=== PATIENT | male | born 1935 | race Caucasian/White ===

== ENCOUNTER → 2017-10-26 14:41 | Outpatient (CLI) | payer MEDICARE, OTHER, SELFPAY ==
--- NOTE | 2017-10-26 | DI.RAD.S_ITS ---
PROCEDURE: XR THORACIC SPINE 2V INDICATIONS: BACK PAIN TECHNIQUE: 3 views of the thoracic spine were acquired. COMPARISON: [facility], CT, ABDOMEN/PELVIS WITH CONTRAST, 04/14/2015, 1:45. [facility], CR, XR LUMBAR SPINE 2-3V, 10/26/2017, 14:47. [facility], CR, THORACIC SPINE 3 VIEWS, 11/03/2006, 10:21. FINDINGS: Bones: No fractures or dislocations. No suspicious bony lesions. Diffuse endplate spurring versus syndesmophyte formation, not well visualized. Diffuse cervical discogenic changes. Soft tissues: No paravertebral stripe thickening. IMPRESSION: Diffuse degenerative changes, not well visualized due to body habitus. Possible syndesmophyte formation raising possibility of ankylosing spondylitis although recommend clinical and laboratory correlation Dictated by: Soy Mosley M.D. on 10/26/2017 at 16:11 Approved by: Soy Mosley M.D. on 10/26/2017 at 16:15
--- NOTE | 2017-10-26 | DI.RAD.S_ITS ---
PROCEDURE: XR LUMBAR SPINE 2-3V INDICATIONS: LOW BACK PAIN TECHNIQUE: 3 views of the lumbar spine were acquired. COMPARISON: [facility], MR, L-SPINE WITHOUT CONTRAST, 05/17/2015, 18:17. FINDINGS: Bones: No fracture or focal osseous destruction. Mild anterior wedging of the L1 vertebral body. This findings technically age-indeterminate. Mild narrowing of L4-L5 and L5-S1 disc spaces diffuse facet arthropathy, most pronounced at L4-S1. There is mild lateral curvature. Sacroiliac joints are not well-visualized although further assessment with cross-sectional imaging could be performed as clinically warranted. Moderate bilateral hip degeneration. Soft tissues: Overlying bowel gas pattern is normal. No suspicious soft tissue calcifications. Scattered aortic calcifications. IMPRESSION: Mild L1 compression fracture, technically age-indeterminate. Please correlate clinically. Lower lumbar degenerative disc disease and diffuse facet arthropathy. Poorly visualized sacroiliac joints which may be partially fused, possibly reflecting sequela of ankylosing spondylitis. Please correlate clinically and with laboratory data. Further assessment with MRI or CT could be performed as clinically warranted. Limited evaluation given body habitus. Dictated by: Soy Mosley M.D. on 10/26/2017 at 16:15 Approved by: Soy Mosley M.D. on 10/26/2017 at 16:18
== END ==
PROVIDERS: Family Provider Internal Medicine; PCP Internal Medicine; Visit Provider Internal Medicine
DX: M54.5 Low back pain (principal)
CPT/HCPCS: 72070; 72100

== ENCOUNTER → 2017-11-02 10:34 | Outpatient (CLI) | payer MEDICARE, OTHER, SELFPAY ==
[2017-11-02 12:08] LABS: BUN Creatinine Ratio 20.7 (6-22); Blood Urea Nitrogen 31 mg/dL (9-20); Carbon Dioxide 31 mmol/L (22-32); Chloride 104 mmol/L (98-107); Glucose 163 mg/dL (80-110); HEMOLYSIS < 15 (0-50); Potassium 4.5 mmol/L (3.4-5.1); Sodium 144 mmol/L (137-145)
[2017-11-02 12:15] LABS: Add Manual Diff / Slide Review NO; Basophils Percent Auto 0.7 % (0-2); Eosinophils Percent Auto 2.8 % (2-4); Hematocrit 42.5 % (41-53); Hemoglobin 14.1 g/dL (13.5-17.5); Mean Corpuscular HGB Conc 33.3 % (30-36); Mean Corpuscular Hemoglobin 28.3 PG (26-34); Mean Corpuscular Volume 85.1 fL (80-100); Neutrophils Absolute Auto 3100 /uL (3000-5900); Neutrophils Percent Auto 64.5 % (50-75); Platelet Count 156 X10^3/uL (150-400); White Blood Cell Count 4.8 X10^3/uL (4.5-11.0)
== END ==
PROVIDERS: Family Provider Internal Medicine; PCP Internal Medicine; Visit Provider Internal Medicine
DX: E11.9 Type 2 diabetes mellitus without complications (principal); N18.3 Chronic kidney disease, stage 3 (moderate)
CPT/HCPCS: 36415; 80048; 83036; 85025

== ENCOUNTER 2017-11-21 13:27 | Inpatient (IN) | payer MEDICARE, OTHER, SELFPAY ==
[2017-11-21] VITALS (12 sets, daily range): BP systolic 98–214; BP diastolic 45–148; PULSE 66–91; RESP 16–27; TEMP 36.3–37.7; O2SAT 87–97; BMI 39.3; BMI 38.4
--- NOTE | 2017-11-21 14:54 | ED.NAVMDI ---
HPI - Nausea/Vomiting/Diarrhea <Kika Yanes PA-C - Last Filed: 11/21/17 21:20> General Chief complaint: Nausea/Vomiting/Diarrhea Stated complaint: N/V Time Seen by Provider: 11/21/17 14:54 Source: patient and family Mode of arrival: EMS Limitations: no limitations History of Present Illness HPI Narrative: Patient comes in via EMS today, called by his son. Patient reported that he had nausea and an episode of vomiting about midnight. He slept until 6:00 a.m., and his son went and found him sleeping in a chair at home. Son states that is not unusual, however states his dad has been ?different? all day today. He noticed that his dad was having some trouble finding words, perhaps very minimal slurred speech. He states this is not particularly unusual for him, however he was more disoriented to the point that he did know the month, which is unusual. Son states that he also seemed weak all over his body and was having more trouble using his walker. No focal weakness noted. No facial weakness. Son states that at lunchtime around noon, patient began vomiting again, multiple episodes, then eyes rolled back and he passed out for a couple of minutes. Son states that when patient came to, he seemed confused for 5 min or more. Son did notice perhaps some slight blood in the later episodes of emesis. He states that his father was slumped in the chair any had to hold him up. He does state that his father's balance is poor at baseline and he is doing therapy for this. He tends to list over to the left side. He was also coughing when he came to, but son does not think he aspirated anything. He states that dad seems closer to baseline now, but still not quite normal in terms of mentation and strength. He notes that his dad has been yawning all day as well. Damián reports that he had a very mild headache last night and currently. He does not note any weakness himself. He denies any chest pain or dyspnea. He denies any abdominal pain but still feels some mild nausea and has had some episodes of vomiting since arrival and in the ambulance. He denies any bowel changes or urinary symptoms. He ate normally yesterday. Related Data Home Medications Medication Instructions Recorded Confirmed atorvastatin 40 mg QPM 11/21/17 11/21/17 clonidine HCl 0.1 mg QAM AND QHS 11/21/17 11/21/17 eplerenone 12.5 mg QAM 11/21/17 11/21/17 escitalopram oxalate 20 mg QAM 11/21/17 11/21/17 ferrous sulfate 325 mg QAM 11/21/17 11/21/17 furosemide 20 mg QAM 11/21/17 11/21/17 glimepiride 1 mg QAM 11/21/17 11/21/17 losartan 50 mg QAM 11/21/17 11/21/17 oxybutynin chloride 10 mg QPM 11/21/17 11/21/17 tamsulosin 0.8 mg QPM 11/21/17 11/21/17 warfarin 2 mg QAM 11/21/17 11/21/17 Allergies Allergy/AdvReac Type Severity Reaction Status Date / Time BCG (Bacillus Allergy Unknown cancer drug Verified 11/21/17 20:49 Calmette-Lico) vacc [From BCG NATALIA VACCINE] Review of Systems <Kika Yanes PA-C - Last Filed: 11/21/17 21:20> Review of Systems All systems reviewed & are unremarkable except as noted in HPI and below Exam <Kika Yanes PA-C - Last Filed: 11/21/17 21:20> Narrative Exam Narrative: GENERAL APPEARANCE: Patient sitting comfortably, in no distress. HEENT: PERRL, EOMI, no scleral icterus, normal oropharynx NECK: Supple, no masses LUNGS: Clear to auscultation bilaterally. HEART: Rate and rhythm irregular with low pitch IV/ murmur ABDOMEN: Soft, obese, nontender, nondistended, bowel sounds present x 4 quadrants, no masses palpable, no hepatosplenomegaly. EXTREMITIES: Trace symmetric pitting edema with venous stasis skin changes, no cyanosis. Ft are warm and pink, no palpable pedal pulses. No calf tenderness DERMATOLOGIC: No jaundice or exanthem NEUROLOGIC: Alert, cranial nerves III-XII grossly intact. Speech and coordination appear normal. Able to maintain position of all extremities without pronator drift RECTAL: Brown stool in vault guaiac-negative Initial Vital Signs Initial Vital Signs: Vital Signs Temperature 99.0 F 11/21/17 13:27 Pulse Rate 76 11/21/17 13:27 Respiratory Rate 16 11/21/17 13:27 Blood Pressure 149/68 H 11/21/17 13:27 Pulse Oximetry 87 L 11/21/17 13:27 <Lucas Browne DO - Last Filed: 11/23/17 07:17> Initial Vital Signs Initial Vital Signs: Vital Signs Temperature 99.0 F 11/21/17 13:27 Pulse Rate 76 11/21/17 13:27 Respiratory Rate 16 11/21/17 13:27 Blood Pressure 149/68 H 11/21/17 13:27 Pulse Oximetry 87 L 11/21/17 13:27 Course <Kika Yanes PA-C - Last Filed: 11/21/17 21:20> Hospital Course: Spoke with Dr. Cassidy. Initially patient was resting comfortably and plan was to admit him for observation for left lower lobe pneumonia. After patient was awakened, he began to have some rigors, coughing with difficulty bringing up sputum, and some hemoptysis. Lungs were clear previously but now had clear left-sided crackles. He had desaturations into the 80% range on 4 L. He was placed on a mask, secretions gently suctioned by nursing, oxygen increased and saturations stabilized in the mid to upper 90s consistently. He did briefly desaturate again when more aggressive suctioning was attempted by Respiratory therapy and he did have more hemoptysis at that time. Suctioning was discontinued. Abnormal blood gas was reviewed and Dr. Browne advised repeat in 45-60 minutes which has been ordered. Advised starting antibiotic. We agree it is more appropriate for patient to be in ICU. Dr. Cassidy was called and informed of these new findings. Blood gas was reviewed. Repeat H&H was ordered due to the hemoptysis. He is agreeable with transferring patient to unit. Currently he is comfortable with oxygen saturations in the mid to upper 90% range on 4 L nasal cannula Orders Ordered: ED Orders 11/23/17 05:32 Basic Metabolic Panel Routine Complete Blood Count AUTO DIFF Routine Prothrombin Time INR Routine Acetaminophen (Tylenol) 650 mg PO Q6H PRN PRN Reason: As Needed for Fever/Mild Pain Last Admin: 11/22/17 17:58 Dose: 650 mg Al Hydrox/Mg Hydrox/Simethicone (Maalox Plus) 30 ml PO Q6H PRN PRN Reason: Dyspepsia Albuterol (Ventolin) 2.5 mg INH RTBID [facility] Last Admin: 11/22/17 19:42 Dose: 2.5 mg Atorvastatin Calcium (Lipitor) 40 mg PO BEDTIME [facility] Last Admin: 11/22/17 20:27 Dose: 40 mg Clonidine HCl (Catapres) 0.1 mg PO BID [facility] Last Admin: 11/22/17 20:28 Dose: 0.1 mg Admin: 11/22/17 09:09 Dose: 0.1 mg Admin: 11/21/17 22:17 Dose: 0.1 mg Dextrose (D50w) 25 gm IV PRN PRN; Protocol PRN Reason: Hypoglycemia Eplerenone (Inspra) 12.5 mg PO DAILY [facility] Last Admin: 11/22/17 09:09 Dose: 12.5 mg Admin: 11/21/17 22:17 Dose: Escitalopram Oxalate (Lexapro) 20 mg PO DAILY [facility] Last Admin: 11/22/17 09:09 Dose: 20 mg Admin: 11/21/17 22:18 Dose: 20 mg Furosemide (Lasix) 20 mg PO DAILY [facility] Last Admin: 11/22/17 09:08 Dose: 20 mg Admin: 11/21/17 22:18 Dose: 20 mg Glimepiride (Amaryl) 1 mg PO DAILY [facility] Last Admin: 11/22/17 09:08 Dose: 1 mg Admin: 11/21/17 22:18 Dose: Ceftriaxone Sodium/Dextrose (Rocephin) 1 gm in 50 mls @ 100 mls/hr IV Q24H [facility] Last Admin: 11/22/17 22:04 Dose: 100 mls/hr Azithromycin 250 mg/ Dextrose 250 mls @ 250 mls/hr IV Q24H [facility] Last Infusion: 11/22/17 22:13 Dose: 0 mls/hr Admin: 11/22/17 20:26 Dose: 250 mls/hr Insulin Aspart (Novolog Flexpen) 0 unit SUBCUT ACHS [facility]; Protocol Last Admin: 11/22/17 20:44 Dose: Not Given Admin: 11/22/17 17:59 Dose: Not Given Admin: 11/22/17 14:03 Dose: Not Given Losartan Potassium (Cozaar) 50 mg PO DAILY [facility] Last Admin: 11/22/17 09:09 Dose: 50 mg Admin: 11/21/17 22:18 Dose: 50 mg Ondansetron HCl (Zofran) 4 mg IV Q8H PRN PRN Reason: Nausea And Vomiting Tamsulosin HCl (Flomax) 0.8 mg PO BEDTIME [facility] Last Admin: 11/22/17 21:07 Dose: 0.8 mg Warfarin Sodium (Coumadin) 2 mg PO QPM [facility] Last Admin: 11/21/17 22:19 Dose: Discontinued Medications Atorvastatin Calcium (Lipitor) 40 mg PO QPM [facility] Last Admin: 11/22/17 20:53 Dose: Ceftriaxone Sodium/Dextrose (Rocephin) 1 gm in 50 mls @ 100 mls/hr IV NOW ONE Stop: 11/21/17 19:49 Last Infusion: 11/21/17 20:50 Dose: 0 mls/hr Admin: 11/21/17 20:09 Dose: 100 mls/hr Azithromycin 500 mg/ Dextrose 250 mls @ 250 mls/hr IV NOW ONE Stop: 11/21/17 19:21 Last Infusion: 11/21/17 21:48 Dose: 0 mls/hr Admin: 11/21/17 20:50 Dose: 250 mls/hr Sodium Chloride (Normal Saline 0.9%) 1,000 mls @ 100 mls/hr IV CONT [facility] Last Admin: 11/22/17 09:12 Dose: 100 mls/hr Infusion: 11/22/17 09:12 Dose: 100 mls/hr Admin: 11/21/17 23:48 Dose: 100 mls/hr Tamsulosin HCl (Flomax) 0.8 mg PO QPM [facility] Last Admin: 11/22/17 20:53 Dose: Tamsulosin HCl (Flomax) 0.4 mg PO BEDTIME [facility] Vital Signs - 8 hr 11/22/17 23:40 11/23/17 00:30 11/23/17 04:22 Temperature 98.5 F 98.7 F Pulse Rate 67 68 Respiratory Rate 16 16 Blood Pressure 123/62 H 146/71 H Pulse Oximetry 92 93 95 <Lucas Browne, DO - Last Filed: 11/23/17 07:17> Orders Ordered: ED Orders 11/23/17 05:32 Basic Metabolic Panel Routine Complete Blood Count AUTO DIFF Routine Prothrombin Time INR Routine Acetaminophen (Tylenol) 650 mg PO Q6H PRN PRN Reason: As Needed for Fever/Mild Pain Last Admin: 11/22/17 17:58 Dose: 650 mg Al Hydrox/Mg Hydrox/Simethicone (Maalox Plus) 30 ml PO Q6H PRN PRN Reason: Dyspepsia Albuterol (Ventolin) 2.5 mg INH RTBID [facility] Last Admin: 11/22/17 19:42 Dose: 2.5 mg Atorvastatin Calcium (Lipitor) 40 mg PO BEDTIME [facility] Last Admin: 11/22/17 20:27 Dose: 40 mg Clonidine HCl (Catapres) 0.1 mg PO BID [facility] Last Admin: 11/22/17 20:28 Dose: 0.1 mg Admin: 11/22/17 09:09 Dose: 0.1 mg Admin: 11/21/17 22:17 Dose: 0.1 mg Dextrose (D50w) 25 gm IV PRN PRN; Protocol PRN Reason: Hypoglycemia Eplerenone (Inspra) 12.5 mg PO DAILY [facility] Last Admin: 11/22/17 09:09 Dose: 12.5 mg Admin: 11/21/17 22:17 Dose: Escitalopram Oxalate (Lexapro) 20 mg PO DAILY [facility] Last Admin: 11/22/17 09:09 Dose: 20 mg Admin: 11/21/17 22:18 Dose: 20 mg Furosemide (Lasix) 20 mg PO DAILY [facility] Last Admin: 11/22/17 09:08 Dose: 20 mg Admin: 11/21/17 22:18 Dose: 20 mg Glimepiride (Amaryl) 1 mg PO DAILY [facility] Last Admin: 11/22/17 09:08 Dose: 1 mg Admin: 11/21/17 22:18 Dose: Ceftriaxone Sodium/Dextrose (Rocephin) 1 gm in 50 mls @ 100 mls/hr IV Q24H [facility] Last Admin: 11/22/17 22:04 Dose: 100 mls/hr Azithromycin 250 mg/ Dextrose 250 mls @ 250 mls/hr IV Q24H [facility] Last Infusion: 11/22/17 22:13 Dose: 0 mls/hr Admin: 11/22/17 20:26 Dose: 250 mls/hr Insulin Aspart (Novolog Flexpen) 0 unit SUBCUT ACHS [facility]; Protocol Last Admin: 11/22/17 20:44 Dose: Not Given Admin: 11/22/17 17:59 Dose: Not Given Admin: 11/22/17 14:03 Dose: Not Given Losartan Potassium (Cozaar) 50 mg PO DAILY [facility] Last Admin: 11/22/17 09:09 Dose: 50 mg Admin: 11/21/17 22:18 Dose: 50 mg Ondansetron HCl (Zofran) 4 mg IV Q8H PRN PRN Reason: Nausea And Vomiting Tamsulosin HCl (Flomax) 0.8 mg PO BEDTIME [facility] Last Admin: 11/22/17 21:07 Dose: 0.8 mg Warfarin Sodium (Coumadin) 2 mg PO QPM [facility] Last Admin: 11/21/17 22:19 Dose: Discontinued Medications Atorvastatin Calcium (Lipitor) 40 mg PO QPM [facility] Last Admin: 11/22/17 20:53 Dose: Ceftriaxone Sodium/Dextrose (Rocephin) 1 gm in 50 mls @ 100 mls/hr IV NOW ONE Stop: 11/21/17 19:49 Last Infusion: 11/21/17 20:50 Dose: 0 mls/hr Admin: 11/21/17 20:09 Dose: 100 mls/hr Azithromycin 500 mg/ Dextrose 250 mls @ 250 mls/hr IV NOW ONE Stop: 11/21/17 19:21 Last Infusion: 11/21/17 21:48 Dose: 0 mls/hr Admin: 11/21/17 20:50 Dose: 250 mls/hr Sodium Chloride (Normal Saline 0.9%) 1,000 mls @ 100 mls/hr IV CONT [facility] Last Admin: 11/22/17 09:12 Dose: 100 mls/hr Infusion: 11/22/17 09:12 Dose: 100 mls/hr Admin: 11/21/17 23:48 Dose: 100 mls/hr Tamsulosin HCl (Flomax) 0.8 mg PO QPM [facility] Last Admin: 11/22/17 20:53 Dose: Tamsulosin HCl (Flomax) 0.4 mg PO BEDTIME [facility] Vital Signs - 8 hr 11/22/17 23:40 11/23/17 00:30 11/23/17 04:22 Temperature 98.5 F 98.7 F Pulse Rate 67 68 Respiratory Rate 16 16 Blood Pressure 123/62 H 146/71 H Pulse Oximetry 92 93 95 MDM - Nausea/Vomiting/Diarrhea <Kika Yanes PA-C - Last Filed: 11/21/17 21:20> Lab Data Attestation: I reviewed the patient's lab results. Result diagrams: 11/23/17 05:32 11/23/17 05:32 Lab Results 11/21/17 11/21/17 11/21/17 Range/Units 14:50 14:50 14:50 WBC 15.4 H (4.5-11.0) X10^3/uL RBC 4.89 (4.5-5.9) X10^6/uL Hgb 13.8 (13.5-17.5) g/dL Hct 42.3 (41-53) % MCV 86.5 (80-100) fL MCH 28.2 (26-34) PG MCHC 32.6 (30-36) % RDW 17.0 H (11.6-14.8) % Plt Count 120 L (150-400) X10^3/uL Neut % (Auto) 88.7 H (50-75) % Lymph % (Auto) 2.1 L (25-40) % Pender % (Auto) 8.9 (3-14) % Eos % (Auto) 0.1 L (2-4) % Baso % (Auto) 0.2 (0-2) % Neut # (Auto) 94671 H (6138-1578) /uL PT (10.1-12.7) SECONDS INR (0.9-1.3) APTT (26.4-36.2) SECONDS ABG pH (7.35-7.45) ABG pCO2 (35-45) mmHg ABG pO2 (80-105) mmHg ABG HCO3 (23-27) mmol/L ABG Total CO2 (23-27) mmol/L ABG O2 Saturation (95-100) % ABG Base Excess (-2-3) mmol/L FiO2 Sodium 141 (137-145) mmol/L Potassium 4.4 (3.4-5.1) mmol/L Chloride 102 (98-107) mmol/L Carbon Dioxide 30 (22-32) mmol/L BUN 25 H (9-20) mg/dL Creatinine 1.60 H (0.66-1.25) mg/dL Estimated GFR 41.8 L (>60) mL/min BUN/Creatinine Ratio 15.6 (6-22) Glucose 125 H (80-110) mg/dL Lactate 0.9 (0.7-2.1) mmol/L Calcium 8.5 (8.4-10.2) mg/dL Total Bilirubin 1.2 (0.2-1.3) mg/dL AST 24 (17-59) IU/L ALT 39 (21-72) IU/L Alkaline Phosphatase 67 (38-126) U/L B-Natriuretic Peptide (<100) Total Protein 6.5 (6.3-8.2) g/dL Albumin 3.9 (3.5-5.0) g/dL Globulin 2.6 (1.7-4.1) g/dL Albumin/Globulin Ratio 1.5 (1.0-2.8) Lipase (23-300) U/L Procalcitonin (<0.5) ng/mL Urine Color Urine Appearance Urine pH (4.5-8.0) Ur Specific Bertrand (1.000-1.035) Urine Protein (Negative) Urine Glucose (UA) (Normal) g/dL Urine Ketones (NEGATIVE) Urine Occult Blood (Negative) Urine Nitrate (Negative) Urine Bilirubin (NEGATIVE) Urine Urobilinogen (0.2) E.U./dL Ur Leukocyte Esterase (NEGATIVE) Urine RBC (0-5/HPF) Urine WBC (0-5/HPF) Urine Bacteria (None) Ur Culture Indicated? Micro UA Comment Nasal Screen MRSA (PCR) (Negative) 11/21/17 11/21/17 11/21/17 Range/Units 14:50 14:50 14:50 WBC (4.5-11.0) X10^3/uL RBC (4.5-5.9) X10^6/uL Hgb (13.5-17.5) g/dL Hct (41-53) % MCV (80-100) fL MCH (26-34) PG MCHC (30-36) % RDW (11.6-14.8) % Plt Count (150-400) X10^3/uL Neut % (Auto) (50-75) % Lymph % (Auto) (25-40) % Pender % (Auto) (3-14) % Eos % (Auto) (2-4) % Baso % (Auto) (0-2) % Neut # (Auto) (4485-8460) /uL PT 39.4 H (10.1-12.7) SECONDS INR 3.7 H (0.9-1.3) APTT 50 H (26.4-36.2) SECONDS ABG pH (7.35-7.45) ABG pCO2 (35-45) mmHg ABG pO2 (80-105) mmHg ABG HCO3 (23-27) mmol/L ABG Total CO2 (23-27) mmol/L ABG O2 Saturation (95-100) % ABG Base Excess (-2-3) mmol/L FiO2 Sodium (137-145) mmol/L Potassium (3.4-5.1) mmol/L Chloride (98-107) mmol/L Carbon Dioxide (22-32) mmol/L BUN (9-20) mg/dL Creatinine (0.66-1.25) mg/dL Estimated GFR (>60) mL/min BUN/Creatinine Ratio (6-22) Glucose (80-110) mg/dL Lactate (0.7-2.1) mmol/L Calcium (8.4-10.2) mg/dL Total Bilirubin (0.2-1.3) mg/dL AST (17-59) IU/L ALT (21-72) IU/L Alkaline Phosphatase (38-126) U/L B-Natriuretic Peptide (<100) Total Protein (6.3-8.2) g/dL Albumin (3.5-5.0) g/dL Globulin (1.7-4.1) g/dL Albumin/Globulin Ratio (1.0-2.8) Lipase < 10 L (23-300) U/L Procalcitonin 0.29 (<0.5) ng/mL Urine Color Urine Appearance Urine pH (4.5-8.0) Ur Specific Bertrand (1.000-1.035) Urine Protein (Negative) Urine Glucose (UA) (Normal) g/dL Urine Ketones (NEGATIVE) Urine Occult Blood (Negative) Urine Nitrate (Negative) Urine Bilirubin (NEGATIVE) Urine Urobilinogen (0.2) E.U./dL Ur Leukocyte Esterase (NEGATIVE) Urine RBC (0-5/HPF) Urine WBC (0-5/HPF) Urine Bacteria (None) Ur Culture Indicated? Micro UA Comment Nasal Screen MRSA (PCR) (Negative) 06/24/18 06/24/18 06/24/18 Range/Units 14:50 18:27 18:35 WBC (4.5-11.0) X10^3/uL RBC (4.5-5.9) X10^6/uL Hgb (13.5-17.5) g/dL Hct (41-53) % MCV (80-100) fL MCH (26-34) PG MCHC (30-36) % RDW (11.6-14.8) % Plt Count (150-400) X10^3/uL Neut % (Auto) (50-75) % Lymph % (Auto) (25-40) % Pender % (Auto) (3-14) % Eos % (Auto) (2-4) % Baso % (Auto) (0-2) % Neut # (Auto) (0468-4767) /uL PT (10.1-12.7) SECONDS INR (0.9-1.3) APTT (26.4-36.2) SECONDS ABG pH 7.29 L (7.35-7.45) ABG pCO2 58.8 H (35-45) mmHg ABG pO2 116 H (80-105) mmHg ABG HCO3 28 H (23-27) mmol/L ABG Total CO2 30 H (23-27) mmol/L ABG O2 Saturation 98 (95-100) % ABG Base Excess 1.0 (-2-3) mmol/L FiO2 90 Sodium (137-145) mmol/L Potassium (3.4-5.1) mmol/L Chloride (98-107) mmol/L Carbon Dioxide (22-32) mmol/L BUN (9-20) mg/dL Creatinine (0.66-1.25) mg/dL Estimated GFR (>60) mL/min BUN/Creatinine Ratio (6-22) Glucose (80-110) mg/dL Lactate (0.7-2.1) mmol/L Calcium (8.4-10.2) mg/dL Total Bilirubin (0.2-1.3) mg/dL AST (17-59) IU/L ALT (21-72) IU/L Alkaline Phosphatase (38-126) U/L B-Natriuretic Peptide 313.0 H (<100) Total Protein (6.3-8.2) g/dL Albumin (3.5-5.0) g/dL Globulin (1.7-4.1) g/dL Albumin/Globulin Ratio (1.0-2.8) Lipase (23-300) U/L Procalcitonin (<0.5) ng/mL Urine Color Yellow Urine Appearance Cloudy Urine pH 5.0 (4.5-8.0) Ur Specific Bertrand 1.025 (1.000-1.035) Urine Protein 2+ H (Negative) Urine Glucose (UA) Negative (Normal) g/dL Urine Ketones Negative (NEGATIVE) Urine Occult Blood 3+ H (Negative) Urine Nitrate Positive (Negative) Urine Bilirubin Negative (NEGATIVE) Urine Urobilinogen 0.2 (0.2) E.U./dL Ur Leukocyte Esterase 2+ H (NEGATIVE) Urine RBC >100/hpf (0-5/HPF) Urine WBC >100/hpf H (0-5/HPF) Urine Bacteria Many (>30) H (None) Ur Culture Indicated? Specimen cultured Micro UA Comment Not Reportable Nasal Screen MRSA (PCR) (Negative) 11/21/17 11/21/17 11/22/17 Range/Units 21:10 22:37 04:50 WBC (4.5-11.0) X10^3/uL RBC (4.5-5.9) X10^6/uL Hgb (13.5-17.5) g/dL Hct (41-53) % MCV (80-100) fL MCH (26-34) PG MCHC (30-36) % RDW (11.6-14.8) % Plt Count (150-400) X10^3/uL Neut % (Auto) (50-75) % Lymph % (Auto) (25-40) % Pender % (Auto) (3-14) % Eos % (Auto) (2-4) % Baso % (Auto) (0-2) % Neut # (Auto) (9209-3307) /uL PT 47.2 H D (10.1-12.7) SECONDS INR 4.4 H (0.9-1.3) APTT (26.4-36.2) SECONDS ABG pH 7.36 (7.35-7.45) ABG pCO2 50.8 H (35-45) mmHg ABG pO2 94 (80-105) mmHg ABG HCO3 29 H (23-27) mmol/L ABG Total CO2 30 H (23-27) mmol/L ABG O2 Saturation 97 (95-100) % ABG Base Excess 3.0 (-2-3) mmol/L FiO2 36 Sodium (137-145) mmol/L Potassium (3.4-5.1) mmol/L Chloride (98-107) mmol/L Carbon Dioxide (22-32) mmol/L BUN (9-20) mg/dL Creatinine (0.66-1.25) mg/dL Estimated GFR (>60) mL/min BUN/Creatinine Ratio (6-22) Glucose (80-110) mg/dL Lactate (0.7-2.1) mmol/L Calcium (8.4-10.2) mg/dL Total Bilirubin (0.2-1.3) mg/dL AST (17-59) IU/L ALT (21-72) IU/L Alkaline Phosphatase (38-126) U/L B-Natriuretic Peptide (<100) Total Protein (6.3-8.2) g/dL Albumin (3.5-5.0) g/dL Globulin (1.7-4.1) g/dL Albumin/Globulin Ratio (1.0-2.8) Lipase (23-300) U/L Procalcitonin (<0.5) ng/mL Urine Color Urine Appearance Urine pH (4.5-8.0) Ur Specific Bertrand (1.000-1.035) Urine Protein (Negative) Urine Glucose (UA) (Normal) g/dL Urine Ketones (NEGATIVE) Urine Occult Blood (Negative) Urine Nitrate (Negative) Urine Bilirubin (NEGATIVE) Urine Urobilinogen (0.2) E.U./dL Ur Leukocyte Esterase (NEGATIVE) Urine RBC (0-5/HPF) Urine WBC (0-5/HPF) Urine Bacteria (None) Ur Culture Indicated? Micro UA Comment Nasal Screen MRSA (PCR) Negative for mrsa (Negative) 11/22/17 11/23/17 11/23/17 Range/Units 04:50 05:32 05:32 WBC 12.1 H (4.5-11.0) X10^3/uL RBC 4.22 L (4.5-5.9) X10^6/uL Hgb 12.1 L (13.5-17.5) g/dL Hct 36.7 L (41-53) % MCV 86.9 (80-100) fL MCH 28.6 (26-34) PG MCHC 33.0 (30-36) % RDW 17.0 H (11.6-14.8) % Plt Count 96 L (150-400) X10^3/uL Neut % (Auto) 84.3 H (50-75) % Lymph % (Auto) 5.2 L (25-40) % Pender % (Auto) 9.7 (3-14) % Eos % (Auto) 0.6 L (2-4) % Baso % (Auto) 0.2 (0-2) % Neut # (Auto) 42479 H (5636-4525) /uL PT 37.6 H D (10.1-12.7) SECONDS INR 3.5 H (0.9-1.3) APTT (26.4-36.2) SECONDS ABG pH (7.35-7.45) ABG pCO2 (35-45) mmHg ABG pO2 (80-105) mmHg ABG HCO3 (23-27) mmol/L ABG Total CO2 (23-27) mmol/L ABG O2 Saturation (95-100) % ABG Base Excess (-2-3) mmol/L FiO2 Sodium 141 (137-145) mmol/L Potassium 4.3 (3.4-5.1) mmol/L Chloride 103 (98-107) mmol/L Carbon Dioxide 28 (22-32) mmol/L BUN 32 H (9-20) mg/dL Creatinine 1.70 H (0.66-1.25) mg/dL Estimated GFR 39.0 L (>60) mL/min BUN/Creatinine Ratio 18.8 (6-22) Glucose 117 H (80-110) mg/dL Lactate (0.7-2.1) mmol/L Calcium 8.1 L (8.4-10.2) mg/dL Total Bilirubin 1.0 (0.2-1.3) mg/dL AST 22 (17-59) IU/L ALT 38 (21-72) IU/L Alkaline Phosphatase 59 (38-126) U/L B-Natriuretic Peptide (<100) Total Protein 6.2 L (6.3-8.2) g/dL Albumin 3.5 (3.5-5.0) g/dL Globulin 2.7 (1.7-4.1) g/dL Albumin/Globulin Ratio 1.3 (1.0-2.8) Lipase (23-300) U/L Procalcitonin (<0.5) ng/mL Urine Color Urine Appearance Urine pH (4.5-8.0) Ur Specific Bertrand (1.000-1.035) Urine Protein (Negative) Urine Glucose (UA) (Normal) g/dL Urine Ketones (NEGATIVE) Urine Occult Blood (Negative) Urine Nitrate (Negative) Urine Bilirubin (NEGATIVE) Urine Urobilinogen (0.2) E.U./dL Ur Leukocyte Esterase (NEGATIVE) Urine RBC (0-5/HPF) Urine WBC (0-5/HPF) Urine Bacteria (None) Ur Culture Indicated? Micro UA Comment Nasal Screen MRSA (PCR) (Negative) 11/23/17 Range/Units 05:32 WBC (4.5-11.0) X10^3/uL RBC (4.5-5.9) X10^6/uL Hgb (13.5-17.5) g/dL Hct (41-53) % MCV (80-100) fL MCH (26-34) PG MCHC (30-36) % RDW (11.6-14.8) % Plt Count (150-400) X10^3/uL Neut % (Auto) (50-75) % Lymph % (Auto) (25-40) % Pender % (Auto) (3-14) % Eos % (Auto) (2-4) % Baso % (Auto) (0-2) % Neut # (Auto) (7330-1036) /uL PT (10.1-12.7) SECONDS INR (0.9-1.3) APTT (26.4-36.2) SECONDS ABG pH (7.35-7.45) ABG pCO2 (35-45) mmHg ABG pO2 (80-105) mmHg ABG HCO3 (23-27) mmol/L ABG Total CO2 (23-27) mmol/L ABG O2 Saturation (95-100) % ABG Base Excess (-2-3) mmol/L FiO2 Sodium 137 (137-145) mmol/L Potassium 4.0 (3.4-5.1) mmol/L Chloride 103 (98-107) mmol/L Carbon Dioxide 26 (22-32) mmol/L BUN 38 H (9-20) mg/dL Creatinine 1.60 H (0.66-1.25) mg/dL Estimated GFR 41.8 L (>60) mL/min BUN/Creatinine Ratio 23.8 H (6-22) Glucose 60 L (80-110) mg/dL Lactate (0.7-2.1) mmol/L Calcium 8.0 L (8.4-10.2) mg/dL Total Bilirubin (0.2-1.3) mg/dL AST (17-59) IU/L ALT (21-72) IU/L Alkaline Phosphatase (38-126) U/L B-Natriuretic Peptide (<100) Total Protein (6.3-8.2) g/dL Albumin (3.5-5.0) g/dL Globulin (1.7-4.1) g/dL Albumin/Globulin Ratio (1.0-2.8) Lipase (23-300) U/L Procalcitonin (<0.5) ng/mL Urine Color Urine Appearance Urine pH (4.5-8.0) Ur Specific Bertrand (1.000-1.035) Urine Protein (Negative) Urine Glucose (UA) (Normal) g/dL Urine Ketones (NEGATIVE) Urine Occult Blood (Negative) Urine Nitrate (Negative) Urine Bilirubin (NEGATIVE) Urine Urobilinogen (0.2) E.U./dL Ur Leukocyte Esterase (NEGATIVE) Urine RBC (0-5/HPF) Urine WBC (0-5/HPF) Urine Bacteria (None) Ur Culture Indicated? Micro UA Comment Nasal Screen MRSA (PCR) (Negative) ABG pH: 7.287, pCO2 58.8, PO2 116, H CO3 28.[address] scan - head: Radiologist's impression: View Report History [address] [address] [address] Scan Report Signed Patient: Damián Garrett MR#: [id number] : 1935 Acct:[id number] Age/Sex: 82 / M Date of Service: 11/21/17 Loc: ED Accession Number: [id number] Procedure: CT head/brain wo con Ordering Provider: Kika Yanes P.A-C PROCEDURE: CT HEAD/BRAIN WO CON INDICATIONS: LOC, confusion TECHNIQUE: Noncontrast 4.5 mm thick angled axial sections acquired from the foramen magnum to the vertex, with coronal and sagittal reformats. For radiation dose reduction, the following was used: automated exposure control, adjustment of mA and/or kV according to patient size. COMPARISON: [facility], MR, STROKE PROTOCOL, 04/10/2016, 11:36. [facility], CT, HEAD WITHOUT CONTRAST, 04/18/2016, 5:33. FINDINGS: Image quality: Excellent. CSF spaces: Basal cisterns are patent. No extra-axial fluid collections. The ventricles are symmetric in size and shape. Brain: No intracranial bleeds or masses. There is cerebral volume loss for age, with resultant ventricular and sulcal prominence. There are periventricular and deep white matter chronic small vessel ischemic changes. There is intracranial internal carotid artery atherosclerosis. Skull and face: Calvarium and visualized facial bones appear intact, without suspicious lesions. Sinuses: Visualized sinuses and mastoids are clear. IMPRESSION: 1. No acute intracranial abnormalities. 2. Cerebral volume loss and chronic microvascular ischemic changes. Dictated by: Renato Zaman M.D. on 11/21/2017 at 15:55 Approved by: Renato Zaman M.D. on 11/21/2017 at 15:58 Chest x-ray: Radiologist's impression: View Report History Print [address] [address] XRay Report Signed Patient: Damián Garrett MR#: [id number] : 1935 Acct:[id number] Age/Sex: 82 / M Date of Service: 11/21/17 Loc: ED Accession Number: [id number] Procedure: XR chest 1V Ordering Provider: Kika Yanes P.A-C PROCEDURE: XR CHEST 1V INDICATIONS: cough TECHNIQUE: One view of the chest was acquired. COMPARISON: [facility], CR, CHEST 1 VIEW, 04/18/2016, 7:06. FINDINGS: Surgical changes and devices: None. Lungs and pleura: Left basilar opacities consistent with pneumonia. Mild perihilar infiltrates bilaterally. No pleural effusions or pneumothorax. Mediastinum: Mediastinal contours appear normal. Heart size is prominent. Bones and chest wall: No suspicious bony lesions. Overlying soft tissues appear unremarkable. IMPRESSION: 1. Left lower lobe pneumonia. Recommend followup to resolution is superimposed mass cannot recently. 2. Mild perihilar infiltrates bilaterally may be secondary to superimposed CHF. Dictated by: Renato Zaman M.D. on 11/21/2017 at 16:09 Approved by: Renato Zaman M.D. on 11/21/2017 at 16:10 ECG Data Attestation: I personally reviewed and interpreted this ECG as follows: (Atrial fibrillation rate 65, no acute changes from 04/15) Prior ECG tracings: available for review <Lucas Browne DO - Last Filed: 11/23/17 07:17> Lab Data Lab Results 11/21/17 11/21/17 11/21/17 Range/Units 14:50 14:50 14:50 WBC 15.4 H (4.5-11.0) X10^3/uL RBC 4.89 (4.5-5.9) X10^6/uL Hgb 13.8 (13.5-17.5) g/dL Hct 42.3 (41-53) % MCV 86.5 (80-100) fL MCH 28.2 (26-34) PG MCHC 32.6 (30-36) % RDW 17.0 H (11.6-14.8) % Plt Count 120 L (150-400) X10^3/uL Neut % (Auto) 88.7 H (50-75) % Lymph % (Auto) 2.1 L (25-40) % Pender % (Auto) 8.9 (3-14) % Eos % (Auto) 0.1 L (2-4) % Baso % (Auto) 0.2 (0-2) % Neut # (Auto) 11769 H (4910-4143) /uL PT (10.1-12.7) SECONDS INR (0.9-1.3) APTT (26.4-36.2) SECONDS ABG pH (7.35-7.45) ABG pCO2 (35-45) mmHg ABG pO2 (80-105) mmHg ABG HCO3 (23-27) mmol/L ABG Total CO2 (23-27) mmol/L ABG O2 Saturation (95-100) % ABG Base Excess (-2-3) mmol/L FiO2 Sodium 141 (137-145) mmol/L Potassium 4.4 (3.4-5.1) mmol/L Chloride 102 (98-107) mmol/L Carbon Dioxide 30 (22-32) mmol/L BUN 25 H (9-20) mg/dL Creatinine 1.60 H (0.66-1.25) mg/dL Estimated GFR 41.8 L (>60) mL/min BUN/Creatinine Ratio 15.6 (6-22) Glucose 125 H (80-110) mg/dL Lactate 0.9 (0.7-2.1) mmol/L Calcium 8.5 (8.4-10.2) mg/dL Total Bilirubin 1.2 (0.2-1.3) mg/dL AST 24 (17-59) IU/L ALT 39 (21-72) IU/L Alkaline Phosphatase 67 (38-126) U/L B-Natriuretic Peptide (<100) Total Protein 6.5 (6.3-8.2) g/dL Albumin 3.9 (3.5-5.0) g/dL Globulin 2.6 (1.7-4.1) g/dL Albumin/Globulin Ratio 1.5 (1.0-2.8) Lipase (23-300) U/L Procalcitonin (<0.5) ng/mL Urine Color Urine Appearance Urine pH (4.5-8.0) Ur Specific Bertrand (1.000-1.035) Urine Protein (Negative) Urine Glucose (UA) (Normal) g/dL Urine Ketones (NEGATIVE) Urine Occult Blood (Negative) Urine Nitrate (Negative) Urine Bilirubin (NEGATIVE) Urine Urobilinogen (0.2) E.U./dL Ur Leukocyte Esterase (NEGATIVE) Urine RBC (0-5/HPF) Urine WBC (0-5/HPF) Urine Bacteria (None) Ur Culture Indicated? Micro UA Comment Nasal Screen MRSA (PCR) (Negative) 11/21/17 11/21/17 11/21/17 Range/Units 14:50 14:50 14:50 WBC (4.5-11.0) X10^3/uL RBC (4.5-5.9) X10^6/uL Hgb (13.5-17.5) g/dL Hct (41-53) % MCV (80-100) fL MCH (26-34) PG MCHC (30-36) % RDW (11.6-14.8) % Plt Count (150-400) X10^3/uL Neut % (Auto) (50-75) % Lymph % (Auto) (25-40) % Pender % (Auto) (3-14) % Eos % (Auto) (2-4) % Baso % (Auto) (0-2) % Neut # (Auto) (5862-7176) /uL PT 39.4 H (10.1-12.7) SECONDS INR 3.7 H (0.9-1.3) APTT 50 H (26.4-36.2) SECONDS ABG pH (7.35-7.45) ABG pCO2 (35-45) mmHg ABG pO2 (80-105) mmHg ABG HCO3 (23-27) mmol/L ABG Total CO2 (23-27) mmol/L ABG O2 Saturation (95-100) % ABG Base Excess (-2-3) mmol/L FiO2 Sodium (137-145) mmol/L Potassium (3.4-5.1) mmol/L Chloride (98-107) mmol/L Carbon Dioxide (22-32) mmol/L BUN (9-20) mg/dL Creatinine (0.66-1.25) mg/dL Estimated GFR (>60) mL/min BUN/Creatinine Ratio (6-22) Glucose (80-110) mg/dL Lactate (0.7-2.1) mmol/L Calcium (8.4-10.2) mg/dL Total Bilirubin (0.2-1.3) mg/dL AST (17-59) IU/L ALT (21-72) IU/L Alkaline Phosphatase (38-126) U/L B-Natriuretic Peptide (<100) Total Protein (6.3-8.2) g/dL Albumin (3.5-5.0) g/dL Globulin (1.7-4.1) g/dL Albumin/Globulin Ratio (1.0-2.8) Lipase < 10 L (23-300) U/L Procalcitonin 0.29 (<0.5) ng/mL Urine Color Urine Appearance Urine pH (4.5-8.0) Ur Specific Bertrand (1.000-1.035) Urine Protein (Negative) Urine Glucose (UA) (Normal) g/dL Urine Ketones (NEGATIVE) Urine Occult Blood (Negative) Urine Nitrate (Negative) Urine Bilirubin (NEGATIVE) Urine Urobilinogen (0.2) E.U./dL Ur Leukocyte Esterase (NEGATIVE) Urine RBC (0-5/HPF) Urine WBC (0-5/HPF) Urine Bacteria (None) Ur Culture Indicated? Micro UA Comment Nasal Screen MRSA (PCR) (Negative) 11/21/17 11/21/17 11/21/17 Range/Units 14:50 18:27 18:35 WBC (4.5-11.0) X10^3/uL RBC (4.5-5.9) X10^6/uL Hgb (13.5-17.5) g/dL Hct (41-53) % MCV (80-100) fL MCH (26-34) PG MCHC (30-36) % RDW (11.6-14.8) % Plt Count (150-400) X10^3/uL Neut % (Auto) (50-75) % Lymph % (Auto) (25-40) % Pender % (Auto) (3-14) % Eos % (Auto) (2-4) % Baso % (Auto) (0-2) % Neut # (Auto) (3939-6108) /uL PT (10.1-12.7) SECONDS INR (0.9-1.3) APTT (26.4-36.2) SECONDS ABG pH 7.29 L (7.35-7.45) ABG pCO2 58.8 H (35-45) mmHg ABG pO2 116 H (80-105) mmHg ABG HCO3 28 H (23-27) mmol/L ABG Total CO2 30 H (23-27) mmol/L ABG O2 Saturation 98 (95-100) % ABG Base Excess 1.0 (-2-3) mmol/L FiO2 90 Sodium (137-145) mmol/L Potassium (3.4-5.1) mmol/L Chloride (98-107) mmol/L Carbon Dioxide (22-32) mmol/L BUN (9-20) mg/dL Creatinine (0.66-1.25) mg/dL Estimated GFR (>60) mL/min BUN/Creatinine Ratio (6-22) Glucose (80-110) mg/dL Lactate (0.7-2.1) mmol/L Calcium (8.4-10.2) mg/dL Total Bilirubin (0.2-1.3) mg/dL AST (17-59) IU/L ALT (21-72) IU/L Alkaline Phosphatase (38-126) U/L B-Natriuretic Peptide 313.0 H (<100) Total Protein (6.3-8.2) g/dL Albumin (3.5-5.0) g/dL Globulin (1.7-4.1) g/dL Albumin/Globulin Ratio (1.0-2.8) Lipase (23-300) U/L Procalcitonin (<0.5) ng/mL Urine Color Yellow Urine Appearance Cloudy Urine pH 5.0 (4.5-8.0) Ur Specific Bertrand 1.025 (1.000-1.035) Urine Protein 2+ H (Negative) Urine Glucose (UA) Negative (Normal) g/dL Urine Ketones Negative (NEGATIVE) Urine Occult Blood 3+ H (Negative) Urine Nitrate Positive (Negative) Urine Bilirubin Negative (NEGATIVE) Urine Urobilinogen 0.2 (0.2) E.U./dL Ur Leukocyte Esterase 2+ H (NEGATIVE) Urine RBC >100/hpf (0-5/HPF) Urine WBC >100/hpf H (0-5/HPF) Urine Bacteria Many (>30) H (None) Ur Culture Indicated? Specimen cultured Micro UA Comment Not Reportable Nasal Screen MRSA (PCR) (Negative) 11/21/17 11/21/17 11/22/17 Range/Units 21:10 22:37 04:50 WBC (4.5-11.0) X10^3/uL RBC (4.5-5.9) X10^6/uL Hgb (13.5-17.5) g/dL Hct (41-53) % MCV (80-100) fL MCH (26-34) PG MCHC (30-36) % RDW (11.6-14.8) % Plt Count (150-400) X10^3/uL Neut % (Auto) (50-75) % Lymph % (Auto) (25-40) % Pender % (Auto) (3-14) % Eos % (Auto) (2-4) % Baso % (Auto) (0-2) % Neut # (Auto) (3698-7895) /uL PT 47.2 H D (10.1-12.7) SECONDS INR 4.4 H (0.9-1.3) APTT (26.4-36.2) SECONDS ABG pH 7.36 (7.35-7.45) ABG pCO2 50.8 H (35-45) mmHg ABG pO2 94 (80-105) mmHg ABG HCO3 29 H (23-27) mmol/L ABG Total CO2 30 H (23-27) mmol/L ABG O2 Saturation 97 (95-100) % ABG Base Excess 3.0 (-2-3) mmol/L FiO2 36 Sodium (137-145) mmol/L Potassium (3.4-5.1) mmol/L Chloride (98-107) mmol/L Carbon Dioxide (22-32) mmol/L BUN (9-20) mg/dL Creatinine (0.66-1.25) mg/dL Estimated GFR (>60) mL/min BUN/Creatinine Ratio (6-22) Glucose (80-110) mg/dL Lactate (0.7-2.1) mmol/L Calcium (8.4-10.2) mg/dL Total Bilirubin (0.2-1.3) mg/dL AST (17-59) IU/L ALT (21-72) IU/L Alkaline Phosphatase (38-126) U/L B-Natriuretic Peptide (<100) Total Protein (6.3-8.2) g/dL Albumin (3.5-5.0) g/dL Globulin (1.7-4.1) g/dL Albumin/Globulin Ratio (1.0-2.8) Lipase (23-300) U/L Procalcitonin (<0.5) ng/mL Urine Color Urine Appearance Urine pH (4.5-8.0) Ur Specific Bertrand (1.000-1.035) Urine Protein (Negative) Urine Glucose (UA) (Normal) g/dL Urine Ketones (NEGATIVE) Urine Occult Blood (Negative) Urine Nitrate (Negative) Urine Bilirubin (NEGATIVE) Urine Urobilinogen (0.2) E.U./dL Ur Leukocyte Esterase (NEGATIVE) Urine RBC (0-5/HPF) Urine WBC (0-5/HPF) Urine Bacteria (None) Ur Culture Indicated? Micro UA Comment Nasal Screen MRSA (PCR) Negative for mrsa (Negative) 11/22/17 11/23/17 11/23/17 Range/Units 04:50 05:32 05:32 WBC 12.1 H (4.5-11.0) X10^3/uL RBC 4.22 L (4.5-5.9) X10^6/uL Hgb 12.1 L (13.5-17.5) g/dL Hct 36.7 L (41-53) % MCV 86.9 (80-100) fL MCH 28.6 (26-34) PG MCHC 33.0 (30-36) % RDW 17.0 H (11.6-14.8) % Plt Count 96 L (150-400) X10^3/uL Neut % (Auto) 84.3 H (50-75) % Lymph % (Auto) 5.2 L (25-40) % Pender % (Auto) 9.7 (3-14) % Eos % (Auto) 0.6 L (2-4) % Baso % (Auto) 0.2 (0-2) % Neut # (Auto) 00480 H (3668-2897) /uL PT 37.6 H D (10.1-12.7) SECONDS INR 3.5 H (0.9-1.3) APTT (26.4-36.2) SECONDS ABG pH (7.35-7.45) ABG pCO2 (35-45) mmHg ABG pO2 (80-105) mmHg ABG HCO3 (23-27) mmol/L ABG Total CO2 (23-27) mmol/L ABG O2 Saturation (95-100) % ABG Base Excess (-2-3) mmol/L FiO2 Sodium 141 (137-145) mmol/L Potassium 4.3 (3.4-5.1) mmol/L Chloride 103 (98-107) mmol/L Carbon Dioxide 28 (22-32) mmol/L BUN 32 H (9-20) mg/dL Creatinine 1.70 H (0.66-1.25) mg/dL Estimated GFR 39.0 L (>60) mL/min BUN/Creatinine Ratio 18.8 (6-22) Glucose 117 H (80-110) mg/dL Lactate (0.7-2.1) mmol/L Calcium 8.1 L (8.4-10.2) mg/dL Total Bilirubin 1.0 (0.2-1.3) mg/dL AST 22 (17-59) IU/L ALT 38 (21-72) IU/L Alkaline Phosphatase 59 (38-126) U/L B-Natriuretic Peptide (<100) Total Protein 6.2 L (6.3-8.2) g/dL Albumin 3.5 (3.5-5.0) g/dL Globulin 2.7 (1.7-4.1) g/dL Albumin/Globulin Ratio 1.3 (1.0-2.8) Lipase (23-300) U/L Procalcitonin (<0.5) ng/mL Urine Color Urine Appearance Urine pH (4.5-8.0) Ur Specific Bertrand (1.000-1.035) Urine Protein (Negative) Urine Glucose (UA) (Normal) g/dL Urine Ketones (NEGATIVE) Urine Occult Blood (Negative) Urine Nitrate (Negative) Urine Bilirubin (NEGATIVE) Urine Urobilinogen (0.2) E.U./dL Ur Leukocyte Esterase (NEGATIVE) Urine RBC (0-5/HPF) Urine WBC (0-5/HPF) Urine Bacteria (None) Ur Culture Indicated? Micro UA Comment Nasal Screen MRSA (PCR) (Negative) 11/23/17 Range/Units 05:32 WBC (4.5-11.0) X10^3/uL RBC (4.5-5.9) X10^6/uL Hgb (13.5-17.5) g/dL Hct (41-53) % MCV (80-100) fL MCH (26-34) PG MCHC (30-36) % RDW (11.6-14.8) % Plt Count (150-400) X10^3/uL Neut % (Auto) (50-75) % Lymph % (Auto) (25-40) % Pender % (Auto) (3-14) % Eos % (Auto) (2-4) % Baso % (Auto) (0-2) % Neut # (Auto) (2180-1492) /uL PT (10.1-12.7) SECONDS INR (0.9-1.3) APTT (26.4-36.2) SECONDS ABG pH (7.35-7.45) ABG pCO2 (35-45) mmHg ABG pO2 (80-105) mmHg ABG HCO3 (23-27) mmol/L ABG Total CO2 (23-27) mmol/L ABG O2 Saturation (95-100) % ABG Base Excess (-2-3) mmol/L FiO2 Sodium 137 (137-145) mmol/L Potassium 4.0 (3.4-5.1) mmol/L Chloride 103 (98-107) mmol/L Carbon Dioxide 26 (22-32) mmol/L BUN 38 H (9-20) mg/dL Creatinine 1.60 H (0.66-1.25) mg/dL Estimated GFR 41.8 L (>60) mL/min BUN/Creatinine Ratio 23.8 H (6-22) Glucose 60 L (80-110) mg/dL Lactate (0.7-2.1) mmol/L Calcium 8.0 L (8.4-10.2) mg/dL Total Bilirubin (0.2-1.3) mg/dL AST (17-59) IU/L ALT (21-72) IU/L Alkaline Phosphatase (38-126) U/L B-Natriuretic Peptide (<100) Total Protein (6.3-8.2) g/dL Albumin (3.5-5.0) g/dL Globulin (1.7-4.1) g/dL Albumin/Globulin Ratio (1.0-2.8) Lipase (23-300) U/L Procalcitonin (<0.5) ng/mL Urine Color Urine Appearance Urine pH (4.5-8.0) Ur Specific Bertrand (1.000-1.035) Urine Protein (Negative) Urine Glucose (UA) (Normal) g/dL Urine Ketones (NEGATIVE) Urine Occult Blood (Negative) Urine Nitrate (Negative) Urine Bilirubin (NEGATIVE) Urine Urobilinogen (0.2) E.U./dL Ur Leukocyte Esterase (NEGATIVE) Urine RBC (0-5/HPF) Urine WBC (0-5/HPF) Urine Bacteria (None) Ur Culture Indicated? Micro UA Comment Nasal Screen MRSA (PCR) (Negative) Discharge Plan Departure Patient Disposition: Admitted As Inpatient Clinical Impression: Pneumonia, Cough with hemoptysis, Change in mental status Discharge Date/Time: 11/21/17 21:48 Interventions: ED Discharge Assessment Last Done: 11/21/17 21:27 Admit Date/Time: 11/21/17 21:04 Admit Provider: Kali Cassidy <Lucas Browne DO - Last Filed: 11/23/17 07:17> Cosign ED Attending Jose De Jesusature Attestation: I was available for consultation during this patient's emergency department encounter
--- NOTE | 2017-11-21 15:11 | DI.CT.S_ITS ---
PROCEDURE: CT HEAD/BRAIN WO CON INDICATIONS: LOC, confusion TECHNIQUE: Noncontrast 4.5 mm thick angled axial sections acquired from the foramen magnum to the vertex, with coronal and sagittal reformats. For radiation dose reduction, the following was used: automated exposure control, adjustment of mA and/or kV according to patient size. COMPARISON: [facility], MR, STROKE PROTOCOL, 04/10/2016, 11:36. [facility], CT, HEAD WITHOUT CONTRAST, 04/18/2016, 5:33. FINDINGS: Image quality: Excellent. CSF spaces: Basal cisterns are patent. No extra-axial fluid collections. The ventricles are symmetric in size and shape. Brain: No intracranial bleeds or masses. There is cerebral volume loss for age, with resultant ventricular and sulcal prominence. There are periventricular and deep white matter chronic small vessel ischemic changes. There is intracranial internal carotid artery atherosclerosis. Skull and face: Calvarium and visualized facial bones appear intact, without suspicious lesions. Sinuses: Visualized sinuses and mastoids are clear. IMPRESSION: 1. No acute intracranial abnormalities. 2. Cerebral volume loss and chronic microvascular ischemic changes. Dictated by: Renato Zaman M.D. on 11/21/2017 at 15:55 Approved by: Renato Zaman M.D. on 11/21/2017 at 15:58
[2017-11-21 15:21] LABS: Add Manual Diff / Slide Review NO; Basophils Percent Auto 0.2 % (0-2); Eosinophils Percent Auto 0.1 % (2-4); Hematocrit 42.3 % (41-53); Hemoglobin 13.8 g/dL (13.5-17.5); Lymphocytes Percent Auto 2.1 % (25-40); Mean Corpuscular HGB Conc 32.6 % (30-36); Mean Corpuscular Hemoglobin 28.2 PG (26-34); Mean Corpuscular Volume 86.5 fL (80-100); Monocytes Percent Auto 8.9 % (3-14); Neutrophils Absolute Auto 13700 /uL (3000-5900); Neutrophils Percent Auto 88.7 % (50-75); Platelet Count 120 X10^3/uL (150-400); Red Blood Cell Count 4.89 X10^6/uL (4.5-5.9); White Blood Cell Count 15.4 X10^3/uL (4.5-11.0)
[2017-11-21 15:28] LABS: HEMOLYSIS < 15 (0-50); Lipase < 10 U/L (23-300); Potassium 4.4 mmol/L (3.4-5.1)
[2017-11-21 15:29] LABS: Alanine Aminotransferase 39 IU/L (21-72); Albumin 3.9 g/dL (3.5-5.0); Albumin Globulin Ratio 1.5 (1.0-2.8); Alkaline Phosphatase 67 U/L (38-126); Aspartate Aminotransferase 24 IU/L (17-59); BUN Creatinine Ratio 15.6 (6-22); Bilirubin Total 1.2 mg/dL (0.2-1.3); Blood Urea Nitrogen 25 mg/dL (9-20); Calcium 8.5 mg/dL (8.4-10.2); Carbon Dioxide 30 mmol/L (22-32); Chloride 102 mmol/L (98-107); Estimated Glomerular Filt Rate 41.8 mL/min (>60); Globulin 2.6 g/dL (1.7-4.1); Glucose 125 mg/dL (80-110); Lactate (Lactic Acid) 0.9 mmol/L (0.7-2.1); Sodium 141 mmol/L (137-145); Total Protein 6.5 g/dL (6.3-8.2)
[2017-11-21 15:38] LABS: INR 3.7 (0.9-1.3); Prothrombin Time 39.4 SECONDS (10.1-12.7)
[2017-11-21 15:41] LABS: PTT Partial Thromboplastin Tim 50 SECONDS (26.4-36.2)
--- NOTE | 2017-11-21 15:41 | ED_ITS ---
HPI - Nausea/Vomiting/Diarrhea <Kika Yanes PA-C - Last Filed: 11/21/17 21:20> General Chief complaint: Nausea/Vomiting/Diarrhea Stated complaint: N/V Time Seen by Provider: 11/21/17 14:54 Source: patient and family Mode of arrival: EMS Limitations: no limitations History of Present Illness HPI Narrative: Patient comes in via EMS today, called by his son. Patient reported that he had nausea and an episode of vomiting about midnight. He slept until 6:00 a.m., and his son went and found him sleeping in a chair at home. Son states that is not unusual, however states his dad has been ? different? all day today. He noticed that his dad was having some trouble finding words, perhaps very minimal slurred speech. He states this is not particularly unusual for him, however he was more disoriented to the point that he did know the month, which is unusual. Son states that he also seemed weak all over his body and was having more trouble using his walker. No focal weakness noted. No facial weakness. Son states that at lunchtime around noon, patient began vomiting again, multiple episodes, then eyes rolled back and he passed out for a couple of minutes. Son states that when patient came to, he seemed confused for 5 min or more. Son did notice perhaps some slight blood in the later episodes of emesis. He states that his father was slumped in the chair any had to hold him up. He does state that his father's balance is poor at baseline and he is doing therapy for this. He tends to list over to the left side. He was also coughing when he came to, but son does not think he aspirated anything. He states that dad seems closer to baseline now, but still not quite normal in terms of mentation and strength. He notes that his dad has been yawning all day as well. Damián reports that he had a very mild headache last night and currently. He does not note any weakness himself. He denies any chest pain or dyspnea. He denies any abdominal pain but still feels some mild nausea and has had some episodes of vomiting since arrival and in the ambulance. He denies any bowel changes or urinary symptoms. He ate normally yesterday. Related Data Home Medications Medication Instructions Recorded Confirmed atorvastatin 40 mg QPM 11/21/17 11/21/17 clonidine HCl 0.1 mg QAM AND QHS 11/21/17 11/21/17 eplerenone 12.5 mg QAM 11/21/17 11/21/17 escitalopram oxalate 20 mg QAM 11/21/17 11/21/17 ferrous sulfate 325 mg QAM 11/21/17 11/21/17 furosemide 20 mg QAM 11/21/17 11/21/17 glimepiride 1 mg QAM 11/21/17 11/21/17 losartan 50 mg QAM 11/21/17 11/21/17 oxybutynin chloride 10 mg QPM 11/21/17 11/21/17 tamsulosin 0.8 mg QPM 11/21/17 11/21/17 warfarin 2 mg QAM 11/21/17 11/21/17 Allergies Allergy/AdvReac Type Severity Reaction Status Date / Time BCG (Bacillus Allergy Unknown cancer drug Verified 11/21/17 20:49 Calmette-Lico) vacc [From BCG NATALIA VACCINE] Review of Systems <Kika Yanes PA-C - Last Filed: 11/21/17 21:20> Review of Systems All systems reviewed & are unremarkable except as noted in HPI and below Exam <Kika Yanes PA-C - Last Filed: 11/21/17 21:20> Narrative Exam Narrative: GENERAL APPEARANCE: Patient sitting comfortably, in no distress. HEENT: PERRL, EOMI, no scleral icterus, normal oropharynx NECK: Supple, no masses LUNGS: Clear to auscultation bilaterally. HEART: Rate and rhythm irregular with low pitch IV/ murmur ABDOMEN: Soft, obese, nontender, nondistended, bowel sounds present x 4 quadrants, no masses palpable, no hepatosplenomegaly. EXTREMITIES: Trace symmetric pitting edema with venous stasis skin changes, no cyanosis. Ft are warm and pink, no palpable pedal pulses. No calf tenderness DERMATOLOGIC: No jaundice or exanthem NEUROLOGIC: Alert, cranial nerves III-XII grossly intact. Speech and coordination appear normal. Able to maintain position of all extremities without pronator drift RECTAL: Brown stool in vault guaiac-negative Initial Vital Signs Initial Vital Signs: Vital Signs Temperature 99.0 F 11/21/17 13:27 Pulse Rate 76 11/21/17 13:27 Respiratory Rate 16 11/21/17 13:27 Blood Pressure 149/68 H 11/21/17 13:27 Pulse Oximetry 87 L 11/21/17 13:27 <Lucas Browne DO - Last Filed: 11/23/17 07:17> Initial Vital Signs Initial Vital Signs: Vital Signs Temperature 99.0 F 11/21/17 13:27 Pulse Rate 76 11/21/17 13:27 Respiratory Rate 16 11/21/17 13:27 Blood Pressure 149/68 H 11/21/17 13:27 Pulse Oximetry 87 L 11/21/17 13:27 Course <Kika Yanes PA-C - Last Filed: 11/21/17 21:20> Hospital Course: Spoke with Dr. Cassidy. Initially patient was resting comfortably and plan was to admit him for observation for left lower lobe pneumonia. After patient was awakened, he began to have some rigors, coughing with difficulty bringing up sputum, and some hemoptysis. Lungs were clear previously but now had clear left -sided crackles. He had desaturations into the 80% range on 4 L. He was placed on a mask, secretions gently suctioned by nursing, oxygen increased and saturations stabilized in the mid to upper 90s consistently. He did briefly desaturate again when more aggressive suctioning was attempted by Respiratory therapy and he did have more hemoptysis at that time. Suctioning was discontinued. Abnormal blood gas was reviewed and Dr. Browne advised repeat in 45-60 minutes which has been ordered. Advised starting antibiotic. We agree it is more appropriate for patient to be in ICU. Dr. Cassidy was called and informed of these new findings. Blood gas was reviewed. Repeat H&H was ordered due to the hemoptysis. He is agreeable with transferring patient to unit. Currently he is comfortable with oxygen saturations in the mid to upper 90% range on 4 L nasal cannula Orders Ordered: ED Orders 11/23/17 05:32 Basic Metabolic Panel Routine Complete Blood Count AUTO DIFF Routine Prothrombin Time INR Routine Acetaminophen (Tylenol) 650 mg PO Q6H PRN PRN Reason: As Needed for Fever/Mild Pain Last Admin: 11/22/17 17:58 Dose: 650 mg Al Hydrox/Mg Hydrox/Simethicone (Maalox Plus) 30 ml PO Q6H PRN PRN Reason: Dyspepsia Albuterol (Ventolin) 2.5 mg INH RTBID [facility] Last Admin: 11/22/17 19:42 Dose: 2.5 mg Atorvastatin Calcium (Lipitor) 40 mg PO BEDTIME [facility] Last Admin: 11/22/17 20:27 Dose: 40 mg Clonidine HCl (Catapres) 0.1 mg PO BID [facility] Last Admin: 11/22/17 20:28 Dose: 0.1 mg Admin: 11/22/17 09:09 Dose: 0.1 mg Admin: 11/21/17 22:17 Dose: 0.1 mg Dextrose (D50w) 25 gm IV PRN PRN; Protocol PRN Reason: Hypoglycemia Eplerenone (Inspra) 12.5 mg PO DAILY [facility] Last Admin: 11/22/17 09:09 Dose: 12.5 mg Admin: 11/21/17 22:17 Dose: Escitalopram Oxalate (Lexapro) 20 mg PO DAILY [facility] Last Admin: 11/22/17 09:09 Dose: 20 mg Admin: 11/21/17 22:18 Dose: 20 mg Furosemide (Lasix) 20 mg PO DAILY [facility] Last Admin: 11/22/17 09:08 Dose: 20 mg Admin: 11/21/17 22:18 Dose: 20 mg Glimepiride (Amaryl) 1 mg PO DAILY [facility] Last Admin: 11/22/17 09:08 Dose: 1 mg Admin: 11/21/17 22:18 Dose: Ceftriaxone Sodium/Dextrose (Rocephin) 1 gm in 50 mls @ 100 mls/hr IV Q24H [facility] Last Admin: 11/22/17 22:04 Dose: 100 mls/hr Azithromycin 250 mg/ Dextrose 250 mls @ 250 mls/hr IV Q24H [facility] Last Infusion: 11/22/17 22:13 Dose: 0 mls/hr Admin: 11/22/17 20:26 Dose: 250 mls/hr Insulin Aspart (Novolog Flexpen) 0 unit SUBCUT ACHS [facility]; Protocol Last Admin: 11/22/17 20:44 Dose: Not Given Admin: 11/22/17 17:59 Dose: Not Given Admin: 11/22/17 14:03 Dose: Not Given Losartan Potassium (Cozaar) 50 mg PO DAILY [facility] Last Admin: 11/22/17 09:09 Dose: 50 mg Admin: 11/21/17 22:18 Dose: 50 mg Ondansetron HCl (Zofran) 4 mg IV Q8H PRN PRN Reason: Nausea And Vomiting Tamsulosin HCl (Flomax) 0.8 mg PO BEDTIME [facility] Last Admin: 11/22/17 21:07 Dose: 0.8 mg Warfarin Sodium (Coumadin) 2 mg PO QPM [facility] Last Admin: 11/21/17 22:19 Dose: Discontinued Medications Atorvastatin Calcium (Lipitor) 40 mg PO QPM [facility] Last Admin: 11/22/17 20:53 Dose: Ceftriaxone Sodium/Dextrose (Rocephin) 1 gm in 50 mls @ 100 mls/hr IV NOW ONE Stop: 11/21/17 19:49 Last Infusion: 11/21/17 20:50 Dose: 0 mls/hr Admin: 11/21/17 20:09 Dose: 100 mls/hr Azithromycin 500 mg/ Dextrose 250 mls @ 250 mls/hr IV NOW ONE Stop: 11/21/17 19:21 Last Infusion: 11/21/17 21:48 Dose: 0 mls/hr Admin: 11/21/17 20:50 Dose: 250 mls/hr Sodium Chloride (Normal Saline 0.9%) 1,000 mls @ 100 mls/hr IV CONT [facility] Last Admin: 11/22/17 09:12 Dose: 100 mls/hr Infusion: 11/22/17 09:12 Dose: 100 mls/hr Admin: 11/21/17 23:48 Dose: 100 mls/hr Tamsulosin HCl (Flomax) 0.8 mg PO QPM [facility] Last Admin: 11/22/17 20:53 Dose: Tamsulosin HCl (Flomax) 0.4 mg PO BEDTIME [facility] Vital Signs - 8 hr 11/22/17 23:40 11/23/17 00:30 11/23/17 04:22 Temperature 98.5 F 98.7 F Pulse Rate 67 68 Respiratory Rate 16 16 Blood Pressure 123/62 H 146/71 H Pulse Oximetry 92 93 95 <Lucas Browne, DO - Last Filed: 11/23/17 07:17> Orders Ordered: ED Orders 11/23/17 05:32 Basic Metabolic Panel Routine Complete Blood Count AUTO DIFF Routine Prothrombin Time INR Routine Acetaminophen (Tylenol) 650 mg PO Q6H PRN PRN Reason: As Needed for Fever/Mild Pain Last Admin: 11/22/17 17:58 Dose: 650 mg Al Hydrox/Mg Hydrox/Simethicone (Maalox Plus) 30 ml PO Q6H PRN PRN Reason: Dyspepsia Albuterol (Ventolin) 2.5 mg INH RTBID [facility] Last Admin: 11/22/17 19:42 Dose: 2.5 mg Atorvastatin Calcium (Lipitor) 40 mg PO BEDTIME [facility] Last Admin: 11/22/17 20:27 Dose: 40 mg Clonidine HCl (Catapres) 0.1 mg PO BID [facility] Last Admin: 11/22/17 20:28 Dose: 0.1 mg Admin: 11/22/17 09:09 Dose: 0.1 mg Admin: 11/21/17 22:17 Dose: 0.1 mg Dextrose (D50w) 25 gm IV PRN PRN; Protocol PRN Reason: Hypoglycemia Eplerenone (Inspra) 12.5 mg PO DAILY [facility] Last Admin: 11/22/17 09:09 Dose: 12.5 mg Admin: 11/21/17 22:17 Dose: Escitalopram Oxalate (Lexapro) 20 mg PO DAILY [facility] Last Admin: 11/22/17 09:09 Dose: 20 mg Admin: 11/21/17 22:18 Dose: 20 mg Furosemide (Lasix) 20 mg PO DAILY [facility] Last Admin: 11/22/17 09:08 Dose: 20 mg Admin: 11/21/17 22:18 Dose: 20 mg Glimepiride (Amaryl) 1 mg PO DAILY [facility] Last Admin: 11/22/17 09:08 Dose: 1 mg Admin: 11/21/17 22:18 Dose: Ceftriaxone Sodium/Dextrose (Rocephin) 1 gm in 50 mls @ 100 mls/hr IV Q24H [facility] Last Admin: 11/22/17 22:04 Dose: 100 mls/hr Azithromycin 250 mg/ Dextrose 250 mls @ 250 mls/hr IV Q24H [facility] Last Infusion: 11/22/17 22:13 Dose: 0 mls/hr Admin: 11/22/17 20:26 Dose: 250 mls/hr Insulin Aspart (Novolog Flexpen) 0 unit SUBCUT ACHS [facility]; Protocol Last Admin: 11/22/17 20:44 Dose: Not Given Admin: 11/22/17 17:59 Dose: Not Given Admin: 11/22/17 14:03 Dose: Not Given Losartan Potassium (Cozaar) 50 mg PO DAILY [facility] Last Admin: 11/22/17 09:09 Dose: 50 mg Admin: 11/21/17 22:18 Dose: 50 mg Ondansetron HCl (Zofran) 4 mg IV Q8H PRN PRN Reason: Nausea And Vomiting Tamsulosin HCl (Flomax) 0.8 mg PO BEDTIME [facility] Last Admin: 11/22/17 21:07 Dose: 0.8 mg Warfarin Sodium (Coumadin) 2 mg PO QPM [facility] Last Admin: 11/21/17 22:19 Dose: Discontinued Medications Atorvastatin Calcium (Lipitor) 40 mg PO QPM [facility] Last Admin: 11/22/17 20:53 Dose: Ceftriaxone Sodium/Dextrose (Rocephin) 1 gm in 50 mls @ 100 mls/hr IV NOW ONE Stop: 11/21/17 19:49 Last Infusion: 11/21/17 20:50 Dose: 0 mls/hr Admin: 11/21/17 20:09 Dose: 100 mls/hr Azithromycin 500 mg/ Dextrose 250 mls @ 250 mls/hr IV NOW ONE Stop: 11/21/17 19:21 Last Infusion: 11/21/17 21:48 Dose: 0 mls/hr Admin: 11/21/17 20:50 Dose: 250 mls/hr Sodium Chloride (Normal Saline 0.9%) 1,000 mls @ 100 mls/hr IV CONT [facility] Last Admin: 11/22/17 09:12 Dose: 100 mls/hr Infusion: 11/22/17 09:12 Dose: 100 mls/hr Admin: 11/21/17 23:48 Dose: 100 mls/hr Tamsulosin HCl (Flomax) 0.8 mg PO QPM [facility] Last Admin: 11/22/17 20:53 Dose: Tamsulosin HCl (Flomax) 0.4 mg PO BEDTIME [facility] Vital Signs - 8 hr 11/22/17 23:40 11/23/17 00:30 11/23/17 04:22 Temperature 98.5 F 98.7 F Pulse Rate 67 68 Respiratory Rate 16 16 Blood Pressure 123/62 H 146/71 H Pulse Oximetry 92 93 95 MDM - Nausea/Vomiting/Diarrhea <Kika Yanes PA-C - Last Filed: 11/21/17 21:20> Lab Data Attestation: I reviewed the patient's lab results. Result diagrams: 11/23/17 05:32 11/23/17 05:32 Lab Results 11/21/17 11/21/17 11/21/17 Range/Units 14:50 14:50 14:50 WBC 15.4 H (4.5-11.0) X10^3/uL RBC 4.89 (4.5-5.9) X10^6/uL Hgb 13.8 (13.5-17.5) g/dL Hct 42.3 (41-53) % MCV 86.5 (80-100) fL MCH 28.2 (26-34) PG MCHC 32.6 (30-36) % RDW 17.0 H (11.6-14.8) % Plt Count 120 L (150-400) X10^3/uL Neut % (Auto) 88.7 H (50-75) % Lymph % (Auto) 2.1 L (25-40) % [place] % (Auto) 8.9 (3-14) % Eos % (Auto) 0.1 L (2-4) % Baso % (Auto) 0.2 (0-2) % Neut # (Auto) 86843 H (3974-7956) /uL PT (10.1-12.7) SECONDS INR (0.9-1.3) APTT (26.4-36.2) SECONDS ABG pH (7.35-7.45) ABG pCO2 (35-45) mmHg ABG pO2 (80-105) mmHg ABG HCO3 (23-27) mmol/L ABG Total CO2 (23-27) mmol/L ABG O2 Saturation (95-100) % ABG Base Excess (-2-3) mmol/L FiO2 Sodium 141 (137-145) mmol/L Potassium 4.4 (3.4-5.1) mmol/L Chloride 102 (98-107) mmol/L Carbon Dioxide 30 (22-32) mmol/L BUN 25 H (9-20) mg/dL Creatinine 1.60 H (0.66-1.25) mg/dL Estimated GFR 41.8 L (>60) mL/min BUN/Creatinine Ratio 15.6 (6-22) Glucose 125 H (80-110) mg/dL Lactate 0.9 (0.7-2.1) mmol/L Calcium 8.5 (8.4-10.2) mg/dL Total Bilirubin 1.2 (0.2-1.3) mg/dL AST 24 (17-59) IU/L ALT 39 (21-72) IU/L Alkaline Phosphatase 67 (38-126) U/L B-Natriuretic Peptide (<100) Total Protein 6.5 (6.3-8.2) g/dL Albumin 3.9 (3.5-5.0) g/dL Globulin 2.6 (1.7-4.1) g/dL Albumin/Globulin Ratio 1.5 (1.0-2.8) Lipase (23-300) U/L Procalcitonin (<0.5) ng/mL Urine Color Urine Appearance Urine pH (4.5-8.0) Ur Specific [place] (1.000-1.035) Urine Protein (Negative) Urine Glucose (UA) (Normal) g/dL Urine Ketones (NEGATIVE) Urine Occult Blood (Negative) Urine Nitrate (Negative) Urine Bilirubin (NEGATIVE) Urine Urobilinogen (0.2) E.U./dL Ur Leukocyte Esterase (NEGATIVE) Urine RBC (0-5/HPF) Urine WBC (0-5/HPF) Urine Bacteria (None) Ur Culture Indicated? Micro UA Comment Nasal Screen MRSA (PCR) (Negative) 11/21/17 11/21/17 11/21/17 Range/Units 14:50 14:50 14:50 WBC (4.5-11.0) X10^3/uL RBC (4.5-5.9) X10^6/uL Hgb (13.5-17.5) g/dL Hct (41-53) % MCV (80-100) fL MCH (26-34) PG MCHC (30-36) % RDW (11.6-14.8) % Plt Count (150-400) X10^3/uL Neut % (Auto) (50-75) % Lymph % (Auto) (25-40) % [place] % (Auto) (3-14) % Eos % (Auto) (2-4) % Baso % (Auto) (0-2) % Neut # (Auto) (8249-6332) /uL PT 39.4 H (10.1-12.7) SECONDS INR 3.7 H (0.9-1.3) APTT 50 H (26.4-36.2) SECONDS ABG pH (7.35-7.45) ABG pCO2 (35-45) mmHg ABG pO2 (80-105) mmHg ABG HCO3 (23-27) mmol/L ABG Total CO2 (23-27) mmol/L ABG O2 Saturation (95-100) % ABG Base Excess (-2-3) mmol/L FiO2 Sodium (137-145) mmol/L Potassium (3.4-5.1) mmol/L Chloride (98-107) mmol/L Carbon Dioxide (22-32) mmol/L BUN (9-20) mg/dL Creatinine (0.66-1.25) mg/dL Estimated GFR (>60) mL/min BUN/Creatinine Ratio (6-22) Glucose (80-110) mg/dL Lactate (0.7-2.1) mmol/L Calcium (8.4-10.2) mg/dL Total Bilirubin (0.2-1.3) mg/dL AST (17-59) IU/L ALT (21-72) IU/L Alkaline Phosphatase (38-126) U/L B-Natriuretic Peptide (<100) Total Protein (6.3-8.2) g/dL Albumin (3.5-5.0) g/dL Globulin (1.7-4.1) g/dL Albumin/Globulin Ratio (1.0-2.8) Lipase < 10 L (23-300) U/L Procalcitonin 0.29 (<0.5) ng/mL Urine Color Urine Appearance Urine pH (4.5-8.0) Ur Specific [place] (1.000-1.035) Urine Protein (Negative) Urine Glucose (UA) (Normal) g/dL Urine Ketones (NEGATIVE) Urine Occult Blood (Negative) Urine Nitrate (Negative) Urine Bilirubin (NEGATIVE) Urine Urobilinogen (0.2) E.U./dL Ur Leukocyte Esterase (NEGATIVE) Urine RBC (0-5/HPF) Urine WBC (0-5/HPF) Urine Bacteria (None) Ur Culture Indicated? Micro UA Comment Nasal Screen MRSA (PCR) (Negative) 06/24/18 06/24/18 06/24/18 Range/Units 14:50 18:27 18:35 WBC (4.5-11.0) X10^3/uL RBC (4.5-5.9) X10^6/uL Hgb (13.5-17.5) g/dL Hct (41-53) % MCV (80-100) fL MCH (26-34) PG MCHC (30-36) % RDW (11.6-14.8) % Plt Count (150-400) X10^3/uL Neut % (Auto) (50-75) % Lymph % (Auto) (25-40) % [place] % (Auto) (3-14) % Eos % (Auto) (2-4) % Baso % (Auto) (0-2) % Neut # (Auto) (5233-2420) /uL PT (10.1-12.7) SECONDS INR (0.9-1.3) APTT (26.4-36.2) SECONDS ABG pH 7.29 L (7.35-7.45) ABG pCO2 58.8 H (35-45) mmHg ABG pO2 116 H (80-105) mmHg ABG HCO3 28 H (23-27) mmol/L ABG Total CO2 30 H (23-27) mmol/L ABG O2 Saturation 98 (95-100) % ABG Base Excess 1.0 (-2-3) mmol/L FiO2 90 Sodium (137-145) mmol/L Potassium (3.4-5.1) mmol/L Chloride (98-107) mmol/L Carbon Dioxide (22-32) mmol/L BUN (9-20) mg/dL Creatinine (0.66-1.25) mg/dL Estimated GFR (>60) mL/min BUN/Creatinine Ratio (6-22) Glucose (80-110) mg/dL Lactate (0.7-2.1) mmol/L Calcium (8.4-10.2) mg/dL Total Bilirubin (0.2-1.3) mg/dL AST (17-59) IU/L ALT (21-72) IU/L Alkaline Phosphatase (38-126) U/L B-Natriuretic Peptide 313.0 H (<100) Total Protein (6.3-8.2) g/dL Albumin (3.5-5.0) g/dL Globulin (1.7-4.1) g/dL Albumin/Globulin Ratio (1.0-2.8) Lipase (23-300) U/L Procalcitonin (<0.5) ng/mL Urine Color Yellow Urine Appearance Cloudy Urine pH 5.0 (4.5-8.0) Ur Specific [place] 1.025 (1.000-1.035) Urine Protein 2+ H (Negative) Urine Glucose (UA) Negative (Normal) g/dL Urine Ketones Negative (NEGATIVE) Urine Occult Blood 3+ H (Negative) Urine Nitrate Positive (Negative) Urine Bilirubin Negative (NEGATIVE) Urine Urobilinogen 0.2 (0.2) E.U./dL Ur Leukocyte Esterase 2+ H (NEGATIVE) Urine RBC >100/hpf (0-5/HPF) Urine WBC >100/hpf H (0-5/HPF) Urine Bacteria Many (>30) H (None) Ur Culture Indicated? Specimen cultured Micro UA Comment Not Reportable Nasal Screen MRSA (PCR) (Negative) 11/21/17 11/21/17 11/22/17 Range/Units 21:10 22:37 04:50 WBC (4.5-11.0) X10^3/uL RBC (4.5-5.9) X10^6/uL Hgb (13.5-17.5) g/dL Hct (41-53) % MCV (80-100) fL MCH (26-34) PG MCHC (30-36) % RDW (11.6-14.8) % Plt Count (150-400) X10^3/uL Neut % (Auto) (50-75) % Lymph % (Auto) (25-40) % [place] % (Auto) (3-14) % Eos % (Auto) (2-4) % Baso % (Auto) (0-2) % Neut # (Auto) (0893-1652) /uL PT 47.2 H D (10.1-12.7) SECONDS INR 4.4 H (0.9-1.3) APTT (26.4-36.2) SECONDS ABG pH 7.36 (7.35-7.45) ABG pCO2 50.8 H (35-45) mmHg ABG pO2 94 (80-105) mmHg ABG HCO3 29 H (23-27) mmol/L ABG Total CO2 30 H (23-27) mmol/L ABG O2 Saturation 97 (95-100) % ABG Base Excess 3.0 (-2-3) mmol/L FiO2 36 Sodium (137-145) mmol/L Potassium (3.4-5.1) mmol/L Chloride (98-107) mmol/L Carbon Dioxide (22-32) mmol/L BUN (9-20) mg/dL Creatinine (0.66-1.25) mg/dL Estimated GFR (>60) mL/min BUN/Creatinine Ratio (6-22) Glucose (80-110) mg/dL Lactate (0.7-2.1) mmol/L Calcium (8.4-10.2) mg/dL Total Bilirubin (0.2-1.3) mg/dL AST (17-59) IU/L ALT (21-72) IU/L Alkaline Phosphatase (38-126) U/L B-Natriuretic Peptide (<100) Total Protein (6.3-8.2) g/dL Albumin (3.5-5.0) g/dL Globulin (1.7-4.1) g/dL Albumin/Globulin Ratio (1.0-2.8) Lipase (23-300) U/L Procalcitonin (<0.5) ng/mL Urine Color Urine Appearance Urine pH (4.5-8.0) Ur Specific [place] (1.000-1.035) Urine Protein (Negative) Urine Glucose (UA) (Normal) g/dL Urine Ketones (NEGATIVE) Urine Occult Blood (Negative) Urine Nitrate (Negative) Urine Bilirubin (NEGATIVE) Urine Urobilinogen (0.2) E.U./dL Ur Leukocyte Esterase (NEGATIVE) Urine RBC (0-5/HPF) Urine WBC (0-5/HPF) Urine Bacteria (None) Ur Culture Indicated? Micro UA Comment Nasal Screen MRSA (PCR) Negative for mrsa (Negative) 11/22/17 11/23/17 11/23/17 Range/Units 04:50 05:32 05:32 WBC 12.1 H (4.5-11.0) X10^3/uL RBC 4.22 L (4.5-5.9) X10^6/uL Hgb 12.1 L (13.5-17.5) g/dL Hct 36.7 L (41-53) % MCV 86.9 (80-100) fL MCH 28.6 (26-34) PG MCHC 33.0 (30-36) % RDW 17.0 H (11.6-14.8) % Plt Count 96 L (150-400) X10^3/uL Neut % (Auto) 84.3 H (50-75) % Lymph % (Auto) 5.2 L (25-40) % [place] % (Auto) 9.7 (3-14) % Eos % (Auto) 0.6 L (2-4) % Baso % (Auto) 0.2 (0-2) % Neut # (Auto) 90762 H (6075-4859) /uL PT 37.6 H D (10.1-12.7) SECONDS INR 3.5 H (0.9-1.3) APTT (26.4-36.2) SECONDS ABG pH (7.35-7.45) ABG pCO2 (35-45) mmHg ABG pO2 (80-105) mmHg ABG HCO3 (23-27) mmol/L ABG Total CO2 (23-27) mmol/L ABG O2 Saturation (95-100) % ABG Base Excess (-2-3) mmol/L FiO2 Sodium 141 (137-145) mmol/L Potassium 4.3 (3.4-5.1) mmol/L Chloride 103 (98-107) mmol/L Carbon Dioxide 28 (22-32) mmol/L BUN 32 H (9-20) mg/dL Creatinine 1.70 H (0.66-1.25) mg/dL Estimated GFR 39.0 L (>60) mL/min BUN/Creatinine Ratio 18.8 (6-22) Glucose 117 H (80-110) mg/dL Lactate (0.7-2.1) mmol/L Calcium 8.1 L (8.4-10.2) mg/dL Total Bilirubin 1.0 (0.2-1.3) mg/dL AST 22 (17-59) IU/L ALT 38 (21-72) IU/L Alkaline Phosphatase 59 (38-126) U/L B-Natriuretic Peptide (<100) Total Protein 6.2 L (6.3-8.2) g/dL Albumin 3.5 (3.5-5.0) g/dL Globulin 2.7 (1.7-4.1) g/dL Albumin/Globulin Ratio 1.3 (1.0-2.8) Lipase (23-300) U/L Procalcitonin (<0.5) ng/mL Urine Color Urine Appearance Urine pH (4.5-8.0) Ur Specific [place] (1.000-1.035) Urine Protein (Negative) Urine Glucose (UA) (Normal) g/dL Urine Ketones (NEGATIVE) Urine Occult Blood (Negative) Urine Nitrate (Negative) Urine Bilirubin (NEGATIVE) Urine Urobilinogen (0.2) E.U./dL Ur Leukocyte Esterase (NEGATIVE) Urine RBC (0-5/HPF) Urine WBC (0-5/HPF) Urine Bacteria (None) Ur Culture Indicated? Micro UA Comment Nasal Screen MRSA (PCR) (Negative) 11/23/17 Range/Units 05:32 WBC (4.5-11.0) X10^3/uL RBC (4.5-5.9) X10^6/uL Hgb (13.5-17.5) g/dL Hct (41-53) % MCV (80-100) fL MCH (26-34) PG MCHC (30-36) % RDW (11.6-14.8) % Plt Count (150-400) X10^3/uL Neut % (Auto) (50-75) % Lymph % (Auto) (25-40) % [place] % (Auto) (3-14) % Eos % (Auto) (2-4) % Baso % (Auto) (0-2) % Neut # (Auto) (2407-8797) /uL PT (10.1-12.7) SECONDS INR (0.9-1.3) APTT (26.4-36.2) SECONDS ABG pH (7.35-7.45) ABG pCO2 (35-45) mmHg ABG pO2 (80-105) mmHg ABG HCO3 (23-27) mmol/L ABG Total CO2 (23-27) mmol/L ABG O2 Saturation (95-100) % ABG Base Excess (-2-3) mmol/L FiO2 Sodium 137 (137-145) mmol/L Potassium 4.0 (3.4-5.1) mmol/L Chloride 103 (98-107) mmol/L Carbon Dioxide 26 (22-32) mmol/L BUN 38 H (9-20) mg/dL Creatinine 1.60 H (0.66-1.25) mg/dL Estimated GFR 41.8 L (>60) mL/min BUN/Creatinine Ratio 23.8 H (6-22) Glucose 60 L (80-110) mg/dL Lactate (0.7-2.1) mmol/L Calcium 8.0 L (8.4-10.2) mg/dL Total Bilirubin (0.2-1.3) mg/dL AST (17-59) IU/L ALT (21-72) IU/L Alkaline Phosphatase (38-126) U/L B-Natriuretic Peptide (<100) Total Protein (6.3-8.2) g/dL Albumin (3.5-5.0) g/dL Globulin (1.7-4.1) g/dL Albumin/Globulin Ratio (1.0-2.8) Lipase (23-300) U/L Procalcitonin (<0.5) ng/mL Urine Color Urine Appearance Urine pH (4.5-8.0) Ur Specific [place] (1.000-1.035) Urine Protein (Negative) Urine Glucose (UA) (Normal) g/dL Urine Ketones (NEGATIVE) Urine Occult Blood (Negative) Urine Nitrate (Negative) Urine Bilirubin (NEGATIVE) Urine Urobilinogen (0.2) E.U./dL Ur Leukocyte Esterase (NEGATIVE) Urine RBC (0-5/HPF) Urine WBC (0-5/HPF) Urine Bacteria (None) Ur Culture Indicated? Micro UA Comment Nasal Screen MRSA (PCR) (Negative) ABG pH: 7.287, pCO2 58.8, PO2 116, H CO3 28.[address] scan - head: Radiologist's impression: View Report History [address] [address] [address] Scan Report Signed Patient: Damián Garrett MR#: [id number] : 1935 Acct:[id number] Age/Sex: 82 / M Date of Service: 11/21/17 Loc: ED Accession Number: [id number] Procedure: CT head/brain wo con Ordering Provider: Kika Yanes P.A-C PROCEDURE: CT HEAD/BRAIN WO CON INDICATIONS: LOC, confusion TECHNIQUE: Noncontrast 4.5 mm thick angled axial sections acquired from the foramen magnum to the vertex, with coronal and sagittal reformats. For radiation dose reduction, the following was used: automated exposure control, adjustment of mA and/or kV according to patient size. COMPARISON: [facility], MR, STROKE PROTOCOL, 04/10/2016, 11:36. [facility], CT, HEAD WITHOUT CONTRAST, 04/18/2016, 5:33. FINDINGS: Image quality: Excellent. CSF spaces: Basal cisterns are patent. No extra-axial fluid collections. The ventricles are symmetric in size and shape. Brain: No intracranial bleeds or masses. There is cerebral volume loss for age , with resultant ventricular and sulcal prominence. There are periventricular and deep white matter chronic small vessel ischemic changes. There is intracranial internal carotid artery atherosclerosis. Skull and face: Calvarium and visualized facial bones appear intact, without suspicious lesions. Sinuses: Visualized sinuses and mastoids are clear. IMPRESSION: 1. No acute intracranial abnormalities. 2. Cerebral volume loss and chronic microvascular ischemic changes. Dictated by: Renato Zaman M.D. on 11/21/2017 at 15:55 Approved by: Renato Zaman M.D. on 11/21/2017 at 15:58 Chest x-ray: Radiologist's impression: View Report History Print [address] [address] XRay Report Signed Patient: Damián Garrett MR#: [id number] : 1935 Acct:[id number] Age/Sex: 82 / M Date of Service: 11/21/17 Loc: ED Accession Number: [id number] Procedure: XR chest 1V Ordering Provider: Kika Yanes P.A-C PROCEDURE: XR CHEST 1V INDICATIONS: cough TECHNIQUE: One view of the chest was acquired. COMPARISON: [facility], CR, CHEST 1 VIEW, 04/18/2016, 7:06. FINDINGS: Surgical changes and devices: None. Lungs and pleura: Left basilar opacities consistent with pneumonia. Mild perihilar infiltrates bilaterally. No pleural effusions or pneumothorax. Mediastinum: Mediastinal contours appear normal. Heart size is prominent. Bones and chest wall: No suspicious bony lesions. Overlying soft tissues appear unremarkable. IMPRESSION: 1. Left lower lobe pneumonia. Recommend followup to resolution is superimposed mass cannot recently. 2. Mild perihilar infiltrates bilaterally may be secondary to superimposed CHF. Dictated by: Renato Zaman M.D. on 11/21/2017 at 16:09 Approved by: Renato Zaman M.D. on 11/21/2017 at 16:10 ECG Data Attestation: I personally reviewed and interpreted this ECG as follows: (Atrial fibrillation rate 65, no acute changes from 04/15) Prior ECG tracings: available for review <Lucas Browne DO - Last Filed: 11/23/17 07:17> Lab Data Lab Results 11/21/17 11/21/17 11/21/17 Range/Units 14:50 14:50 14:50 WBC 15.4 H (4.5-11.0) X10^3/uL RBC 4.89 (4.5-5.9) X10^6/uL Hgb 13.8 (13.5-17.5) g/dL Hct 42.3 (41-53) % MCV 86.5 (80-100) fL MCH 28.2 (26-34) PG MCHC 32.6 (30-36) % RDW 17.0 H (11.6-14.8) % Plt Count 120 L (150-400) X10^3/uL Neut % (Auto) 88.7 H (50-75) % Lymph % (Auto) 2.1 L (25-40) % [place] % (Auto) 8.9 (3-14) % Eos % (Auto) 0.1 L (2-4) % Baso % (Auto) 0.2 (0-2) % Neut # (Auto) 09633 H (7625-0704) /uL PT (10.1-12.7) SECONDS INR (0.9-1.3) APTT (26.4-36.2) SECONDS ABG pH (7.35-7.45) ABG pCO2 (35-45) mmHg ABG pO2 (80-105) mmHg ABG HCO3 (23-27) mmol/L ABG Total CO2 (23-27) mmol/L ABG O2 Saturation (95-100) % ABG Base Excess (-2-3) mmol/L FiO2 Sodium 141 (137-145) mmol/L Potassium 4.4 (3.4-5.1) mmol/L Chloride 102 (98-107) mmol/L Carbon Dioxide 30 (22-32) mmol/L BUN 25 H (9-20) mg/dL Creatinine 1.60 H (0.66-1.25) mg/dL Estimated GFR 41.8 L (>60) mL/min BUN/Creatinine Ratio 15.6 (6-22) Glucose 125 H (80-110) mg/dL Lactate 0.9 (0.7-2.1) mmol/L Calcium 8.5 (8.4-10.2) mg/dL Total Bilirubin 1.2 (0.2-1.3) mg/dL AST 24 (17-59) IU/L ALT 39 (21-72) IU/L Alkaline Phosphatase 67 (38-126) U/L B-Natriuretic Peptide (<100) Total Protein 6.5 (6.3-8.2) g/dL Albumin 3.9 (3.5-5.0) g/dL Globulin 2.6 (1.7-4.1) g/dL Albumin/Globulin Ratio 1.5 (1.0-2.8) Lipase (23-300) U/L Procalcitonin (<0.5) ng/mL Urine Color Urine Appearance Urine pH (4.5-8.0) Ur Specific [place] (1.000-1.035) Urine Protein (Negative) Urine Glucose (UA) (Normal) g/dL Urine Ketones (NEGATIVE) Urine Occult Blood (Negative) Urine Nitrate (Negative) Urine Bilirubin (NEGATIVE) Urine Urobilinogen (0.2) E.U./dL Ur Leukocyte Esterase (NEGATIVE) Urine RBC (0-5/HPF) Urine WBC (0-5/HPF) Urine Bacteria (None) Ur Culture Indicated? Micro UA Comment Nasal Screen MRSA (PCR) (Negative) 11/21/17 11/21/17 11/21/17 Range/Units 14:50 14:50 14:50 WBC (4.5-11.0) X10^3/uL RBC (4.5-5.9) X10^6/uL Hgb (13.5-17.5) g/dL Hct (41-53) % MCV (80-100) fL MCH (26-34) PG MCHC (30-36) % RDW (11.6-14.8) % Plt Count (150-400) X10^3/uL Neut % (Auto) (50-75) % Lymph % (Auto) (25-40) % [place] % (Auto) (3-14) % Eos % (Auto) (2-4) % Baso % (Auto) (0-2) % Neut # (Auto) (1360-2188) /uL PT 39.4 H (10.1-12.7) SECONDS INR 3.7 H (0.9-1.3) APTT 50 H (26.4-36.2) SECONDS ABG pH (7.35-7.45) ABG pCO2 (35-45) mmHg ABG pO2 (80-105) mmHg ABG HCO3 (23-27) mmol/L ABG Total CO2 (23-27) mmol/L ABG O2 Saturation (95-100) % ABG Base Excess (-2-3) mmol/L FiO2 Sodium (137-145) mmol/L Potassium (3.4-5.1) mmol/L Chloride (98-107) mmol/L Carbon Dioxide (22-32) mmol/L BUN (9-20) mg/dL Creatinine (0.66-1.25) mg/dL Estimated GFR (>60) mL/min BUN/Creatinine Ratio (6-22) Glucose (80-110) mg/dL Lactate (0.7-2.1) mmol/L Calcium (8.4-10.2) mg/dL Total Bilirubin (0.2-1.3) mg/dL AST (17-59) IU/L ALT (21-72) IU/L Alkaline Phosphatase (38-126) U/L B-Natriuretic Peptide (<100) Total Protein (6.3-8.2) g/dL Albumin (3.5-5.0) g/dL Globulin (1.7-4.1) g/dL Albumin/Globulin Ratio (1.0-2.8) Lipase < 10 L (23-300) U/L Procalcitonin 0.29 (<0.5) ng/mL Urine Color Urine Appearance Urine pH (4.5-8.0) Ur Specific [place] (1.000-1.035) Urine Protein (Negative) Urine Glucose (UA) (Normal) g/dL Urine Ketones (NEGATIVE) Urine Occult Blood (Negative) Urine Nitrate (Negative) Urine Bilirubin (NEGATIVE) Urine Urobilinogen (0.2) E.U./dL Ur Leukocyte Esterase (NEGATIVE) Urine RBC (0-5/HPF) Urine WBC (0-5/HPF) Urine Bacteria (None) Ur Culture Indicated? Micro UA Comment Nasal Screen MRSA (PCR) (Negative) 11/21/17 11/21/17 11/21/17 Range/Units 14:50 18:27 18:35 WBC (4.5-11.0) X10^3/uL RBC (4.5-5.9) X10^6/uL Hgb (13.5-17.5) g/dL Hct (41-53) % MCV (80-100) fL MCH (26-34) PG MCHC (30-36) % RDW (11.6-14.8) % Plt Count (150-400) X10^3/uL Neut % (Auto) (50-75) % Lymph % (Auto) (25-40) % [place] % (Auto) (3-14) % Eos % (Auto) (2-4) % Baso % (Auto) (0-2) % Neut # (Auto) (3426-8542) /uL PT (10.1-12.7) SECONDS INR (0.9-1.3) APTT (26.4-36.2) SECONDS ABG pH 7.29 L (7.35-7.45) ABG pCO2 58.8 H (35-45) mmHg ABG pO2 116 H (80-105) mmHg ABG HCO3 28 H (23-27) mmol/L ABG Total CO2 30 H (23-27) mmol/L ABG O2 Saturation 98 (95-100) % ABG Base Excess 1.0 (-2-3) mmol/L FiO2 90 Sodium (137-145) mmol/L Potassium (3.4-5.1) mmol/L Chloride (98-107) mmol/L Carbon Dioxide (22-32) mmol/L BUN (9-20) mg/dL Creatinine (0.66-1.25) mg/dL Estimated GFR (>60) mL/min BUN/Creatinine Ratio (6-22) Glucose (80-110) mg/dL Lactate (0.7-2.1) mmol/L Calcium (8.4-10.2) mg/dL Total Bilirubin (0.2-1.3) mg/dL AST (17-59) IU/L ALT (21-72) IU/L Alkaline Phosphatase (38-126) U/L B-Natriuretic Peptide 313.0 H (<100) Total Protein (6.3-8.2) g/dL Albumin (3.5-5.0) g/dL Globulin (1.7-4.1) g/dL Albumin/Globulin Ratio (1.0-2.8) Lipase (23-300) U/L Procalcitonin (<0.5) ng/mL Urine Color Yellow Urine Appearance Cloudy Urine pH 5.0 (4.5-8.0) Ur Specific [place] 1.025 (1.000-1.035) Urine Protein 2+ H (Negative) Urine Glucose (UA) Negative (Normal) g/dL Urine Ketones Negative (NEGATIVE) Urine Occult Blood 3+ H (Negative) Urine Nitrate Positive (Negative) Urine Bilirubin Negative (NEGATIVE) Urine Urobilinogen 0.2 (0.2) E.U./dL Ur Leukocyte Esterase 2+ H (NEGATIVE) Urine RBC >100/hpf (0-5/HPF) Urine WBC >100/hpf H (0-5/HPF) Urine Bacteria Many (>30) H (None) Ur Culture Indicated? Specimen cultured Micro UA Comment Not Reportable Nasal Screen MRSA (PCR) (Negative) 11/21/17 11/21/17 11/22/17 Range/Units 21:10 22:37 04:50 WBC (4.5-11.0) X10^3/uL RBC (4.5-5.9) X10^6/uL Hgb (13.5-17.5) g/dL Hct (41-53) % MCV (80-100) fL MCH (26-34) PG MCHC (30-36) % RDW (11.6-14.8) % Plt Count (150-400) X10^3/uL Neut % (Auto) (50-75) % Lymph % (Auto) (25-40) % [place] % (Auto) (3-14) % Eos % (Auto) (2-4) % Baso % (Auto) (0-2) % Neut # (Auto) (3985-3784) /uL PT 47.2 H D (10.1-12.7) SECONDS INR 4.4 H (0.9-1.3) APTT (26.4-36.2) SECONDS ABG pH 7.36 (7.35-7.45) ABG pCO2 50.8 H (35-45) mmHg ABG pO2 94 (80-105) mmHg ABG HCO3 29 H (23-27) mmol/L ABG Total CO2 30 H (23-27) mmol/L ABG O2 Saturation 97 (95-100) % ABG Base Excess 3.0 (-2-3) mmol/L FiO2 36 Sodium (137-145) mmol/L Potassium (3.4-5.1) mmol/L Chloride (98-107) mmol/L Carbon Dioxide (22-32) mmol/L BUN (9-20) mg/dL Creatinine (0.66-1.25) mg/dL Estimated GFR (>60) mL/min BUN/Creatinine Ratio (6-22) Glucose (80-110) mg/dL Lactate (0.7-2.1) mmol/L Calcium (8.4-10.2) mg/dL Total Bilirubin (0.2-1.3) mg/dL AST (17-59) IU/L ALT (21-72) IU/L Alkaline Phosphatase (38-126) U/L B-Natriuretic Peptide (<100) Total Protein (6.3-8.2) g/dL Albumin (3.5-5.0) g/dL Globulin (1.7-4.1) g/dL Albumin/Globulin Ratio (1.0-2.8) Lipase (23-300) U/L Procalcitonin (<0.5) ng/mL Urine Color Urine Appearance Urine pH (4.5-8.0) Ur Specific [place] (1.000-1.035) Urine Protein (Negative) Urine Glucose (UA) (Normal) g/dL Urine Ketones (NEGATIVE) Urine Occult Blood (Negative) Urine Nitrate (Negative) Urine Bilirubin (NEGATIVE) Urine Urobilinogen (0.2) E.U./dL Ur Leukocyte Esterase (NEGATIVE) Urine RBC (0-5/HPF) Urine WBC (0-5/HPF) Urine Bacteria (None) Ur Culture Indicated? Micro UA Comment Nasal Screen MRSA (PCR) Negative for mrsa (Negative) 11/22/17 11/23/17 11/23/17 Range/Units 04:50 05:32 05:32 WBC 12.1 H (4.5-11.0) X10^3/uL RBC 4.22 L (4.5-5.9) X10^6/uL Hgb 12.1 L (13.5-17.5) g/dL Hct 36.7 L (41-53) % MCV 86.9 (80-100) fL MCH 28.6 (26-34) PG MCHC 33.0 (30-36) % RDW 17.0 H (11.6-14.8) % Plt Count 96 L (150-400) X10^3/uL Neut % (Auto) 84.3 H (50-75) % Lymph % (Auto) 5.2 L (25-40) % [place] % (Auto) 9.7 (3-14) % Eos % (Auto) 0.6 L (2-4) % Baso % (Auto) 0.2 (0-2) % Neut # (Auto) 86857 H (8864-3962) /uL PT 37.6 H D (10.1-12.7) SECONDS INR 3.5 H (0.9-1.3) APTT (26.4-36.2) SECONDS ABG pH (7.35-7.45) ABG pCO2 (35-45) mmHg ABG pO2 (80-105) mmHg ABG HCO3 (23-27) mmol/L ABG Total CO2 (23-27) mmol/L ABG O2 Saturation (95-100) % ABG Base Excess (-2-3) mmol/L FiO2 Sodium 141 (137-145) mmol/L Potassium 4.3 (3.4-5.1) mmol/L Chloride 103 (98-107) mmol/L Carbon Dioxide 28 (22-32) mmol/L BUN 32 H (9-20) mg/dL Creatinine 1.70 H (0.66-1.25) mg/dL Estimated GFR 39.0 L (>60) mL/min BUN/Creatinine Ratio 18.8 (6-22) Glucose 117 H (80-110) mg/dL Lactate (0.7-2.1) mmol/L Calcium 8.1 L (8.4-10.2) mg/dL Total Bilirubin 1.0 (0.2-1.3) mg/dL AST 22 (17-59) IU/L ALT 38 (21-72) IU/L Alkaline Phosphatase 59 (38-126) U/L B-Natriuretic Peptide (<100) Total Protein 6.2 L (6.3-8.2) g/dL Albumin 3.5 (3.5-5.0) g/dL Globulin 2.7 (1.7-4.1) g/dL Albumin/Globulin Ratio 1.3 (1.0-2.8) Lipase (23-300) U/L Procalcitonin (<0.5) ng/mL Urine Color Urine Appearance Urine pH (4.5-8.0) Ur Specific [place] (1.000-1.035) Urine Protein (Negative) Urine Glucose (UA) (Normal) g/dL Urine Ketones (NEGATIVE) Urine Occult Blood (Negative) Urine Nitrate (Negative) Urine Bilirubin (NEGATIVE) Urine Urobilinogen (0.2) E.U./dL Ur Leukocyte Esterase (NEGATIVE) Urine RBC (0-5/HPF) Urine WBC (0-5/HPF) Urine Bacteria (None) Ur Culture Indicated? Micro UA Comment Nasal Screen MRSA (PCR) (Negative) 11/23/17 Range/Units 05:32 WBC (4.5-11.0) X10^3/uL RBC (4.5-5.9) X10^6/uL Hgb (13.5-17.5) g/dL Hct (41-53) % MCV (80-100) fL MCH (26-34) PG MCHC (30-36) % RDW (11.6-14.8) % Plt Count (150-400) X10^3/uL Neut % (Auto) (50-75) % Lymph % (Auto) (25-40) % [place] % (Auto) (3-14) % Eos % (Auto) (2-4) % Baso % (Auto) (0-2) % Neut # (Auto) (0720-1414) /uL PT (10.1-12.7) SECONDS INR (0.9-1.3) APTT (26.4-36.2) SECONDS ABG pH (7.35-7.45) ABG pCO2 (35-45) mmHg ABG pO2 (80-105) mmHg ABG HCO3 (23-27) mmol/L ABG Total CO2 (23-27) mmol/L ABG O2 Saturation (95-100) % ABG Base Excess (-2-3) mmol/L FiO2 Sodium 137 (137-145) mmol/L Potassium 4.0 (3.4-5.1) mmol/L Chloride 103 (98-107) mmol/L Carbon Dioxide 26 (22-32) mmol/L BUN 38 H (9-20) mg/dL Creatinine 1.60 H (0.66-1.25) mg/dL Estimated GFR 41.8 L (>60) mL/min BUN/Creatinine Ratio 23.8 H (6-22) Glucose 60 L (80-110) mg/dL Lactate (0.7-2.1) mmol/L Calcium 8.0 L (8.4-10.2) mg/dL Total Bilirubin (0.2-1.3) mg/dL AST (17-59) IU/L ALT (21-72) IU/L Alkaline Phosphatase (38-126) U/L B-Natriuretic Peptide (<100) Total Protein (6.3-8.2) g/dL Albumin (3.5-5.0) g/dL Globulin (1.7-4.1) g/dL Albumin/Globulin Ratio (1.0-2.8) Lipase (23-300) U/L Procalcitonin (<0.5) ng/mL Urine Color Urine Appearance Urine pH (4.5-8.0) Ur Specific [place] (1.000-1.035) Urine Protein (Negative) Urine Glucose (UA) (Normal) g/dL Urine Ketones (NEGATIVE) Urine Occult Blood (Negative) Urine Nitrate (Negative) Urine Bilirubin (NEGATIVE) Urine Urobilinogen (0.2) E.U./dL Ur Leukocyte Esterase (NEGATIVE) Urine RBC (0-5/HPF) Urine WBC (0-5/HPF) Urine Bacteria (None) Ur Culture Indicated? Micro UA Comment Nasal Screen MRSA (PCR) (Negative) Discharge Plan Departure Patient Disposition: Admitted As Inpatient Clinical Impression: Pneumonia, Cough with hemoptysis, Change in mental status Discharge Date/Time: 11/21/17 21:48 Interventions: ED Discharge Assessment Last Done: 11/21/17 21:27 Admit Date/Time: 11/21/17 21:04 Admit Provider: Kali Cassidy <Lucas Browne DO - Last Filed: 11/23/17 07:17> Cosign ED Attending Jose De Jesusature Attestation: I was available for consultation during this patient's emergency department encounter
[2017-11-21 15:51] LABS: Procalcitonin 0.29 ng/mL (<0.5)
--- NOTE | 2017-11-21 17:48 | PC.NURSE ---
Congested cough productive for blood tinged sputum.
--- NOTE | 2017-11-21 18:07 | PC.NURSE ---
increasing difficulty with sputum - suctioned - changed to NRB at 15L with improvement in sats - PA Fishfader at bedside
[2017-11-21 18:47] LABS: HCO3 ABG 28 mmol/L (23-27); Oxygen Saturation ABG 98 % (95-100); PCO2 ABG 58.8 mmHg (35-45); PO2 ABG 116 mmHg (80-105); TCO2 ABG 30 mmol/L (23-27); pH ABG 7.29 (7.35-7.45)
[2017-11-21 18:48] LABS: Fractionated Inspired Oxygen 90
--- NOTE | 2017-11-21 19:09 | PC.NURSE ---
straight cath for specimen
--- NOTE | 2017-11-21 19:11 | PC.NURSE ---
Patient's oxygen saturations drop very quick;y with any exertion - has expectorated copious amounts of bloody sputum - feeling nauseated and keeps taking the NRB off so additional oxygen by NC at 4L and NRB dropped to 5L - attempting to get patient stabilized on NC only
[2017-11-21 19:22] LABS: Appearance Urine UA CLOUDY; Bilirubin Urine UA NEGATIVE (NEGATIVE); Color Urine UA YELLOW; Glucose Urine UA NEGATIVE (Normal); Ketones Urine UA NEGATIVE (NEGATIVE); Leukocyte Esterase Urine UA 2+ (NEGATIVE); Nitrite Urine UA POSITIVE (Negative); Occult Blood Urine UA 3+ (Negative); Protein Urine UA 2+ (Negative); Specific Gravity Urine UA 1.025 (1.000-1.035); Urobilinogen Urine UA 0.2 E.U./dL (0.2)
[2017-11-21 19:35] LABS: Bacteria Urine Many (>30); Culture Indicated Urine Specimen Cultured; RBC Urine >100/HPF (0-5/HPF); WBC Urine >100/HPF (0-5/HPF)
--- NOTE | 2017-11-21 19:57 | PC.NURSE ---
checked on pt, reports he is feeling much better, vitals doing well- 135/53 HR 80 96% on 2L- airway patent and pt has not expectorated any more sputum in the last 30 min. Resting in bed. Declining warm blanket. Updated on plan of care and advised we are awaiting an ICU bed
[2017-11-21] MEDS: CEFTRIAXONE 1 GM/50 ML FROZ.PIGGY IV (20:09)
[2017-11-21] MEDS: AZITHROMYCIN 500 MG in DEXTROSE 5% IN WATER 250 ML IV (20:50)
[2017-11-21 21:19] LABS: Fractionated Inspired Oxygen 36; HCO3 ABG 29 mmol/L (23-27); Oxygen Saturation ABG 97 % (95-100); PCO2 ABG 50.8 mmHg (35-45); PO2 ABG 94 mmHg (80-105); TCO2 ABG 30 mmol/L (23-27); pH ABG 7.36 (7.35-7.45)
--- NOTE | 2017-11-21 21:27 | P.HP_ITS ---
History of Present Illness Date Patient Seen: 11/21/17 Time Patient Seen: 21:18 Chief complaint: N/V Narrative: 82-year-old male presents with increasing weakness and cough. He brought in by family members after repeated falls with weakness. He states that he started having some nausea and vomiting day or so ago and then developed cough subsequent to that. Should he does not have a great memory of falls and does not remember a lot about his symptoms other than what he already described above. He readily notes that he is not as sharp as he normally is he is slow to respond Patient History Medical History Aortic stenosis (Chronic) BPH (benign prostatic hyperplasia) (Chronic) Barretts esophagus (Chronic) Chronic renal insufficiency, stage III (moderate) (Chronic) Fatty liver (Chronic) HTN (hypertension) (Chronic) History of GI bleed (Chronic) Hyperlipidemia (Chronic) ASHWIN (obstructive sleep apnea) (Chronic) Osteoarthritis of left hip (Chronic) Peripheral neuropathy (Chronic) Spinal stenosis, lumbar region with neurogenic claudication (Chronic) Type 2 diabetes mellitus (Chronic) Family & Social History Safety & Behavioral: Feels Safe in Current Yes Environment Been Physically Hurt or No Threatened By a Person Tobacco & Substance use: Smoking Status Never smoker alcohol intake frequency a few times a week Substance Use Type does not use Meds Home Medications Medication Instructions Recorded Confirmed Type atorvastatin 40 mg QPM 11/21/17 11/21/17 History clonidine HCl 0.1 mg QAM AND QHS 11/21/17 11/21/17 History eplerenone 12.5 mg QAM 11/21/17 11/21/17 History escitalopram oxalate 20 mg QAM 11/21/17 11/21/17 History ferrous sulfate 325 mg QAM 11/21/17 11/21/17 History furosemide 20 mg QAM 11/21/17 11/21/17 History glimepiride 1 mg QAM 11/21/17 11/21/17 History losartan 50 mg QAM 11/21/17 11/21/17 History oxybutynin chloride 10 mg QPM 11/21/17 11/21/17 History tamsulosin 0.8 mg QPM 11/21/17 11/21/17 History warfarin 2 mg QAM 11/21/17 11/21/17 History Allergies Allergy/AdvReac Type Severity Reaction Status Date / Time BCG (Bacillus Allergy Unknown cancer drug Verified 11/21/17 20:49 Calmette-Lico) vacc [From BCG NATALIA VACCINE] Review of Systems Review of Systems All systems reviewed & are unremarkable except as noted in HPI and below Exam Vital Signs (past 8 hours): - 11/21/17 13:27 11/21/17 14:22 11/21/17 16:33 Temperature 99.0 F Pulse Rate 76 66 72 Respiratory Rate 16 18 18 Blood Pressure 149/68 H Blood Pressure [Left Arm] 98/53 L 140/61 H Pulse Oximetry 87 L 92 97 11/21/17 16:54 11/21/17 18:05 11/21/17 19:56 Temperature 98.8 F Pulse Rate 91 H 80 Respiratory Rate 22 Blood Pressure Blood Pressure [Left Arm] 214/148 H 135/53 H Pulse Oximetry 97 96 11/21/17 20:35 Temperature Pulse Rate 88 Respiratory Rate 27 H Blood Pressure Blood Pressure [Left Arm] 112/45 L Pulse Oximetry 95 Oxygen Delivery Method Nasal Cannula Oxygen Flow Rate 2 Narrative Exam Narrative: Elderly obese male appears lethargic but is arousable will answer some questions but he is a little bit unsure of the history and kind of slow to respond in general. HEENT exam are oropharynx dry Neck is supple no JVD Lungs rhonchi throughout with some crackles in the left base Abdomen is distended bowel sounds are present nontender to palpation no organomegaly Lower extremities with chronic stasis dermatitis Skin warm and dry Neuro exam he is awake slow to respond a little bit confused about details of his history but he knows who he is and the date and where he is at No focal motor or sensory deficits Objective Labs Result Diagrams: 11/21/17 14:50 11/21/17 14:50 Labs: Laboratory Results - last 24 hr 11/21/17 11/21/17 11/21/17 14:50 14:50 14:50 WBC 15.4 H RBC 4.89 Hgb 13.8 Hct 42.3 MCV 86.5 MCH 28.2 MCHC 32.6 RDW 17.0 H Plt Count 120 L Neut % (Auto) 88.7 H Lymph % (Auto) 2.1 L [place] % (Auto) 8.9 Eos % (Auto) 0.1 L Baso % (Auto) 0.2 Neut # (Auto) 24907 H PT INR APTT ABG pH ABG pCO2 ABG pO2 ABG HCO3 ABG Total CO2 ABG O2 Saturation ABG Base Excess FiO2 Sodium 141 Potassium 4.4 Chloride 102 Carbon Dioxide 30 BUN 25 H Creatinine 1.60 H Estimated GFR 41.8 L BUN/Creatinine Ratio 15.6 Glucose 125 H Lactate 0.9 Calcium 8.5 Total Bilirubin 1.2 AST 24 ALT 39 Alkaline Phosphatase 67 B-Natriuretic Peptide Total Protein 6.5 Albumin 3.9 Globulin 2.6 Albumin/Globulin Ratio 1.5 Lipase Procalcitonin Urine Color Urine Appearance Urine pH Ur Specific [place] Urine Protein Urine Glucose (UA) Urine Ketones Urine Occult Blood Urine Nitrate Urine Bilirubin Urine Urobilinogen Ur Leukocyte Esterase Urine RBC Urine WBC Urine Bacteria Ur Culture Indicated? Micro UA Comment 11/21/17 11/21/17 11/21/17 14:50 14:50 14:50 WBC RBC Hgb Hct MCV MCH MCHC RDW Plt Count Neut % (Auto) Lymph % (Auto) [place] % (Auto) Eos % (Auto) Baso % (Auto) Neut # (Auto) PT 39.4 H INR 3.7 H APTT 50 H ABG pH ABG pCO2 ABG pO2 ABG HCO3 ABG Total CO2 ABG O2 Saturation ABG Base Excess FiO2 Sodium Potassium Chloride Carbon Dioxide BUN Creatinine Estimated GFR BUN/Creatinine Ratio Glucose Lactate Calcium Total Bilirubin AST ALT Alkaline Phosphatase B-Natriuretic Peptide Total Protein Albumin Globulin Albumin/Globulin Ratio Lipase < 10 L Procalcitonin 0.29 Urine Color Urine Appearance Urine pH Ur Specific [place] Urine Protein Urine Glucose (UA) Urine Ketones Urine Occult Blood Urine Nitrate Urine Bilirubin Urine Urobilinogen Ur Leukocyte Esterase Urine RBC Urine WBC Urine Bacteria Ur Culture Indicated? Micro UA Comment 11/21/17 11/21/17 11/21/17 14:50 18:27 18:35 WBC RBC Hgb Hct MCV MCH MCHC RDW Plt Count Neut % (Auto) Lymph % (Auto) [place] % (Auto) Eos % (Auto) Baso % (Auto) Neut # (Auto) PT INR APTT ABG pH 7.29 L ABG pCO2 58.8 H ABG pO2 116 H ABG HCO3 28 H ABG Total CO2 30 H ABG O2 Saturation 98 ABG Base Excess 1.0 FiO2 90 Sodium Potassium Chloride Carbon Dioxide BUN Creatinine Estimated GFR BUN/Creatinine Ratio Glucose Lactate Calcium Total Bilirubin AST ALT Alkaline Phosphatase B-Natriuretic Peptide 313.0 H Total Protein Albumin Globulin Albumin/Globulin Ratio Lipase Procalcitonin Urine Color Yellow Urine Appearance Cloudy Urine pH 5.0 Ur Specific [place] 1.025 Urine Protein 2+ H Urine Glucose (UA) Negative Urine Ketones Negative Urine Occult Blood 3+ H Urine Nitrate Positive Urine Bilirubin Negative Urine Urobilinogen 0.2 Ur Leukocyte Esterase 2+ H Urine RBC >100/hpf Urine WBC >100/hpf H Urine Bacteria Many (>30) H Ur Culture Indicated? Specimen cultured Micro UA Comment Not Reportable Assessment & Plan Plan: Assessment/Plan Narrative: One. Pneumonia possible aspiration could be also acute bacterial community- acquired pneumonia. Plan to initially start him on ceftriaxone and azithromycin. He also is apparently retaining CO2 with a pCO2 59 initially pH down to 7.29. Improved with lower oxygen FiO2. I think keeping him around 91% would be sufficient so will turn down the oxygen further. 2. Acute hypercapnic respiratory failure plus secondary to pneumonia plan to decrease his oxygen FiO2 3. Urinary tract infection cover with ceftriaxone for now IV fluids for now 4. Acute metabolic encephalopathy secondary to underlying infection 5. Sepsis with pneumonia urinary tract infection elevated white count and decreased Camille coma Scale would be consistent with sepsis syndrome also the platelet count is decreased he normally has normal platelets and he is depressed down to 120 6. Chronic kidney disease creatinine 1.6 about baseline 7. Diabetes type 2 plan to continue home medications include Amaryl 8. Hypertension plan to resume his oral medications tomorrow 9. Code status patient desires to be DNR 10. Chronic a-fib with over anticoagulation plan to hold Coumadin for now rate controlled Scores GCS [place] coma scale eye opening: Spontaneous Caimlle coma scale verbal response: Confused Camille coma scale motor response: Obey commands Camille coma scale total score: 14
[2017-11-21] MEDS: cloNIDine 0.1 MG TABLET PO (22:17)
[2017-11-21] MEDS: FUROSEMIDE 20 MG TABLET PO (22:18)
[2017-11-21] MEDS: LOSARTAN 50 MG TABLET PO (22:18)
[2017-11-21] MEDS: ESCITALOPRAM 10 MG TABLET 20 MG PO (22:18)
--- NOTE | 2017-11-21 22:48 | PC.NURSE ---
admit note pt admitted from ER. Pt with very poor short term memory. Pt SOB with laying flat for linen change, repositioning. Pt voided 100 ml of red urine. Called and notified Dr. Cassidy about bloody urine, clarified IVF rate and po Lasix, ABG CO2 level lower, but still high. O2 decreased from 4 L to 2L.
--- NOTE | 2017-11-21 23:29 | RT ---
PT HAS A HX OF ASHWIN AND USES A CPAP AT HOME. PT IS REFUSING TO USE HOSPITAL CPAP, AND STATES THAT HE WILL HAVE HIS SON BRING IN HIS UNIT TOMORROW. RN UPDATED.
[2017-11-21] MEDS: SODIUM CHLORIDE 0.9% 1,000 ML 100 ML IV (23:48)
[2017-11-22] VITALS (15 sets, daily range): BP systolic 103–136; BP diastolic 44–69; PULSE 67–71; RESP 10–26; TEMP 36.9–37.3; O2SAT 85–98; BMI 38.6
[2017-11-22 06:04] LABS: INR 4.4 (0.9-1.3); Prothrombin Time 47.2 SECONDS (10.1-12.7)
[2017-11-22 06:05] LABS: Alanine Aminotransferase 38 IU/L (21-72); Albumin 3.5 g/dL (3.5-5.0); Albumin Globulin Ratio 1.3 (1.0-2.8); Alkaline Phosphatase 59 U/L (38-126); Aspartate Aminotransferase 22 IU/L (17-59); BUN Creatinine Ratio 18.8 (6-22); Blood Urea Nitrogen 32 mg/dL (9-20); Calcium 8.1 mg/dL (8.4-10.2); Carbon Dioxide 28 mmol/L (22-32); Chloride 103 mmol/L (98-107); Globulin 2.7 g/dL (1.7-4.1); Glucose 117 mg/dL (80-110); HEMOLYSIS 15 (0-50); Potassium 4.3 mmol/L (3.4-5.1); Sodium 141 mmol/L (137-145); Total Protein 6.2 g/dL (6.3-8.2)
[2017-11-22] MEDS: FUROSEMIDE 20 MG TABLET PO (09:08)
[2017-11-22] MEDS: GLIMEPIRIDE 2 MG TABLET 1 MG PO (09:08)
[2017-11-22] MEDS: EPLERENONE 25 MG TABLET 12.5 MG PO (09:09)
[2017-11-22] MEDS: LOSARTAN 50 MG TABLET PO (09:09)
[2017-11-22] MEDS: cloNIDine 0.1 MG TABLET PO ×2 (09:09→20:28)
[2017-11-22] MEDS: ESCITALOPRAM 10 MG TABLET 20 MG PO (09:09)
[2017-11-22] MEDS: SODIUM CHLORIDE 0.9% 1,000 ML 100 ML IV (09:12)
--- NOTE | 2017-11-22 09:39 | PM.PN.1 ---
Subjective Date Patient Seen: 11/22/17 Time Patient Seen: 09:39 Interval history: Patient seems to be doing better this a.m.. Down to 1 L nasal cannula. Still confused although improved since last night. Exam Vital Signs (past 8 hours): - 11/22/17 03:28 11/22/17 08:01 Temperature 99.1 F 98.6 F Pulse Rate 70 70 Respiratory Rate 10 L 16 Blood Pressure 103/44 L 114/65 Pulse Oximetry 94 97 Oxygen Delivery Method Nasal Cannula Oxygen Flow Rate 2 Narrative Exam Narrative: GENERAL: Patient is alert, sitting in chair, no acute distress CHEST: Bilateral lower lobe rhonchi CARDIAC: Irregularly regular rhythm ABDOMEN: Obese, soft, nontender EXTREMITIES: no edema, chronic venous stasis changes. NEUROLOGICAL: Alert, mildly confused, nonfocal SKIN: Superficial bruising on flanks and suprapubic area Objective Labs Result Diagrams: 11/21/17 14:50 11/22/17 04:50 Labs: Laboratory Results - last 24 hr 11/21/17 11/21/17 11/21/17 14:50 14:50 14:50 WBC 15.4 H RBC 4.89 Hgb 13.8 Hct 42.3 MCV 86.5 MCH 28.2 MCHC 32.6 RDW 17.0 H Plt Count 120 L Neut % (Auto) 88.7 H Lymph % (Auto) 2.1 L [place] % (Auto) 8.9 Eos % (Auto) 0.1 L Baso % (Auto) 0.2 Neut # (Auto) 68014 H PT INR APTT ABG pH ABG pCO2 ABG pO2 ABG HCO3 ABG Total CO2 ABG O2 Saturation ABG Base Excess FiO2 Sodium 141 Potassium 4.4 Chloride 102 Carbon Dioxide 30 BUN 25 H Creatinine 1.60 H Estimated GFR 41.8 L BUN/Creatinine Ratio 15.6 Glucose 125 H Lactate 0.9 Calcium 8.5 Total Bilirubin 1.2 AST 24 ALT 39 Alkaline Phosphatase 67 B-Natriuretic Peptide Total Protein 6.5 Albumin 3.9 Globulin 2.6 Albumin/Globulin Ratio 1.5 Lipase Procalcitonin Urine Color Urine Appearance Urine pH Ur Specific [place] Urine Protein Urine Glucose (UA) Urine Ketones Urine Occult Blood Urine Nitrate Urine Bilirubin Urine Urobilinogen Ur Leukocyte Esterase Urine RBC Urine WBC Urine Bacteria Ur Culture Indicated? Micro UA Comment Nasal Screen MRSA (PCR) 0611/21/17 11/21/17 14:50 14:50 14:50 WBC RBC Hgb Hct MCV MCH MCHC RDW Plt Count Neut % (Auto) Lymph % (Auto) [place] % (Auto) Eos % (Auto) Baso % (Auto) Neut # (Auto) PT 39.4 H INR 3.7 H APTT 50 H ABG pH ABG pCO2 ABG pO2 ABG HCO3 ABG Total CO2 ABG O2 Saturation ABG Base Excess FiO2 Sodium Potassium Chloride Carbon Dioxide BUN Creatinine Estimated GFR BUN/Creatinine Ratio Glucose Lactate Calcium Total Bilirubin AST ALT Alkaline Phosphatase B-Natriuretic Peptide Total Protein Albumin Globulin Albumin/Globulin Ratio Lipase < 10 L Procalcitonin 0.29 Urine Color Urine Appearance Urine pH Ur Specific [place] Urine Protein Urine Glucose (UA) Urine Ketones Urine Occult Blood Urine Nitrate Urine Bilirubin Urine Urobilinogen Ur Leukocyte Esterase Urine RBC Urine WBC Urine Bacteria Ur Culture Indicated? Micro UA Comment Nasal Screen MRSA (PCR) 11/21/17 11/21/17 11/21/17 14:50 18:27 18:35 WBC RBC Hgb Hct MCV MCH MCHC RDW Plt Count Neut % (Auto) Lymph % (Auto) [place] % (Auto) Eos % (Auto) Baso % (Auto) Neut # (Auto) PT INR APTT ABG pH 7.29 L ABG pCO2 58.8 H ABG pO2 116 H ABG HCO3 28 H ABG Total CO2 30 H ABG O2 Saturation 98 ABG Base Excess 1.0 FiO2 90 Sodium Potassium Chloride Carbon Dioxide BUN Creatinine Estimated GFR BUN/Creatinine Ratio Glucose Lactate Calcium Total Bilirubin AST ALT Alkaline Phosphatase B-Natriuretic Peptide 313.0 H Total Protein Albumin Globulin Albumin/Globulin Ratio Lipase Procalcitonin Urine Color Yellow Urine Appearance Cloudy Urine pH 5.0 Ur Specific [place] 1.025 Urine Protein 2+ H Urine Glucose (UA) Negative Urine Ketones Negative Urine Occult Blood 3+ H Urine Nitrate Positive Urine Bilirubin Negative Urine Urobilinogen 0.2 Ur Leukocyte Esterase 2+ H Urine RBC >100/hpf Urine WBC >100/hpf H Urine Bacteria Many (>30) H Ur Culture Indicated? Specimen cultured Micro UA Comment Not Reportable Nasal Screen MRSA (PCR) 11/21/17 11/21/17 11/22/17 21:10 22:37 04:50 WBC RBC Hgb Hct MCV MCH MCHC RDW Plt Count Neut % (Auto) Lymph % (Auto) [place] % (Auto) Eos % (Auto) Baso % (Auto) Neut # (Auto) PT 47.2 H D INR 4.4 H APTT ABG pH 7.36 ABG pCO2 50.8 H ABG pO2 94 ABG HCO3 29 H ABG Total CO2 30 H ABG O2 Saturation 97 ABG Base Excess 3.0 FiO2 36 Sodium Potassium Chloride Carbon Dioxide BUN Creatinine Estimated GFR BUN/Creatinine Ratio Glucose Lactate Calcium Total Bilirubin AST ALT Alkaline Phosphatase B-Natriuretic Peptide Total Protein Albumin Globulin Albumin/Globulin Ratio Lipase Procalcitonin Urine Color Urine Appearance Urine pH Ur Specific [place] Urine Protein Urine Glucose (UA) Urine Ketones Urine Occult Blood Urine Nitrate Urine Bilirubin Urine Urobilinogen Ur Leukocyte Esterase Urine RBC Urine WBC Urine Bacteria Ur Culture Indicated? Micro UA Comment Nasal Screen MRSA (PCR) Negative for mrsa 11/22/17 04:50 WBC RBC Hgb Hct MCV MCH MCHC RDW Plt Count Neut % (Auto) Lymph % (Auto) [place] % (Auto) Eos % (Auto) Baso % (Auto) Neut # (Auto) PT INR APTT ABG pH ABG pCO2 ABG pO2 ABG HCO3 ABG Total CO2 ABG O2 Saturation ABG Base Excess FiO2 Sodium 141 Potassium 4.3 Chloride 103 Carbon Dioxide 28 BUN 32 H Creatinine 1.70 H Estimated GFR 39.0 L BUN/Creatinine Ratio 18.8 Glucose 117 H Lactate Calcium 8.1 L Total Bilirubin 1.0 AST 22 ALT 38 Alkaline Phosphatase 59 B-Natriuretic Peptide Total Protein 6.2 L Albumin 3.5 Globulin 2.7 Albumin/Globulin Ratio 1.3 Lipase Procalcitonin Urine Color Urine Appearance Urine pH Ur Specific [place] Urine Protein Urine Glucose (UA) Urine Ketones Urine Occult Blood Urine Nitrate Urine Bilirubin Urine Urobilinogen Ur Leukocyte Esterase Urine RBC Urine WBC Urine Bacteria Ur Culture Indicated? Micro UA Comment Nasal Screen MRSA (PCR) Assessment & Plan Plan: Assessment/Plan Narrative: 1. Pneumonia possible aspiration could be also acute bacterial community-acquired pneumonia. Sputum culture negative. Continue Rocephin and azithromycin. 2. Acute hypercapnic and hypoxic respiratory failure secondary to pneumonia. Continue O2 nasal cannula 1 L. Current sat 91%. 3. Urinary tract infection. Urine culture growing gram-negative bacilli. Continue on Rocephin pending final sensitivities. 4. Acute metabolic encephalopathy secondary to underlying infection. Still confused but improving. 5. Sepsis. Continue antibiotic management. Blood pressures and heart rate normal range. Hep-Lock IV. 6. Chronic kidney disease, stage III, creatinine 1.7 about baseline 7. Diabetes type 2. Glucose adequately controlled. Continue glimepiride. NovoLog low-dose sliding scale. 8. Hypertension. Continue routine medications. 9. Chronic a-fib with over anticoagulation. Continue holding warfarin. Recheck INR in a.m.. 10. Code status. DNR.
--- NOTE | 2017-11-22 13:52 | CM.DPC ---
Addendum entered by Ladan Potts 11/22/17 14:02: Addendum 11/22: DCP Called and spoke with patient's son/POA Connor Garrett to verify best number to reach him at. Gave updated address and cell # verification to [facility] for changes on face sheet. Connor also was informed of plan, patient's desire to return to [facility] if further Skilled Need is required upon discharge. Connor confirmed that [facility] would be their first choice. He also confirmed that he is planning to bring patient's CPAP machine to patient room before bedtime tonight. Original Note: Discharge Planning/Care Management CM Discharge Assessment Start: 11/22/17 13:47 Freq: Status: Active Protocol: Document 11/22/17 13:47 RL (Rec: 11/22/17 13:52 RL [id number]) Discharge Planning Assessment History Provided By Patient Has Patient been admitted in last 30 No days? Is this patient on Medicare? Yes Is the admit diagnosis the same? Yes Prior Living Arrangements House Household Members children Type of transporation used prior to Relies on Others admit Comment Lives with son/POA Connor Garrett who does all transportation. Willing to Return to Facility? Yes: IF SNF needed on d/c, would like to go to [facility] as he had been there in past Independent with ADL's No: son does meds, cooking, accounting assistant, shopping Is patient alert and oriented? Yes: has improving metabolic encephalopathy r/t sepsis, forgetful Needs Assistance With Meal Prep Managing Medications Home Chores / Shopping Caregiver for Another No DME Already Rented / Owned Bath Bench Wheelchair Elevated Toilet Seat FWW / Walker Cane Referrals Initiated [facility] Comment Left VM messg for Aspen at [facility] in case SNF is recommended upon d/c. Discharge Plan Home Review Status Complete Next Review Date 11/23/17 Next Review Type Continued Stay Review DC Initial Assessment: 11/22/17 Case reviewed, EMR reviewed and met with patient. He appears alert and oriented but is forgetful and slow to answer some questions. Prog note of 11/22 states likely acute metabolic encephalopathy r/t sepsis, which is improving. Patient prefers to go by nickname ?Keshav.? Pt is an 82 yo admitted as Inpatient on 11/21 for PNA, UTI and sepsis under the care of the Hospitalist team. PCP: Dr. Cherry Primary payor is: Medicare primary/[facility]. Other health care agencies used: None. Met with patient and introduced self as DCP, explained role and goals of DCP and as pt advocate. Pt verbalized understanding. DCP wrote name and extension number on patient whiteboard. Pt is found sitting in bedside chair with mostly uneaten lunch in front of him. He verifies Face Sheet information and corrects POA/son Connor Garrett?s address son currently lives with him in basement apartment and assists with medication management, meals, transportation, shopping and accounting assistant. They live on [address]. He states Adv Directives and POLST form are available in EMR. Patient states he was driving until last hospitalization (which appears to be 2016), at which time he was discharged to [facility] and made an agreement with son Connor that he would not drive after that time, and he has not. He states the home has multiple handrails installed, has large walk-in shower with bath bench, high toilets, wheelchair avail, FWW and cane. He usually ambulates with cane. He is currently on 1L O2 per [place], and states he had PNA at one time in the past and d/c home with oxygen, but no longer has it and has not needed it. Plan: Patient desires to return home, but if a facility is needed for transition, he prefers [facility]: ?I like it there, they were good to me and they liked me.? DCP left VM messg for Aspen at [facility] informing her of patient desire to return there if that level of care is needed upon d/c, and asking her to access patient EMR for review. D/C not likely for a few days and we will know more as care progresses. Ladan Potts, RN
[2017-11-22] MEDS: ACETAMINOPHEN 325 MG TABLET 650 MG PO (17:58)
--- NOTE | 2017-11-22 18:45 | PC.NURSE ---
curry note assisted pt to chair for dinner. Pt steady of gait once standing with FWW. Pt reports it is difficult to get OOB due to pain in abd laterally. Pt alert and oriented. Pt transferred via wheelchair to room 206. Left message for son Connor about room change on cell phone.
[2017-11-22] MEDS: ALBUTEROL 2.5 MG/3 ML NEB (ADULT) INH (19:42)
[2017-11-22] MEDS: AZITHROMYCIN 250 MG in DEXTROSE 5% IN WATER 250 ML IV (20:26)
[2017-11-22] MEDS: ATORVASTATIN 20 MG TABLET 40 MG PO (20:27)
[2017-11-22] MEDS: TAMSULOSIN 0.4 MG CAPSULE 0.8 MG PO (21:07)
[2017-11-22] MEDS: CEFTRIAXONE 1 GM/50 ML FROZ.PIGGY IV (22:04)
[2017-11-23] VITALS (14 sets, daily range): BP systolic 128–148; BP diastolic 62–87; PULSE 57–89; RESP 14–20; TEMP 36.1–37.3; O2SAT 93–98
[2017-11-23 05:59] LABS: INR 3.5 (0.9-1.3); Prothrombin Time 37.6 SECONDS (10.1-12.7)
[2017-11-23 06:06] LABS: BUN Creatinine Ratio 23.8 (6-22); Blood Urea Nitrogen 38 mg/dL (9-20); Carbon Dioxide 26 mmol/L (22-32); Chloride 103 mmol/L (98-107); Estimated Glomerular Filt Rate 41.8 mL/min (>60); Glucose 60 mg/dL (80-110); HEMOLYSIS 26 (0-50); Sodium 137 mmol/L (137-145)
[2017-11-23 06:07] LABS: Add Manual Diff / Slide Review NO; Basophils Percent Auto 0.2 % (0-2); Eosinophils Percent Auto 0.6 % (2-4); Hematocrit 36.7 % (41-53); Hemoglobin 12.1 g/dL (13.5-17.5); Lymphocytes Percent Auto 5.2 % (25-40); Mean Corpuscular Hemoglobin 28.6 PG (26-34); Mean Corpuscular Volume 86.9 fL (80-100); Monocytes Percent Auto 9.7 % (3-14); Neutrophils Absolute Auto 10200 /uL (3000-5900); Neutrophils Percent Auto 84.3 % (50-75); Platelet Count 96 X10^3/uL (150-400); Red Blood Cell Count 4.22 X10^6/uL (4.5-5.9); White Blood Cell Count 12.1 X10^3/uL (4.5-11.0)
[2017-11-23] MEDS: ALBUTEROL 2.5 MG/3 ML NEB (ADULT) INH ×2 (08:17→23:00)
[2017-11-23] MEDS: LOSARTAN 50 MG TABLET PO (09:06)
[2017-11-23] MEDS: cloNIDine 0.1 MG TABLET PO ×2 (09:06→21:22)
[2017-11-23] MEDS: GLIMEPIRIDE 2 MG TABLET 1 MG PO (09:06)
[2017-11-23] MEDS: FUROSEMIDE 20 MG TABLET PO (09:06)
[2017-11-23] MEDS: ESCITALOPRAM 10 MG TABLET 20 MG PO (09:06)
[2017-11-23] MEDS: EPLERENONE 25 MG TABLET 12.5 MG PO (09:06)
--- NOTE | 2017-11-23 10:21 | PM.PN.1 ---
Subjective Date Patient Seen: 11/23/17 Time Patient Seen: 10:21 Interval history: Patient is improving with his breathing and cough. Still a little confused at times. He is very weak. Exam Vital Signs (past 8 hours): - 11/23/17 04:22 11/23/17 07:00 11/23/17 08:10 Temperature 98.7 F 98 F Pulse Rate 68 89 Respiratory Rate 16 16 Blood Pressure 146/71 H 133/67 H Pulse Oximetry 95 97 97 11/23/17 08:38 11/23/17 09:06 Temperature Pulse Rate 76 Respiratory Rate 16 Blood Pressure 133/67 H Pulse Oximetry Oxygen Delivery Method Nasal Cannula Oxygen Flow Rate 3 Narrative Exam Narrative: GENERAL: Patient is alert, pleasant, no acute distress CHEST: Clear to auscultation bilaterally CARDIAC: Irregularly irregular rhythm ABDOMEN: Obese, soft, nontender EXTREMITIES: no edema, chronic venous stasis changes. NEUROLOGICAL: Nonfocal SKIN: Superficial bruising on flanks and suprapubic area Objective Labs Result Diagrams: 11/23/17 05:32 11/23/17 05:32 Labs: Laboratory Results - last 24 hr 11/23/17 11/23/17 11/23/17 05:32 05:32 05:32 WBC 12.1 H RBC 4.22 L Hgb 12.1 L Hct 36.7 L MCV 86.9 MCH 28.6 MCHC 33.0 RDW 17.0 H Plt Count 96 L Neut % (Auto) 84.3 H Lymph % (Auto) 5.2 L [place] % (Auto) 9.7 Eos % (Auto) 0.6 L Baso % (Auto) 0.2 Neut # (Auto) 81098 H PT 37.6 H D INR 3.5 H Sodium 137 Potassium 4.0 Chloride 103 Carbon Dioxide 26 BUN 38 H Creatinine 1.60 H Estimated GFR 41.8 L BUN/Creatinine Ratio 23.8 H Glucose 60 L Calcium 8.0 L Assessment & Plan Plan: Assessment/Plan Narrative: 1. Pneumonia possible aspiration could be also acute bacterial community-acquired pneumonia. Improving clinical course. Sputum culture negative. Continue Rocephin and azithromycin. Transition to oral antibiotic tomorrow, Wednesday to complete 10 day course. 2. Acute hypercapnic and hypoxic respiratory failure secondary to pneumonia. Improved Continue O2 nasal cannula 1 L. Current sat 91 to 96% %. 3. Urinary tract infection. Urine culture grew pansensitive E coli. Continue on Rocephin then Ceftin starting tomorrow. 4. Acute metabolic encephalopathy secondary to underlying infection. Still confused but improving. 5. Sepsis. Resolved. Continue antibiotic management. Blood pressures and heart rate normal range. IV Hep-Lock. 6. Chronic kidney disease, stage III, creatinine 1.6 about baseline 7. Diabetes type 2. Glucose adequately controlled. Continue glimepiride. NovoLog low-dose sliding scale. 8. Hypertension. Continue routine medications. 9. Chronic a-fib with over anticoagulation. Continue holding warfarin. INR 3.5 declining. Restart warfarin tomorrow. His dosing prior to admission was 2 mg x6 days per week and 1 mg x1 day per week. 10. Code status. DNR. 11. Disposition. Improving course, likely discharge to [facility] tomorrow, Wednesday. Consult PT and OT.
--- NOTE | 2017-11-23 10:25 | P.PN_ITS ---
Subjective Date Patient Seen: 11/23/17 Time Patient Seen: 10:21 Interval history: Patient is improving with his breathing and cough. Still a little confused at times. He is very weak. Exam Vital Signs (past 8 hours): - 11/23/17 04:22 11/23/17 07:00 11/23/17 08:10 Temperature 98.7 F 98 F Pulse Rate 68 89 Respiratory Rate 16 16 Blood Pressure 146/71 H 133/67 H Pulse Oximetry 95 97 97 11/23/17 08:38 11/23/17 09:06 Temperature Pulse Rate 76 Respiratory Rate 16 Blood Pressure 133/67 H Pulse Oximetry Oxygen Delivery Method Nasal Cannula Oxygen Flow Rate 3 Narrative Exam Narrative: GENERAL: Patient is alert, pleasant, no acute distress CHEST: Clear to auscultation bilaterally CARDIAC: Irregularly irregular rhythm ABDOMEN: Obese, soft, nontender EXTREMITIES: no edema, chronic venous stasis changes. NEUROLOGICAL: Nonfocal SKIN: Superficial bruising on flanks and suprapubic area Objective Labs Result Diagrams: 11/23/17 05:32 11/23/17 05:32 Labs: Laboratory Results - last 24 hr 11/23/17 11/23/17 11/23/17 05:32 05:32 05:32 WBC 12.1 H RBC 4.22 L Hgb 12.1 L Hct 36.7 L MCV 86.9 MCH 28.6 MCHC 33.0 RDW 17.0 H Plt Count 96 L Neut % (Auto) 84.3 H Lymph % (Auto) 5.2 L [place] % (Auto) 9.7 Eos % (Auto) 0.6 L Baso % (Auto) 0.2 Neut # (Auto) 95551 H PT 37.6 H D INR 3.5 H Sodium 137 Potassium 4.0 Chloride 103 Carbon Dioxide 26 BUN 38 H Creatinine 1.60 H Estimated GFR 41.8 L BUN/Creatinine Ratio 23.8 H Glucose 60 L Calcium 8.0 L Assessment & Plan Plan: Assessment/Plan Narrative: 1. Pneumonia possible aspiration could be also acute bacterial community- acquired pneumonia. Improving clinical course. Sputum culture negative. Continue Rocephin and azithromycin. Transition to oral antibiotic tomorrow, Wednesday to complete 10 day course. 2. Acute hypercapnic and hypoxic respiratory failure secondary to pneumonia. Improved Continue O2 nasal cannula 1 L. Current sat 91 to 96% %. 3. Urinary tract infection. Urine culture grew pansensitive E coli. Continue on Rocephin then Ceftin starting tomorrow. 4. Acute metabolic encephalopathy secondary to underlying infection. Still confused but improving. 5. Sepsis. Resolved. Continue antibiotic management. Blood pressures and heart rate normal range. IV Hep-Lock. 6. Chronic kidney disease, stage III, creatinine 1.6 about baseline 7. Diabetes type 2. Glucose adequately controlled. Continue glimepiride. NovoLog low-dose sliding scale. 8. Hypertension. Continue routine medications. 9. Chronic a-fib with over anticoagulation. Continue holding warfarin. INR 3.5 declining. Restart warfarin tomorrow. His dosing prior to admission was 2 mg x6 days per week and 1 mg x1 day per week. 10. Code status. DNR. 11. Disposition. Improving course, likely discharge to [facility] tomorrow, Wednesday. Consult PT and OT.
--- NOTE | 2017-11-23 10:47 | CM.DPC ---
DCP Cont SNF Planning PT/OT ordered and still pending. SW met with pt's son/DPOA who lives with the pt and provides his daily caregiving and preference is still [facility] rehab at d/c before safe return home. Pt requesting private room if possible or at least a window bed due to his claustrophobia. [facility] referral was made yesterday per family request. SW called [facility] admissions and confirmed that they can accept the pt when medically stable and will work on trying to get the pt a private room but for sure a window bed. Plan: SW to follow for pt d/c to [facility] when medically stable before safe return home with adult son/caregiver. SW to keep son Connor updated on d/c if not bedside. JULI Turner
--- NOTE | 2017-11-23 13:38 | PT.IIE ---
Current Diagnoses Sepsis, unspecified organism (11/21/17) Surgical History (Last Updated 11/21/17 @ 21:19 by Kika Yanes PA-C) H/O partial cystectomy (Resolved) S/P TURP (Resolved) Medical History (Last Updated 11/22/17 @ 09:21 by Nino Cherry MD) Atrial fibrillation (Acute) Aortic stenosis (Chronic) BPH (benign prostatic hyperplasia) (Chronic) Barretts esophagus (Chronic) Chronic renal insufficiency, stage III (moderate) (Chronic) Fatty liver (Chronic) HTN (hypertension) (Chronic) History of GI bleed (Chronic) Hyperlipidemia (Chronic) ASHWIN (obstructive sleep apnea) (Chronic) Osteoarthritis of left hip (Chronic) Peripheral neuropathy (Chronic) Spinal stenosis, lumbar region with neurogenic claudication (Chronic) Type 2 diabetes mellitus (Chronic) Physical Therapy Inpatient Evaluation/Re-Eval M1 PT/OT-IP Prior Functional Status Start: 11/23/17 13:22 Freq: NEEDED Status: Active Protocol: Document 11/23/17 13:22 RS (Rec: 11/23/17 13:38 [id number]) Medical Review Prior Functional Status Diet/Fluid Consistency Regular Mobility and Gait pt reports being ind to mod ind with either 4WW or SPC, always uses 4WW when leaving the home, admits to multiple falls over the past two months . Social History Household Members children Living Arrangements House Number of Floors (Floors) One Floor Number of Stairs To Enter/Railing? 0STE Home Equipment Front Wheel Walker Four Wheel Walker Straight Cane Employment Status Retired M2 PT-IP Current Condition Start: 11/23/17 13:22 Freq: NEEDED Status: Active Protocol: Document 11/23/17 13:22 RS (Rec: 11/23/17 13:38 [id number]) Physical Therapy Current Condition Current Condition Evaluation Date 11/23/17 Treatment Diagnosis pneumonia and weakness Onset Date about a week M3 PT-IP Subjective Start: 11/23/17 13:22 Freq: NEEDED Status: Active Protocol: Document 11/23/17 13:22 RS (Rec: 11/23/17 13:38 [id number]) Subjective Physical Therapy Visit Type Type Initial Evaluation Visit Start Time 11:10 Visit Stop Time 11:30 Total Visit Minutes 20 Physical Therapy Visit Comments Patient Comments Pt reports being extremely tired, just wanting to sleep but agreeable to PT eval. Patient/Caregiver Goals get better before going home Therapy Pain Assessment Pain When Pain Assessed At Rest Pain Present Pain Present Denied Pain M4 PT-IP Mobility and Gait Start: 11/23/17 13:22 Freq: NEEDED Status: Active Protocol: Document 11/23/17 13:22 RS (Rec: 11/23/17 13:38 [id number]) PT-Bed Mobility Assessment Supine to Sit Supine to Sit Moderate Assistance Sit to Supine Sit to Supine Moderate Assistance PT-Transfer Assessment Sit to and From Stand Sit to and from Stand Moderate Assistance 1 Person Assistance Use of Upper Extremities Equipment Transfer Assistive Device Gait Belt Front Wheeled Walker Transfers Transfer Destination Chair Transfer Technique Stand Step Pivot Transfer Ability Level of Assist Moderate Assistance 1 Person Assistance Use of Upper Extremities Comments Mobility Comments Pt needing lots of cues for hand position and sequencing. Gait Assessment Comments Gait Comments not tested Stair Climbing Assessment Comments Stair Climbing Comments not testes PT-Balance Assessment Sitting Balance and Reactions Static Sitting Balance Ability Good Dynamic Sitting Balance Ability Fair Standing Balance and Reactions Static Standing Balance Ability Poor Dynamic Standing Balance Ability Poor Device Used FWW M5 PT-IP Objective Assessments Start: 11/23/17 13:22 Freq: NEEDED Status: Active Protocol: Document 11/23/17 13:22 RS (Rec: 11/23/17 13:38 [id number]) Orientation Orientation/Cognition Level of Alertness Confusional State Safety Awareness Decreased Safety Awareness Gross Range of Motion Upper Extremity ROM Assessment Within Functional Limits Lower Extremity ROM Assessment Within Functional Limits Strength Comments Strength Comments globally pt is 3+/5 with poor endurance M6 PT-IP Treatment Start: 11/23/17 13:22 Freq: NEEDED Status: Active Protocol: Document 11/23/17 13:22 RS (Rec: 11/23/17 13:38 [id number]) Physical Therapy Treatment Education Education Provided Safety M7 PT-IP Assessment and Plan Start: 11/23/17 13:22 Freq: NEEDED Status: Active Protocol: Document 11/23/17 13:22 RS (Rec: 11/23/17 13:38 [id number]) PT Summary Assessment and Plan Potential Rehabilitation Potential Good Status of Condition at Evaluation Evolving Summary Impairments Strength Balance Cognition Bed Mobility Transfers Gait Activity Tolerance Progress Towards Goals Progressing Toward Goals Slow Progress due to Activity Tolerance Assessment Summary Pt presents with significant strength and balance deficits as well as decreased activity tolerance. Pt is not safe to return home at this time. Pt does have potential for functional improvement and will benefit from ongoing skilled acute PT with transition to SNF rehab for ongoing subacute therapies. Goals Bed Mobility Goal Minimal Assistance Transfer Goal Minimal Assistance Front Wheeled Walker Gait Goal Minimal Assistance Front Wheel Walker Gait Distance 50 Days to Meet Goals 3 Frequency of Treatment Frequency Of Treatment Once a Day Treatment Plan Physical Therapy Treatment Plan Bed Mobility Training Transfer Training Gait Training Therapeutic Exercise Balance Retraining Discharge Planning Recommendations To Nursing Amount of Assist Needed 2 Person Assist Discharge Recommendations PT Discharge Recommendations SNF Rehab
--- NOTE | 2017-11-23 14:31 | PC.NURSE ---
patient alert, but oriented only to self. Patient is easily re-oriented. Generalized weakness; 1-2PA FWW. CBG 62 and 100 so no insulin administrated. Lungs clear in upper lobes, and diminished with crackles in bilateral bases. Son, Connor, came to visit; stated he has seen a major decline in health, both physical and medtation, in the last couple months. Son lives with patient at patient's house.
[2017-11-23] MEDS: ACETAMINOPHEN 325 MG TABLET 650 MG PO (17:50)
[2017-11-23] MEDS: TAMSULOSIN 0.4 MG CAPSULE 0.8 MG PO (21:21)
[2017-11-23] MEDS: AZITHROMYCIN 250 MG in DEXTROSE 5% IN WATER 250 ML IV (21:22)
[2017-11-23] MEDS: ATORVASTATIN 20 MG TABLET 40 MG PO (21:23)
[2017-11-23] MEDS: SODIUM CHLORIDE 0.9% FLUSH 10 ML IV (22:50)
[2017-11-23] MEDS: CEFTRIAXONE 1 GM/50 ML FROZ.PIGGY IV (22:50)
[2017-11-24] VITALS (13 sets, daily range): BP systolic 143–183; BP diastolic 74–91; PULSE 73–97; RESP 14–32; TEMP 37.1–37.7; O2SAT 86–97
[2017-11-24] MEDS: ONDANSETRON 4 MG/2 ML INJ IV (08:09)
[2017-11-24] MEDS: EPLERENONE 25 MG TABLET 12.5 MG PO (08:16)
[2017-11-24] MEDS: cloNIDine 0.1 MG TABLET PO ×2 (08:16→21:27)
[2017-11-24] MEDS: LOSARTAN 50 MG TABLET PO (08:16)
--- NOTE | 2017-11-24 08:19 | PC.NURSE ---
pt reporting feeling nauseous and starting retching; no emesis. 4mg Zofran administered IV. Pt's BP elevated at 183/85 so we administered his BP medications and will hold his others until nausea subsides.
[2017-11-24] MEDS: INSULIN ASPART 100 UNIT/ML INSULN PEN SUBCUT ×3 (08:22→16:56)
[2017-11-24] MEDS: ALBUTEROL 2.5 MG/3 ML NEB (ADULT) INH ×2 (09:01→21:01)
[2017-11-24] MEDS: ESCITALOPRAM 10 MG TABLET 20 MG PO (09:33)
[2017-11-24] MEDS: FUROSEMIDE 20 MG TABLET PO (09:35)
[2017-11-24] MEDS: GLIMEPIRIDE 2 MG TABLET 1 MG PO (09:35)
[2017-11-24] MEDS: SODIUM CHLORIDE 0.9% FLUSH 10 ML IV (09:35)
--- NOTE | 2017-11-24 09:45 | PC.NURSE ---
Addendum entered by Francia Ramirez R.N. 11/24/17 14:47: Patient O2 sat's having been fluctuating all shift. Patient would get above 91% so we would remove O2, then the patient would drop to mid-80's, so we would apply O2 at 1.5L. Currently patient is off O2 and sating 95% RA. One-time Malox order administered at 1200. Patient has since had 3 episodes of vomiting and has had two BM's in the last hour and a half. Let the patient know that Zofran is not available until 4pm. Gave pt saltine crackers per his request. Original Note: After RT, oxygen was found off patient. O2 sats off O2 were 84-85%, placed O2 on at 1.5L and encouraged deep breathing through pt's nose, reassessed O2 stat at 89%. HOB elevated slightly at 30 degrees
--- NOTE | 2017-11-24 10:41 | PT.IPTN ---
Current Diagnoses Sepsis, unspecified organism (11/21/17) Physical Therapy Treatment Note M2 PT-IP Current Condition Start: 11/23/17 13:22 Freq: NEEDED Status: Active Protocol: Document 11/23/17 13:22 RS (Rec: 11/23/17 13:38 RS [id number]) Physical Therapy Current Condition Current Condition Evaluation Date 11/23/17 Treatment Diagnosis pneumonia and weakness Onset Date about a week M3 PT-IP Subjective Start: 11/23/17 13:22 Freq: NEEDED Status: Active Protocol: Document 11/24/17 10:41 DLM (Rec: 11/24/17 10:41 [facility] [id number]) Subjective Physical Therapy Visit Type Type Patient Refusal Physical Therapy Visit Comments Patient Comments Pt reports he is tired and nauseated this AM, unwilling to get up
--- NOTE | 2017-11-24 11:14 | PM.PN.1 ---
Subjective Date Patient Seen: 11/24/17 Time Patient Seen: 11:14 Interval history: Patient was supposed to be discharged today but having some nausea this morning and did any breakfast. No vomiting or diarrhea. He is very weak and mildly confused at times. Exam Vital Signs (past 8 hours): - 11/24/17 05:30 11/24/17 07:00 11/24/17 07:40 Temperature 98.9 F 98.7 F Pulse Rate 81 97 H Respiratory Rate 20 18 Blood Pressure 178/85 H 183/85 H Pulse Oximetry 92 89 L 91 11/24/17 08:16 11/24/17 09:12 Temperature Pulse Rate 90 Respiratory Rate 32 H Blood Pressure 183/85 H Pulse Oximetry Oxygen Delivery Method Nasal Cannula Oxygen Flow Rate 1.5 Narrative Exam Narrative: GENERAL: Patient is alert, pleasant, appears a little uncomfortable CHEST: Clear to auscultation bilaterally CARDIAC: Irregularly irregular rhythm ABDOMEN: Obese, soft, nontender EXTREMITIES: no edema, chronic venous stasis changes. NEUROLOGICAL: Nonfocal oriented to person and place SKIN: Superficial bruising on flanks and suprapubic area Objective Labs Result Diagrams: 11/23/17 05:32 11/23/17 05:32 Assessment & Plan Plan: Assessment/Plan Narrative: 1. Bacterial pneumonia, aspiration versus community-acquired. Improving clinical course. Sputum culture negative. Continue Rocephin and azithromycin. Due to nausea,transition to oral antibiotic (Ceftin) tomorrow, to complete 10 day course. 2. Acute hypercapnic and hypoxic respiratory failure secondary to pneumonia. Improved Continue O2 nasal cannula 1 L. Current sat 91 to 96% %. 3. Urinary tract infection. Urine culture grew pansensitive E coli. Continue on Rocephin then Ceftin starting tomorrow. 4. Acute metabolic encephalopathy secondary to underlying infection. Still confused but improving and it seems patient has some degree of confusion and memory deficit at baseline. 5. Sepsis. Resolved. Continue antibiotic management. 6. Chronic kidney disease, stage III, creatinine 1.6 about baseline 7. Diabetes type 2. Glucose adequately controlled. Continue glimepiride. NovoLog low-dose sliding scale. 8. Hypertension. Continue routine medications. 9. Chronic a-fib with over anticoagulation. Warfarin has been on hold since admission and is being restarted on 11/24/2017. His dosing prior to admission was 2 mg x6 days per week and 1 mg x1 day per week. He should have INR checked November 28. 10. Code status. DNR. 11. Acute nausea without vomiting. Ordered Maalox and Tums as needed. Continue to monitor. 12. Disposition. Overall improving course but discharge delayed due to nausea. Hopefully discharge to [facility] tomorrow, , to continue physical and occupational therapy. Son has basically been his full-time caregiver prior to this admission and asking about assisted living options after residential discharge.
--- NOTE | 2017-11-24 11:19 | P.PN_ITS ---
Subjective Date Patient Seen: 11/24/17 Time Patient Seen: 11:14 Interval history: Patient was supposed to be discharged today but having some nausea this morning and did any breakfast. No vomiting or diarrhea. He is very weak and mildly confused at times. Exam Vital Signs (past 8 hours): - 11/24/17 05:30 11/24/17 07:00 11/24/17 07:40 Temperature 98.9 F 98.7 F Pulse Rate 81 97 H Respiratory Rate 20 18 Blood Pressure 178/85 H 183/85 H Pulse Oximetry 92 89 L 91 11/24/17 08:16 11/24/17 09:12 Temperature Pulse Rate 90 Respiratory Rate 32 H Blood Pressure 183/85 H Pulse Oximetry Oxygen Delivery Method Nasal Cannula Oxygen Flow Rate 1.5 Narrative Exam Narrative: GENERAL: Patient is alert, pleasant, appears a little uncomfortable CHEST: Clear to auscultation bilaterally CARDIAC: Irregularly irregular rhythm ABDOMEN: Obese, soft, nontender EXTREMITIES: no edema, chronic venous stasis changes. NEUROLOGICAL: Nonfocal oriented to person and place SKIN: Superficial bruising on flanks and suprapubic area Objective Labs Result Diagrams: 11/23/17 05:32 11/23/17 05:32 Assessment & Plan Plan: Assessment/Plan Narrative: 1. Bacterial pneumonia, aspiration versus community-acquired. Improving clinical course. Sputum culture negative. Continue Rocephin and azithromycin. Due to nausea,transition to oral antibiotic (Ceftin) tomorrow, to complete 10 day course. 2. Acute hypercapnic and hypoxic respiratory failure secondary to pneumonia. Improved Continue O2 nasal cannula 1 L. Current sat 91 to 96% %. 3. Urinary tract infection. Urine culture grew pansensitive E coli. Continue on Rocephin then Ceftin starting tomorrow. 4. Acute metabolic encephalopathy secondary to underlying infection. Still confused but improving and it seems patient has some degree of confusion and memory deficit at baseline. 5. Sepsis. Resolved. Continue antibiotic management. 6. Chronic kidney disease, stage III, creatinine 1.6 about baseline 7. Diabetes type 2. Glucose adequately controlled. Continue glimepiride. NovoLog low-dose sliding scale. 8. Hypertension. Continue routine medications. 9. Chronic a-fib with over anticoagulation. Warfarin has been on hold since admission and is being restarted on 11/24/2017. His dosing prior to admission was 2 mg x6 days per week and 1 mg x1 day per week. He should have INR checked November 28. 10. Code status. DNR. 11. Acute nausea without vomiting. Ordered Maalox and Tums as needed. Continue to monitor. 12. Disposition. Overall improving course but discharge delayed due to nausea. Hopefully discharge to [facility] tomorrow, , to continue physical and occupational therapy. Son has basically been his full- time caregiver prior to this admission and asking about assisted living options after pen[facility] discharge.
[2017-11-24] MEDS: MAG HYDROX/ALUM/SIMETH 30 ML UDC PO (12:00)
--- NOTE | 2017-11-24 16:11 | OT.IP.TRT ---
Current Diagnoses Sepsis, unspecified organism (11/21/17) Occupational Therapy Treatment Note M3 OT- IP Subjective and Pain Start: 11/24/17 16:10 Freq: Status: Active Protocol: Document 11/24/17 16:10 LIZZETTE (Rec: 11/24/17 16:11 LIZZETTE [id number]) OT- Subjective Occupational Therapy Visit Type Notes OT referral received. Attempted to evaluate pt this PM, but he declined due to fatigue. Will attempt again in AM.
[2017-11-24] MEDS: WARFARIN 2 MG TABLET PO (16:57)
[2017-11-24] MEDS: AZITHROMYCIN 250 MG in DEXTROSE 5% IN WATER 250 ML IV (19:40)
[2017-11-24] MEDS: ATORVASTATIN 20 MG TABLET 40 MG PO (21:27)
[2017-11-24] MEDS: TAMSULOSIN 0.4 MG CAPSULE 0.8 MG PO (21:29)
[2017-11-24] MEDS: cefUROXime 250 MG TABLET 500 MG PO (22:16)
--- NOTE | 2017-11-25 02:33 | PC.NURSE ---
Fine Craft Artist Note 0030: Pt pulled off CPAP and refuses nasal cannula. Confused, beligerant. His O2 sats are 86% on room air. He did agree to put nasal cannula on for a while. O2 sats improved to 89%. RT notified of RR 28 and pulling off CPAP. 0130: Pt having nausea and small emesis that is pink tinged, and contains a dime-sized red clot. He responds verbally appropriately, oriented to self. O2 via NC remains on at 2L. Assisted to use urinal. Assisted to reposition. 0140: CBG 102. 0155: Continues to have nausea. Pt does not have IV. Dr. Cherry notified by phone of the above events. He ordered IV to be replaced, NS bolus of 500cc X1, Ativan 0.5mg IV X1, and Zofran 4mg IV Q4hrs prn. 0210: IV re-started in rt forearm. Zofran and Ativan given as ordered. 0240: NS bolus started.
[2017-11-25 02:35] VITALS: BP 176/85; PULSE 95; RESP 26; TEMP 37.9; O2SAT 95
[2017-11-25] MEDS: SODIUM CHLORIDE 0.9% 500 ML IV (02:40)
[2017-11-25] MEDS: ONDANSETRON 4 MG/2 ML INJ IV (02:40)
[2017-11-25] MEDS: LORazepam 2 MG/ML SYRINGE 0.5 MG IV (02:40)
[2017-11-25 05:55] VITALS: BP 166/77; PULSE 73; RESP 18; TEMP 36.8; O2SAT 95
[2017-11-25 08:30] VITALS: BP 141/78; PULSE 76; RESP 18; TEMP 36.8; O2SAT 90
[2017-11-25 08:45] VITALS: O2SAT 93
[2017-11-25] MEDS: ALBUTEROL 2.5 MG/3 ML NEB (ADULT) INH (09:05)
[2017-11-25] MEDS: INSULIN ASPART 100 UNIT/ML INSULN PEN SUBCUT (09:12)
[2017-11-25] MEDS: cefUROXime 250 MG TABLET 500 MG PO (09:13)
[2017-11-25] MEDS: cloNIDine 0.1 MG TABLET PO (09:13)
[2017-11-25 09:14] VITALS: PULSE 77; RESP 28; O2SAT 94
[2017-11-25] MEDS: ESCITALOPRAM 10 MG TABLET 20 MG PO (09:14)
[2017-11-25] MEDS: FUROSEMIDE 20 MG TABLET PO (09:15)
[2017-11-25] MEDS: GLIMEPIRIDE 2 MG TABLET 1 MG PO (09:16)
[2017-11-25] MEDS: SODIUM CHLORIDE 0.9% FLUSH 10 ML IV (09:17)
[2017-11-25] MEDS: LOSARTAN 50 MG TABLET PO (09:17)
[2017-11-25] MEDS: EPLERENONE 25 MG TABLET 12.5 MG PO (09:17)
--- NOTE | 2017-11-25 10:05 | PT.IPTN ---
Current Diagnoses Sepsis, unspecified organism (11/21/17) Physical Therapy Treatment Note M2 PT-IP Current Condition Start: 11/23/17 13:22 Freq: NEEDED Status: Active Protocol: Document 11/23/17 13:22 RS (Rec: 11/23/17 13:38 RS [id number]) Physical Therapy Current Condition Current Condition Evaluation Date 11/23/17 Treatment Diagnosis pneumonia and weakness Onset Date about a week M3 PT-IP Subjective Start: 11/23/17 13:22 Freq: NEEDED Status: Active Protocol: Document 11/25/17 10:05 GGD (Rec: 11/25/17 12:13 GGD [email or web address]) Subjective Physical Therapy Visit Type Type Treatment Note Visit Start Time 09:40 Visit Stop Time 10:05 Total Visit Minutes 25 Number of WICK TENDER Visits 1 Physical Therapy Visit Comments Patient Comments Pt states he is feeling better and wants to get up. Therapy Pain Assessment Pain When Pain Assessed During Mobility Pain Present Pain Present Pain Reported M4 PT-IP Mobility and Gait Start: 11/23/17 13:22 Freq: NEEDED Status: Active Protocol: Document 11/25/17 10:05 GGD (Rec: 11/25/17 12:13 GGD [id number]) PT-Bed Mobility Assessment Rolling Type of Rolling Log Rolling Supine to Sit Supine to Sit Moderate Assistance 1 Person Assistance Scooting Scooting to Edge of Bed Contact Guard Assistance PT-Transfer Assessment Sit to and From Stand Sit to and from Stand Contact Guard Assistance Use of Upper Extremities Equipment Transfer Assistive Device Gait Belt Front Wheeled Walker Transfers Transfer Destination Chair Comments Mobility Comments Pt in chair with alarm on. Gait Assessment Gait Gait Assistance Required: Contact Guard Assist Assistive Devices Assistive Device Gait Belt Front Wheeled Walker Gait Deviations General Gait Pattern Decreased Stride Length Flexed Trunk Factors Limiting Gait Function Factors Limiting Gait Function Decreased Activity Tolerance Decreased Strength Pain Poor Balance Comments Gait Comments O2 at rest 94% on 3 L. With activity 89% on RA. 93% on 3 L 30 sec. post activity. M6 PT-IP Treatment Start: 11/23/17 13:22 Freq: NEEDED Status: Active Protocol: Document 11/25/17 10:05 GGD (Rec: 11/25/17 12:13 GGD [email or web address]) Physical Therapy Treatment Education Education Provided Safety M7 PT-IP Assessment and Plan Start: 11/23/17 13:22 Freq: NEEDED Status: Active Protocol: Document 11/25/17 10:05 GGD (Rec: 11/25/17 12:13 GGD [email or web address]) PT Summary Assessment and Plan Summary Assessment Summary Pt improved with mobility and need less assist. He need assist with bed mobility and had C/O back pain with log roll. He was able to ambulate, but did fatigue quickly. He did have decrease O2 with activity on RA. Frequency of Treatment Frequency Of Treatment Once a Day Treatment Plan Physical Therapy Treatment Plan Bed Mobility Training Transfer Training Gait Training Therapeutic Exercise Balance Retraining Discharge Planning Recommendations To Nursing Amount of Assist Needed 2 Person Assist Discharge Recommendations PT Discharge Recommendations SNF Rehab
--- NOTE | 2017-11-25 10:52 | OT.IP.TRT ---
Current Diagnoses Sepsis, unspecified organism (11/21/17) Occupational Therapy Treatment Note M3 OT- IP Subjective and Pain Start: 11/24/17 16:10 Freq: Status: Active Protocol: Document 11/25/17 10:51 [facility] (Rec: 11/25/17 10:52 [facility] [id number]) OT- Subjective Occupational Therapy Visit Type Type Treatment Note Notes Spoke to pt to initiate OT eval and to come back in PM to complete.
--- NOTE | 2017-11-25 11:30 | P.DS_ITS ---
History of Present Illness Date Patient Seen: 11/25/17 Time Patient Seen: 11:28 Chief complaint: N/V Narrative: Patient comes in via EMS today, called by his son. Patient reported that he had nausea and an episode of vomiting about midnight. He slept until 6: 00 a.m., and his son went and found him sleeping in a chair at home. Son states that is not unusual, however states his dad has been ?different? all day today. He noticed that his dad was having some trouble finding words, perhaps very minimal slurred speech. He states this is not particularly unusual for him , however he was more disoriented to the point that he did know the month, which is unusual. Son states that he also seemed weak all over his body and was having more trouble using his walker. No focal weakness noted. No facial weakness. Son states that at lunchtime around noon, patient began vomiting again , multiple episodes, then eyes rolled back and he passed out for a couple of minutes. Son states that when patient came to, he seemed confused for 5 min or more. Son did notice perhaps some slight blood in the later episodes of emesis. He states that his father was slumped in the chair any had to hold him up. He does state that his father's balance is poor at baseline and he is doing therapy for this. He tends to list over to the left side. He was also coughing when he came to, but son does not think he aspirated anything. He states that dad seems closer to baseline now, but still not quite normal in terms of mentation and strength. He notes that his dad has been yawning all day as well. Damián reports that he had a very mild headache last night and currently. He does not note any weakness himself. He denies any chest pain or dyspnea. He denies any abdominal pain but still feels some mild nausea and has had some episodes of vomiting since arrival and in the ambulance. He denies any bowel changes or urinary symptoms. He ate normally yesterday. Discharge Providers Date of admission: 11/21/17 21:04 Primary care physician: Nino Cherry MD Consults: 11/21/17 22:19 Consult to Dietitian, Adult Routine Comment: Reason For Exam: reports not been eating well 11/22/17 11:57 Consult to Respiratory Therapy Evaluate & Treat Comment: Physician Instructions: Evaluate and treat 11/23/17 10:05 Consult to Occupational Therapy Evaluate & Treat Comment: Physician Instructions: Evaluate and treat Consult to Physical Therapy Evaluate & Treat Comment: Physician Instructions: Evaluate and Treat 11/23/17 10:20 Consult to Discharge Planning Routine Comment: likely d/c wed to SNF Consult to Occupational Therapy Evaluate & Treat Comment: Physician Instructions: Evaluate and treat Consult to Physical Therapy Evaluate & Treat Comment: Physician Instructions: Evaluate and Treat Discharge provider: JAYME Castillo Summary Discharge Diagnosis: 1. Pneumonia possible aspiration/acute bacterial community -acquired pneumonia 2. Acute hypercapnic and hypoxic respiratory failure secondary to pneumonia 3. Urinary tract infection 4. Acute metabolic encephalopathy 5. Chronic kidney disease: Stage III 6. Diabetes type 2 7. Hypertension 8. Chronic atrial fibrillation 9. Sepsis Hospital Course: This is a summary of a 4 day hospitalization for this 82-year- old patient who came in with nausea and vomiting, falls, and memory changes. He was admitted to the hospital and started ceftriaxone and azithromycin IV. His initial pCO2 was 59 is pH was 7.29 and showed signs of tachypnea. His saturations were in low to mid 80s on room air, and required supplementation of 3-4 L nasal prong oxygen to maintain sats greater than 91. Head CT showed no acute bleeds or masses. His chest x-ray was consistent with a left lower lobe pneumonia and showed mild perihilar infiltrates bilaterally. Blood cultures showed no growth after 72 hr, sputum culture was unacceptable to excessive oral contamination. Urine culture came back positive for E coli sensitive to current antibiotic regimen. His sepsis, based on elevated white count, a decreased platelet count, and a decreased Langley coma Score has resolved with the antibiotic therapy. His nausea appear to diminish after receiving IV Zofran and has not complained of any nausea in the last 12 hr. His appetite has improved gradually over the last couple of days. The night prior to this discharge he appeared to be confused and belligerent taking off his CPAP mask and nasal cannula oxygen therapy. He had a small amount of emesis at that point in time and was given Zofran, Ativan and a 500 cc normal saline bolus. After talking with his son this morning I feel he is back to his baseline mentation. This morning he appears oriented to person place and time, does not remember much of the events of the previous evening and is eager to be transferred to [facility] for OT, PT and speech therapy. He will also continue on Ceftin for the next 7 days to complete a 10 day course of his antibiotic therapy. He will also need oxygen therapy to maintain sats greater than 91%. He appears to be at baseline for his chronic kidney disease and his diabetes as well as his hypertension and atrial fibrillation. We did hold his warfarin since his admission as he was supra anticoagulated. He was restarted on his Coumadin on the and he will need to have an INR drawn on the 28 of November. Status at Discharge Functional status at discharge: uses cane/walker Overall status at discharge: patient is progressing back to baseline Time Spent with Patient Greater than 30 minutes Exam Vital Signs (past 8 hours): - 11/25/17 05:55 11/25/17 08:30 11/25/17 08:45 Temperature 98.3 F 98.2 F Pulse Rate 73 76 Respiratory Rate 18 18 Blood Pressure 166/77 H 141/78 H Pulse Oximetry 95 90 L 93 11/25/17 09:14 Temperature Pulse Rate 77 Respiratory Rate 28 H Blood Pressure Pulse Oximetry 94 Fraction of Inspired Oxygen 28 Oxygen Delivery Method High Flow Nasal Cannula Oxygen Flow Rate 2 Const General: cooperative and comfortable Nutritional Appearance: obese Orientation: alert, awake and oriented x3 HENMT Head: normal to inspection, normocephalic and atraumatic Eyes General: appearance normal, both eyes and all related structures Pupils: PERRL Neck Neck: normal visual inspection, trachea midline and supple Other: No JVD or lymphadenopathy Chest Chest: normal inspection of the chest Resp Effort & Inspection: normal respiratory effort, able to speak in complete sentences and cough Quality of cough: dry Auscultation: crackles bilaterally at the base Other: No wheezes appreciated Cardio Rhythm: abnormal rhythm (Atrial fibrillation) Heart Sounds: S1 normal, S2 normal and murmur systolic II/ and at the right sternal border GI Inspection: normal to inspection and obesity Palpation: soft Auscultation: normal bowel sounds Other: Nontender to palpation Back/Spine/Pelvis Back: normal to inspection Skin General: dry skin and warm Other: Chronic stasis dermatitis noted on both lower extremities. Neuro General: alert, awake and oriented x3 Cognition: normal cognition Speech: speech normal Motor: muscle tone normal throughout Extrem General: normal to inspection and no calf tenderness Other: Trace pedal edema bilaterally. Psych Appearance: grossly normal Mental Status: mental status grossly normal Mood: congruent mood Affect: normal affect Attitude: cooperative Thought Process: normal Thought Content: normal Judgment: judgment good Objective Labs Result Diagrams: 11/23/17 05:32 11/23/17 05:32 Labs: PROCEDURE: CT HEAD/BRAIN WO CON INDICATIONS: LOC, confusion TECHNIQUE: Noncontrast 4.5 mm thick angled axial sections acquired from the foramen magnum to the vertex, with coronal and sagittal reformats. For radiation dose reduction, the following was used: automated exposure control, adjustment of mA and/or kV according to patient size. COMPARISON: [facility], MR, STROKE PROTOCOL, 04/10/2016, 11:36. [facility], CT, HEAD WITHOUT CONTRAST, 04/18/2016, 5:33. FINDINGS: Image quality: Excellent. CSF spaces: Basal cisterns are patent. No extra-axial fluid collections. The ventricles are symmetric in size and shape. Brain: No intracranial bleeds or masses. There is cerebral volume loss for age , with resultant ventricular and sulcal prominence. There are periventricular and deep white matter chronic small vessel ischemic changes. There is intracranial internal carotid artery atherosclerosis. Skull and face: Calvarium and visualized facial bones appear intact, without suspicious lesions. Sinuses: Visualized sinuses and mastoids are clear. IMPRESSION: 1. No acute intracranial abnormalities. 2. Cerebral volume loss and chronic microvascular ischemic changes. Dictated by: Renato Zaman M.D. on 11/21/2017 at 15:55 Approved by: Renato Zaman M.D. on 11/21/2017 at 15:58 PROCEDURE: XR CHEST 1V INDICATIONS: cough TECHNIQUE: One view of the chest was acquired. COMPARISON: [facility], CR, CHEST 1 VIEW, 04/18/2016, 7:06. FINDINGS: Surgical changes and devices: None. Lungs and pleura: Left basilar opacities consistent with pneumonia. Mild perihilar infiltrates bilaterally. No pleural effusions or pneumothorax. Mediastinum: Mediastinal contours appear normal. Heart size is prominent. Bones and chest wall: No suspicious bony lesions. Overlying soft tissues appear unremarkable. IMPRESSION: 1. Left lower lobe pneumonia. Recommend followup to resolution is superimposed mass cannot recently. 2. Mild perihilar infiltrates bilaterally may be secondary to superimposed CHF. Dictated by: Renato Zaman M.D. on 11/21/2017 at 16:09 Approved by: Renato Zaman M.D. on 11/21/2017 at 16:10 Discharge Plan Discharge Plan Patient Disposition: SNF Transfer to: [facility] Transportation: Wheelchair Labs: Repeat INR, CBC on November 28. I certify the postop hospital senior living care is medically necessary on a continuing basis for any conditions for which he/ she received care during this hospitalization.: Yes The receiving facility has agreed to accept transfer and provide medical treatment.: Yes Discharge Health Status Multidrug resistant organism: No MDRO MDRO Verified by culture: Yes Date verified: 11/25/17 Precautions: Hallie Provider Discharge Instructions Diet: Carb-consistent/Diabetic Oxygen: Requires 2-3 L nasal prong oxygen therapy. Wound Care Report to your healthcare provider any signs of infection, such as:: chills, fever, night sweats and increased pain Special Rehabilitation Services Reason for rehabilitation: Recovery r/t decondition Rehab type: Physical therapy, Occupational therapy and Speech therapy Discharge Data Primary Care Provider: Nino Cherry Attending Provider: Kali Cassidy Admit Date/Time: 11/21/17 21:04
--- NOTE | 2017-11-25 12:12 | CM.DPC ---
DCP: continued: case received, EMR reviewed, d/c to snf noted. Checked in with pt and found him asleep and snoring, 02 on. conferred with ANDREW Pittman who stated hospitalist JAYME García had been in earlier to talk with pt and his POA son Connor re the specifics of the d/c today and no concerns re the d/c were noted. Left vm for Connor on his cell re the d/c details ([facility] at 1330 via w/c with ) and updated the GEORGES re this...GEORGES given to CMAA to process as per her protocol. Will be available to talk further with Connor if need be when he returns to hospital prior to the d/c. [facility] is updated. Can accept pt as noted above. [facility] and orders faxed and place to snf packet. Maxx Pittman and Nisha are updated.
[2017-11-25 12:30] VITALS: BP 115/93; PULSE 65; RESP 16; TEMP 36.4; O2SAT 93
--- NOTE | 2017-11-25 16:18 | OT.IP.EVAL ---
Current Diagnoses Sepsis, unspecified organism (11/21/17) Past Medical History (Last Updated 11/22/17 @ 09:21 by Nino Cherry MD) Atrial fibrillation (Acute) Aortic stenosis (Chronic) BPH (benign prostatic hyperplasia) (Chronic) Barretts esophagus (Chronic) Chronic renal insufficiency, stage III (moderate) (Chronic) Fatty liver (Chronic) HTN (hypertension) (Chronic) History of GI bleed (Chronic) Hyperlipidemia (Chronic) ASHWIN (obstructive sleep apnea) (Chronic) Osteoarthritis of left hip (Chronic) Peripheral neuropathy (Chronic) Spinal stenosis, lumbar region with neurogenic claudication (Chronic) Type 2 diabetes mellitus (Chronic) Surgical History (Last Updated 11/21/17 @ 21:19 by Kika Yanes PA-C) H/O partial cystectomy (Resolved) S/P TURP (Resolved) Occupational Therapy Inpatient Evaluation/Re-Eval M1 PT/OT-IP Prior Functional Status Start: 11/23/17 13:22 Freq: NEEDED Status: Active Protocol: Document 11/25/17 10:15 [facility] (Rec: 11/25/17 16:18 [facility] [id number]) Medical Review Prior Functional Status Diet/Fluid Consistency Regular Mobility and Gait pt reports being ind to mod ind with either 4WW or SPC, always uses 4WW when leaving the home, admits to multiple falls over the past two months . Social History Household Members children Living Arrangements House Number of Floors (Floors) One Floor Number of Stairs To Enter/Railing? 0STE Home Equipment Front Wheel Walker Four Wheel Walker Straight Cane Employment Status Retired M2 OT-IP Current Condition Start: 11/24/17 16:10 Freq: Status: Active Protocol: Document 11/25/17 10:15 [facility] (Rec: 11/25/17 16:13 [facility] [id number]) Occupational Therapy Current Condition Current Condition Evaluation Date 11/25/17 Treatment Diagnosis Pneumonia and weakness Weight Bearing Status Weight Bearing Status Full Weight Bearing M4 OT- IP ADL's Start: 11/24/17 16:10 Freq: Status: Active Protocol: Document 11/25/17 10:15 [facility] (Rec: 11/25/17 16:13 [facility] [id number]) OT ADL-Grooming General Evaluation Grooming Ability Standby Assistance Areas Needing Assistance Retrieving/Set-up of Grooming Items Comments OT Grooming Comments Pt able to do while sitting in recliner and did not have tolerationg to try grooming while standing. OT ADL-Oral Care General Eval Oral Care Ability Standby Assistance Areas of Assistance Retrieving/Set-Up of Items M6 OT- IP Functional Cognition Start: 11/24/17 16:10 Freq: Status: Active Protocol: Document 11/25/17 10:15 [facility] (Rec: 11/25/17 16:13 [facility] [id number]) Cognitive Factors Limiting Selfcare Function Cognitive Ability Level of Alertness Alert Patient Orientation Name Place Situation Attention Span Ability Capable of Focused Attention Capable of Sustained Attention Ability to Follow Commands Able to Follow Multi-Step Commands OT- Vision and Hearing OT- Hearing Assessment OT- Hearing Assessment WFL M7 OT- IP Mobility and Balance Start: 11/24/17 16:10 Freq: Status: Active Protocol: Document 11/25/17 10:15 [facility] (Rec: 11/25/17 16:13 [facility] [id number]) OT-Transfer Assessment Sit to and From Stand Sit to and from Stand Moderate Assistance 2 Person Assistance Transfers Transfer Ability Moderate Assistance 1 Person Assistance Technique Transfer Destination Bed Transfer Technique Stand Step Pivot Devices Transfer Assistive Devices Gait Belt Front Wheeled Walker Comments Mobility Comments Sit to stand especially from lower surfaces MODA x 2. OT- Gait Assessment Gait Gait Assistance Required: Moderate Assistance 1 Person Assist Assistive Devices Assistive Device Front Wheeled Walker Comments Gait Ability Comments Pt unsteady on his feet and tends to lean backwards. OT- Balance Assessment Sitting Balance and Reactions Static Sitting Balance Ability Good Dynamic Sitting Balance Ability Fair Standing Balance and Reactions Static Standing Balance Ability Poor Dynamic Standing Balance Ability Poor M8 OT- IP Objective Assessments Start: 11/24/17 16:10 Freq: Status: Active Protocol: Document 11/25/17 10:15 [facility] (Rec: 11/25/17 16:18 [facility] [id number]) OT-Muscle Tone Assessment Muscle Tone WNL Yes M9 OT- IP Assessment and Plan Start: 11/24/17 16:10 Freq: Status: Active Protocol: Document 11/25/17 10:15 [facility] (Rec: 11/25/17 16:13 [facility] [id number]) OT Summary Assessment and Plan Potential Rehabilitation Potential Fair Analytic Complexity at Evaluation Low Summary OT Impairments Strength Balance Coordination Grooming Dressing Toileting Bathing Toilet Transfers Shower Transfers Progress Towards Goals Progressing Toward Goals Slow Progress due to Medical Issues Slow Progress due to Activity Tolerance Assessment Summary Pt continues to have decreased strength, endurance, activity tolerance and now needing more assist with all needs for ADl's and functional mobility . Pt is also on 3L of O2 and prior at home did not use any O2. Therefore pt would benefit from skilled rehab. Goals Dressing Goal Minimal Assistance Toileting Goal Minimal Assistance Bathing Goal Moderate Assistance Toilet Transfer Goal Minimal Assistance Shower Transfer Goal Moderate Assistance Patient/Caregiver Education Goal Caregiver Independent Assisting Patient Days to Meet Goals 5 Frequency of Treatment Frequency Of Treatment Once a Day Treatment Plan OT Treatment Plan ADL Training Functional Cognition Training Functional Mobility Patient/Family Education Discharge Planning Discharge Recommendations OT Discharge Recommendations SNF Rehab
== END 2017-11-25 13:40 | DRG 871 ==
LOC: ED 13:55 → AC 17:42 → ICU 19:45 → AC 11-22 17:19
PROVIDERS: Admitting Provider Internal Medicine; Emergency Provider Internal Medicine; Family Provider Internal Medicine; PCP Internal Medicine; Visit Provider Internal Medicine
DX: A41.9 Sepsis, unspecified organism (principal); J15.9 Unspecified bacterial pneumonia; G93.41 Metabolic encephalopathy; J96.02 Acute respiratory failure with hypercapnia; J96.01 Acute respiratory failure with hypoxia; N39.0 Urinary tract infection, site not specified; R65.20 Severe sepsis without septic shock; I12.9 Hypertensive chronic kidney disease with stage 1 through stage 4 chronic kidney disease, or unspecified chronic kidney disease; E11.22 Type 2 diabetes mellitus with diabetic chronic kidney disease; N18.3 Chronic kidney disease, stage 3 (moderate); Z79.84 Long term (current) use of oral hypoglycemic drugs; E11.42 Type 2 diabetes mellitus with diabetic polyneuropathy; I48.2 Chronic atrial fibrillation; Z79.01 Long term (current) use of anticoagulants; Z91.81 History of falling; Z66 Do not resuscitate; B96.20 Unspecified Escherichia coli [E. coli] as the cause of diseases classified elsewhere
CPT/HCPCS: 36415; 36600; 70450; 71045; 80048; 80053; 81001; 82805; 82962; 83605; 83690; 83880; 84145; 85025; 85610; 85730; 87040; 87070; 87077; 87086; 87186; 87205; 87797; 93005; 94640; 94760; 96365; 96367; 97116; 97162; 97165; 97530; 99285; 99291; 99292; G0378; J2060; J2405; J7613

== ENCOUNTER 2017-11-25 20:55 | Inpatient (IN) | payer MEDICARE, OTHER, SELFPAY ==
[2017-11-21 22:08] VITALS: BMI 38.4
--- NOTE | 2017-11-25 | DI.RAD.S_ITS ---
PROCEDURE: XR CHEST 1V INDICATIONS: FEVER TECHNIQUE: One view of the chest was acquired. COMPARISON: [facility], CR, XR CHEST 1V, 11/21/2017, 15:46. FINDINGS: Surgical changes and devices: None. Lungs and pleura: Increased pulmonary vascularity is present. There slight increased opacity in the retrocardiac region as well as the bases. Mediastinum: Mediastinal contours appear normal. Heart size is enlarged. Bones and chest wall: No suspicious bony lesions. Overlying soft tissues appear unremarkable. IMPRESSION: Increased vascular suggestive of edema. Retrocardiac and bibasilar opacities are noted which may represent edema versus developing airspace disease such as pneumonia. Dictated by: Maame Siegel M.D. on 11/25/2017 at 21:46 Approved by: Maame Siegel M.D. on 11/25/2017 at 21:47
[2017-11-25 21:04] VITALS: BP 215/86; PULSE 102; RESP 29; TEMP 37.9; O2SAT 92
--- NOTE | 2017-11-25 21:08 | ED_ITS ---
HPI - Abdominal Pain General Chief Complaint: Abdominal Pain Stated Complaint: Fever Time Seen by Provider: 11/25/17 20:59 Source: patient and EMS Mode of arrival: EMS Limitations: no limitations History of Present Illness HPI narrative: 82-year-old male with a recent history of hospitalization for pneumonia, and remote history of alcoholism, AFib on Coumadin, Quigley's esophagitis presents to the emergency department via EMS for evaluation of abdominal pain, vomiting bright blood, hypoxia and tachycardia. Patient has room air pulse ox in the low to mid 80s which rebounds with oxygen via nasal cannula at 4 L. patient was admitted on November 21 for pneumonia and cough with hemoptysis as well as change in mental status. Discharge diagnosis was acute hypoxic respiratory failure secondary to pneumonia with sepsis. His blood culture showed no growth after 72 hr and urine culture noted E coli sensitive to his current antibiotics. MD complaint: abdominal pain Onset (ago): hour(s) Pain Consistency: constant Related Data Home Medications Medication Instructions Recorded Confirmed atorvastatin 40 mg QPM 11/21/17 11/21/17 clonidine HCl 0.1 mg QAM AND QHS 11/21/17 11/21/17 eplerenone 12.5 mg QAM 11/21/17 11/21/17 escitalopram oxalate 20 mg QAM 11/21/17 11/21/17 ferrous sulfate 325 mg QAM 11/21/17 11/21/17 furosemide 20 mg QAM 11/21/17 11/21/17 glimepiride 1 mg QAM 11/21/17 11/21/17 losartan 50 mg QAM 11/21/17 11/21/17 oxybutynin chloride 10 mg QPM 11/21/17 11/21/17 tamsulosin 0.8 mg QPM 11/21/17 11/21/17 warfarin 2 mg QAM 11/21/17 11/21/17 Previous Rx's Medication Instructions Recorded albuterol sulfate [Ventolin HFA] 2 puff INHALATION Q4-6H PRN #8.5 11/25/17 gram cefuroxime axetil 500 mg PO BID 7 Days #28 tab 11/25/17 insulin aspart U-100 [Novolog 0 unit SUB-Q ACHS 5 Days ml 11/25/17 Flexpen U-100 Insulin] Allergies Allergy/AdvReac Type Severity Reaction Status Date / Time BCG (Bacillus Allergy Unknown cancer drug Verified 11/21/17 20:49 Calmette-Lico) vacc [From BCG NATALIA VACCINE] Review of Systems Review of Systems All systems reviewed & are unremarkable except as noted in HPI and below Constitutional Reports chills, Reports fever(s), Reports lethargy and Reports weakness Eyes Denies change in vision, Denies eye discharge, Denies irritation and Denies loss of vision ENT Ears, Nose, Mouth, and Throat: Denies change in voice, Denies neck pain and Denies sore throat Cardiovascular Denies chest pain, Denies irregular heart rhythm, Denies lightheadedness, Denies palpitations, Reports dyspnea, Denies dyspnea on exertion and Denies orthopnea Respiratory Reports cough, Reports dyspnea, Denies dyspnea on exertion and Denies wheezing Gastrointestinal Gastrointestinal: Reports abdominal pain, Denies change in bowel habits, Denies diarrhea, Reports nausea, Reports vomiting and Reports hematemesis Genitourinary Denies hematuria, Denies flank pain, Denies urinary incontinence and Denies urinary urgency Musculoskeletal Denies neck pain Integumentary/Breasts Denies pruritus, Denies erythema, Denies rash and Denies wounds Neurologic Reports confusion, Denies loss of vision and Reports weakness Psychiatric Denies anxiety, Reports confusion, Denies depression, Denies homicidal ideation and Denies suicidal ideation Endocrine Denies palpitations Hematologic/Lymphatic Denies easy bruising Allergic/Immunologic Denies wheezing PFSH Medical History Atrial fibrillation (Acute) Aortic stenosis (Chronic) BPH (benign prostatic hyperplasia) (Chronic) Barretts esophagus (Chronic) Chronic renal insufficiency, stage III (moderate) (Chronic) Fatty liver (Chronic) HTN (hypertension) (Chronic) History of GI bleed (Chronic) Hyperlipidemia (Chronic) ASHWIN (obstructive sleep apnea) (Chronic) Osteoarthritis of left hip (Chronic) Peripheral neuropathy (Chronic) Spinal stenosis, lumbar region with neurogenic claudication (Chronic) Type 2 diabetes mellitus (Chronic) Surgical History H/O partial cystectomy (Resolved) S/P TURP (Resolved) Social History household members: children Smoking Status: Former smoker Tobacco: How many years used: 30 alcohol intake: current substance use type: does not use Exam Narrative Exam Narrative: 82-year-old male in significant distress, mental status change, respiratory failure Initial Vital Signs Initial Vital Signs: Vital Signs Temperature 100.3 F H 11/25/17 21:04 Pulse Rate 102 H 11/25/17 21:04 Respiratory Rate 29 H 11/25/17 21:04 Blood Pressure 215/86 H 11/25/17 21:04 Pulse Oximetry 92 11/25/17 21:04 Const General: acute distress and ill appearing Nutritional Appearance: overweight Orientation: confused Limitations: altered mental status [facility] Head: normal to inspection Ears: hearing grossly normal bilaterally Nose: external nose normal Eyes General: appearance normal, both eyes and all related structures Eyelids: eyelids normal Conjunctivae: conjunctivae normal Sclera: sclerae normal Pupils: PERRL EOM: EOM intact bilaterally Neck Neck: normal visual inspection, trachea midline, No lymphadenopathy, No midline deformity and No JVD Lymphatic: No lymphedema Resp Effort & Inspection: not able to speak in complete sentences, respiratory distress and uses accessory muscles Auscultation: diminished lung sounds and rales Cardio Rate: tachycardic Rhythm: regular rhythm GI Inspection: distended Palpation: tender Skin General: no rashes or lesions noted, No jaundice and No petechiae Neuro General: alert and awake Speech: speech normal Motor: muscle tone normal throughout Extrem General: full ROM, no clubbing, cyanosis or edema, no pedal edema and no calf tenderness Course Orders Ordered: ED Orders 11/25/17 21:11 XR abdomen 1V Stat 11/25/17 21:15 B Type Natriuretic Peptide Stat Complete Blood Count AUTO DIFF Stat Comprehensive Metabolic Panel Stat Lactate (Lactic Acid) Stat Partial Thromboplastin Time Stat Procalcitonin Stat Prothrombin Time INR Stat Troponin I Stat 11/25/17 21:35 Arterial Blood Gas Stat 11/25/17 21:45 Urinalysis and Microscopic Stat Urine Culture Stat 11/25/17 21:55 Blood Culture Stat 11/25/17 22:40 Type and Screen Stat 11/26/17 00:57 MRSA PCR Routine Nitroglycerin (Nitroglycerin) 50 mg in 250 mls @ 45 mls/hr IV TITRATE UNRULY; Protocol Last Titration: 11/26/17 00:45 Dose: 150 mcg/min, 45 mls/hr Admin: 11/25/17 22:39 Dose: 150 mcg/min, 45 mls/hr Discontinued Medications Furosemide (Lasix) 60 mg IV NOW ONE Stop: 11/25/17 22:27 Last Admin: 11/25/17 22:33 Dose: 60 mg Octreotide Acetate (Sandostatin) 50 mcg IV NOW ONE Stop: 11/25/17 21:00 Last Admin: 11/25/17 21:52 Dose: 50 mcg Ondansetron HCl (Zofran) 4 mg IV NOW ONE Stop: 11/25/17 21:00 Last Admin: 11/25/17 21:52 Dose: 4 mg Pantoprazole Sodium (Protonix) 40 mg IV NOW ONE Stop: 11/25/17 21:00 Last Admin: 11/25/17 21:51 Dose: 40 mg Reevaluation(s) Reevaluation #1: Patient showed tremendous improvement with high-flow, I admitted the nasal cannula. The symptoms continued to improve with addition of nitro drip at 150. mics per minute. With improvement of blood pressure down to 130 over the 70s the patient's mentation improved, he no longer complained of abdominal pain. His vitals continue to improve, however if he would remove the nasal cannula he would quickly dropped into the 80s (pulse ox) Consultations Consultation #1: Dr. Cassidy happy to accept this patient on his service Vital Signs - 8 hr 11/25/17 21:04 11/25/17 22:12 11/25/17 22:14 Temperature 100.3 F H Pulse Rate 102 H 93 H Respiratory Rate 29 H 25 H Blood Pressure 215/86 H Blood Pressure [Left Arm] 193/109 H Pulse Oximetry 92 97 11/25/17 22:39 11/25/17 23:57 11/26/17 00:06 Temperature Pulse Rate 102 H 108 H 103 H Respiratory Rate 23 Blood Pressure 195/101 H 136/69 H Blood Pressure [Left Arm] 136/69 H Pulse Oximetry 11/26/17 00:23 11/26/17 01:06 Temperature 97.0 F L Pulse Rate 94 H 96 H Respiratory Rate 23 36 H Blood Pressure 136/69 H 124/71 H Blood Pressure [Left Arm] Pulse Oximetry 96 94 MDM - Abdominal Pain Lab Data Result diagrams: 11/25/17 21:15 11/25/17 21:15 Lab Results 11/25/17 11/25/17 11/25/17 Range/Units 21:15 21:15 21:15 WBC 6.6 (4.5-11.0) X10^3/uL RBC 4.71 (4.5-5.9) X10^6/uL Hgb 13.3 L (13.5-17.5) g/dL Hct 40.4 L (41-53) % MCV 85.8 (80-100) fL MCH 28.2 (26-34) PG MCHC 32.9 (30-36) % RDW 16.3 H (11.6-14.8) % Plt Count 127 L (150-400) X10^3/uL Neut % (Auto) 77.3 H (50-75) % Lymph % (Auto) 5.6 L (25-40) % [place] % (Auto) 16.3 H (3-14) % Eos % (Auto) 0.4 L (2-4) % Baso % (Auto) 0.4 (0-2) % Neut # (Auto) 5100 (7942-3165) /uL PT 22.7 H D (10.1-12.7) SECONDS INR 2.1 H (0.9-1.3) APTT 39 H D (26.4-36.2) SECONDS ABG pH (7.35-7.45) ABG pCO2 (35-45) mmHg ABG pO2 (80-105) mmHg ABG HCO3 (23-27) mmol/L ABG Total CO2 (23-27) mmol/L ABG O2 Saturation (95-100) % ABG Base Excess (-2-3) mmol/L FiO2 Sodium 140 (137-145) mmol/L Potassium 4.4 (3.4-5.1) mmol/L Chloride 100 (98-107) mmol/L Carbon Dioxide 29 (22-32) mmol/L BUN 28 H (9-20) mg/dL Creatinine 1.30 H (0.66-1.25) mg/dL Estimated GFR 53.1 L (>60) mL/min BUN/Creatinine Ratio 21.5 (6-22) Glucose 167 H D (80-110) mg/dL Lactate (0.7-2.1) mmol/L Calcium 8.6 (8.4-10.2) mg/dL Total Bilirubin 1.5 H (0.2-1.3) mg/dL AST 71 H (17-59) IU/L ALT 114 H (21-72) IU/L Alkaline Phosphatase 127 H D (38-126) U/L Troponin I (0.01-0.034) ng/mL B-Natriuretic Peptide (<100) Total Protein 7.1 (6.3-8.2) g/dL Albumin 3.9 (3.5-5.0) g/dL Globulin 3.2 (1.7-4.1) g/dL Albumin/Globulin Ratio 1.2 (1.0-2.8) Procalcitonin (<0.5) ng/mL Urine Color Urine Appearance Urine pH (4.5-8.0) Ur Specific [place] (1.000-1.035) Urine Protein (Negative) Urine Glucose (UA) (Normal) g/dL Urine Ketones (NEGATIVE) Urine Occult Blood (Negative) Urine Nitrate (Negative) Urine Bilirubin (NEGATIVE) Urine Urobilinogen (0.2) E.U./dL Ur Leukocyte Esterase (NEGATIVE) Urine RBC (0-5/HPF) Urine WBC (0-5/HPF) Amorphous Sediment Urine Bacteria (None) Ur Culture Indicated? Blood Type Antibody Screen 11/25/17 11/25/17 11/25/17 Range/Units 21:15 21:15 21:15 WBC (4.5-11.0) X10^3/uL RBC (4.5-5.9) X10^6/uL Hgb (13.5-17.5) g/dL Hct (41-53) % MCV (80-100) fL MCH (26-34) PG MCHC (30-36) % RDW (11.6-14.8) % Plt Count (150-400) X10^3/uL Neut % (Auto) (50-75) % Lymph % (Auto) (25-40) % [place] % (Auto) (3-14) % Eos % (Auto) (2-4) % Baso % (Auto) (0-2) % Neut # (Auto) (1683-2936) /uL PT (10.1-12.7) SECONDS INR (0.9-1.3) APTT (26.4-36.2) SECONDS ABG pH (7.35-7.45) ABG pCO2 (35-45) mmHg ABG pO2 (80-105) mmHg ABG HCO3 (23-27) mmol/L ABG Total CO2 (23-27) mmol/L ABG O2 Saturation (95-100) % ABG Base Excess (-2-3) mmol/L FiO2 Sodium (137-145) mmol/L Potassium (3.4-5.1) mmol/L Chloride (98-107) mmol/L Carbon Dioxide (22-32) mmol/L BUN (9-20) mg/dL Creatinine (0.66-1.25) mg/dL Estimated GFR (>60) mL/min BUN/Creatinine Ratio (6-22) Glucose (80-110) mg/dL Lactate 0.8 (0.7-2.1) mmol/L Calcium (8.4-10.2) mg/dL Total Bilirubin (0.2-1.3) mg/dL AST (17-59) IU/L ALT (21-72) IU/L Alkaline Phosphatase (38-126) U/L Troponin I 0.069 H (0.01-0.034) ng/mL B-Natriuretic Peptide (<100) Total Protein (6.3-8.2) g/dL Albumin (3.5-5.0) g/dL Globulin (1.7-4.1) g/dL Albumin/Globulin Ratio (1.0-2.8) Procalcitonin 0.61 H (<0.5) ng/mL Urine Color Urine Appearance Urine pH (4.5-8.0) Ur Specific [place] (1.000-1.035) Urine Protein (Negative) Urine Glucose (UA) (Normal) g/dL Urine Ketones (NEGATIVE) Urine Occult Blood (Negative) Urine Nitrate (Negative) Urine Bilirubin (NEGATIVE) Urine Urobilinogen (0.2) E.U./dL Ur Leukocyte Esterase (NEGATIVE) Urine RBC (0-5/HPF) Urine WBC (0-5/HPF) Amorphous Sediment Urine Bacteria (None) Ur Culture Indicated? Blood Type Antibody Screen 11/25/17 11/25/17 11/25/17 Range/Units 21:15 21:35 21:45 WBC (4.5-11.0) X10^3/uL RBC (4.5-5.9) X10^6/uL Hgb (13.5-17.5) g/dL Hct (41-53) % MCV (80-100) fL MCH (26-34) PG MCHC (30-36) % RDW (11.6-14.8) % Plt Count (150-400) X10^3/uL Neut % (Auto) (50-75) % Lymph % (Auto) (25-40) % [place] % (Auto) (3-14) % Eos % (Auto) (2-4) % Baso % (Auto) (0-2) % Neut # (Auto) (8861-3903) /uL PT (10.1-12.7) SECONDS INR (0.9-1.3) APTT (26.4-36.2) SECONDS ABG pH 7.43 (7.35-7.45) ABG pCO2 43.1 (35-45) mmHg ABG pO2 58 L (80-105) mmHg ABG HCO3 28 H (23-27) mmol/L ABG Total CO2 30 H (23-27) mmol/L ABG O2 Saturation 90 L (95-100) % ABG Base Excess 4.0 H (-2-3) mmol/L FiO2 28 Sodium (137-145) mmol/L Potassium (3.4-5.1) mmol/L Chloride (98-107) mmol/L Carbon Dioxide (22-32) mmol/L BUN (9-20) mg/dL Creatinine (0.66-1.25) mg/dL Estimated GFR (>60) mL/min BUN/Creatinine Ratio (6-22) Glucose (80-110) mg/dL Lactate (0.7-2.1) mmol/L Calcium (8.4-10.2) mg/dL Total Bilirubin (0.2-1.3) mg/dL AST (17-59) IU/L ALT (21-72) IU/L Alkaline Phosphatase (38-126) U/L Troponin I (0.01-0.034) ng/mL B-Natriuretic Peptide 545.0 H (<100) Total Protein (6.3-8.2) g/dL Albumin (3.5-5.0) g/dL Globulin (1.7-4.1) g/dL Albumin/Globulin Ratio (1.0-2.8) Procalcitonin (<0.5) ng/mL Urine Color Yellow Urine Appearance Clear Urine pH 5.0 (4.5-8.0) Ur Specific [place] 1.015 (1.000-1.035) Urine Protein 2+ H (Negative) Urine Glucose (UA) Negative (Normal) g/dL Urine Ketones Negative (NEGATIVE) Urine Occult Blood 2+ H (Negative) Urine Nitrate Negative (Negative) Urine Bilirubin Negative (NEGATIVE) Urine Urobilinogen 0.2 (0.2) E.U./dL Ur Leukocyte Esterase Trace H (NEGATIVE) Urine RBC 0-1/hpf (0-5/HPF) Urine WBC 1-5/hpf (0-5/HPF) Amorphous Sediment 1+ Urine Bacteria Occasional (0-1) D (None) Ur Culture Indicated? Specimen cultured Blood Type Antibody Screen 11/25/17 Range/Units 22:40 WBC (4.5-11.0) X10^3/uL RBC (4.5-5.9) X10^6/uL Hgb (13.5-17.5) g/dL Hct (41-53) % MCV (80-100) fL MCH (26-34) PG MCHC (30-36) % RDW (11.6-14.8) % Plt Count (150-400) X10^3/uL Neut % (Auto) (50-75) % Lymph % (Auto) (25-40) % [place] % (Auto) (3-14) % Eos % (Auto) (2-4) % Baso % (Auto) (0-2) % Neut # (Auto) (4486-0238) /uL PT (10.1-12.7) SECONDS INR (0.9-1.3) APTT (26.4-36.2) SECONDS ABG pH (7.35-7.45) ABG pCO2 (35-45) mmHg ABG pO2 (80-105) mmHg ABG HCO3 (23-27) mmol/L ABG Total CO2 (23-27) mmol/L ABG O2 Saturation (95-100) % ABG Base Excess (-2-3) mmol/L FiO2 Sodium (137-145) mmol/L Potassium (3.4-5.1) mmol/L Chloride (98-107) mmol/L Carbon Dioxide (22-32) mmol/L BUN (9-20) mg/dL Creatinine (0.66-1.25) mg/dL Estimated GFR (>60) mL/min BUN/Creatinine Ratio (6-22) Glucose (80-110) mg/dL Lactate (0.7-2.1) mmol/L Calcium (8.4-10.2) mg/dL Total Bilirubin (0.2-1.3) mg/dL AST (17-59) IU/L ALT (21-72) IU/L Alkaline Phosphatase (38-126) U/L Troponin I (0.01-0.034) ng/mL B-Natriuretic Peptide (<100) Total Protein (6.3-8.2) g/dL Albumin (3.5-5.0) g/dL Globulin (1.7-4.1) g/dL Albumin/Globulin Ratio (1.0-2.8) Procalcitonin (<0.5) ng/mL Urine Color Urine Appearance Urine pH (4.5-8.0) Ur Specific [place] (1.000-1.035) Urine Protein (Negative) Urine Glucose (UA) (Normal) g/dL Urine Ketones (NEGATIVE) Urine Occult Blood (Negative) Urine Nitrate (Negative) Urine Bilirubin (NEGATIVE) Urine Urobilinogen (0.2) E.U./dL Ur Leukocyte Esterase (NEGATIVE) Urine RBC (0-5/HPF) Urine WBC (0-5/HPF) Amorphous Sediment Urine Bacteria (None) Ur Culture Indicated? Blood Type A Positive Antibody Screen Negative Critical Care Time Critical Care Time: Yes Total Critical Care Time: 45 Attestation: This case had a high probability of a clinically significant, sudden, or life threatening deterioration of this patient's condition which required my full and direct attention, intervention and personal management. Discharge Plan Departure Patient Disposition: Admitted As Inpatient Clinical Impression: Acute respiratory failure with hypoxia, Hypertensive emergency Discharge Date/Time: 11/26/17 00:45 Interventions: ED Discharge Assessment Last Done: 11/26/17 00:23 Admit Date/Time: 11/26/17 00:16 Admit Provider: Kali Cassidy
--- NOTE | 2017-11-25 21:11 | DI.RAD.S_ITS ---
PROCEDURE: XR ABDOMEN 1V INDICATIONS: Abdominal pain, distension TECHNIQUE: One view of the abdomen acquired. COMPARISON: [facility], , XR CHEST 1V, 11/25/2017, 21:26. [facility], , ABDOMEN ACUTE SERIES, 04/13/2015, 22:41. FINDINGS: Surgical changes and devices: None. Bowel: Bowel gas pattern is normal. Soft tissues: No suspicious abdominal calcifications. Visualized solid organ contours appear normal in size. Partially visualized opacities are noted within the bases. Bones: No suspicious bony lesions. IMPRESSION: Partially visualized basilar opacities. Please see chest x-ray report of 11/25/17. No acute intra-abdominal process. Dictated by: Maame Siegel M.D. on 11/25/2017 at 21:47 Approved by: Maame Siegel M.D. on 11/25/2017 at 21:48
[2017-11-25 21:30] LABS: Add Manual Diff / Slide Review NO; Basophils Percent Auto 0.4 % (0-2); Eosinophils Percent Auto 0.4 % (2-4); Hematocrit 40.4 % (41-53); Hemoglobin 13.3 g/dL (13.5-17.5); Lymphocytes Percent Auto 5.6 % (25-40); Mean Corpuscular HGB Conc 32.9 % (30-36); Mean Corpuscular Hemoglobin 28.2 PG (26-34); Mean Corpuscular Volume 85.8 fL (80-100); Monocytes Percent Auto 16.3 % (3-14); Neutrophils Absolute Auto 5100 /uL (3000-5900); Neutrophils Percent Auto 77.3 % (50-75); Platelet Count 127 X10^3/uL (150-400); Red Blood Cell Count 4.71 X10^6/uL (4.5-5.9); Red Cell Distribution Width 16.3 % (11.6-14.8); White Blood Cell Count 6.6 X10^3/uL (4.5-11.0)
[2017-11-25 21:32] LABS: INR 2.1 (0.9-1.3); Prothrombin Time 22.7 SECONDS (10.1-12.7)
[2017-11-25 21:35] LABS: PTT Partial Thromboplastin Tim 39 SECONDS (26.4-36.2)
[2017-11-25 21:37] LABS: Lactate (Lactic Acid) 0.8 mmol/L (0.7-2.1)
[2017-11-25 21:42] LABS: Alanine Aminotransferase 114 IU/L (21-72); Albumin 3.9 g/dL (3.5-5.0); Albumin Globulin Ratio 1.2 (1.0-2.8); Alkaline Phosphatase 127 U/L (38-126); Aspartate Aminotransferase 71 IU/L (17-59); BUN Creatinine Ratio 21.5 (6-22); Bilirubin Total 1.5 mg/dL (0.2-1.3); Blood Urea Nitrogen 28 mg/dL (9-20); Calcium 8.6 mg/dL (8.4-10.2); Carbon Dioxide 29 mmol/L (22-32); Chloride 100 mmol/L (98-107); Estimated Glomerular Filt Rate 53.1 mL/min (>60); Globulin 3.2 g/dL (1.7-4.1); Glucose 167 mg/dL (80-110); HEMOLYSIS < 15 (0-50); Potassium 4.4 mmol/L (3.4-5.1); Sodium 140 mmol/L (137-145); Total Protein 7.1 g/dL (6.3-8.2)
[2017-11-25] MEDS: PANTOPRAZOLE 40 MG VIAL IV (21:51)
[2017-11-25] MEDS: ONDANSETRON 4 MG/2 ML INJ IV (21:52)
[2017-11-25] MEDS: OCTREOTIDE 100 MCG/ML VIAL 50 MCG IV (21:52)
[2017-11-25 21:56] LABS: Procalcitonin 0.61 ng/mL (<0.5)
[2017-11-25 22:01] LABS: HCO3 ABG 28 mmol/L (23-27); PCO2 ABG 43.1 mmHg (35-45); PO2 ABG 58 mmHg (80-105); pH ABG 7.43 (7.35-7.45)
[2017-11-25 22:02] LABS: Fractionated Inspired Oxygen 28; Oxygen Saturation ABG 90 % (95-100); TCO2 ABG 30 mmol/L (23-27)
[2017-11-25 22:04] LABS: Troponin I 0.069 ng/mL (0.01-0.034)
[2017-11-25 22:10] LABS: Appearance Urine UA CLEAR; Bilirubin Urine UA NEGATIVE (NEGATIVE); Color Urine UA YELLOW; Glucose Urine UA NEGATIVE (Normal); Ketones Urine UA NEGATIVE (NEGATIVE); Leukocyte Esterase Urine UA TRACE (NEGATIVE); Nitrite Urine UA Negative (Negative); Occult Blood Urine UA 2+ (Negative); Protein Urine UA 2+ (Negative); Specific Gravity Urine UA 1.015 (1.000-1.035); Urobilinogen Urine UA 0.2 E.U./dL (0.2)
--- NOTE | 2017-11-25 22:11 | RT ---
PT PLACED ON HEATED HIGH FLOW NASAL CANNULA PER VERBAL DOCTOR'S ORDER. O2 SAT W/ 40% FIO2 NOTED AT 97%.
[2017-11-25 22:12] VITALS: BP 193/109; PULSE 93; RESP 25
[2017-11-25 22:14] VITALS: O2SAT 97
[2017-11-25 22:18] LABS: WBC Urine 1-5/HPF (0-5/HPF)
[2017-11-25 22:19] LABS: Amorphous Sediment Urine 1+; Bacteria Urine Occasional (0-1); RBC Urine 0-1/HPF (0-5/HPF)
[2017-11-25 22:20] LABS: Culture Indicated Urine Specimen Cultured
[2017-11-25] MEDS: FUROSEMIDE 100 MG/10 ML VIAL 60 MG IV (22:33)
[2017-11-25 22:39] VITALS: BP 195/101; PULSE 102
[2017-11-25] MEDS: NITROGLYCERIN 50 MG/250 ML INFUS..BTL 45 MG IV (22:39)
[2017-11-25 23:57] VITALS: BP 136/69; PULSE 108; RESP 23
[2017-11-26] VITALS (12 sets, daily range): BP systolic 124–156; BP diastolic 67–88; PULSE 66–103; RESP 11–36; TEMP 36.1–36.8; O2SAT 90–99; BMI 38.8
--- NOTE | 2017-11-26 | DI.ECHO.S_ITS ---
[facility] +---------+ : : [address] : : : : [id number] : : : : Phone: [phone]+ Echocardiogram Report + + :Name: EDDIE EMERSON Study Date: 11/26/2017 Height: 72 in : :[facility] Weight: 290 lb : : Gender: Male BSA: 2.5 m2 : :: 1935 Age: 82 yrs BP: 124/71 mmHg: :Reason For Study: Aortic valve stenosis : : Performed By: Nany Winslow : :Referring: JOURDAN DUNN : + + Interpretation Summary The left ventricle is mildly dilated.Left ventricular systolic function is normal without focal wall motion abnormalities. The ejection fraction is estimated to be 55-60%. LVEF has not changed. The right ventricle is not well visualized. The right ventricle grossly appears normal in size with probable normal systolic function. The right ventricular systolic pressure is estimated at 50 mmHg assuming a right atrial pressure of 8 mm Hg. The left atrium is severely dilated. The right atrium is moderately dilated. There is moderate to severe mitral annular calcification. There is mild to moderate mitral regurgitation. The aortic valve is severely calcified. The calculated aortic valve area is 0.9 cm2. The peak aortic velocity is 4.3 m/sec. The peak aortic velocity on the previous exam was 2.6 m/sec. Findings are consistent with severe aortic stenosis. There is no other significant valvular heart disease. The aortic root is normal size. The ascending aorta is mildly enlarged. Procedure: There has been no significant change since the previous study. The study quality was technically difficult. A contrast injection of Definity was performed to improve assessment of LV function. Comparison is made with the echocardiogram of 02-26-15. The patient was in atrial fibrillation with heart rates between 63-76 bpm during the exam. Left Ventricle: The left ventricle is mildly dilated. Left ventricular wall thickness is at the upper limits of normal. Left ventricular systolic function is normal without focal wall motion abnormalities. The ejection fraction is estimated to be 55-60%. Diastolic function could not be accurately assessed due to atrial fibrillation. Right Ventricle: The right ventricle is not well visualized. The right ventricle grossly appears normal in size with probable normal systolic function. Atria: The left atrium is severely dilated. The right atrium is moderately dilated. The interatrial septum is intact with no evidence for an atrial septal defect. Mitral Valve: The mitral valve leaflets appear mildly thickened, but open well. There is moderate to severe mitral annular calcification. There is mild to moderate mitral regurgitation. Aortic Valve: The aortic valve is severely calcified. The calculated aortic valve area is 0.9 cm2. The peak aortic velocity is 4.3 m/sec. The peak aortic velocity on the previous exam was 2.6 m/sec. The aortic valve mean gradient is 42 mmHg. Severity ratio is 0.18. There is trace aortic regurgitation. Tricuspid Valve: The tricuspid valve leaflets are thin and pliable. There is trace tricuspid regurgitation. The right ventricular systolic pressure is estimated at 50 mmHg assuming a right atrial pressure of 8 mm Hg. Pulmonic Valve: The pulmonic valve is not well visualized. There is no other significant valvular heart disease. Great Vessels: The aortic root is normal size. The ascending aorta is mildly enlarged. The aortic arch is normal in size. The IVC is dilated (diameter is greater than 2.1 cm) yet it collapses greater than 50% with a sniff. This suggests a right atrial pressure of 8 mm Hg. Pericardium/ Pleura There is no pericardial effusion. There is no pleural effusion. MMode/2D Measurements & Calculations LVIDd: 5.9 cm LVOT diam: 2.5 cm LVIDs: 4.0 cm Ao root diam: 3.2 cm FS: 32.5 % Aortic Jxn: 2.8 cm IVSd: 1.1 cm asc Aorta Diam: 3.6 cm LVPWd: 1.1 cm Ao Arch Diam (Prox Trans): 3.3 cm LV jacome. diameter/BSA (cm/m^2): 2.3 LV sys. diameter/BSA (cm/m^2): 1.6 LA dimension: 5.5 cm RA long axis: 5.8 cm LA A2 area: 47.3 cm2 RA area: 28.3 cm2 LA A4 area: 41.8 cm2 RA vol: 117.5 ml LA length (vol): 8.4 cm RA : 47.1 ml/m2 LA vol: 199.8 ml IVC diam: 2.3 cm LA vol index: 80.1 ml/m2 Doppler Measurements & Calculations Ao V2 max: 428.9 cm/sec LVOT Max Bryant: 67.9 cm/sec Ao V2 mean: 302.7 cm/sec LV V1 max P.8 mmHg Ao max P.6 mmHg LV V1 VTI: 17.3 cm Ao mean P.6 mmHg JT(I,D): 0.89 cm2 Ao V2 VTI: 95.7 cm JT(V,D): 0.78 cm2 sev ratio: 0.18 JT indexed to BSA (cm^2/m^2): 0.36 MV E max bryant: 131.8 cm/sec TR max bryant: 323.5 cm/sec MV A max bryant: 47.5 cm/sec TR max P.9 mmHg MV E/A: 2.8 PA V2 max: 86.4 cm/sec MV dec time: 0.27 sec PA V2 mean: 53.3 cm/sec MV P1/2t: 80.8 msec PA mean P.3 mmHg PA Accel Time: 0.13 sec MV P1/2t max bryant: 132.5 cm/sec MVA(P1/2t): 2.7 cm2 Reading Physician:MALCOLM
--- NOTE | 2017-11-26 | DI.CT.S_ITS ---
PROCEDURE: CT CHEST WO CON INDICATIONS: hemoptysis TECHNIQUE: Noncontrast 5 mm thick sections acquired from the pulmonary apices to the posterior costophrenic angles. 7 mm thick coronal and sagittal MIP reformats were then acquired. For radiation dose reduction, the following was used: automated exposure control, adjustment of mA and/or kV according to patient size. COMPARISON: [facility], CT, THORAX WITHOUT CONTRAST, 02/24/2015, 9:22. [facility], CT, THORAX WITHOUT CONTRAST, 04/24/2015, 12:57. [facility], RG, CT THORAX W/CONTRAST, 11/03/2004, 11:54. [facility], CR, XR CHEST 1V, 11/21/2017, 15:46. [facility], CR, XR CHEST 1V, 11/25/2017, 21:26. FINDINGS: Image quality: Excellent. Lungs and pleura: Trace bilateral pleural effusions/pleural thickening. A couple of 7 mm noncalcified groundglass nodules are noted in the right upper lobe (series 2 image 24 and 32). Unchanged since 11/03 2004 likely benign. A 3 mm groundglass nodule in the right middle lobe (series 3 image 27) is identified, which was not seen on the prior examinations. There are multiple nodular densities in the left lung base; many are hyperdense. There is small nodules No acute air space opacities. No pleural effusions or pneumothorax. Central and peripheral airways are patent and normal in caliber. Mediastinum: Heart size is mildly increased. No pericardial effusion. There is mitral annular calcification. Coronary artery calcifications consistent with atherosclerosis. Only enlarged mediastinal nodes are present measuring up to 1.2 cm in short axis. Thoracic aorta and central pulmonary arteries are normal in size. Esophagus is normal in caliber. Small hiatal hernia. Bones and chest wall: No suspicious bony lesions. No vertebral body compression fractures. No axillary or supraclavicular adenopathy by size criteria. Thyroid gland is normal. Abdomen: Visualized upper abdominal solid organs and bowel loops appear normal in the absence of contrast. IMPRESSION: 1. Multiple small nodular densities in the left lung base, some are hyperdense, suspicious for aspirated radiological contrast and aspiration pneumonia. 2. Small noncalcified groundglass nodules in the right upper lobe. The 7 mm nodules in the right upper lobe were present since 2004 and are consistent with benign nodules. The smaller 3 mm nodule in the right middle lobe nodule is new. Please see enclosed followup recommendation. 3. Trace bilateral pleural effusions/pleural thickening. 4. Moderate to severe coronary artery atherosclerosis. 5. Mild cardiomegaly with severe mitral annular calcification. 6. Small hiatal hernia. Fleischner Society criteria for SUB-SOLID lung nodule followup. Solitary pure ground-glass nodules5 mm or lessNo followup needed. >5 mm3 mo follow-up CT to confirm persistence. Then annual CT for 3 years. Part-solid nodules3 mo follow-up CT to confirm persistence. If persistent with solid component <5 mm, annual CT for at least 3 years. If solid component is 5 mm or more, biopsy or surgical resection. Consider PET-CT for lesions > 10 mm. Multiple sub-solid nodulesPure ground glass nodules [address] at 2 and 4 years. Pure ground glass nodules >5 mm without dominant lesion. [address] to confirm persistence, then annual followup CT for at least 3 years. Dominant nodule(s) with part-solid or solid component. [address] to confirm persistence. If persistent, consider biopsy or surgical resection, radha if lesions have >5 mm solid component. Dictated by: Renato Zaman M.D. on 11/26/2017 at 12:17 Approved by: Renato Zaman M.D. on 11/26/2017 at 12:35
--- NOTE | 2017-11-26 | DI.US.S_ITS ---
PROCEDURE: US ABDOMEN COMPLETE INDICATIONS: elevated LFT TECHNIQUE: Real-time scanning was performed of the abdominal and retroperitoneal organs, with image documentation. COMPARISON: [facility], CT, CT CHEST WO CON, 11/26/2017, 9:29. FINDINGS: Liver: Liver is diffusely increased in echogenicity. No focal hepatic abnormalities identified. Normal hepatic size. Gallbladder: No gallstones identified. Normal gallbladder wall. No pericholecystic fluid. Negative sonographic Cunningham sign. Biliary ducts: Intrahepatic bile ducts are non-dilated. Extrahepatic bile duct caliber measures 6.0 mm. Normal is 6-7 mm or less in diameter, or 10 mm or less post-cholecystectomy. Pancreas: Not visualized Spleen: Spleen is normal in size and homogeneous in echotexture. Kidneys: Kidneys are normal in size and echotexture. Right kidney measures 12.4 cm long; left kidney measures 12.1 cm long. No hydronephrosis or nephrolithiasis. No solid masses. Aorta: Not visualized Iliacs: Not visualized IVC: Not visualized Miscellaneous: No free abdominal fluid. IMPRESSION: 1. Increased hepatic echogenicity noted possibly related to hepatic steatosis but other sources of hepatocellular disease cannot be excluded. Recommend clinical correlation. Dictated by: All BLISS Interpreted: Nelly Davila MD on 11/26/2017 at 11:07 Approved by: Nelly Davila MD, PhD on 11/26/2017 at 11:39
--- NOTE | 2017-11-26 00:12 | PC.NURSE ---
Pt continually tries to remove oxygen, without O2 spo2 drops down to 82% on RA. With replacement of Oxygen spo2 increases to as high as 97%. Pt needs constant reminding to leave o2 in place.
--- NOTE | 2017-11-26 00:50 | RT ---
ASSISTED W/ PT TRANSFER FROM ED TO ICU (PT PLACED ON 4 LPM N/C FOR TRANS). PT PLACED BACK ON [facility] W/ 40% FIO2. O2 SAT NOTED AT 94%.
[2017-11-26 10:04] LABS: Lipase 27 U/L (23-300)
--- NOTE | 2017-11-26 10:05 | P.HP_ITS ---
History of Present Illness Date Patient Seen: 11/26/17 Time Patient Seen: 10:01 Chief complaint: Fever Narrative: Mr. Garrett 82-year-old male who was discharged from the hospital yesterday over to long term and he was there for maybe 6 hr and then came back. He had been here for several days for pneumonia and urinary tract infection during the course that he was here in the hospital he did have occasional episodes of nausea and vomiting but had been without nausea or vomiting for about a day prior to his discharge. When he got to the shelter he yesterday on November 17 he was initially doing well no difficulty with nausea no difficulty with breathing he had been discharged from the hospital on oxygen still about 3 L. the reports from the shelter are that at about 830 in the evening he developed a temperature of 102.4 and was hypertensive with blood pressure 212/108 acute abdominal pain and shortness of breath so he was brought over to the emergency room he was noted to have a temperature of 100.3? and a pulse rate of 102 blood pressure was elevated at 2 15/96. He was started on nitroglycerin drip because of the hypertension and given a dose of Lasix and then sent back up over here to the ICU. This morning the patient has no abdominal pain has been afebrile he does not remember much went on yesterday he denies any nausea or vomiting currently and denies any increased difficulty breathing. He is now off the nitroglycerin and blood pressure is stabilized and normal Patient History Medical History Atrial fibrillation (Acute) Aortic stenosis (Chronic) BPH (benign prostatic hyperplasia) (Chronic) Barretts esophagus (Chronic) Chronic renal insufficiency, stage III (moderate) (Chronic) Fatty liver (Chronic) HTN (hypertension) (Chronic) History of GI bleed (Chronic) Hyperlipidemia (Chronic) ASHWIN (obstructive sleep apnea) (Chronic) Osteoarthritis of left hip (Chronic) Peripheral neuropathy (Chronic) Spinal stenosis, lumbar region with neurogenic claudication (Chronic) Type 2 diabetes mellitus (Chronic) Surgical History H/O partial cystectomy (Resolved) S/P TURP (Resolved) Family & Social History Social History: household members children Prior Living Arrangements Skilled Nurse Facility Safety & Behavioral: Feels Safe in Current Yes Environment Been Physically Hurt or No Threatened By a Person Suicidal Ideation Description None Tobacco & Substance use: Tobacco type cigarettes Smoking Status Former smoker alcohol intake current alcohol intake frequency a few times a week Substance Use Type does not use Meds Home Medications Medication Instructions Recorded Confirmed Type atorvastatin 40 mg QPM 11/21/17 11/26/17 History clonidine HCl 0.1 mg BID 11/21/17 11/26/17 History eplerenone 12.5 mg QAM 11/21/17 11/26/17 History escitalopram oxalate 20 mg QAM 11/21/17 11/26/17 History ferrous sulfate 325 mg PO DAILY #0 11/21/17 11/26/17 History furosemide 20 mg QAM 11/21/17 11/26/17 History glimepiride 1 mg QAM 11/21/17 11/26/17 History losartan 50 mg QAM 11/21/17 11/26/17 History oxybutynin chloride 10 mg QPM 11/21/17 11/26/17 History tamsulosin 0.8 mg QPM 11/21/17 11/26/17 History warfarin 2 mg DAILY 11/21/17 11/26/17 History albuterol sulfate [Ventolin HFA] 2 puff INHALATION Q4-6H PRN #8.5 11/25/1711/26 Rx gram cefuroxime axetil 500 mg PO BID 7 Days #28 tab 11/25/17 11/26/17 Rx insulin aspart U-100 [Novolog 0 unit SUB-Q ACHS 5 Days ml 11/25/17 11/26/17 Rx Flexpen U-100 Insulin] Allergies Allergy/AdvReac Type Severity Reaction Status Date / Time BCG (Bacillus Allergy Unknown cancer drug Verified 11/21/17 20:49 Calmette-Lico) vacc [From BCG NATALIA VACCINE] Review of Systems Review of Systems All systems reviewed & are unremarkable except as noted in HPI and below Exam Vital Signs (past 8 hours): - 11/26/17 04:00 11/26/17 08:00 Temperature 98.2 F 98.2 F Pulse Rate 76 67 Respiratory Rate 11 L 23 Blood Pressure 127/67 H 146/76 H Pulse Oximetry 95 99 Fraction of Inspired Oxygen 31 Oxygen Delivery Method Heated High Flow Oxygen Flow Rate 3 Narrative Exam Narrative: He is resting comfortably he is awake alert he recognizes me he is wearing oxygen O2 sats in the mid 90s HEENT exam otherwise unremarkable Neck is supple Lungs Clear to auscultation Heart irregular Abdomen soft no distention no tenderness bowel sounds are present no masses Lower extremities trace to 1+ edema stasis dermatitis noted Neuro exam awake alert no focal deficits Skin moist and warm Objective Labs Result Diagrams: 11/25/17 21:15 11/25/17 21:15 Labs: Laboratory Results - last 24 hr 11/25/17 11/25/17 11/25/17 21:15 21:15 21:15 WBC 6.6 RBC 4.71 Hgb 13.3 L Hct 40.4 L MCV 85.8 MCH 28.2 MCHC 32.9 RDW 16.3 H Plt Count 127 L Neut % (Auto) 77.3 H Lymph % (Auto) 5.6 L [place] % (Auto) 16.3 H Eos % (Auto) 0.4 L Baso % (Auto) 0.4 Neut # (Auto) 5100 PT 22.7 H D INR 2.1 H APTT 39 H D ABG pH ABG pCO2 ABG pO2 ABG HCO3 ABG Total CO2 ABG O2 Saturation ABG Base Excess FiO2 Sodium 140 Potassium 4.4 Chloride 100 Carbon Dioxide 29 BUN 28 H Creatinine 1.30 H Estimated GFR 53.1 L BUN/Creatinine Ratio 21.5 Glucose 167 H D Lactate Calcium 8.6 Total Bilirubin 1.5 H AST 71 H ALT 114 H Alkaline Phosphatase 127 H D Troponin I B-Natriuretic Peptide Total Protein 7.1 Albumin 3.9 Globulin 3.2 Albumin/Globulin Ratio 1.2 Procalcitonin Urine Color Urine Appearance Urine pH Ur Specific Callao Urine Protein Urine Glucose (UA) Urine Ketones Urine Occult Blood Urine Nitrate Urine Bilirubin Urine Urobilinogen Ur Leukocyte Esterase Urine RBC Urine WBC Amorphous Sediment Urine Bacteria Ur Culture Indicated? Nasal Screen MRSA (PCR) Blood Type Antibody Screen 11/25/17 11/25/17 11/25/17 21:15 21:15 21:15 WBC RBC Hgb Hct MCV MCH MCHC RDW Plt Count Neut % (Auto) Lymph % (Auto) [place] % (Auto) Eos % (Auto) Baso % (Auto) Neut # (Auto) PT INR APTT ABG pH ABG pCO2 ABG pO2 ABG HCO3 ABG Total CO2 ABG O2 Saturation ABG Base Excess FiO2 Sodium Potassium Chloride Carbon Dioxide BUN Creatinine Estimated GFR BUN/Creatinine Ratio Glucose Lactate 0.8 Calcium Total Bilirubin AST ALT Alkaline Phosphatase Troponin I 0.069 H B-Natriuretic Peptide Total Protein Albumin Globulin Albumin/Globulin Ratio Procalcitonin 0.61 H Urine Color Urine Appearance Urine pH Ur Specific Callao Urine Protein Urine Glucose (UA) Urine Ketones Urine Occult Blood Urine Nitrate Urine Bilirubin Urine Urobilinogen Ur Leukocyte Esterase Urine RBC Urine WBC Amorphous Sediment Urine Bacteria Ur Culture Indicated? Nasal Screen MRSA (PCR) Blood Type Antibody Screen 11/25/17 11/25/17 11/25/17 21:15 21:35 21:45 WBC RBC Hgb Hct MCV MCH MCHC RDW Plt Count Neut % (Auto) Lymph % (Auto) [place] % (Auto) Eos % (Auto) Baso % (Auto) Neut # (Auto) PT INR APTT ABG pH 7.43 ABG pCO2 43.1 ABG pO2 58 L ABG HCO3 28 H ABG Total CO2 30 H ABG O2 Saturation 90 L ABG Base Excess 4.0 H FiO2 28 Sodium Potassium Chloride Carbon Dioxide BUN Creatinine Estimated GFR BUN/Creatinine Ratio Glucose Lactate Calcium Total Bilirubin AST ALT Alkaline Phosphatase Troponin I B-Natriuretic Peptide 545.0 H Total Protein Albumin Globulin Albumin/Globulin Ratio Procalcitonin Urine Color Yellow Urine Appearance Clear Urine pH 5.0 Ur Specific Callao 1.015 Urine Protein 2+ H Urine Glucose (UA) Negative Urine Ketones Negative Urine Occult Blood 2+ H Urine Nitrate Negative Urine Bilirubin Negative Urine Urobilinogen 0.2 Ur Leukocyte Esterase Trace H Urine RBC 0-1/hpf Urine WBC 1-5/hpf Amorphous Sediment 1+ Urine Bacteria Occasional (0-1) D Ur Culture Indicated? Specimen cultured Nasal Screen MRSA (PCR) Blood Type Antibody Screen 11/25/17 11/26/17 22:40 00:57 WBC RBC Hgb Hct MCV MCH MCHC RDW Plt Count Neut % (Auto) Lymph % (Auto) [place] % (Auto) Eos % (Auto) Baso % (Auto) Neut # (Auto) PT INR APTT ABG pH ABG pCO2 ABG pO2 ABG HCO3 ABG Total CO2 ABG O2 Saturation ABG Base Excess FiO2 Sodium Potassium Chloride Carbon Dioxide BUN Creatinine Estimated GFR BUN/Creatinine Ratio Glucose Lactate Calcium Total Bilirubin AST ALT Alkaline Phosphatase Troponin I B-Natriuretic Peptide Total Protein Albumin Globulin Albumin/Globulin Ratio Procalcitonin Urine Color Urine Appearance Urine pH Ur Specific Callao Urine Protein Urine Glucose (UA) Urine Ketones Urine Occult Blood Urine Nitrate Urine Bilirubin Urine Urobilinogen Ur Leukocyte Esterase Urine RBC Urine WBC Amorphous Sediment Urine Bacteria Ur Culture Indicated? Nasal Screen MRSA (PCR) Negative for mrsa Blood Type A Positive Antibody Screen Negative Assessment & Plan Plan: Assessment/Plan Narrative: One. Abdominal pain with fever he also has a mildly elevated liver enzyme alk- phos and total bilirubin. Possibly passed a gallstone plan to check lipase plan to do ultrasound of the abdomen repeat blood cultures 2. Pneumonia recently treated at still on oral medications that will continue 3. Urinary tract infection continue with the antibiotic E coli was sensitive to everything 4. Chronic kidney disease with creatinine stable 5. Diabetes type 2 continue glimepiride as needed insulin Six. Hypertension plan to resume oral medications now off the nitroglycerin 7. Chronic and AFib with chronic anticoagulation with persistent symptoms of hemoptysis. This is been up intermittent symptoms since he came in the hospital initially over week ago plan to hold Coumadin for now Quality VTE Deep Vein Thrombosis/Pulmonary Embolism Present on Admission: Yes
[2017-11-26] MEDS: FUROSEMIDE 100 MG/10 ML VIAL 80 MG IV (11:36)
[2017-11-26] MEDS: cefUROXime 250 MG TABLET 500 MG PO ×2 (11:37→21:19)
[2017-11-26] MEDS: GLIMEPIRIDE 2 MG TABLET 1 MG PO (11:38)
[2017-11-26] MEDS: ESCITALOPRAM 10 MG TABLET 20 MG PO (11:38)
[2017-11-26] MEDS: FUROSEMIDE 20 MG TABLET PO (11:38)
[2017-11-26] MEDS: cloNIDine 0.1 MG TABLET PO ×2 (11:38→21:18)
[2017-11-26] MEDS: EPLERENONE 25 MG TABLET 12.5 MG PO (11:38)
[2017-11-26] MEDS: LOSARTAN 50 MG TABLET PO (12:03)
--- NOTE | 2017-11-26 16:36 | ST.IPIE ---
Visit Care Team Role Provider Type Nino Cherry MD Family Provider Physician Primary Care Provider Specialty: Internal Medicine Address: [address] [place] [address], [facility] Email: Raleigh Martel DO Emergency Provider Physician Specialty: Emergency Medicine Address: [address] [place] [address] Email: [email or web address] Kali Cassidy MD Admit Provider Physician Attending Provider Specialty: Internal Medicine Address: [address] [place] [address], [facility] Email: Past Medical History (Last Updated 11/22/17 @ 09:21 by Nino Cherry MD) Atrial fibrillation (Acute Medical) Aortic stenosis (Chronic Medical) BPH (benign prostatic hyperplasia) (Chronic Medical) Barretts esophagus (Chronic Medical) Chronic renal insufficiency, stage III (moderate) (Chronic Medical) Fatty liver (Chronic Medical) HTN (hypertension) (Chronic Medical) History of GI bleed (Chronic Medical) Hyperlipidemia (Chronic Medical) ASHWIN (obstructive sleep apnea) (Chronic Medical) Osteoarthritis of left hip (Chronic Medical) Peripheral neuropathy (Chronic Medical) Spinal stenosis, lumbar region with neurogenic claudication (Chronic Medical) Type 2 diabetes mellitus (Chronic Medical) ST IP Initial Evaulation Report LPN PER DIEM Clinical Swallow Evaluation Start: 11/26/17 16:22 Freq: Status: Active Protocol: Document 11/26/17 16:22 TLC (Rec: 11/26/17 16:36 TLC [id number]) Clinical Swallow Evaluation Session Time Visit Start Time 04:00 Visit Stop Time 04:20 Total Visit Minutes 20 Referral Referring Physician Khanh Reason for Referral Possible Aspiration PNA Setting Assessment Location Acute Care Visit Type Note Type Initial Evaluation Patient Information Patient in for pneumonia after being d/anastasiia back to SNF . Chest CT significant for Multiple small nodular densities in the left lung base, some are hyperdense, suspicious for aspirated radiological contrast and aspiration pneumonia Subjective Observations Patient was sitting up in chair in room. Alert, oriented and conversant. No family present. Evaluation Liquids Trialed Thin Solids Trialed Puree Mechanical Soft Regular Administration Type Self-Feeding Oral Impairment WFL Oral Phase Comments Oral Mech and oral phase WFL Pharyngeal Impairment Mildly Impaired Pharyngeal Phase Strategies Double Swallow Pharyngeal Phase Comments No overt s/sx of aspiration with trials; however, patient exhibited ~5 second delayed throat clear after evaluation. He then went on to say he has difficulty with dry foods sticking in his throat and requires water to get them down. Given his recurrent pneumonia (per patient, he has experienced a few occasions of pneumonia following surgeries/procedures in the past), a MBSS would be beneficial to further assess swallow function and rule out aspiration. Findings Impressions Ongoing assessment through MBSS recommended to rule out aspiration; however, unable to complete this until Wednesday do to radiology closed over the weekend. No recommendations for diet changes or compensatory strategies other than double swallow as needed. Patient is currently on liquid diet, but is safe for regular diet when cleared by MD. Diet Recommendations Liquids Order Thin Diet Order Regular Medication Recommendations As Tolerated Aspiration Precautions Recommended Precautions Upright at 90 Degrees Double Swallow Treatment Plan Appropriate for Therapy Yes Therapy Recommendations Ongoing assessment to rule out aspiration
[2017-11-26] MEDS: ATORVASTATIN 20 MG TABLET 40 MG PO (17:59)
[2017-11-26] MEDS: OXYBUTYNIN 5 MG ER TAB 10 MG PO (17:59)
[2017-11-26] MEDS: TAMSULOSIN 0.4 MG CAPSULE 0.8 MG PO (17:59)
[2017-11-26] MEDS: INSULIN ASPART 100 UNIT/ML INSULN PEN SUBCUT (18:00)
[2017-11-27] VITALS (12 sets, daily range): BP systolic 110–159; BP diastolic 52–89; PULSE 56–88; RESP 15–20; TEMP 36.1–36.8; O2SAT 89–98
[2017-11-27 05:22] LABS: Add Manual Diff / Slide Review NO; Basophils Percent Auto 0.6 % (0-2); Eosinophils Percent Auto 5.2 % (2-4); Hematocrit 39.3 % (41-53); Lymphocytes Percent Auto 18.5 % (25-40); Mean Corpuscular Volume 84.9 fL (80-100); Monocytes Percent Auto 18.5 % (3-14); Neutrophils Absolute Auto 2400 /uL (3000-5900); Neutrophils Percent Auto 57.2 % (50-75); Platelet Count 137 X10^3/uL (150-400); Red Blood Cell Count 4.63 X10^6/uL (4.5-5.9); Red Cell Distribution Width 16.2 % (11.6-14.8); White Blood Cell Count 4.1 X10^3/uL (4.5-11.0)
[2017-11-27 05:24] LABS: Prothrombin Time 21.8 SECONDS (10.1-12.7)
[2017-11-27 05:31] LABS: Alanine Aminotransferase 136 IU/L (21-72); Albumin 3.3 g/dL (3.5-5.0); Albumin Globulin Ratio 1.1 (1.0-2.8); Alkaline Phosphatase 93 U/L (38-126); Aspartate Aminotransferase 114 IU/L (17-59); Bilirubin Total 1.3 mg/dL (0.2-1.3); Blood Urea Nitrogen 35 mg/dL (9-20); Calcium 8.4 mg/dL (8.4-10.2); Carbon Dioxide 38 mmol/L (22-32); Chloride 97 mmol/L (98-107); Estimated Glomerular Filt Rate 48.8 mL/min (>60); Globulin 2.9 g/dL (1.7-4.1); Glucose 112 mg/dL (80-110); HEMOLYSIS < 15 (0-50); Potassium 3.6 mmol/L (3.4-5.1); Sodium 141 mmol/L (137-145); Total Protein 6.2 g/dL (6.3-8.2)
[2017-11-27] MEDS: cloNIDine 0.1 MG TABLET PO ×2 (08:25→21:14)
[2017-11-27] MEDS: FERROUS SULFATE 325 MG TABLET PO (08:27)
[2017-11-27] MEDS: ESCITALOPRAM 10 MG TABLET 20 MG PO (08:27)
[2017-11-27] MEDS: EPLERENONE 25 MG TABLET 12.5 MG PO (08:27)
[2017-11-27] MEDS: GLIMEPIRIDE 2 MG TABLET 1 MG PO (08:28)
[2017-11-27] MEDS: LOSARTAN 50 MG TABLET PO (08:28)
[2017-11-27] MEDS: FUROSEMIDE 20 MG TABLET PO (08:28)
[2017-11-27] MEDS: SODIUM CHLORIDE 0.9% FLUSH 10 ML IV ×2 (08:28→21:14)
[2017-11-27] MEDS: cefUROXime 250 MG TABLET 500 MG PO ×2 (08:33→21:15)
[2017-11-27] MEDS: ACETAMINOPHEN 325 MG TABLET 650 MG PO (08:45)
--- NOTE | 2017-11-27 09:19 | P.PN_ITS ---
Subjective Date Patient Seen: 11/27/17 Time Patient Seen: 08:15 Interval history: The patient reports feeling better, with good appetite this morning and no nausea, however, remains profoundly weak. He does not feel he has recuperated from his recent pneumonia. Exam Vital Signs (past 8 hours): - 11/27/17 01:26 11/27/17 05:00 11/27/17 07:53 Temperature 97.8 F 98.3 F 97.3 F L Pulse Rate 56 L 71 58 L Respiratory Rate 15 16 16 Blood Pressure 136/61 H 144/80 H 156/77 H Pulse Oximetry 91 94 93 11/27/17 08:25 11/27/17 08:28 Temperature Pulse Rate 58 L Respiratory Rate Blood Pressure 156/77 H 159/77 H Pulse Oximetry Fraction of Inspired Oxygen 31 Oxygen Delivery Method Nasal Cannula Oxygen Flow Rate 2 Narrative Exam Narrative: He is resting comfortably he is awake alert he recognizes me he is wearing oxygen O2 sats in the mid 90s HEENT exam otherwise unremarkable Neck is supple Lungs Clear to auscultation Heart irregular with grade 2/6 systolic murmur Abdomen soft no distention no tenderness bowel sounds are present no masses Lower extremities trace to 1+ edema stasis dermatitis noted Neuro exam awake alert no focal deficits Skin moist and warm Objective Labs Result Diagrams: 11/27/17 04:39 11/27/17 04:39 Labs: Laboratory Results - last 24 hr 11/25/17 11/27/17 11/27/17 21:15 04:39 04:39 WBC 4.1 L RBC 4.63 Hgb 13.0 L Hct 39.3 L MCV 84.9 MCH 28.0 MCHC 33.0 RDW 16.2 H Plt Count 137 L Neut % (Auto) 57.2 D Lymph % (Auto) 18.5 L [place] % (Auto) 18.5 H Eos % (Auto) 5.2 H Baso % (Auto) 0.6 Neut # (Auto) 2400 L PT 21.8 H INR 2.0 H Sodium Potassium Chloride Carbon Dioxide BUN Creatinine Estimated GFR BUN/Creatinine Ratio Glucose Calcium Total Bilirubin AST ALT Alkaline Phosphatase Troponin I 0.069 H Total Protein Albumin Globulin Albumin/Globulin Ratio Lipase 27 D 11/27/17 04:39 WBC RBC Hgb Hct MCV MCH MCHC RDW Plt Count Neut % (Auto) Lymph % (Auto) [place] % (Auto) Eos % (Auto) Baso % (Auto) Neut # (Auto) PT INR Sodium 141 Potassium 3.6 Chloride 97 L Carbon Dioxide 38 H BUN 35 H Creatinine 1.40 H Estimated GFR 48.8 L BUN/Creatinine Ratio 25.0 H Glucose 112 H Calcium 8.4 Total Bilirubin 1.3 AST 114 H ALT 136 H Alkaline Phosphatase 93 Troponin I Total Protein 6.2 L Albumin 3.3 L Globulin 2.9 Albumin/Globulin Ratio 1.1 Lipase Assessment & Plan Plan: Assessment/Plan Narrative: 1. Abdominal pain with fever he also has a mildly elevated liver enzyme alk- phos and total bilirubin. Much improved. Etiology unclear with normal gallbladder ultrasound, showing no gallstones. It remains possible that he passed a gallstone and will continue to monitor. Advance diet. 2. Pneumonia. Recently treated. Chest CT suggested possible aspiration, noting several benign and stable nodule since 2004. Continue antibiotic. 3. Urinary tract infection due to pansensitive E coli. Continue antibiotics. 4. Chronic kidney disease, stage III. Stable. 5. Diabetes type 2. Adequate control. Continue glimepiride, as needed insulin. 6. Hypertension. Adequate control. Continue routine medications. 7. Chronic and AFib with chronic anticoagulation with resolved hemoptysis. This is been up intermittent symptoms since he came in the hospital initially over week ago, and plan to hold Coumadin for now, possibly resume tomorrow. Echo shows EF 55-60%, severe aortic stenosis and moderate mitral regurgitation. 8. Disposition. He requires ongoing inpatient care. Consult physical therapy. If stable may return to senior living tomorrow. Quality VTE Deep Vein Thrombosis/Pulmonary Embolism Present on Admission: Yes
[2017-11-27] MEDS: FUROSEMIDE 40 MG TABLET PO (10:39)
--- NOTE | 2017-11-27 11:50 | PT.IIE ---
Surgical History (Last Updated 11/21/17 @ 21:19 by Kika Yanes PA-C) H/O partial cystectomy (Resolved) S/P TURP (Resolved) Medical History (Last Updated 11/22/17 @ 09:21 by Nino Cherry MD) Atrial fibrillation (Acute) Aortic stenosis (Chronic) BPH (benign prostatic hyperplasia) (Chronic) Barretts esophagus (Chronic) Chronic renal insufficiency, stage III (moderate) (Chronic) Fatty liver (Chronic) HTN (hypertension) (Chronic) History of GI bleed (Chronic) Hyperlipidemia (Chronic) ASHWIN (obstructive sleep apnea) (Chronic) Osteoarthritis of left hip (Chronic) Peripheral neuropathy (Chronic) Spinal stenosis, lumbar region with neurogenic claudication (Chronic) Type 2 diabetes mellitus (Chronic) Physical Therapy Inpatient Evaluation/Re-Eval M1 PT/OT-IP Prior Functional Status Start: 11/27/17 12:44 Freq: NEEDED Status: Active Protocol: Document 11/27/17 12:45 AB (Rec[facility] 11/27/17 [id number] Medical Review Prior Functional Status Medical History Reviewed Yes Mobility and Gait pt stated that he is modified independent with all mobilities and ambulation without AD indoors but occasionally uses a SPC/FWW; uses SPC/FWW for outdoor mobility; stated that he just got a 4WW and outpt PT plans to start training him with 4WW . Social History Household Members children Living Arrangements House Number of Floors (Floors) One Floor Number of Stairs To Enter/Railing? without steps to enter Home Environment Standard Height Toilet Walk in Shower Home Equipment Shower Seat without Backrest Grab Bars In Shower Employment Status Retired Additional Social History Comment pt lives with son and stated that his son can assist him at home. has bath tub and counter next to toilet to assist him up M2 PT-IP Current Condition Start: 11/27/17 12:44 Freq: NEEDED Status: Active Protocol: Document 11/27/17 12:45 AB (Rec: 11/27/17 13:01 [id number] Physical Therapy Current Condition Current Condition Evaluation Date 11/27/17 Treatment Diagnosis acute respiratory failure; difficulty in walking Onset Date 11/26/17 Precautions Other Precautions O2 sat M3 PT-IP Subjective Start: 11/27/17 12:44 Freq: NEEDED Status: Active Protocol: Document 11/27/17 12:45 AB (Rec: 11/27/17 13:01 [id number]) Subjective Physical Therapy Visit Type Type Initial Evaluation Visit Start Time 11:50 Visit Stop Time 12:15 Total Visit Minutes 25 Number of SNOWMOBILE MECHANIC Visits 0 Physical Therapy Visit Comments Patient Comments pt agreeable to do therapy Therapy Pain Assessment Pain Present Pain Present Denied Pain M4 PT-IP Mobility and Gait Start: 11/27/17 12:44 Freq: NEEDED Status: Active Protocol: Document 11/27/17 12:45 AB (Rec: 11/27/17 13:01 [id number]) PT-Bed Mobility Assessment Rolling Level of Assist Moderate Assistance Supine to Sit Supine to Sit Moderate Assistance Sit to Supine Sit to Supine Moderate Assistance PT-Transfer Assessment Sit to and From Stand Sit to and from Stand Contact Guard Assistance Equipment Transfer Assistive Device Gait Belt Front Wheeled Walker Orthotic/Prosthetic Devices or Brace: No Gait Assessment Gait Gait Assistance Required: Contact Guard Assist Distance (Feet) (feet) 25 Able to Maintain Weight Bearing Status Yes During Gait Assistive Devices Assistive Device Gait Belt Front Wheeled Walker Orthotic/Prosthetic Devices or Brace: No Gait Deviations General Gait Pattern Decreased Stride Length Decreased Feet Clearance Factors Limiting Gait Function Factors Limiting Gait Function Decreased Activity Tolerance Decreased Strength Poor Safety Awareness Comments Gait Comments O2 sat maintained at 92-94% with ambulation with O2 on. PT-Balance Assessment Sitting Balance and Reactions Static Sitting Balance Ability Good Dynamic Sitting Balance Ability Good Standing Balance and Reactions Static Standing Balance Ability Fair Dynamic Standing Balance Ability Fair M5 PT-IP Objective Assessments Start: 11/27/17 12:44 Freq: NEEDED Status: Active Protocol: Document 11/27/17 12:45 AB (Rec: 11/27/17 13:01 [id number]) Orientation Orientation/Cognition Level of Alertness Alert Orientation Name Age Birthday Month Date Year Day of Week Place Situation Strength Lower Extremity Strength Assessment Bilaterally Impaired Hip 4-/5 Knee 4-/5 M6 PT-IP Treatment Start: 11/27/17 12:44 Freq: NEEDED Status: Active Protocol: Document 11/27/17 12:45 AB (Rec: 11/27/17 13:01 [id number]) Physical Therapy Treatment Education Education Provided Safety M7 PT-IP Assessment and Plan Start: 11/27/17 12:44 Freq: NEEDED Status: Active Protocol: Document 11/27/17 12:45 AB (Rec: 11/27/17 13:01 AB [id number]) PT Summary Assessment and Plan Potential Rehabilitation Potential Good Status of Condition at Evaluation Stable Summary Impairments Strength Balance Bed Mobility Transfers Gait Activity Tolerance Assessment Summary pt requiring one person assist with mobility and presents with decrease activity tolerance during mobility. pt was in [facility] for rehab after last hospitalization November 21. pt may benefit from going back to SNF to improve mobility and activity tolerance and independence. Goals Bed Mobility Goal Independent Transfer Goal Independent Gait Goal Independent Gait Distance 200 Days to Meet Goals 3 Frequency of Treatment Frequency Of Treatment Once a Day Treatment Plan Physical Therapy Treatment Plan Bed Mobility Training Transfer Training Gait Training Therapeutic Exercise Balance Retraining Discharge Planning Neuromuscular Re-ed Coordination Retraining Manual Therapy Recommendations To Nursing Amount of Assist Needed 1 Person Assist Discharge Recommendations PT Discharge Recommendations SNF Rehab
--- NOTE | 2017-11-27 13:36 | CM.DANOTE ---
Discharge Planning/Care Management CM Discharge Assessment Start: 11/27/17 13:31 Freq: Status: Active Protocol: Document 11/27/17 13:32 TH (Rec: 11/27/17 13:36 TH [id number]) Discharge Planning Assessment History Provided By Patient Has Patient been admitted in last 30 Yes days? Is this patient on Medicare? Yes Is the admit diagnosis the same? No Prior Living Arrangements Skilled Nurse Facility Facility Name [facility] Willing to Return to Facility? Yes Independent with ADL's No Is patient alert and oriented? Yes Needs Assistance With Bathing Meal Prep Toileting Caregiver for Another No Clinicals Faxed No Patient Discharge Plan Description [facility] Facility Referrals Initiated [facility] Comment Left VM messg for [facility] at [facility] in case SNF is recommended upon d/c. Discharge Plan [facility] Facility If patient plan is SNF: Has PASSR been No: Not needed as will be completed? returning to SNF Review Status In Process Next Review Type Continued Stay Review Patient is an 82 male admitted from [facility] for fever/vomiting. He had been d/c from [facility] to [facility] only 6 hours prior and was brought back to ER. Insurance: Medicare and [facility] Spoke with patient and son, Connor. They both agree that d/c back to [facility] when medically stable is their preference. They request a bed by a window. Spoke with Cheyanne at [facility] and she confirms they can take the patient back when he is stable. Passed on the info about the bed by the window and she will pass on to [facility]. Plan: D/C back to [facility] when stable. Per progress note, possibly tomorrow.
[2017-11-27] MEDS: ATORVASTATIN 20 MG TABLET 40 MG PO (17:08)
[2017-11-27] MEDS: OXYBUTYNIN 5 MG ER TAB 10 MG PO (17:09)
[2017-11-27] MEDS: TAMSULOSIN 0.4 MG CAPSULE 0.8 MG PO (17:09)
--- NOTE | 2017-11-27 21:52 | PC.NURSE ---
2200- Unable to clearly assess uop this shift pt having difficulty managing the urinal and difficulty with initiating a stream. checked a Bladder scan and the result was 314ml. Pt states he is not uncomfortable. Will monitor.
--- NOTE | 2017-11-27 23:02 | PC.NURSE ---
patient arrived to from ICU at 2221. Patient in stable condition able to get out of bed w/ no assistance using FWW to change brief. Patient is A&O x3, but short term memory loose is present. Patient has CLS ant/post. in upper lobes but fine crackles in bilat. base. Patient was incont. of urine during transport but was able to inform nurse and aid that he had gone in brief. Call light w/in reach, bed in low pos. alarm is active.
[2017-11-28] VITALS (8 sets, daily range): BP systolic 126–161; BP diastolic 54–99; PULSE 65–81; RESP 16–20; TEMP 36.3–36.7; O2SAT 92–97
[2017-11-28 05:58] LABS: Add Manual Diff / Slide Review NO; Basophils Percent Auto 1.2 % (0-2); Hematocrit 40.9 % (41-53); Hemoglobin 13.6 g/dL (13.5-17.5); Lymphocytes Percent Auto 17.1 % (25-40); Mean Corpuscular HGB Conc 33.3 % (30-36); Mean Corpuscular Hemoglobin 28.2 PG (26-34); Mean Corpuscular Volume 84.6 fL (80-100); Monocytes Percent Auto 10.7 % (3-14); Neutrophils Absolute Auto 3600 /uL (3000-5900); Platelet Count 157 X10^3/uL (150-400); Red Blood Cell Count 4.84 X10^6/uL (4.5-5.9); Red Cell Distribution Width 16.7 % (11.6-14.8); White Blood Cell Count 5.5 X10^3/uL (4.5-11.0)
[2017-11-28 06:18] LABS: Alanine Aminotransferase 131 IU/L (21-72); Albumin 3.3 g/dL (3.5-5.0); Albumin Globulin Ratio 1.1 (1.0-2.8); Alkaline Phosphatase 97 U/L (38-126); Aspartate Aminotransferase 65 IU/L (17-59); BUN Creatinine Ratio 27.7 (6-22); Blood Urea Nitrogen 36 mg/dL (9-20); Calcium 8.6 mg/dL (8.4-10.2); Carbon Dioxide 34 mmol/L (22-32); Chloride 100 mmol/L (98-107); Estimated Glomerular Filt Rate 53.1 mL/min (>60); Globulin 2.9 g/dL (1.7-4.1); Glucose 101 mg/dL (80-110); HEMOLYSIS < 15 (0-50); Potassium 3.4 mmol/L (3.4-5.1); Sodium 141 mmol/L (137-145); Total Protein 6.2 g/dL (6.3-8.2)
--- NOTE | 2017-11-28 09:31 | PM.PN.1 ---
Subjective Date Patient Seen: 11/28/17 Time Patient Seen: 09:00 Interval history: The patient reports feeling better. She is still weak and requiring oxygen. His urine output decreased overnight on oral diuretic therapy. He walk 25 ft with physical therapy yesterday. Exam Vital Signs (past 8 hours): - 11/28/17 04:00 11/28/17 07:45 Temperature 97.3 F L 98.0 F Pulse Rate 81 65 Respiratory Rate 18 16 Blood Pressure 147/76 H 161/54 H Pulse Oximetry 97 95 Fraction of Inspired Oxygen 31 Oxygen Delivery Method Room Air Oxygen Flow Rate 2 Narrative Exam Narrative: Alert, appears comfortable, dyspneic with minimal exertion HEENT exam otherwise unremarkable Neck is supple Lungs Clear to auscultation Heart irregular with grade 3/6 systolic murmur Abdomen soft no distention no tenderness bowel sounds are present no masses Lower extremities trace to 1+ edema stasis dermatitis noted Neuro exam awake alert no focal deficits Skin moist and warm Objective Labs Result Diagrams: 11/28/17 05:44 11/28/17 05:44 Labs: Laboratory Results - last 24 hr 11/28/17 11/28/17 05:44 05:44 WBC 5.5 RBC 4.84 Hgb 13.6 Hct 40.9 L MCV 84.6 MCH 28.2 MCHC 33.3 RDW 16.7 H Plt Count 157 Neut % (Auto) 66.0 Lymph % (Auto) 17.1 L [place] % (Auto) 10.7 Eos % (Auto) 5.0 H Baso % (Auto) 1.2 Neut # (Auto) 3600 Sodium 141 Potassium 3.4 Chloride 100 Carbon Dioxide 34 H BUN 36 H Creatinine 1.30 H Estimated GFR 53.1 L BUN/Creatinine Ratio 27.7 H Glucose 101 Calcium 8.6 Total Bilirubin 1.0 AST 65 H ALT 131 H Alkaline Phosphatase 97 Total Protein 6.2 L Albumin 3.3 L Globulin 2.9 Albumin/Globulin Ratio 1.1 Assessment & Plan Plan: Assessment/Plan Narrative: 1. Acute diastolic congestive heart failure due to severe aortic stenosis, with congestive hepatopathy and enteropathy. Switch back to IV furosemide. Continue to monitor closely. Echo shows EF 55-60%, severe aortic stenosis and moderate mitral regurgitation. 2. Abdominal pain with fever he also has a mildly elevated liver enzyme alk-phos and total bilirubin. Much improved. Etiology likely CHF with normal gallbladder ultrasound, showing no gallstones. It remains possible that he passed a gallstone and will continue to monitor. 3. Pneumonia. Recently treated. Chest CT suggested possible aspiration, noting several benign and stable nodule since 2004. Continue antibiotic. 4. Urinary tract infection due to pansensitive E coli. Continue antibiotics. 5. Chronic kidney disease, stage III. Stable. 6. Diabetes type 2. Adequate control. Continue glimepiride, as needed insulin. 7. Hypertension. Adequate control. Continue routine medications. 8. Chronic and AFib with chronic anticoagulation with resolved hemoptysis. Plan to resume warfarin and monitor. 9. Disposition. He requires ongoing inpatient care. Continue physical therapy. If stable may return to [facility] tomorrow. Quality VTE Deep Vein Thrombosis/Pulmonary Embolism Present on Admission: Yes
[2017-11-28] MEDS: POTASSIUM CHLORIDE 20 MEQ TAB 40 MEQ PO (09:55)
[2017-11-28] MEDS: ESCITALOPRAM 10 MG TABLET 20 MG PO (09:57)
[2017-11-28] MEDS: FERROUS SULFATE 325 MG TABLET PO (09:57)
[2017-11-28] MEDS: LOSARTAN 50 MG TABLET PO (09:57)
[2017-11-28] MEDS: cefUROXime 250 MG TABLET 500 MG PO ×2 (09:58→21:21)
[2017-11-28] MEDS: EPLERENONE 25 MG TABLET 12.5 MG PO (09:58)
[2017-11-28] MEDS: FUROSEMIDE 40 MG/4 ML VIAL IV ×2 (09:58→17:33)
[2017-11-28] MEDS: cloNIDine 0.1 MG TABLET PO ×2 (09:58→21:20)
[2017-11-28] MEDS: SODIUM CHLORIDE 0.9% FLUSH 10 ML IV ×2 (09:59→21:21)
[2017-11-28] MEDS: GLIMEPIRIDE 2 MG TABLET 1 MG PO (09:59)
--- NOTE | 2017-11-28 11:48 | PC.NURSE ---
Day shift: Unable to chart on new IV start. New IV site placed at approx 1130 11/28/17 in left FA. 2 attempts made. IV patent and flushed. Pt tolerated well. SL at this time.
--- NOTE | 2017-11-28 15:08 | PT.IPTN ---
Physical Therapy Treatment Note M2 PT-IP Current Condition Start: 11/27/17 12:44 Freq: NEEDED Status: Active Protocol: Document 11/28/17 14:50 LRN (Rec: 11/28/17 15:08 [facility] [id number]) Physical Therapy Current Condition Current Condition Evaluation Date 11/27/17 Treatment Diagnosis acute respiratory failure; difficulty in walking Onset Date 11/26/17 Precautions Other Precautions O2 sat M3 PT-IP Subjective Start: 11/27/17 12:44 Freq: NEEDED Status: Active Protocol: Document 11/28/17 14:50 LRN (Rec: 11/28/17 15:08 [facility] [id number]) Subjective Physical Therapy Visit Type Type Treatment Note Visit Start Time 14:30 Visit Stop Time 14:50 Total Visit Minutes 20 Number of PLATFORM MAN Visits 0 Physical Therapy Visit Comments Patient Comments Pt agreeable for therapy. Therapy Pain Assessment Pain Present Pain Present Denied Pain M4 PT-IP Mobility and Gait Start: 11/27/17 12:44 Freq: NEEDED Status: Active Protocol: Document 11/28/17 14:50 LRN (Rec: 11/28/17 15:08 [facility] [id number]) PT-Bed Mobility Assessment Supine to Sit Supine to Sit Contact Guard Assistance Scooting Scooting to Edge of Bed Standby Assistance PT-Transfer Assessment Sit to and From Stand Sit to and from Stand Contact Guard Assistance Equipment Transfer Assistive Device Gait Belt Front Wheeled Walker Orthotic/Prosthetic Devices or Brace: No Comments Mobility Comments Pt primary difficulty was scooting to edge of bed. Gait Assessment Gait Gait Assistance Required: Standby Assistance Distance (Feet) (feet) 100 Able to Maintain Weight Bearing Status Yes During Gait Assistive Devices Assistive Device Gait Belt Front Wheeled Walker Orthotic/Prosthetic Devices or Brace: No Gait Deviations General Gait Pattern Decreased Stride Length Factors Limiting Gait Function Factors Limiting Gait Function Decreased Activity Tolerance Comments Gait Comments O2 Sat 96% post ambulation. PT-Balance Assessment Sitting Balance and Reactions Static Sitting Balance Ability Normal Dynamic Sitting Balance Ability Good Standing Balance and Reactions Static Standing Balance Ability Good Dynamic Standing Balance Ability Good Device Used FWW M5 PT-IP Objective Assessments Start: 11/27/17 12:44 Freq: NEEDED Status: Active Protocol: Document 11/28/17 14:50 LRN (Rec: 11/28/17 15:08 [facility] [id number]) Orientation Orientation/Cognition Level of Alertness Alert M6 PT-IP Treatment Start: 11/27/17 12:44 Freq: NEEDED Status: Active Protocol: Document 11/28/17 14:50 LRN (Rec: 11/28/17 15:08 LRN [id number]) Physical Therapy Treatment Exercises Exercises Ankle Pumps M7 PT-IP Assessment and Plan Start: 11/27/17 12:44 Freq: NEEDED Status: Active Protocol: Document 11/28/17 14:50 LRN (Rec: 11/28/17 15:08 [facility] [id number]) PT Summary Assessment and Plan Goals Bed Mobility Goal Independent Transfer Goal Independent Gait Goal Independent Gait Distance 200 Days to Meet Goals 1 Frequency of Treatment Frequency Of Treatment Once a Day Recommendations To Nursing Amount of Assist Needed Standby Assistance 1 Person Assist Discharge Recommendations PT Discharge Recommendations SNF Rehab Other Discharge Recommendations Possible home if assist is available and the pt's endurance continues to improve .
--- NOTE | 2017-11-28 15:27 | PC.NURSE ---
patient is A&O x3 and sitting up to the chair watching TV. Patient has yet to have BM today, discussed having some prune juice w/ dinner. Left lung: faint crackles anter/post throughout, right side clear w/ dem sounds to bases. Trace edeam to BLE w/ venous staining to shins. Patient denies any pain at this time, no diff. breathing or SOB w/ exertion. VSS 91-92% on RA. Call light w/in reach.
[2017-11-28] MEDS: WARFARIN 2 MG TABLET PO (17:44)
[2017-11-28] MEDS: ATORVASTATIN 20 MG TABLET 40 MG PO (17:44)
[2017-11-28] MEDS: TAMSULOSIN 0.4 MG CAPSULE 0.8 MG PO (17:44)
[2017-11-28] MEDS: OXYBUTYNIN 5 MG ER TAB 10 MG PO (17:44)
--- NOTE | 2017-11-29 01:24 | PC.NURSE ---
Patient refused scheduled 2300 dose of lasix. Stated he was not getting sleep and did not wish to be up all night using the urinal. We discussed what and why med was ordered. Despite education, patient refused.
[2017-11-29 04:11] VITALS: BP 148/80; PULSE 63; RESP 19; TEMP 36.6; O2SAT 93
[2017-11-29 05:50] LABS: INR 1.5 (0.9-1.3); Prothrombin Time 15.9 SECONDS (10.1-12.7)
[2017-11-29 05:54] LABS: Blood Urea Nitrogen 35 mg/dL (9-20); Calcium 8.8 mg/dL (8.4-10.2); Carbon Dioxide 32 mmol/L (22-32); Chloride 98 mmol/L (98-107); Estimated Glomerular Filt Rate 48.8 mL/min (>60); Glucose 118 mg/dL (80-110); HEMOLYSIS < 15 (0-50); Potassium 3.6 mmol/L (3.4-5.1); Sodium 140 mmol/L (137-145)
[2017-11-29] MEDS: FUROSEMIDE 40 MG/4 ML VIAL IV ×2 (06:01→11:48)
[2017-11-29] MEDS: SODIUM CHLORIDE 0.9% FLUSH 10 ML IV (06:01)
--- NOTE | 2017-11-29 06:16 | PC.NURSE ---
Since patient refused 2330 dose of lasix so he could sleep, saw patient was up in chair and wide awake. Offered lasix early and patient accepted dose.
[2017-11-29 07:10] VITALS: BP 133/66; PULSE 87; RESP 16; TEMP 36.6; O2SAT 97
[2017-11-29] MEDS: cefUROXime 250 MG TABLET 500 MG PO (09:03)
[2017-11-29] MEDS: EPLERENONE 25 MG TABLET 12.5 MG PO (09:03)
[2017-11-29] MEDS: cloNIDine 0.1 MG TABLET PO (09:03)
[2017-11-29] MEDS: GLIMEPIRIDE 2 MG TABLET 1 MG PO (09:04)
[2017-11-29] MEDS: LOSARTAN 50 MG TABLET PO (09:04)
[2017-11-29] MEDS: ESCITALOPRAM 10 MG TABLET 20 MG PO (09:04)
[2017-11-29] MEDS: FERROUS SULFATE 325 MG TABLET PO (09:04)
--- NOTE | 2017-11-29 10:07 | PM.DS.1 ---
History of Present Illness Chief complaint: Fever Discharge Providers Date of admission: 11/26/17 00:16 Primary care physician: Nino Cherry MD Consults: 11/26/17 09:56 Consult to Respiratory Therapy Evaluate & Treat Comment: manage oxygen requirement. Physician Instructions: Evaluate and treat 11/26/17 13:23 Consult to Speech Therapy Evaluate & Treat Comment: aspiration Physician Instructions: Evaluate and treat 11/27/17 09:10 Consult to Physical Therapy Evaluate & Treat Comment: weakness Physician Instructions: Evaluate and Treat Discharge provider: Damián Dunbar MD Summary Discharge Diagnosis: 1. Acute diastolic congestive heart failure due to severe aortic stenosis, with congestive hepatopathy and enteropathy 2. Abdominal pain with mildly elevated liver enzyme alk-phos and total bilirubin, likely due to 1 3. Pneumonia, recently treated 4. Urinary tract infection due to pansensitive E coli 5. Chronic kidney disease, stage III 6. Diabetes type 2 7. Hypertension 8. Chronic atrial fibrillation with chronic anticoagulation with resolved hemoptysis and hematuria Hospital Course: 1. Acute diastolic congestive heart failure due to severe aortic stenosis, with congestive hepatopathy and enteropathy. Treated with IV furosemide during hospitalization. Echo shows EF 55-60%, severe aortic stenosis and moderate mitral regurgitation. Switch to oral furosemide, increased from 20 mg daily prior to admission to 40 mg daily at discharge with supplemental potassium, and continue to monitor. 2. Abdominal pain with fever he also has a mildly elevated liver enzyme alk-phos and total bilirubin. Much improved. Etiology likely CHF with normal gallbladder ultrasound, showing no gallstones. It remains possible that he passed a gallstone and will continue to monitor in the correction. 3. Pneumonia. Recently treated. Chest CT suggested possible aspiration, noting several benign and stable nodules since 2004. Continue antibiotic to complete course as previously recommended on his recent hospitalization. 4. Urinary tract infection due to pansensitive E coli. Continue antibiotics. 5. Chronic kidney disease, stage III. Stable. 6. Diabetes type 2. Adequate control. Continue glimepiride, as needed insulin. 7. Hypertension. Adequate control. Continue routine medications. 8. Chronic and AFib with chronic anticoagulation with resolved hemoptysis. Slightly subtherapeutic due to withholding during the hospitalization with INR 1.5 at discharge. Continue warfarin and monitor. 9. Disposition. Return to longterm before anticipated return home. Continue physical therapy. Status at Discharge Functional status at discharge: uses cane/walker Overall status at discharge: patient is progressing back to baseline Time Spent with Patient Greater than 30 minutes Exam Vital Signs (past 8 hours): - 11/29/17 04:11 11/29/17 07:10 Temperature 97.8 F 97.8 F Pulse Rate 63 87 Respiratory Rate 19 16 Blood Pressure 148/80 H 133/66 H Pulse Oximetry 93 97 Fraction of Inspired Oxygen 31 Oxygen Delivery Method Room Air Oxygen Flow Rate 2 Objective Labs Result Diagrams: 11/28/17 05:44 11/29/17 05:30 Labs: Laboratory Results - last 24 hr 11/29/17 11/29/17 05:30 05:30 PT 15.9 H D INR 1.5 H Sodium 140 Potassium 3.6 Chloride 98 Carbon Dioxide 32 BUN 35 H Creatinine 1.40 H Estimated GFR 48.8 L BUN/Creatinine Ratio 25.0 H Glucose 118 H Calcium 8.8 Discharge Plan Discharge Plan Patient Disposition: SNF Transfer to: [facility] Under care of provider: emily Martin w/ Dr. Cherry following discharge home Transportation: [facility] Labs: BMP 1 week; protime 3 days Consult as needed: Dental, Hearing, Mental health, Podiatry and Vision I certify the postop hospital longterm care is medically necessary on a continuing basis for any conditions for which he/ she received care during this hospitalization.: Yes The receiving facility has agreed to accept transfer and provide medical treatment.: Yes Discharge Health Status Multidrug resistant organism: No MDRO Precautions: [place] Provider Discharge Instructions Diet: Regular and Low-sodium Liquid consistency: Normal/Thin Food texture: Regular Wound Care Report to your healthcare provider any signs of infection, such as:: chills, fever, night sweats, increased pain and unusual drainage Special Rehabilitation Services Reason for rehabilitation: Recovery r/t decondition Rehab type: Physical therapy Discharge Data Primary Care Provider: Nino Cherry Attending Provider: Kali Cassidy Admit Date/Time: 11/26/17 00:16 Quality VTE Deep Vein Thrombosis/Pulmonary Embolism Present on Admission: Yes
--- NOTE | 2017-11-29 10:12 | P.DS_ITS ---
History of Present Illness Chief complaint: Fever Discharge Providers Date of admission: 11/26/17 00:16 Primary care physician: Nino Cherry MD Consults: 11/26/17 09:56 Consult to Respiratory Therapy Evaluate & Treat Comment: manage oxygen requirement. Physician Instructions: Evaluate and treat 11/26/17 13:23 Consult to Speech Therapy Evaluate & Treat Comment: aspiration Physician Instructions: Evaluate and treat 11/27/17 09:10 Consult to Physical Therapy Evaluate & Treat Comment: weakness Physician Instructions: Evaluate and Treat Discharge provider: Damián Dunbar MD Summary Discharge Diagnosis: 1. Acute diastolic congestive heart failure due to severe aortic stenosis, with congestive hepatopathy and enteropathy 2. Abdominal pain with mildly elevated liver enzyme alk-phos and total bilirubin, likely due to 1 3. Pneumonia, recently treated 4. Urinary tract infection due to pansensitive E coli 5. Chronic kidney disease, stage III 6. Diabetes type 2 7. Hypertension 8. Chronic atrial fibrillation with chronic anticoagulation with resolved hemoptysis and hematuria Hospital Course: 1. Acute diastolic congestive heart failure due to severe aortic stenosis, with congestive hepatopathy and enteropathy. Treated with IV furosemide during hospitalization. Echo shows EF 55-60%, severe aortic stenosis and moderate mitral regurgitation. Switch to oral furosemide, increased from 20 mg daily prior to admission to 40 mg daily at discharge with supplemental potassium, and continue to monitor. 2. Abdominal pain with fever he also has a mildly elevated liver enzyme alk- phos and total bilirubin. Much improved. Etiology likely CHF with normal gallbladder ultrasound, showing no gallstones. It remains possible that he passed a gallstone and will continue to monitor in the [facility]. 3. Pneumonia. Recently treated. Chest CT suggested possible aspiration, noting several benign and stable nodules since 2004. Continue antibiotic to complete course as previously recommended on his recent hospitalization. 4. Urinary tract infection due to pansensitive E coli. Continue antibiotics. 5. Chronic kidney disease, stage III. Stable. 6. Diabetes type 2. Adequate control. Continue glimepiride, as needed insulin. 7. Hypertension. Adequate control. Continue routine medications. 8. Chronic and AFib with chronic anticoagulation with resolved hemoptysis. Slightly subtherapeutic due to withholding during the hospitalization with INR 1.5 at discharge. Continue warfarin and monitor. 9. Disposition. Return to detention before anticipated return home. Continue physical therapy. Status at Discharge Functional status at discharge: uses cane/walker Overall status at discharge: patient is progressing back to baseline Time Spent with Patient Greater than 30 minutes Exam Vital Signs (past 8 hours): - 11/29/17 04:11 11/29/17 07:10 Temperature 97.8 F 97.8 F Pulse Rate 63 87 Respiratory Rate 19 16 Blood Pressure 148/80 H 133/66 H Pulse Oximetry 93 97 Fraction of Inspired Oxygen 31 Oxygen Delivery Method Room Air Oxygen Flow Rate 2 Objective Labs Result Diagrams: 11/28/17 05:44 11/29/17 05:30 Labs: Laboratory Results - last 24 hr 11/29/17 11/29/17 05:30 05:30 PT 15.9 H D INR 1.5 H Sodium 140 Potassium 3.6 Chloride 98 Carbon Dioxide 32 BUN 35 H Creatinine 1.40 H Estimated GFR 48.8 L BUN/Creatinine Ratio 25.0 H Glucose 118 H Calcium 8.8 Discharge Plan Discharge Plan Patient Disposition: SNF Transfer to: [facility] Under care of provider: emily Martin w/ Dr. Cherry following discharge home Transportation: [facility] Labs: BMP 1 week; protime 3 days Consult as needed: Dental, Hearing, Mental health, Podiatry and Vision I certify the postop hospital detention care is medically necessary on a continuing basis for any conditions for which he/ she received care during this hospitalization.: Yes The receiving facility has agreed to accept transfer and provide medical treatment.: Yes Discharge Health Status Multidrug resistant organism: No MDRO Precautions: [place] Provider Discharge Instructions Diet: Regular and Low-sodium Liquid consistency: Normal/Thin Food texture: Regular Wound Care Report to your healthcare provider any signs of infection, such as:: chills, fever, night sweats, increased pain and unusual drainage Special Rehabilitation Services Reason for rehabilitation: Recovery r/t decondition Rehab type: Physical therapy Discharge Data Primary Care Provider: Nino Cherry Attending Provider: Kali Cassidy Admit Date/Time: 11/26/17 00:16 Quality VTE Deep Vein Thrombosis/Pulmonary Embolism Present on Admission: Yes
--- NOTE | 2017-11-29 11:24 | PT.IPTN ---
Current Diagnoses Unspecified abdominal pain (11/26/17) Physical Therapy Treatment Note Physical Therapy Visit Type Type Administrative Note Notes Pt politely declines to participate in therapy at this time, reports that he is discharging to rehab this afternoon and just wants to rest until then.
[2017-11-29 12:00] VITALS: BP 116/68; PULSE 79; RESP 16; O2SAT 96
--- NOTE | 2017-11-29 12:08 | CM.DPC ---
Signed med list and d/c summary faxed to [facility] per Claire. Fax confirmation scanned
--- NOTE | 2017-11-29 13:33 | PC.NURSE ---
Day shift: Left unit with [facility] personal at approx 1330. Son was also w/ Pt to help with transfer. Pt remains unsteady on feet when up. Pt has all personal belongings. [facility] person has d/c packet for SNF.
--- NOTE | 2017-11-29 13:46 | CM.DPC ---
DCP: continued: case received, EMR reviewed, d/c to [facility] noted. Coordinated all with pt and his son, MAI/Aspen and ANDREW Downing. Pt left via w/c transport to at 1330 as per plan.
== END 2017-11-29 13:34 | DRG 291 ==
LOC: ED 11-26 00:02 → ICU 11-26 00:18 → AC 11-27 22:16
PROVIDERS: Internal Medicine; Admitting Provider Internal Medicine; Emergency Provider Emergency Medicine; Family Provider Internal Medicine; PCP Internal Medicine; Visit Provider Internal Medicine
DX: I13.0 Hypertensive heart and chronic kidney disease with heart failure and stage 1 through stage 4 chronic kidney disease, or unspecified chronic kidney disease (principal); I50.31 Acute diastolic (congestive) heart failure; J15.9 Unspecified bacterial pneumonia; J96.01 Acute respiratory failure with hypoxia; N39.0 Urinary tract infection, site not specified; N18.3 Chronic kidney disease, stage 3 (moderate); Z79.4 Long term (current) use of insulin; E11.42 Type 2 diabetes mellitus with diabetic polyneuropathy; K63.89 Other specified diseases of intestine; B96.20 Unspecified Escherichia coli [E. coli] as the cause of diseases classified elsewhere; I48.2 Chronic atrial fibrillation; Z79.01 Long term (current) use of anticoagulants; I08.0 Rheumatic disorders of both mitral and aortic valves; E11.22 Type 2 diabetes mellitus with diabetic chronic kidney disease; N40.0 Benign prostatic hyperplasia without lower urinary tract symptoms; E78.5 Hyperlipidemia, unspecified; G47.33 Obstructive sleep apnea (adult) (pediatric); Z87.891 Personal history of nicotine dependence; R13.10 Dysphagia, unspecified; R10.9 Unspecified abdominal pain
CPT/HCPCS: 36415; 36591; 36600; 51701; 71045; 71250; 74018; 76700; 80048; 80053; 81001; 82805; 82962; 83605; 83690; 83880; 84145; 84484; 85025; 85610; 85730; 86850; 86900; 86901; 87040; 87086; 87797; 92526; 92610; 93005; 93306; 94760; 97161; 97530; 99284; C9113; J1940; J2354; J2405; Q9957

== ENCOUNTER → 2017-12-27 07:58 | Outpatient (REF) | payer MEDICARE, OTHER, SELFPAY ==
[2017-11-26 01:31] VITALS: BMI 38.8
[2017-12-27 08:35] LABS: INR 2.5 (0.9-1.3); Prothrombin Time 27.6 SECONDS (10.1-12.7)
== END ==
LOC: LAB 07:58
PROVIDERS: Family Provider Internal Medicine; PCP Internal Medicine; Visit Provider Internal Medicine
DX: Z51.81 Encounter for therapeutic drug level monitoring (principal)
CPT/HCPCS: 36415; 85610

== ENCOUNTER 2018-01-11 20:26 | Inpatient (IN) | payer MEDICARE, OTHER, SELFPAY ==
[2017-11-26 01:31] VITALS: BMI 38.8
[2018-01-11] VITALS (9 sets, daily range): BP systolic 117–144; BP diastolic 49–72; PULSE 76–101; RESP 14–35; O2SAT 87–99; BMI 43.4
--- NOTE | 2018-01-11 20:32 | DI.RAD.S_ITS ---
PROCEDURE: XR CHEST 1V INDICATIONS: chest pain TECHNIQUE: One view of the chest was acquired. COMPARISON: [facility], CR, XR CHEST 1V, 11/25/2017, 21:26. FINDINGS: Surgical changes and devices: None. Lungs and pleura: No pleural effusions or pneumothorax. There is mild pulmonary vascular congestion. No definite focal infiltrate. Mediastinum: Mediastinal contours appear normal. Heart size is enlarged. Bones and chest wall: No suspicious bony lesions. Overlying soft tissues appear unremarkable. IMPRESSION: Cardiomegaly and mild congestion. No definite focal infiltrate or pneumothorax. Dictated by: Gary Graham M.D. on 01/11/2018 at 20:54 Approved by: Gary Graham M.D. on 01/11/2018 at 20:54
--- NOTE | 2018-01-11 20:36 | ED_ITS ---
HPI - SOB/Dyspnea General Chief Complaint: Shortness of Breath/Dyspnea Stated Complaint: SOB Time Seen by Provider: 01/11/18 20:30 Source: patient and EMS Mode of arrival: EMS History of Present Illness Patient is an 82-year-old male presenting from half-way with increasing shortness of breath. He was admitted here November 26 through November 29 with CHF exacerbation. He has had a few admissions over the summer. He also has memory problems and is not the best historian. He thinks or his breathing got worse an hour ago. He was able to make it to dinner without any difficulty. He does not remember feeling poorly. He denies chest pain or heart palpitations. I called and spoke with the son. According to records he was discharged home on oxygen however the son states that his oxygen has been weaned off and he has not needed at for a number of weeks. MD Complaint: shortness of breath Related Data Home oxygen amount: none Home Medications Medication Instructions Recorded Confirmed atorvastatin 40 mg QPM 11/21/17 01/11/18 clonidine HCl 0.1 mg BID 11/21/17 01/11/18 eplerenone 12.5 mg QAM 11/21/17 01/11/18 escitalopram oxalate 20 mg QAM 11/21/17 01/11/18 ferrous sulfate 325 mg PO DAILY #0 11/21/17 01/11/18 glimepiride 1 mg QAM 11/21/17 01/11/18 losartan 50 mg QAM 11/21/17 01/11/18 oxybutynin chloride 10 mg QPM 11/21/17 01/11/18 tamsulosin 0.8 mg QPM 11/21/17 01/11/18 warfarin 2 mg DAILY 11/21/17 01/11/18 Novolog Flexpen U-100 Insulin 100 ml SUB-Q PRN PRN 01/11/18 01/11/18 amlodipine 10 mg PO DAILY 01/11/18 01/11/18 Previous Rx's Medication Instructions Recorded albuterol sulfate [Ventolin HFA] 2 puff INHALATION Q4-6H PRN #8.5 11/25/17 gram furosemide 40 mg PO DAILY #30 tab 11/29/17 potassium chloride 20 meq PO DAILY #30 tab 11/29/17 Allergies Allergy/AdvReac Type Severity Reaction Status Date / Time BCG (Bacillus Allergy Unknown cancer drug Verified 01/11/18 20:33 Calmette-Lico) vacc [From BCG NATALIA VACCINE] Review of Systems Review of Systems All systems reviewed & are unremarkable except as noted in HPI and below Constitutional Denies chills, Denies fatigue and Denies fever(s) ENT Ears, Nose, Mouth, and Throat: Denies dizziness Cardiovascular Denies chest pain, Denies chest pain at rest, Reports diaphoresis, Denies syncope and Denies rapid heart rate Respiratory Reports as per HPI Gastrointestinal Gastrointestinal: Denies abdominal pain, Denies change in bowel habits, Denies diarrhea, Denies nausea and Denies vomiting Musculoskeletal Denies back pain, Denies muscle weakness, Denies numbness and Denies tingling Integumentary/Breasts Denies pruritus, Denies erythema, Denies rash and Denies wounds Neurologic Denies dizziness, Denies syncope, Denies numbness and Denies tingling Endocrine Denies fatigue PFSH Medical History Atrial fibrillation (Acute) Aortic stenosis (Chronic) BPH (benign prostatic hyperplasia) (Chronic) Barretts esophagus (Chronic) Chronic renal insufficiency, stage III (moderate) (Chronic) Fatty liver (Chronic) HTN (hypertension) (Chronic) History of GI bleed (Chronic) Hyperlipidemia (Chronic) ASHWIN (obstructive sleep apnea) (Chronic) Osteoarthritis of left hip (Chronic) Peripheral neuropathy (Chronic) Spinal stenosis, lumbar region with neurogenic claudication (Chronic) Type 2 diabetes mellitus (Chronic) Surgical History H/O partial cystectomy (Resolved) S/P TURP (Resolved) Social History household members: children Smoking Status: Former smoker Tobacco: How many years used: 30 alcohol intake: former substance use type: does not use Exam Initial Vital Signs Initial Vital Signs: Vital Signs Pulse Rate 95 H 01/11/18 20:33 Respiratory Rate 34 H 01/11/18 20:33 Blood Pressure 144/66 H 01/11/18 20:33 Pulse Oximetry 99 01/11/18 20:33 GENERAL: Obese male in acute respiratory distress. HEENT: Head atraumatic,EOMI, pupils reactive, neck is supple CARDIOVASCULAR: Regular rate and rhythm without murmurs, rubs or gallops. RESPIRATORY: Speaking in 2-3 word sentences is labored breathing is tachypneic wheezing throughout ABDOMEN: Soft, nontender. Normoactive bowel sounds all 4 quadrants. No guarding or rebound. : No CVA tenderness EXTREMITIES: bilat oral +1 pitting edema. Normal range of motion, no clubbing. Neurovascularly intact NEUROLOGICAL: Alert and oriented x4.Normal gait and speech. Cranial nerves II through XII grossly intact SKIN: Warm, dry, no laceration, no petechiae, no rashes or lesions. Course Orders Ordered: ED Orders 01/11/18 20:31 EKG-12 Lead Stat 01/11/18 20:32 XR chest 1V Stat 01/11/18 20:33 B Type Natriuretic Peptide Stat Complete Blood Count AUTO DIFF Stat Comprehensive Metabolic Panel Stat Magnesium Stat Partial Thromboplastin Time Stat Procalcitonin Stat Prothrombin Time INR Stat Troponin & CK Cardiac Panel Stat 01/11/18 21:08 Lactate (Lactic Acid) Stat 01/11/18 21:15 Blood Culture Stat 01/12/18 01:00 MRSA PCR Stat 01/12/18 01:25 Consult to Physician Routine Discontinued Medications Furosemide (Lasix) 60 mg IV NOW ONE Stop: 01/11/18 20:56 Last Admin: 01/11/18 21:06 Dose: 60 mg Nitroglycerin (Nitrostat) 0.4 mg SL NOW ONE Stop: 01/11/18 21:08 Last Admin: 01/11/18 21:08 Dose: 0.4 mg Vital Signs - 8 hr 01/11/18 20:33 01/11/18 20:50 01/11/18 21:03 Temperature Pulse Rate 95 H 101 H Respiratory Rate 34 H 35 H Blood Pressure 144/66 H Blood Pressure [Left Arm] 144/66 H Pulse Oximetry 99 87 L 97 01/11/18 21:08 01/11/18 21:37 01/11/18 21:43 Temperature Pulse Rate 93 H 93 H 80 Respiratory Rate 25 H Blood Pressure 144/60 H 131/72 H Blood Pressure [Left Arm] 131/72 H Pulse Oximetry 97 01/11/18 22:01 01/11/18 22:33 01/11/18 23:02 Temperature Pulse Rate 84 77 76 Respiratory Rate 14 24 29 H Blood Pressure Blood Pressure [Left Arm] 135/50 H 117/49 L 121/56 H Pulse Oximetry 95 98 99 01/12/18 00:24 01/12/18 01:09 Temperature 99.4 F Pulse Rate 71 79 Respiratory Rate 30 H 24 Blood Pressure 132/66 H Blood Pressure [Left Arm] 100/52 L Pulse Oximetry 95 96 MDM - SOB/Dyspnea Differential Diagnosis Likely pulmonary embolism (Was considered however INR is therapeutic, and he improved with BiPAP) Medical Records Attestation: I reviewed the patient's medical records. Lab Data Attestation: I reviewed the patient's lab results. Result diagrams: 01/11/18 20:33 01/11/18 20:33 Lab Results 01/11/18 01/11/18 01/11/18 Range/Units 20:33 20:33 20:33 WBC 8.0 (4.5-11.0) X10^3/uL RBC 4.71 (4.5-5.9) X10^6/uL Hgb 13.6 (13.5-17.5) g/dL Hct 41.1 (41-53) % MCV 87.2 (80-100) fL MCH 29.0 (26-34) PG MCHC 33.2 (30-36) % RDW 16.6 H (11.6-14.8) % Plt Count 122 L (150-400) X10^3/uL Neut % (Auto) 72.0 (50-75) % Lymph % (Auto) 14.5 L (25-40) % [place] % (Auto) 11.9 (3-14) % Eos % (Auto) 1.0 L (2-4) % Baso % (Auto) 0.6 (0-2) % Neut # (Auto) 5800 (1209-0158) /uL PT 25.8 H (10.1-12.7) SECONDS INR 2.3 H (0.9-1.3) APTT 47 H D (26.4-36.2) SECONDS Sodium 143 (137-145) mmol/L Potassium 4.3 (3.4-5.1) mmol/L Chloride 104 (98-107) mmol/L Carbon Dioxide 24 (22-32) mmol/L BUN 39 H (9-20) mg/dL Creatinine 1.70 H (0.66-1.25) mg/dL Estimated GFR 39.0 L (>60) mL/min BUN/Creatinine Ratio 22.9 H (6-22) Glucose 134 H (80-110) mg/dL Lactate (0.7-2.1) mmol/L Calcium 9.2 (8.4-10.2) mg/dL Magnesium 2.0 (1.6-2.3) mg/dL Total Bilirubin 1.0 (0.2-1.3) mg/dL AST 30 (17-59) IU/L ALT 53 (21-72) IU/L Alkaline Phosphatase 64 (38-126) U/L Total Creatine Kinase 95 (55-170) U/L Troponin I 0.051 H (0.01-0.034) ng/mL B-Natriuretic Peptide 206.0 H (<100) Total Protein 7.3 (6.3-8.2) g/dL Albumin 4.4 (3.5-5.0) g/dL Globulin 2.9 (1.7-4.1) g/dL Albumin/Globulin Ratio 1.5 (1.0-2.8) Procalcitonin (<0.5) ng/mL 01/11/18 01/11/18 Range/Units 20:33 21:08 WBC (4.5-11.0) X10^3/uL RBC (4.5-5.9) X10^6/uL Hgb (13.5-17.5) g/dL Hct (41-53) % MCV (80-100) fL MCH (26-34) PG MCHC (30-36) % RDW (11.6-14.8) % Plt Count (150-400) X10^3/uL Neut % (Auto) (50-75) % Lymph % (Auto) (25-40) % [place] % (Auto) (3-14) % Eos % (Auto) (2-4) % Baso % (Auto) (0-2) % Neut # (Auto) (9026-0174) /uL PT (10.1-12.7) SECONDS INR (0.9-1.3) APTT (26.4-36.2) SECONDS Sodium (137-145) mmol/L Potassium (3.4-5.1) mmol/L Chloride (98-107) mmol/L Carbon Dioxide (22-32) mmol/L BUN (9-20) mg/dL Creatinine (0.66-1.25) mg/dL Estimated GFR (>60) mL/min BUN/Creatinine Ratio (6-22) Glucose (80-110) mg/dL Lactate 1.2 (0.7-2.1) mmol/L Calcium (8.4-10.2) mg/dL Magnesium (1.6-2.3) mg/dL Total Bilirubin (0.2-1.3) mg/dL AST (17-59) IU/L ALT (21-72) IU/L Alkaline Phosphatase (38-126) U/L Total Creatine Kinase (55-170) U/L Troponin I (0.01-0.034) ng/mL B-Natriuretic Peptide (<100) Total Protein (6.3-8.2) g/dL Albumin (3.5-5.0) g/dL Globulin (1.7-4.1) g/dL Albumin/Globulin Ratio (1.0-2.8) Procalcitonin < 0.05 (<0.5) ng/mL Imaging Data Chest x-ray: Radiologist's impression: PROCEDURE: XR CHEST 1V INDICATIONS: chest pain TECHNIQUE: One view of the chest was acquired. COMPARISON: [facility], , XR CHEST 1V, 11/25/2017, 21:26. FINDINGS: Surgical changes and devices: None. Lungs and pleura: No pleural effusions or pneumothorax. There is mild pulmonary vascular congestion. No definite focal infiltrate. Mediastinum: Mediastinal contours appear normal. Heart size is enlarged. Bones and chest wall: No suspicious bony lesions. Overlying soft tissues appear unremarkable. IMPRESSION: Cardiomegaly and mild congestion. No definite focal infiltrate or pneumothorax. Dictated by: Gary Graham M.D. on 01/11/2018 at 20:54 ECG Data Attestation: I personally reviewed and interpreted this ECG as follows: Prior ECG tracings: available for review Interpretation: Atrial fibrillation is rate [address] changes is similar to previous MDM Narrative Medical decision making narrative: The patient is obviously dyspneic a having difficulty breathing no improvement with albuterol per EMS. He is requiring 2 to 3 L of oxygen. Patient began having increased dyspnea, and stating that he could not breathe. He was given nitroglycerin and IV Lasix as an attempt to diurese. He had not yet urinated and continued his to have worsening respiratory distress. Which point he was placed on BiPAP which he tolerated well. He then began urinating quite a bit. BMP not significantly elevated in fact much lower than previously. He does have a history of diastolic CHF. No fever or leukocytosis to suggest any pneumonia. 10:00pm Dr. Larose, updated on test results and symptoms at accepts to the ICU. Unable to get patient to the ICU at this time due to staffing. Patient remained in the ED on BiPAP for about 3 hr. He then was requesting it off. He overall was much better and able to speak in full sentences. Patient was transferred to the ICU shortly after BiPAP was removed. Discharge Plan Departure Patient Disposition: Admitted As Inpatient Clinical Impression: CHF (congestive heart failure), Respiratory failure Discharge Date/Time: 01/12/18 00:58 Interventions: ED Discharge Assessment Last Done: 01/12/18 00:41 Admit Date/Time: 01/11/18 22:51 Admit Provider: Mc Larose
[2018-01-11 20:46] LABS: Add Manual Diff / Slide Review NO; Basophils Percent Auto 0.6 % (0-2); Hematocrit 41.1 % (41-53); Hemoglobin 13.6 g/dL (13.5-17.5); Lymphocytes Percent Auto 14.5 % (25-40); Mean Corpuscular HGB Conc 33.2 % (30-36); Mean Corpuscular Volume 87.2 fL (80-100); Monocytes Percent Auto 11.9 % (3-14); Neutrophils Absolute Auto 5800 /uL (3000-5900); Platelet Count 122 X10^3/uL (150-400); Red Blood Cell Count 4.71 X10^6/uL (4.5-5.9); Red Cell Distribution Width 16.6 % (11.6-14.8)
[2018-01-11 20:57] LABS: INR 2.3 (0.9-1.3); Prothrombin Time 25.8 SECONDS (10.1-12.7)
[2018-01-11 20:59] LABS: PTT Partial Thromboplastin Tim 47 SECONDS (26.4-36.2)
[2018-01-11] MEDS: FUROSEMIDE 100 MG/10 ML VIAL 60 MG IV (21:06)
[2018-01-11 21:07] LABS: Alanine Aminotransferase 53 IU/L (21-72); Albumin 4.4 g/dL (3.5-5.0); Albumin Globulin Ratio 1.5 (1.0-2.8); Alkaline Phosphatase 64 U/L (38-126); Aspartate Aminotransferase 30 IU/L (17-59); BUN Creatinine Ratio 22.9 (6-22); Blood Urea Nitrogen 39 mg/dL (9-20); Calcium 9.2 mg/dL (8.4-10.2); Carbon Dioxide 24 mmol/L (22-32); Chloride 104 mmol/L (98-107); Creatine Kinase 95 U/L (55-170); Globulin 2.9 g/dL (1.7-4.1); Glucose 134 mg/dL (80-110); HEMOLYSIS < 15 (0-50); Potassium 4.3 mmol/L (3.4-5.1); Sodium 143 mmol/L (137-145); Total Protein 7.3 g/dL (6.3-8.2)
[2018-01-11] MEDS: NITROGLYCERIN 0.4 MG SL TAB SL (21:08)
--- NOTE | 2018-01-11 21:09 | PC.NURSE ---
pt placed on bipap due to sob, pt set at 30%, respiratory rate decreased from 34 to 20. pt reports feeling better.
[2018-01-11 21:19] LABS: Troponin I 0.051 ng/mL (0.01-0.034)
[2018-01-11 21:26] LABS: Procalcitonin < 0.05 ng/mL (<0.5)
[2018-01-11 21:39] LABS: Lactate (Lactic Acid) 1.2 mmol/L (0.7-2.1)
[2018-01-12] VITALS (13 sets, daily range): BP systolic 100–159; BP diastolic 52–82; PULSE 56–79; RESP 19–30; TEMP 36.3–37.4; O2SAT 92–97; BMI 40.0
--- NOTE | 2018-01-12 00:16 | PC.NURSE ---
Answered pt's call ayala, pt requesting a break from BiPap. Dr Morales said to trial him with nasal cannula O2, pt placed on 3L. Violet RT made aware of change in O2 delivery.
--- NOTE | 2018-01-12 00:25 | PC.NURSE ---
pt reports he is feeling better, speaking in patton sentences.
--- NOTE | 2018-01-12 06:57 | PC.NURSE ---
NOC Shift: Pt admitted from ED after EMS admit for SOB from [facility]. Pt was given Lasix 60mg, nitro x1 on Bipap for a few hours then weaned to 3L NC. Pt AAOx3, pleasant. Denies SOB, pain. Ambulates slowly to bed secondary to swollen feet, chronic. Uses walker at home. Afib CVR on tele baseline for pt. VSS. Lungs w/fine crackles posterior bases. Stable sats 3L NC. Uses CPAP at home, unit not available, refuses BIPAP at this time, left in room for prn use. Using urinal appropriately. HL. NPO until diet ordered in AM. Pt is to move into [facility] Wednesday01/17/18 arrangements have already been made.
--- NOTE | 2018-01-12 08:41 | PM.HP.1 ---
History of Present Illness Date Patient Seen: 01/13/18 Time Patient Seen: 07:42 Chief complaint: SOB Narrative: 82-year-old gentleman was sent [facility] with history of worsening shortness of breath and leg edema He has been in the hospital in the recent past about 2 months ago with similar problems and was discharged to [facility] He had a stroke a couple of years ago and also has had pneumonias in the past during this kind of seasonal change He also doctors at [place] and [place] with his prenatal genetic counselor there he has some aortic valve lesion I presume From his description looks like he is awaiting a TAVR He does not admit to any cough or phlegm at this time no fever chills or rigors Patient History Medical History Atrial fibrillation (Acute) Aortic stenosis (Chronic) BPH (benign prostatic hyperplasia) (Chronic) Barretts esophagus (Chronic) Chronic renal insufficiency, stage III (moderate) (Chronic) Fatty liver (Chronic) HTN (hypertension) (Chronic) History of GI bleed (Chronic) Hyperlipidemia (Chronic) ASHWIN (obstructive sleep apnea) (Chronic) Osteoarthritis of left hip (Chronic) Peripheral neuropathy (Chronic) Spinal stenosis, lumbar region with neurogenic claudication (Chronic) Type 2 diabetes mellitus (Chronic) Surgical History H/O partial cystectomy (Resolved) S/P TURP (Resolved) Family & Social History Family History: Reviewed 01/12/18 by Mc Larose MD Social History: household members children Prior Living Arrangements House Safety & Behavioral: Feels Safe in Current Yes Environment Been Physically Hurt or No Threatened By a Person Suicidal Ideation Description None Tobacco & Substance use: Tobacco type cigarettes Smoking Status Former smoker alcohol intake former alcohol intake frequency a few times a week Substance Use Type does not use Meds Home Medications Medication Instructions Recorded Confirmed Type atorvastatin 40 mg QPM 11/21/17 01/11/18 History clonidine HCl 0.1 mg BID 11/21/17 01/11/18 History eplerenone 12.5 mg QAM 11/21/17 01/11/18 History escitalopram oxalate 20 mg QAM 11/21/17 01/11/18 History ferrous sulfate 325 mg PO DAILY #0 11/21/17 01/11/18 History glimepiride 1 mg QAM 11/21/17 01/11/18 History losartan 50 mg QAM 11/21/17 01/11/18 History oxybutynin chloride 10 mg QPM 11/21/17 01/11/18 History tamsulosin 0.8 mg QPM 11/21/17 01/11/18 History warfarin 2 mg DAILY 11/21/17 01/11/18 History albuterol sulfate [Ventolin HFA] 2 puff INHALATION Q4-6H PRN #8.5 11/25/17 01/11/18 Rx gram furosemide 40 mg PO DAILY #30 tab 11/29/17 01/11/18 Rx potassium chloride 20 meq PO DAILY #30 tab 11/29/17 01/11/18 Rx Novolog Flexpen U-100 Insulin 100 ml SUB-Q PRN PRN 01/11/18 01/11/18 History amlodipine 10 mg PO DAILY 01/11/18 01/11/18 History Allergies Allergy/AdvReac Type Severity Reaction Status Date / Time BCG (Bacillus Allergy Unknown cancer drug Verified 01/11/18 20:33 Calmette-Lico) vacc [From BCG NATALIA VACCINE] Review of Systems Review of Systems All systems reviewed & are unremarkable except as noted in HPI and below Exam Vital Signs (past 8 hours): - 01/12/18 01:09 01/12/18 02:33 01/12/18 04:25 Temperature 99.4 F 98.3 F Pulse Rate 79 62 Respiratory Rate 24 28 H Blood Pressure 132/66 H 117/56 L Pulse Oximetry 96 96 97 01/12/18 07:43 01/12/18 08:27 Temperature 98.5 F Pulse Rate 66 Respiratory Rate 28 H Blood Pressure 151/79 H Pulse Oximetry 97 92 Oxygen Delivery Method Room Air Oxygen Flow Rate 0 Const General: cooperative, healthy appearing, comfortable and well developed Nutritional Appearance: obese Orientation: alert and awake [facility] Head: normal to inspection, normocephalic and atraumatic Ears: hearing grossly normal bilaterally Nose: external nose normal Face and sinus: normal facial exam Mouth: oral mucosae normal Eyes General: appearance normal, both eyes and all related structures Eyelids: eyelids normal Conjunctivae: conjunctivae normal Sclera: sclerae normal Pupils: PERRL EOM: EOM intact bilaterally Neck Neck: normal visual inspection Thyroid: thyroid normal Resp Effort & Inspection: normal respiratory effort and able to speak in complete sentences Auscultation: bronchovesicular breath sounds and crackles (lt base) on the left Cardio Rhythm: abnormal rhythm (afib controlled rate ) irregularly irregular Heart Sounds: murmur (aortic systolic murmur) GI Inspection: normal to inspection Palpation: soft Back/Spine/Pelvis Back: normal to inspection Skin Lesions: other (CHRONIC STASIS DERMATITIS RAULITO LOWER EXTREMITIES ) Neuro General: alert, awake and oriented x3 Cranial Nerves: CN's II-XI intact bilaterally Cognition: normal cognition Speech: speech normal Motor: muscle tone normal throughout Extrem General: edema (RAULITO le ) Psych Appearance: grossly normal Speech and Movement: speech and movement normal Mood: congruent mood Affect: normal affect Attitude: cooperative Thought Process: normal Thought Content: normal Judgment: judgment good Objective Labs Result Diagrams: 01/11/18 20:33 01/11/18 20:33 Labs: Laboratory Results - last 24 hr 01/11/18 01/11/18 01/11/18 20:33 20:33 20:33 WBC 8.0 RBC 4.71 Hgb 13.6 Hct 41.1 MCV 87.2 MCH 29.0 MCHC 33.2 RDW 16.6 H Plt Count 122 L Neut % (Auto) 72.0 Lymph % (Auto) 14.5 L Dawson % (Auto) 11.9 Eos % (Auto) 1.0 L Baso % (Auto) 0.6 Neut # (Auto) 5800 PT 25.8 H INR 2.3 H APTT 47 H D Sodium 143 Potassium 4.3 Chloride 104 Carbon Dioxide 24 BUN 39 H Creatinine 1.70 H Estimated GFR 39.0 L BUN/Creatinine Ratio 22.9 H Glucose 134 H Lactate Calcium 9.2 Magnesium 2.0 Total Bilirubin 1.0 AST 30 ALT 53 Alkaline Phosphatase 64 Total Creatine Kinase 95 Troponin I 0.051 H B-Natriuretic Peptide 206.0 H Total Protein 7.3 Albumin 4.4 Globulin 2.9 Albumin/Globulin Ratio 1.5 Procalcitonin Nasal Screen MRSA (PCR) 01/11/18 01/11/18 01/12/18 20:33 21:08 01:00 WBC RBC Hgb Hct MCV MCH MCHC RDW Plt Count Neut % (Auto) Lymph % (Auto) Dawson % (Auto) Eos % (Auto) Baso % (Auto) Neut # (Auto) PT INR APTT Sodium Potassium Chloride Carbon Dioxide BUN Creatinine Estimated GFR BUN/Creatinine Ratio Glucose Lactate 1.2 Calcium Magnesium Total Bilirubin AST ALT Alkaline Phosphatase Total Creatine Kinase Troponin I B-Natriuretic Peptide Total Protein Albumin Globulin Albumin/Globulin Ratio Procalcitonin < 0.05 Nasal Screen MRSA (PCR) Negative for mrsa Assessment & Plan Plan: Assessment/Plan Narrative: 1Worsening Dyspnea CHF med ( DIURETICS)changes in ECF 2.AORTIC STENOSIS W/U in [place] daughter ER Nurse in [facility] has been trying to get TAVR in [place] 3. Obesity 4.Chronic Trop Elevation Time Spent With Patient Time with patient: Greater than 35 minutes Quality VTE Deep Vein Thrombosis/Pulmonary Embolism Present on Admission: No
--- NOTE | 2018-01-12 08:45 | P.HP_ITS ---
History of Present Illness Date Patient Seen: 01/13/18 Time Patient Seen: 07:42 Chief complaint: SOB Narrative: 82-year-old gentleman was sent alf with history of worsening shortness of breath and leg edema He has been in the hospital in the recent past about 2 months ago with similar problems and was discharged to [facility] He had a stroke a couple of years ago and also has had pneumonias in the past during this kind of seasonal change He also doctors at [place] and [place] with his outreach consultant there he has some aortic valve lesion I presume From his description looks like he is awaiting a TAVR He does not admit to any cough or phlegm at this time no fever chills or rigors Patient History Medical History Atrial fibrillation (Acute) Aortic stenosis (Chronic) BPH (benign prostatic hyperplasia) (Chronic) Barretts esophagus (Chronic) Chronic renal insufficiency, stage III (moderate) (Chronic) Fatty liver (Chronic) HTN (hypertension) (Chronic) History of GI bleed (Chronic) Hyperlipidemia (Chronic) ASHWIN (obstructive sleep apnea) (Chronic) Osteoarthritis of left hip (Chronic) Peripheral neuropathy (Chronic) Spinal stenosis, lumbar region with neurogenic claudication (Chronic) Type 2 diabetes mellitus (Chronic) Surgical History H/O partial cystectomy (Resolved) S/P TURP (Resolved) Family & Social History Family History: Reviewed 01/12/18 by Mc Larose MD Social History: household members children Prior Living Arrangements House Safety & Behavioral: Feels Safe in Current Yes Environment Been Physically Hurt or No Threatened By a Person Suicidal Ideation Description None Tobacco & Substance use: Tobacco type cigarettes Smoking Status Former smoker alcohol intake former alcohol intake frequency a few times a week Substance Use Type does not use Meds Home Medications Medication Instructions Recorded Confirmed Type atorvastatin 40 mg QPM 11/21/17 01/11/18 History clonidine HCl 0.1 mg BID 11/21/17 01/11/18 History eplerenone 12.5 mg QAM 11/21/17 01/11/18 History escitalopram oxalate 20 mg QAM 11/21/17 01/11/18 History ferrous sulfate 325 mg PO DAILY #0 11/21/17 01/11/18 History glimepiride 1 mg QAM 11/21/17 01/11/18 History losartan 50 mg QAM 11/21/17 01/11/18 History oxybutynin chloride 10 mg QPM 11/21/17 01/11/18 History tamsulosin 0.8 mg QPM 11/21/17 01/11/18 History warfarin 2 mg DAILY 11/21/17 01/11/18 History albuterol sulfate [Ventolin HFA] 2 puff INHALATION Q4-6H PRN #8.5 11/25/1701/11 Rx gram furosemide 40 mg PO DAILY #30 tab 11/29/17 01/11/18 Rx potassium chloride 20 meq PO DAILY #30 tab 11/29/17 01/11/18 Rx Novolog Flexpen U-100 Insulin 100 ml SUB-Q PRN PRN 01/11/18 01/11/18 History amlodipine 10 mg PO DAILY 01/11/18 01/11/18 History Allergies Allergy/AdvReac Type Severity Reaction Status Date / Time BCG (Bacillus Allergy Unknown cancer drug Verified 01/11/18 20:33 Calmette-Lico) vacc [From BCG NATALIA VACCINE] Review of Systems Review of Systems All systems reviewed & are unremarkable except as noted in HPI and below Exam Vital Signs (past 8 hours): - 01/12/18 01:09 01/12/18 02:33 01/12/18 04:25 Temperature 99.4 F 98.3 F Pulse Rate 79 62 Respiratory Rate 24 28 H Blood Pressure 132/66 H 117/56 L Pulse Oximetry 96 96 97 01/12/18 07:43 01/12/18 08:27 Temperature 98.5 F Pulse Rate 66 Respiratory Rate 28 H Blood Pressure 151/79 H Pulse Oximetry 97 92 Oxygen Delivery Method Room Air Oxygen Flow Rate 0 Const General: cooperative, healthy appearing, comfortable and well developed Nutritional Appearance: obese Orientation: alert and awake [facility] Head: normal to inspection, normocephalic and atraumatic Ears: hearing grossly normal bilaterally Nose: external nose normal Face and sinus: normal facial exam Mouth: oral mucosae normal Eyes General: appearance normal, both eyes and all related structures Eyelids: eyelids normal Conjunctivae: conjunctivae normal Sclera: sclerae normal Pupils: PERRL EOM: EOM intact bilaterally Neck Neck: normal visual inspection Thyroid: thyroid normal Resp Effort & Inspection: normal respiratory effort and able to speak in complete sentences Auscultation: bronchovesicular breath sounds and crackles (lt base) on the left Cardio Rhythm: abnormal rhythm (afib controlled rate ) irregularly irregular Heart Sounds: murmur (aortic systolic murmur) GI Inspection: normal to inspection Palpation: soft Back/Spine/Pelvis Back: normal to inspection Skin Lesions: other (CHRONIC STASIS DERMATITIS RAULITO LOWER EXTREMITIES ) Neuro General: alert, awake and oriented x3 Cranial Nerves: CN's II-XI intact bilaterally Cognition: normal cognition Speech: speech normal Motor: muscle tone normal throughout Extrem General: edema (RAULITO le ) Psych Appearance: grossly normal Speech and Movement: speech and movement normal Mood: congruent mood Affect: normal affect Attitude: cooperative Thought Process: normal Thought Content: normal Judgment: judgment good Objective Labs Result Diagrams: 01/11/18 20:33 01/11/18 20:33 Labs: Laboratory Results - last 24 hr 01/11/18 01/11/18 01/11/18 20:33 20:33 20:33 WBC 8.0 RBC 4.71 Hgb 13.6 Hct 41.1 MCV 87.2 MCH 29.0 MCHC 33.2 RDW 16.6 H Plt Count 122 L Neut % (Auto) 72.0 Lymph % (Auto) 14.5 L Sully % (Auto) 11.9 Eos % (Auto) 1.0 L Baso % (Auto) 0.6 Neut # (Auto) 5800 PT 25.8 H INR 2.3 H APTT 47 H D Sodium 143 Potassium 4.3 Chloride 104 Carbon Dioxide 24 BUN 39 H Creatinine 1.70 H Estimated GFR 39.0 L BUN/Creatinine Ratio 22.9 H Glucose 134 H Lactate Calcium 9.2 Magnesium 2.0 Total Bilirubin 1.0 AST 30 ALT 53 Alkaline Phosphatase 64 Total Creatine Kinase 95 Troponin I 0.051 H B-Natriuretic Peptide 206.0 H Total Protein 7.3 Albumin 4.4 Globulin 2.9 Albumin/Globulin Ratio 1.5 Procalcitonin Nasal Screen MRSA (PCR) 01/11/18 01/11/18 01/12/18 20:33 21:08 01:00 WBC RBC Hgb Hct MCV MCH MCHC RDW Plt Count Neut % (Auto) Lymph % (Auto) Sully % (Auto) Eos % (Auto) Baso % (Auto) Neut # (Auto) PT INR APTT Sodium Potassium Chloride Carbon Dioxide BUN Creatinine Estimated GFR BUN/Creatinine Ratio Glucose Lactate 1.2 Calcium Magnesium Total Bilirubin AST ALT Alkaline Phosphatase Total Creatine Kinase Troponin I B-Natriuretic Peptide Total Protein Albumin Globulin Albumin/Globulin Ratio Procalcitonin < 0.05 Nasal Screen MRSA (PCR) Negative for mrsa Assessment & Plan Plan: Assessment/Plan Narrative: 1Worsening Dyspnea CHF med ( DIURETICS)changes in ECF 2.AORTIC STENOSIS W/U in [place] daughter ER Nurse in [facility] has been trying to get TAVR in [place] 3. Obesity 4.Chronic Trop Elevation Time Spent With Patient Time with patient: Greater than 35 minutes Quality VTE Deep Vein Thrombosis/Pulmonary Embolism Present on Admission: No
[2018-01-12] MEDS: cloNIDine 0.1 MG TABLET PO ×2 (09:10→21:11)
[2018-01-12] MEDS: AMLODIPINE 5 MG TABLET 10 MG PO (09:10)
[2018-01-12] MEDS: FERROUS SULFATE 325 MG TABLET PO (09:11)
[2018-01-12] MEDS: EPLERENONE 25 MG TABLET 12.5 MG PO (09:11)
[2018-01-12] MEDS: ESCITALOPRAM 10 MG TABLET 20 MG PO (09:11)
[2018-01-12] MEDS: FUROSEMIDE 40 MG TABLET PO (09:11)
[2018-01-12] MEDS: LOSARTAN 50 MG TABLET PO (09:11)
[2018-01-12] MEDS: GLIMEPIRIDE 2 MG TABLET 1 MG PO (09:11)
[2018-01-12] MEDS: POTASSIUM CHLORIDE 20 MEQ TAB PO (09:11)
--- NOTE | 2018-01-12 10:16 | CM.DANOTE ---
Patient is an 82 year old male who was admitted to ICU on 01/11/18 for SOB. Pt has MCR and [employer] for insurance and his PCP is Dr. Dunbar. EMR was reviewed. Per MD, pt making improvements but not stable for d/c today. Per RN, pt currently off of oxygen and doing well on room air and up SBA to bedside chair. Pt alert and oriented. SW met bedside with pt and son/DPCARLOS A Ryan ([phone]) and explained role and they confirmed that the pt discharged from [facility] recently into [facility] for temporary stay until pt moves into [facility] around Jan 17 in a few days. Pt's plan is for [facility] Independent side but is aware that now that he is in the hospital again he may need some assistance from them when he moves and he is willing to consider Assisted Side with son's support. Pt had been residing on [address] with son Connor living with him and pt no longer drives and decided that he needed to move into [place] so that he was closer to stores and transportation so that he did not have to rely on his son all the time and burn him out. Preference is [facility] at d/c prior to his move to [facility] with family support. Pt agreeable to SNF at [facility] if recommended but hoping to be back at baseline for [facility]. SW called [facility] ([facility] on vacation) and left a message to check in regarding the pt and d/c planning. Plan: SW to follow closely to determine if pt is back to baseline for return to [facility] vs possible need for SNF rehab. JULI Turner Discharge Planning/Care Management CM Discharge Assessment Start: 01/12/18 10:10 Freq: Status: Active Protocol: Document 01/12/18 10:11 BF (Rec: 01/12/18 10:16 [id number]) Discharge Planning Assessment Assigned Sales Merchandising Specialist JULI BIRCH/Assigned Designee Name cayetano Garrett Contact Information [phone] Advance Directives? Yes Advance Directives on File Yes History Provided By Patient Family Member Has Patient been admitted in last 30 No days? Comment recently discharged 11/29/17 to [facility] rehab Prior Living Arrangements House Comment Was living at home [place] [address] with adult son Connor, now temporarily living at [facility] before move to [facility] on 01/17/18 Household Members children Type of transporation used prior to Relies on Others admit Facility Name Admitted From: [facility] Living Willing to Return to Facility? Yes: Pt is scheduled to move into [facility] on Wednesday01/17/18 Independent with ADL's No Is patient alert and oriented? Yes Needs Assistance With Managing Medications Home Chores / Shopping Comment Patient with some memory issues but mostly alert and oriented. Caregiver for Another No Patient/Family Preference [facility] Facility Comment Likely chance that pt will be back at baseline for return to [facility] at d/c. Barriers to Discharge No Discharge Plan Assisted Living Facility Transportation Arrangement Son Connor likely can provide transport if pt safe to d/c via private vehicle Referrals Initiated None needed Additional Comment Following to determine if pt is back at baseline for return to Assisted Living vs SNF Whiteboard Updated in Patient Room with Yes name and ext. # of Sales Merchandising Specialist Review Status In Process Next Review Date 01/13/18 Next Review Type Continued Stay Review
[2018-01-12] MEDS: ALBUTEROL HFA 60 PUFF/8 GM INH INH (13:12)
[2018-01-12] MEDS: FUROSEMIDE 100 MG/10 ML VIAL 60 MG IV (13:49)
--- NOTE | 2018-01-12 14:28 | PC.NURSE ---
Day Shift Note Patient on RA majority of shift with Sp02 of 92-93% and RR in the 16-22 bpm range. At about 1300 pt reported feeling like his breathing was getting shallower and that he was feeling short of breath. RT at bedside to eval and breathing treatment given. SpO2 declined to 88% on RA and RR in the upper 20s, increased crackles to bilateral bases compared to AM assessment. Dr. Larose notified of the above and order obtained for 60 mg Lasix. Lasix administered and pt placed on 2L NC with SpO2 increasing to 94%. Pt has had over 600 ml of urine out post-admin and reports feeling better with resolution of shortness of breath.
[2018-01-12] MEDS: ATORVASTATIN 20 MG TABLET 40 MG PO (17:07)
[2018-01-12] MEDS: WARFARIN 2 MG TABLET PO (17:08)
[2018-01-12] MEDS: OXYBUTYNIN 5 MG ER TAB 10 MG PO (17:09)
[2018-01-12] MEDS: TAMSULOSIN 0.4 MG CAPSULE 0.8 MG PO (17:09)
--- NOTE | 2018-01-12 18:08 | PC.NURSE ---
1800-Patient had a small emesis less than 25cc. Patient states he does this 'sometimes'. Declines any medication after a few minutes patient states he is feeling fine.
[2018-01-13] VITALS (11 sets, daily range): BP systolic 121–144; BP diastolic 50–95; PULSE 55–64; RESP 16–18; TEMP 36.1–36.9; O2SAT 92–98
[2018-01-13] MEDS: FUROSEMIDE 40 MG TABLET PO (10:35)
[2018-01-13] MEDS: AMLODIPINE 5 MG TABLET 10 MG PO (10:35)
[2018-01-13] MEDS: cloNIDine 0.1 MG TABLET PO ×2 (10:35→20:22)
[2018-01-13] MEDS: POTASSIUM CHLORIDE 20 MEQ TAB PO (10:35)
[2018-01-13] MEDS: LOSARTAN 50 MG TABLET PO (10:36)
[2018-01-13] MEDS: ESCITALOPRAM 10 MG TABLET 20 MG PO (10:36)
[2018-01-13] MEDS: FERROUS SULFATE 325 MG TABLET PO (10:36)
[2018-01-13] MEDS: GLIMEPIRIDE 2 MG TABLET 1 MG PO (10:37)
[2018-01-13] MEDS: EPLERENONE 25 MG TABLET 12.5 MG PO (10:37)
[2018-01-13 11:42] LABS: Add Manual Diff / Slide Review NO; Basophils Percent Auto 0.3 % (0-2); Eosinophils Percent Auto 1.6 % (2-4); Hematocrit 37.6 % (41-53); Hemoglobin 12.5 g/dL (13.5-17.5); Lymphocytes Percent Auto 10.6 % (25-40); Mean Corpuscular HGB Conc 33.2 % (30-36); Mean Corpuscular Hemoglobin 29.1 PG (26-34); Mean Corpuscular Volume 87.7 fL (80-100); Neutrophils Absolute Auto 4900 /uL (3000-5900); Neutrophils Percent Auto 74.5 % (50-75); Platelet Count 113 X10^3/uL (150-400); Red Blood Cell Count 4.29 X10^6/uL (4.5-5.9); Red Cell Distribution Width 16.6 % (11.6-14.8); White Blood Cell Count 6.6 X10^3/uL (4.5-11.0)
[2018-01-13 11:59] LABS: Alanine Aminotransferase 33 IU/L (21-72); Albumin 3.8 g/dL (3.5-5.0); Albumin Globulin Ratio 1.4 (1.0-2.8); Alkaline Phosphatase 46 U/L (38-126); Aspartate Aminotransferase 20 IU/L (17-59); Bilirubin Total 1.6 mg/dL (0.2-1.3); Blood Urea Nitrogen 36 mg/dL (9-20); Calcium 8.9 mg/dL (8.4-10.2); Carbon Dioxide 32 mmol/L (22-32); Chloride 99 mmol/L (98-107); Globulin 2.8 g/dL (1.7-4.1); Glucose 102 mg/dL (80-110); HEMOLYSIS < 15 (0-50); Sodium 140 mmol/L (137-145); Total Protein 6.6 g/dL (6.3-8.2)
--- NOTE | 2018-01-13 13:39 | CM.DPC ---
DCP Cont: Per MD, pt moved up from ICU and continuing to progress. PT ordered to determine if pt is back at baseline for return to [facility] vs SNF rehab at [facility]. SW received a call from Brandie at [facility] who is requesting clinicals to review and plans to meet bedside with pt today since pt has plans set up to move into [facility] next week and Brandie to help determine if pt needs Independent vs Assisted Living once he moves to their facility. Kera faxed Brandie the requested clinicals. Plan: SW to follow closely after PT eval to determine return to [facility] prior to move into [facility] next week vs [facility] rehab at discharge. CURRICULUM COUNSELOR to contact [facility] after PT eval to coordinate d/c needs. Pt's son/DPOA very involved and supportive. JULI Turner
--- NOTE | 2018-01-13 14:11 | PC.NURSE ---
Pt brought up from icu. Voices no complaints of pain. Has been sitting up in the chair for most of the day. Was on ra and sats dropped to 89%. Put back on Oxygen at 2l and mid 90s. Watching tv now.
--- NOTE | 2018-01-13 15:45 | PT.IIE ---
Current Diagnoses Heart failure, unspecified (01/11/18) Surgical History (Last Reviewed 01/12/18 @ 08:45 by Mc Larose MD) H/O partial cystectomy (Resolved) S/P TURP (Resolved) Medical History (Last Reviewed 01/12/18 @ 08:45 by Mc Larose MD) Atrial fibrillation (Acute) Aortic stenosis (Chronic) BPH (benign prostatic hyperplasia) (Chronic) Barretts esophagus (Chronic) Chronic renal insufficiency, stage III (moderate) (Chronic) Fatty liver (Chronic) HTN (hypertension) (Chronic) History of GI bleed (Chronic) Hyperlipidemia (Chronic) ASHWIN (obstructive sleep apnea) (Chronic) Osteoarthritis of left hip (Chronic) Peripheral neuropathy (Chronic) Spinal stenosis, lumbar region with neurogenic claudication (Chronic) Type 2 diabetes mellitus (Chronic) Physical Therapy Inpatient Evaluation/Re-Eval M1 PT/OT-IP Prior Functional Status Start: 01/13/18 16:25 Freq: NEEDED Status: Active Protocol: Document 01/13/18 15:45 AB (Rec: 01/13/18 16:45 AB [id number]) Medical Review Prior Functional Status Medical History Reviewed Yes Communication able to make needs known Mobility and Gait pt stated that he was hospitalized last october of this year and went to [facility] for rehab. pt had several hospital admissions afterwards for pneumonia. prior to 1st hospitalization, pt is modified independent with all mobilities and ambulation using FWW/SPC for outdoor mobility and without AD for indoor mobility. pt was at [facility] prior to recent hospitalization and pt stated that he has been ambulating using a 4WW. Prior Functional Level (Other details) has h/o falls at home Social History Household Members children Living Arrangements House Number of Floors (Floors) Two Floors Number of Stairs To Enter/Railing? no steps to enter pt stays on main level of the house and his son stays on the the basement. Home Environment High Toilet Walk in Shower Home Equipment Front Wheel Walker Four Wheel Walker Straight Cane Shower Seat without Backrest Grab Bars In Shower Employment Status Retired Additional Social History Comment stated that he just ordered an adjustable bed. pt plans to go back to [facility] and then to [facility]. M2 PT-IP Current Condition Start: 01/13/18 16:25 Freq: NEEDED Status: Active Protocol: Document 01/13/18 15:45 AB (Rec: 01/13/18 16:45 AB [id number]) Physical Therapy Current Condition Current Condition Evaluation Date 01/13/18 Treatment Diagnosis CHF Onset Date 01/11/18 Precautions Other Precautions O2 sat M3 PT-IP Subjective Start: 01/13/18 16:25 Freq: NEEDED Status: Active Protocol: Document 01/13/18 15:45 AB (Rec: 01/13/18 16:45 AB [id number]) Subjective Physical Therapy Visit Type Type Initial Evaluation Visit Start Time 15:45 Visit Stop Time 16:20 Total Visit Minutes 35 Number of TARIFF COUNSEL Visits 0 Physical Therapy Visit Comments Patient Comments pt agreeable to do therapy Therapy Pain Assessment Pain Present Pain Present Denied Pain M4 PT-IP Mobility and Gait Start: 01/13/18 16:25 Freq: NEEDED Status: Active Protocol: Document 01/13/18 15:45 AB (Rec: 01/13/18 16:45 AB [id number]) PT-Bed Mobility Assessment Supine to Sit Supine to Sit Standby Assistance Head of Bed Elevated Bedrails PT-Transfer Assessment Sit to and From Stand Sit to and from Stand Contact Guard Assistance Equipment Transfer Assistive Device Gait Belt Front Wheeled Walker Orthotic/Prosthetic Devices or Brace: No Transfers Transfer Destination Chair Transfer Technique pt ambulated to the chair using FWW Transfer Ability Level of Assist Contact Guard Assistance Gait Assessment Gait Gait Assistance Required: Contact Guard Assist Distance (Feet) (feet) 125 Able to Maintain Weight Bearing Status Yes During Gait Assistive Devices Assistive Device Gait Belt Front Wheeled Walker Orthotic/Prosthetic Devices or Brace: No Gait Deviations General Gait Pattern Antalgic Decreased Stride Length Decreased Feet Clearance Factors Limiting Gait Function Factors Limiting Gait Function Decreased Activity Tolerance Decreased Strength Poor Balance Poor Safety Awareness Comments Gait Comments O2 sat monitored. O2 sat at RA 95%. pt had O2 sat at ~ 91 -93% most of the time during ambulation. decreased to ~ 88 % towards end of ambulation but with good recover to 94% in ~ 2 sec with deep breathing . PT-Balance Assessment Sitting Balance and Reactions Static Sitting Balance Ability Good Dynamic Sitting Balance Ability Good Standing Balance and Reactions Static Standing Balance Ability Fair Dynamic Standing Balance Ability Fair Device Used FWW M5 PT-IP Objective Assessments Start: 01/13/18 16:25 Freq: NEEDED Status: Active Protocol: Document 01/13/18 15:45 AB (Rec: 01/13/18 16:45 AB [id number]) Orientation Orientation/Cognition Level of Alertness Alert Orientation Name Age Birthday Month Date Year Day of Week Place Situation M6 PT-IP Treatment Start: 01/13/18 16:25 Freq: NEEDED Status: Active Protocol: Document 01/13/18 15:45 AB (Rec: 01/13/18 16:45 AB [id number]) Physical Therapy Treatment Education Education Provided Safety M7 PT-IP Assessment and Plan Start: 01/13/18 16:25 Freq: NEEDED Status: Active Protocol: Document 01/13/18 15:45 AB (Rec: 01/13/18 16:45 AB [id number]) PT Summary Assessment and Plan Potential Rehabilitation Potential Good Status of Condition at Evaluation Stable Summary Impairments Balance Bed Mobility Transfers Gait Activity Tolerance Assessment Summary pt requiring CGA with mobility and presents with antalgic gait and decrease activity tolerance with dec in O2 sat towards end of ambulation but with good recovery. pt plans to go back to [facility] to improve strength and independence and then to [facility]. Goals Bed Mobility Goal Standby Assistance Transfer Goal Standby Assistance Gait Goal Standby Assistance Gait Distance 150 Days to Meet Goals 3 Frequency of Treatment Frequency Of Treatment Once a Day Treatment Plan Physical Therapy Treatment Plan Bed Mobility Training Transfer Training Gait Training Therapeutic Exercise Balance Retraining Post Op Education Discharge Planning Hot or Cold Pack Neuromuscular Re-ed Coordination Retraining Manual Therapy Recommendations To Nursing Amount of Assist Needed 1 Person Assist Discharge Recommendations PT Discharge Recommendations SNF Rehab
[2018-01-13] MEDS: ATORVASTATIN 20 MG TABLET 40 MG PO (17:11)
[2018-01-13] MEDS: OXYBUTYNIN 5 MG ER TAB 10 MG PO (17:11)
[2018-01-13] MEDS: TAMSULOSIN 0.4 MG CAPSULE 0.8 MG PO (17:11)
[2018-01-13] MEDS: WARFARIN 2 MG TABLET PO (17:11)
--- NOTE | 2018-01-13 20:11 | PM.PN.1 ---
Subjective Date Patient Seen: 01/13/18 Time Patient Seen: 16:12 Interval history: Patient a history of an aortic valve disease heart failure was in the hospital about a month ago for worsening heart failure after diuretic treatment he improved and was sent [facility] for [facility]hab from that even to assisted living and then the diuretic regimen was changed and he started developing swelling of his lower extremities and shortness of breath gradually worsening such that he had to end up in the hospital yesterday He has received some IV Lasix and he says he is feeling much better already neck swelling is still persistent with some extent Exam Vital Signs (past 8 hours): - 01/13/18 16:03 Temperature 98.4 F Pulse Rate 60 Respiratory Rate 18 Blood Pressure 144/72 H Pulse Oximetry 94 Oxygen Delivery Method Room Air Oxygen Flow Rate 0 Const General: cooperative, healthy appearing, comfortable and well developed [facility] Head: normal to inspection Ears: hearing grossly normal bilaterally Nose: external nose normal Face and sinus: normal facial exam Eyes Eyelids: eyelids normal Conjunctivae: conjunctivae normal Sclera: sclerae normal Pupils: PERRL EOM: EOM intact bilaterally Neck Neck: normal visual inspection Thyroid: thyroid normal Resp Effort & Inspection: normal respiratory effort Auscultation: clear to auscultation bilaterally Cardio Rate: regular rate Heart Sounds: murmur (systolic aortic ) GI Inspection: normal to inspection Palpation: soft Back/Spine/Pelvis Back: normal to inspection and No back tenderness Skin General: no rashes or lesions noted Neuro General: alert, awake and oriented x3 Cranial Nerves: CN's II-XI intact bilaterally Cognition: normal cognition Speech: speech normal Motor: muscle tone normal throughout Extrem General: edema (shoaib LE 2+) Psych Appearance: grossly normal Mood: congruent mood Affect: normal affect Attitude: cooperative Thought Content: normal Judgment: judgment good Objective Labs Result Diagrams: 01/13/18 11:15 01/13/18 11:15 Labs: Laboratory Results - last 24 hr 01/13/18 01/13/18 11:15 11:15 WBC 6.6 RBC 4.29 L Hgb 12.5 L Hct 37.6 L MCV 87.7 MCH 29.1 MCHC 33.2 RDW 16.6 H Plt Count 113 L Neut % (Auto) 74.5 Lymph % (Auto) 10.6 L [place] % (Auto) 13.0 Eos % (Auto) 1.6 L Baso % (Auto) 0.3 Neut # (Auto) 4900 Sodium 140 Potassium 4.0 Chloride 99 Carbon Dioxide 32 BUN 36 H Creatinine 1.50 H Estimated GFR 45.0 L BUN/Creatinine Ratio 24.0 H Glucose 102 Calcium 8.9 Total Bilirubin 1.6 H AST 20 ALT 33 Alkaline Phosphatase 46 Total Protein 6.6 Albumin 3.8 Globulin 2.8 Albumin/Globulin Ratio 1.4 Assessment & Plan Plan: Assessment/Plan Narrative: 1Worsening Dyspnea CHF D/Tmed ( DIURETICS)changes in ECF iMPROVED SINCE iv LASIX 2.AORTIC STENOSIS W/U in [place] daughter ER Nurse in [facility] has been trying to get TAVR in [place] 3. Obesity 4.Chronic Trop Elevation Time Spent With Patient Time with patient: 25 - 35 minutes Quality VTE Deep Vein Thrombosis/Pulmonary Embolism Present on Admission: No
--- NOTE | 2018-01-13 20:17 | P.PN_ITS ---
Subjective Date Patient Seen: 01/13/18 Time Patient Seen: 16:12 Interval history: Patient a history of an aortic valve disease heart failure was in the hospital about a month ago for worsening heart failure after diuretic treatment he improved and was sent to [facility] facility for rehab from that even to assisted living and then the diuretic regimen was changed and he started developing swelling of his lower extremities and shortness of breath gradually worsening such that he had to end up in the hospital yesterday He has received some IV Lasix and he says he is feeling much better already neck swelling is still persistent with some extent Exam Vital Signs (past 8 hours): - 01/13/18 16:03 Temperature 98.4 F Pulse Rate 60 Respiratory Rate 18 Blood Pressure 144/72 H Pulse Oximetry 94 Oxygen Delivery Method Room Air Oxygen Flow Rate 0 Const General: cooperative, healthy appearing, comfortable and well developed [facility] Head: normal to inspection Ears: hearing grossly normal bilaterally Nose: external nose normal Face and sinus: normal facial exam Eyes Eyelids: eyelids normal Conjunctivae: conjunctivae normal Sclera: sclerae normal Pupils: PERRL EOM: EOM intact bilaterally Neck Neck: normal visual inspection Thyroid: thyroid normal Resp Effort & Inspection: normal respiratory effort Auscultation: clear to auscultation bilaterally Cardio Rate: regular rate Heart Sounds: murmur (systolic aortic ) GI Inspection: normal to inspection Palpation: soft Back/Spine/Pelvis Back: normal to inspection and No back tenderness Skin General: no rashes or lesions noted Neuro General: alert, awake and oriented x3 Cranial Nerves: CN's II-XI intact bilaterally Cognition: normal cognition Speech: speech normal Motor: muscle tone normal throughout Extrem General: edema (shoaib LE 2+) Psych Appearance: grossly normal Mood: congruent mood Affect: normal affect Attitude: cooperative Thought Content: normal Judgment: judgment good Objective Labs Result Diagrams: 01/13/18 11:15 01/13/18 11:15 Labs: Laboratory Results - last 24 hr 01/13/18 01/13/18 11:15 11:15 WBC 6.6 RBC 4.29 L Hgb 12.5 L Hct 37.6 L MCV 87.7 MCH 29.1 MCHC 33.2 RDW 16.6 H Plt Count 113 L Neut % (Auto) 74.5 Lymph % (Auto) 10.6 L [place] % (Auto) 13.0 Eos % (Auto) 1.6 L Baso % (Auto) 0.3 Neut # (Auto) 4900 Sodium 140 Potassium 4.0 Chloride 99 Carbon Dioxide 32 BUN 36 H Creatinine 1.50 H Estimated GFR 45.0 L BUN/Creatinine Ratio 24.0 H Glucose 102 Calcium 8.9 Total Bilirubin 1.6 H AST 20 ALT 33 Alkaline Phosphatase 46 Total Protein 6.6 Albumin 3.8 Globulin 2.8 Albumin/Globulin Ratio 1.4 Assessment & Plan Plan: Assessment/Plan Narrative: 1Worsening Dyspnea CHF D/Tmed ( DIURETICS)changes in ECF iMPROVED SINCE iv LASIX 2.AORTIC STENOSIS W/U in [place] daughter ER Nurse in [facility] has been trying to get TAVR in [place] 3. Obesity 4.Chronic Trop Elevation Time Spent With Patient Time with patient: 25 - 35 minutes Quality VTE Deep Vein Thrombosis/Pulmonary Embolism Present on Admission: No
[2018-01-14 00:45] VITALS: PULSE 55; RESP 18; TEMP 36.4; O2SAT 95
[2018-01-14 07:20] VITALS: BP 136/70; PULSE 51; RESP 16; TEMP 36.4; O2SAT 93
[2018-01-14] MEDS: ESCITALOPRAM 10 MG TABLET 20 MG PO (10:44)
[2018-01-14] MEDS: AMLODIPINE 5 MG TABLET 10 MG PO (10:44)
[2018-01-14] MEDS: LOSARTAN 50 MG TABLET PO (10:44)
[2018-01-14] MEDS: POTASSIUM CHLORIDE 20 MEQ TAB PO (10:44)
[2018-01-14] MEDS: GLIMEPIRIDE 2 MG TABLET 1 MG PO (10:45)
[2018-01-14] MEDS: FERROUS SULFATE 325 MG TABLET PO (10:45)
[2018-01-14] MEDS: FUROSEMIDE 40 MG TABLET PO (10:45)
[2018-01-14] MEDS: EPLERENONE 25 MG TABLET 12.5 MG PO (10:45)
[2018-01-14] MEDS: cloNIDine 0.1 MG TABLET PO (10:46)
--- NOTE | 2018-01-14 10:50 | PT.IPTN ---
Current Diagnoses Heart failure, unspecified (01/11/18) Physical Therapy Treatment Note M2 PT-IP Current Condition Start: 01/13/18 16:25 Freq: NEEDED Status: Active Protocol: Document 01/13/18 15:45 AB (Rec: 01/13/18 16:45 AB [id number]) Physical Therapy Current Condition Current Condition Evaluation Date 01/13/18 Treatment Diagnosis CHF Onset Date 01/11/18 Precautions Other Precautions O2 sat M3 PT-IP Subjective Start: 01/13/18 16:25 Freq: NEEDED Status: Active Protocol: Document 01/14/18 10:50 AB (Rec: 01/14/18 12:17 AB [id number]) Subjective Physical Therapy Visit Type Visit Start Time 10:50 Visit Stop Time 11:03 Total Visit Minutes 13 Number of TEXTILE COLORIST FORMULATOR Visits 0 Physical Therapy Visit Comments Patient Comments pt agreeable to do PT Therapy Pain Assessment Pain Present Pain Present Denied Pain M4 PT-IP Mobility and Gait Start: 01/13/18 16:25 Freq: NEEDED Status: Active Protocol: Document 01/14/18 10:50 AB (Rec: 01/14/18 12:17 AB [id number]) PT-Bed Mobility Assessment Supine to Sit Supine to Sit Standby Assistance Head of Bed Elevated Bedrails PT-Transfer Assessment Sit to and From Stand Sit to and from Stand Standby Assistance 1 Person Assistance Gait Assessment Gait Gait Assistance Required: Standby Assistance Contact Guard Assist 1 Person Assist Distance (Feet) (feet) 200 Able to Maintain Weight Bearing Status Yes During Gait Assistive Devices Assistive Device Gait Belt 4 Wheeled Walker Orthotic/Prosthetic Devices or Brace: No Gait Deviations General Gait Pattern Decreased Stride Length Decreased Feet Clearance Factors Limiting Gait Function Factors Limiting Gait Function Decreased Activity Tolerance Decreased Strength Comments Gait Comments pt ambulated using 4WW. O2 sat maintained at 91-94% at room air with activity and OH 71-78 bpm. M5 PT-IP Objective Assessments Start: 01/13/18 16:25 Freq: NEEDED Status: Active Protocol: Document 01/13/18 15:45 AB (Rec: 01/13/18 16:45 AB [id number]) Orientation Orientation/Cognition Level of Alertness Alert Orientation Name Age Birthday Month Date Year Day of Week Place Situation M6 PT-IP Treatment Start: 01/13/18 16:25 Freq: NEEDED Status: Active Protocol: Document 01/13/18 15:45 AB (Rec: 01/13/18 16:45 AB [id number]) Physical Therapy Treatment Education Education Provided Safety M7 PT-IP Assessment and Plan Start: 01/13/18 16:25 Freq: NEEDED Status: Active Protocol: Document 01/14/18 10:50 AB (Rec: 01/14/18 12:17 AB [id number]) PT Summary Assessment and Plan Potential Rehabilitation Potential Good Summary Impairments Pain ROM Strength Balance Coordination Sensation Bed Mobility Transfers Gait Activity Tolerance Progress Towards Goals Progressing Toward Goals Assessment Summary pt progressing with mobility. pt plans to to back to SNF for further strengthening to increase independence and eventually move to [facility]. Goals Bed Mobility Goal Standby Assistance Transfer Goal Standby Assistance Gait Goal Standby Assistance Gait Distance 200 Days to Meet Goals 3 Frequency of Treatment Frequency Of Treatment Once a Day Treatment Plan Physical Therapy Treatment Plan Bed Mobility Training Transfer Training Gait Training Therapeutic Exercise Balance Retraining Post Op Education Discharge Planning Hot or Cold Pack Neuromuscular Re-ed Coordination Retraining Manual Therapy Recommendations To Nursing Amount of Assist Needed Standby Assistance Discharge Recommendations PT Discharge Recommendations SNF Rehab
--- NOTE | 2018-01-14 12:04 | P.DS_ITS ---
History of Present Illness Date Patient Seen: 01/14/18 Time Patient Seen: 10:45 Chief complaint: SOB Narrative: Patient a history of an aortic valve disease heart failure was in the hospital about a month ago for worsening heart failure after diuretic treatment he improved and was [facility] from that even to assisted living and then the diuretic regimen was changed and he started developing swelling of his lower extremities and shortness of breath gradually worsening such that he had to end up in the hospital Discharge Providers Date of admission: 01/11/18 22:51 Primary care physician: Nino Cherry MD Consults: 01/12/18 01:25 Consult to Physician Routine Comment: Consulting Provider: Mc Larose Reason for consultation: admission Has provider been notified: Yes 01/13/18 09:45 Consult to Physical Therapy Evaluate & Treat Comment: Physician Instructions: Evaluate and Treat Discharge provider: Juan Rollins MD Summary Discharge Diagnosis: 1. Acute on chronic hypoxic respiratory failure 2. Congestive heart failure, acute on chronic, systolic and diastolic with moderate pulmonary hypertension and severe aortic stenosis. 3. Obesity/obstructive sleep apnea 4. Diabetes mellitus type 2, insulin dependent 5. Atrial fibrillation, chronic, requiring systemic anticoagulation with Coumadin 6. Acute on chronic kidney injury in a patient with previous underlying chronic kidney disease stage 2-3 Hospital Course: This is an 82-year-old male with complex medical/cardiac problems presenting with progressive dyspnea at rest and exertion secondary to CHF exacerbation. Medical records previous multiple prior admissions on similar medications. The patient with underlying congestive heart failure, systolic and diastolic, severe aortic valve stenosis, moderate pulmonary hypertension He responded well to IV diuresis and at the time of discharged transition to oral Lasix. He is getting discharged back to a skilled nurse facility. Patient to resume follow-up with primary care physician and specialists involved in his care. Status at Discharge Functional status at discharge: independent ambulation Overall status at discharge: patient is back to baseline Time Spent with Patient Greater than 30 minutes Exam Vital Signs (past 8 hours): - 01/14/18 07:20 Temperature 97.5 F L Pulse Rate 51 L Respiratory Rate 16 Blood Pressure 136/70 H Pulse Oximetry 93 Oxygen Delivery Method Nasal Cannula Oxygen Flow Rate 2 Narrative Exam Narrative: General: Obese, in no apparent distress, out of bed and ambulating, reports feeling significantly better HEENT: Unremarkable exam Eyes: PEWRLA,EOMI Cardiovascular: Irregularly irregular rhythm with controlled rate. Respiratory: Distant breath sounds, no obvious loss crepitations or wheezing. Gastrointestinal: Abdomen is obese soft nontender nondistended no discernible organomegaly bowel sounds present Musculoskeletal: Denies spine alignment, no local edema and erythema with tenderness from major joints. Psychiatric: Inappropriate mood, not depressed. Extremities are warm to touch was no edema Skin: No skin rashes, no lesions seen. Objective Imaging Echocardiogram: My impression: Interpretation Summary The left ventricle is mildly dilated.Left ventricular systolic function is normal without focal wall motion abnormalities. The ejection fraction is estimated to be 55-60%. LVEF has not changed. The right ventricle is not well visualized. The right ventricle grossly appears normal in size with probable normal systolic function. The right ventricular systolic pressure is estimated at 50 mmHg assuming a right atrial pressure of 8 mm Hg. The left atrium is severely dilated. The right atrium is moderately dilated. There is moderate to severe mitral annular calcification. There is mild to moderate mitral regurgitation. The aortic valve is severely calcified. The calculated aortic valve area is 0.9 cm2. The peak aortic velocity is 4.3 m/sec. The peak aortic velocity on the previous exam was 2.6 m/sec. Findings are consistent with severe aortic stenosis. There is no other significant valvular heart disease. The aortic root is normal size. The ascending aorta is mildly enlarged. Interpretation Summary The left ventricle is mildly dilated.Left ventricular systolic function is normal without focal wall motion abnormalities. The ejection fraction is estimated to be 55-60%. LVEF has not changed. The right ventricle is not well visualized. The right ventricle grossly appears normal in size with probable normal systolic function. The right ventricular systolic pressure is estimated at 50 mmHg assuming a right atrial pressure of 8 mm Hg. The left atrium is severely dilated. The right atrium is moderately dilated. There is moderate to severe mitral annular calcification. There is mild to moderate mitral regurgitation. The aortic valve is severely calcified. The calculated aortic valve area is 0.9 cm2. The peak aortic velocity is 4.3 m/sec. The peak aortic velocity on the previous exam was 2.6 m/sec. Findings are consistent with severe aortic stenosis. There is no other significant valvular heart disease. The aortic root is normal size. The ascending aorta is mildly enlarged. Chest x-ray: My impression: IMPRESSION: Cardiomegaly and mild congestion. No definite focal infiltrate or pneumothorax. Dictated by: Gary Graham M.D. on 01/11/2018 at 20:54 Approved by: Gary Graham M.D. on 01/11/2018 at 20:54 Labs Result Diagrams: 01/13/18 11:15 01/13/18 11:15 Labs: Laboratory Results - last 24 hr 01/13/18 11:15 Sodium 140 Potassium 4.0 Chloride 99 Carbon Dioxide 32 BUN 36 H Creatinine 1.50 H Estimated GFR 45.0 L BUN/Creatinine Ratio 24.0 H Glucose 102 Calcium 8.9 Total Bilirubin 1.6 H AST 20 ALT 33 Alkaline Phosphatase 46 Total Protein 6.6 Albumin 3.8 Globulin 2.8 Albumin/Globulin Ratio 1.4 Discharge Plan Discharge Plan Patient Disposition: SNF Transfer to: [facility] Under care of provider: PCP: Dr. Cherry Transportation: Ambulance I certify the postop hospital [facility] care is medically necessary on a continuing basis for any conditions for which he/ she received care during this hospitalization.: Yes The receiving facility has agreed to accept transfer and provide medical treatment.: Yes Discharge Health Status Brief summary of current health status: Patient a history of an aortic valve disease heart failure was in the hospital about a month ago for worsening heart failure after diuretic treatment he improved and was [facility] to [facility]hab from that even to assisted living and then the diuretic regimen was changed and he started developing swelling of his lower extremities and shortness of breath gradually worsening such that he had to end up in the hospital . He responded well to IV Lasix and currently getting discharge back to skilled facility on outpatient regimen of oral diuretics. Multidrug resistant organism: No MDRO Provider Discharge Instructions Diet: Carb-consistent/Diabetic and Low-cholesterol Liquid consistency: Normal/Thin Food texture: Regular Activity: S tolerated Oxygen: On as needed basis Special Rehabilitation Services Reason for rehabilitation: Recovery r/t decondition Rehab type: Physical therapy and Occupational therapy Discharge Data Primary Care Provider: Nino Cherry Attending Provider: Mc Larose Admit Date/Time: 01/11/18 22:51 Quality VTE Deep Vein Thrombosis/Pulmonary Embolism Present on Admission: No
[2018-01-14 12:20] VITALS: BP 137/52; PULSE 64; RESP 16; TEMP 36.6; O2SAT 96
--- NOTE | 2018-01-14 12:59 | PC.NURSE ---
Pt is discharging to [facility] this afternoon. Ambulating with walker in the halls and pt is off of 02 today and his RA sats are 94%.
--- NOTE | 2018-01-14 15:19 | PC.NURSE ---
Pt just discharged back to [facility]. report given.
--- NOTE | 2018-01-15 09:06 | CM.DPC ---
Late Entry, DC Note: Confusing day Wednesday to determine whether pt needed to DC to [facility] or back to [facility]. All notes reviewed. DC order by Dr Rollins said DC to [facility] SNF yesterday morning. Met w/pt to confirm plan, he said yes, [facility] is the plan. Updated Meg at [facility] and she had never heard of this pt. PT team was suggesting SNF upon DC although note stated Rec: return to SNF and pt had been at [facility], not [facility]. ANDREW Peter thought pt was moving very well and was back to baseline. Then placed call to ERIKA Crowe w/[facility]; faxed PT and prog notes per her request and inevitably Amrita came to p/u pt in the afternoon. Pt became agitated w/this DENTAL SCHEDULER and RN because he wanted to get back to his place where all my clothes are, I don't know if it's [facility] or [facility], it's [place] building. DC to [facility] via w/c yesterday, all were inevitably aware and agreeable to this plan. ARMIDA
== END 2018-01-14 15:21 | disposition other institution (70) | DRG 682 ==
LOC: ED 22:45 → ICU 22:52 → AC 01-13 07:32
PROVIDERS: Admitting Provider Internal Medicine; Emergency Provider Emergency Medicine; Family Provider Internal Medicine; PCP Internal Medicine; Visit Provider Internal Medicine
DX: I12.9 Hypertensive chronic kidney disease with stage 1 through stage 4 chronic kidney disease, or unspecified chronic kidney disease (principal); I50.23 Acute on chronic systolic (congestive) heart failure; J96.21 Acute and chronic respiratory failure with hypoxia; Z68.41 Body mass index [BMI] 40.0-44.9, adult; N17.9 Acute kidney failure, unspecified; N18.3 Chronic kidney disease, stage 3 (moderate); I35.0 Nonrheumatic aortic (valve) stenosis; E66.9 Obesity, unspecified; I27.20 Pulmonary hypertension, unspecified; K22.70 Barrett's esophagus without dysplasia; G47.33 Obstructive sleep apnea (adult) (pediatric); E78.5 Hyperlipidemia, unspecified; E11.42 Type 2 diabetes mellitus with diabetic polyneuropathy; Z87.891 Personal history of nicotine dependence; Z79.01 Long term (current) use of anticoagulants; Z79.4 Long term (current) use of insulin; I48.2 Chronic atrial fibrillation
CPT/HCPCS: 36415; 36591; 71045; 80053; 81003; 82550; 82553; 82962; 83605; 83735; 83880; 84145; 84484; 85025; 85610; 85730; 87040; 87797; 93005; 93010; 94640; 94760; 96374; 97116; 97162; 99284; 99285; J1940

== ENCOUNTER → 2018-03-03 07:35 | Outpatient (CLI) | payer MEDICARE, OTHER, SELFPAY ==
[2018-01-12 01:25] VITALS: BMI 40.0
--- NOTE | 2018-03-03 | DI.ECHO.S_ITS ---
[place] [place] +---------+ Hospital +---------+ : : [address] : : [place], [place] : : : : [id number] : : : : Phone: [phone] Echocardiogram Report + + :Name: EDDIE EMERSON Study Date: 03/03/2018 Height: 72 in : :[facility] Exam Location: [place] Weight: 290 lb : : Gender: Male BSA: 2.5 m2 : :: 1935 Age: 82 yrs BP: 132/60 mmHg: :Reason For Study: : :Ordering Physician: Ruma : :Angelo Performed By: Alessandra Farias : :Referring: RUMA BOB : + + Interpretation Summary Extremely difficult exam. Definity was used but was not very helpful. The left ventricle is normal in size. The ejection fraction is estimated to be 55-60%. The right ventricle is mildly dilated. Right ventricular systolic function is mildly reduced. The aortic valve is severely calcified. Leaflet mobility is severely reduced. The calculated aortic valve area is 0.8 cm2. The peak aortic velocity is 3.7 m/sec. The aortic valve mean gradient is 32 mmHg. The peak aortic velocity on the previous exam was 4.3 m/sec. sev ratio: 0.16 There is severe aortic stenosis. There is mild to moderate tricuspid regurgitation. The right ventricular systolic pressure is estimated to be at least 47 mmHg based on an estimated right atrial pressure of 8 mm Hg. Procedure: A two-dimensional transthoracic echocardiogram with color flow and Doppler was performed. The study quality was technically difficult. Comparison is made with the echocardiogram of 11/26/17. The patient was in atrial fibrillation with heart rates between 51 and 78 bpm during the exam. The patient had occasional PVCs during the exam. Left Ventricle: The left ventricle is normal in size. Proximal septal thickening is noted. There is no echo evidence for significant left ventricular outflow tract obstruction. The ejection fraction is estimated to be 55-60%. There are no obvious focal wall motion abnormalities noted but poor endocardial definition reduces the sensitivity for the detection of such. Diastolic function could not be accurately assessed due to atrial fibrillation. E/E' med: 19.0. Right Ventricle: The right ventricle is mildly dilated. Right ventricular systolic function is mildly reduced. Atria: The left atrium is severely dilated. The left atrium has remained unchanged in size since the prior echo exam. The right atrium is severely dilated. There is no Doppler evidence for an interatrial shunt. Mitral Valve: The mitral valve leaflets are mildly calcified. There is moderate to severe mitral annular calcification. No hemodynamically significant MS. There is mild to moderate mitral regurgitation. Compared to the prior echo study, there has been no change in the severity of mitral regurgitation. Aortic Valve: The aortic valve is trileaflet. The aortic valve is severely calcified. Leaflet mobility is severely reduced. There is severe aortic stenosis. The calculated aortic valve area is 0.8 cm2. The peak aortic velocity is 3.7 m/sec. The peak aortic velocity on the previous exam was 4.3 m/sec. The aortic valve mean gradient is 32 mmHg. There is trace aortic regurgitation. Tricuspid Valve: The tricuspid valve is normal. There is mild to moderate tricuspid regurgitation. The right ventricular systolic pressure is estimated to be at least 47 mmHg based on an estimated right atrial pressure of 8 mm Hg. Compared to the prior echo exam, there has been no change in the severity of pulmonary hypertension. Pulmonic Valve: The pulmonic valve is not well seen, but is grossly normal. There is trace pulmonic regurgitation. Great Vessels: The aortic root is normal size. The ascending aorta is normal in size. The aortic arch is at the upper limits of normal in size. The pulmonary is not well visualized. The IVC is dilated (diameter is greater than 2.1 cm) yet it collapses greater than 50% with a sniff. This suggests a right atrial pressure of 8 mm Hg. Pericardium/ Pleura There is no pericardial effusion. There is no pleural effusion. MMode/2D Measurements & Calculations LVIDd: 5.0 cm LVOT diam: 2.5 cm LVIDs: 3.0 cm Ao root diam: 3.6 cm FS: 38.7 % asc Aorta Diam: 3.4 cm EPSS: 0.94 cm Ao Arch Diam (Prox Trans): 3.3 cm IVSd: 1.2 cm LVPWd: 1.4 cm LV jacome. diameter/BSA (cm/m^2): 2.0 LV sys. diameter/BSA (cm/m^2): 1.2 LA A2 area: 43.4 cm2 RA long axis: 8.2 cm LA A4 area: 50.9 cm2 RA area: 42.0 cm2 LA length (vol): 8.2 cm RA vol: 183.0 ml LA vol: 228.7 ml RA : 73.4 ml/m2 LA vol index: 91.7 ml/m2 IVC diam: 2.6 cm TAPSE: 1.9 cm Doppler Measurements & Calculations Ao V2 max: 370.6 cm/sec LVOT Max Bryant: 63.8 cm/sec Ao V2 mean: 263.4 cm/sec LV V1 max P.6 mmHg Ao max P.9 mmHg LV V1 VTI: 14.3 cm Ao mean P.5 mmHg JT(I,D): 0.80 cm2 Ao V2 VTI: 90.9 cm JT(V,D): 0.88 cm2 sev ratio: 0.16 JT indexed to BSA (cm^2/m^2): 0.32 MV E max bryant: 162.6 cm/sec TR max bryant: 310.3 cm/sec Med Peak E' Bryant: 8.6 cm/sec TR max P.5 mmHg E/E' med: 19.0 PA V2 max: 63.7 cm/sec Lat Peak E' Bryant: 10.6 cm/sec PA V2 mean: 42.7 cm/sec E/E' lat: 15.4 PA mean P.84 mmHg E/e' average: 17.2 PA pr(Accel): 43.2 mmHg MVA(VTI): 1.4 cm2 MV V2 mean: 67.5 cm/sec MV mean P.9 mmHg MV V2 VTI: 50.6 cm Reading Physician:PM
== END ==
PROVIDERS: PCP Internal Medicine; Visit Provider Internal Medicine Cardiovascular Disease
DX: I08.3 Combined rheumatic disorders of mitral, aortic and tricuspid valves (principal)
CPT/HCPCS: C8929; Q9957

== ENCOUNTER 2018-04-01 01:10 | Inpatient (IN) | payer MEDICARE, OTHER, SELFPAY ==
[2018-01-12 01:25] VITALS: BMI 40.0
[2018-04-01] VITALS (19 sets, daily range): BP systolic 114–166; BP diastolic 48–137; PULSE 56–101; RESP 12–34; TEMP 32–37.1; O2SAT 85–98; BMI 39.7
[2018-04-01] MEDS: FUROSEMIDE 100 MG/10 ML VIAL 80 MG IV (01:16)
[2018-04-01] MEDS: NITROGLYCERIN 0.4 MG SL TAB SL (01:16)
--- NOTE | 2018-04-01 01:16 | DI.RAD.S_ITS ---
PROCEDURE: XR CHEST 1V INDICATIONS: shortness of breath TECHNIQUE: One view of the chest was acquired. COMPARISON: [facility], , CHEST 1 VIEW, 04/18/2016, 7:06. [facility], CR, XR CHEST 1V, 01/11/2018, 20:35. [facility], CR, XR CHEST 1V, 11/25/2017, 21:26. FINDINGS: Surgical changes and devices: None. Lungs and pleura: No pleural effusions or pneumothorax. Lungs are abnormal, with a generalized pulmonary edema pattern superimposed on chronic interstitial prominence previously present. Mediastinum: Mediastinal contours appear normal. Heart size is normal. Bones and chest wall: No suspicious bony lesions. Overlying soft tissues appear unremarkable. IMPRESSION: Worsening pulmonary edema over time. Superimposed mild chronic interstitial prominence. Heart size at the upper limits of normal. Dictated by: Adria Christian M.D. on 04/01/2018 at 8:11 Approved by: Adria Christian M.D. on 04/01/2018 at 8:12
--- NOTE | 2018-04-01 01:20 | ED.SOB ---
HPI - SOB/Dyspnea General Chief Complaint: Shortness of Breath/Dyspnea Stated Complaint: Respiratry distress Time Seen by Provider: 04/01/18 01:15 Source: patient, EMS and old records reviewed Mode of arrival: EMS History of Present Illness Patient is an 82-year-old male who presents with sudden-onset shortness of breath. He has a history of aortic stenosis and CHF he was admitted in December for the same. He said this came on suddenly this evening he was placed on BiPAP by EMS. His initial oxygen level BiPAP 85%. He says he was feeling fine earlier in the day. He denies any cough or fever. He has no chest pain or heart palpitations. He is scheduled on 04/05/2018 for a cardiac evaluation at the [facility]. He is trying to get his aortic valve replaced. MD Complaint: shortness of breath Related Data Home Medications Medication Instructions Recorded Confirmed atorvastatin 40 mg QPM 11/21/17 04/01/18 clonidine HCl 0.1 mg BID 11/21/17 04/01/18 eplerenone 12.5 mg QAM 11/21/17 04/01/18 escitalopram oxalate 20 mg QAM 11/21/17 04/01/18 ferrous sulfate 325 mg PO DAILY #0 11/21/17 04/01/18 glimepiride 1 mg QAM 11/21/17 04/01/18 losartan 50 mg QAM 11/21/17 04/01/18 oxybutynin chloride 10 mg QPM 11/21/17 04/01/18 tamsulosin 0.8 mg QPM 11/21/17 04/01/18 warfarin 2 mg DAILY 11/21/17 04/01/18 amlodipine 10 mg PO DAILY 01/11/18 04/01/18 omeprazole 40 mg PO DAILY 04/01/18 04/01/18 vit A,C and V-[id number] 1 tab 04/01/18 [Ocuvite with Lutein] Previous Rx's Medication Instructions Recorded furosemide 40 mg PO DAILY #30 tab 11/29/17 potassium chloride 20 meq PO DAILY #30 tab 11/29/17 Allergies Allergy/AdvReac Type Severity Reaction Status Date / Time BCG (Bacillus Allergy Unknown cancer drug Verified 04/01/18 01:22 Calmette-Lico) vacc [From BCG NATALIA VACCINE] felodipine [From Plendil] Allergy Verified 04/01/18 03:19 lisinopril Allergy Verified 04/01/18 03:19 metoprolol [From Toprol XL] Allergy Verified 04/01/18 03:19 Review of Systems Review of Systems All systems reviewed & are unremarkable except as noted in HPI and below Constitutional Denies chills, Denies fever(s), Denies lethargy and Denies weakness Cardiovascular Reports as per HPI Respiratory Reports as per HPI Gastrointestinal Gastrointestinal: Denies abdominal pain, Denies change in bowel habits, Denies diarrhea, Denies nausea and Denies vomiting Musculoskeletal Denies back pain, Denies muscle weakness, Denies numbness and Denies tingling Integumentary/Breasts Denies pruritus, Denies erythema, Denies rash and Denies wounds Neurologic Denies numbness, Denies tingling and Denies weakness [facility] Medical History Atrial fibrillation (Acute) Aortic stenosis (Chronic) BPH (benign prostatic hyperplasia) (Chronic) Barretts esophagus (Chronic) Chronic renal insufficiency, stage III (moderate) (Chronic) Fatty liver (Chronic) HTN (hypertension) (Chronic) History of GI bleed (Chronic) Hyperlipidemia (Chronic) ASHWIN (obstructive sleep apnea) (Chronic) Osteoarthritis of left hip (Chronic) Peripheral neuropathy (Chronic) Spinal stenosis, lumbar region with neurogenic claudication (Chronic) Type 2 diabetes mellitus (Chronic) Social History household members: children Smoking Status: Former smoker Tobacco: How many years used: 30 alcohol intake: former substance use type: does not use Exam Initial Vital Signs Initial Vital Signs: Vital Signs Pulse Rate 95 H 04/01/18 01:16 Blood Pressure 166/84 H 04/01/18 01:16 Const General: cooperative and in distress Orientation: alert, awake and oriented x3 Other: on Bi pap Resp Effort & Inspection: respiratory distress, tachypneic and symmetric chest movement Auscultation: rales bilaterally Cardio Palpation: normal PMI Rate: regular rate Rhythm: regular rhythm Heart Sounds: S1 normal and S2 normal GI Inspection: non-distended Palpation: soft, no hepatosplenomegaly, No guarding, No pulsatile mass and No tender Auscultation: normal bowel sounds Skin General: no rashes or lesions noted, No jaundice and No petechiae Neuro General: alert, oriented x3, gait normal and no focal motor deficits Speech: speech normal Course Orders Ordered: ED Orders 04/01/18 01:15 EKG-12 Lead Stat 04/01/18 01:16 XR chest 1V Stat 04/01/18 01:31 B Type Natriuretic Peptide Stat Complete Blood Count AUTO DIFF Stat Comprehensive Metabolic Panel Stat Lactate (Lactic Acid) Stat Magnesium Stat Partial Thromboplastin Time Stat Procalcitonin Stat Prothrombin Time INR Stat Troponin & CK Cardiac Panel Stat Discontinued Medications Furosemide (Lasix) 80 mg IV NOW ONE Stop: 04/01/18 01:16 Last Admin: 04/01/18 01:16 Dose: 80 mg Nitroglycerin (Nitrostat) 0.4 mg SL NOW ONE Stop: 04/01/18 01:16 Last Admin: 04/01/18 01:16 Dose: 0.4 mg Vital Signs - 8 hr 04/01/18 01:16 04/01/18 01:20 04/01/18 01:21 Temperature Pulse Rate 95 H 101 H 80 Respiratory Rate 34 H Blood Pressure 166/84 H 150/80 H Blood Pressure [Left Arm] 161/137 H Pulse Oximetry 98 04/01/18 01:22 04/01/18 01:24 04/01/18 01:50 Temperature 98.7 F Pulse Rate 101 H 80 Respiratory Rate 34 H 26 H Blood Pressure 166/84 H 161/137 H Blood Pressure [Left Arm] 157/63 H Pulse Oximetry 95 95 04/01/18 02:36 04/01/18 02:57 Temperature Pulse Rate 81 Respiratory Rate 20 28 H Blood Pressure Blood Pressure [Left Arm] 131/51 L Pulse Oximetry 93 91 MDM - SOB/Dyspnea Medical Records Attestation: I reviewed the patient's medical records. Lab Data Attestation: I reviewed the patient's lab results. Result diagrams: 04/01/18 01:31 04/01/18 01:31 Lab Results 04/01/18 04/01/18 04/01/18 Range/Units 01:31 01:31 01:31 WBC 5.7 (4.5-11.0) X10^3/uL RBC 4.36 L (4.5-5.9) X10^6/uL Hgb 12.4 L (13.5-17.5) g/dL Hct 38.2 L (41-53) % MCV 87.5 (80-100) fL MCH 28.4 (26-34) PG MCHC 32.5 (30-36) % RDW 15.6 H (11.6-14.8) % Plt Count 131 L (150-400) X10^3/uL Neut % (Auto) 59.2 (50-75) % Lymph % (Auto) 28.3 (25-40) % [place] % (Auto) 8.3 (3-14) % Eos % (Auto) 3.2 (2-4) % Baso % (Auto) 1.0 (0-2) % Neut # (Auto) 3400 (2128-0780) /uL PT 31.0 H (10.1-12.7) SECONDS INR 2.8 H (0.9-1.3) APTT 45 H (26.4-36.2) SECONDS Sodium (137-145) mmol/L Potassium (3.4-5.1) mmol/L Chloride (98-107) mmol/L Carbon Dioxide (22-32) mmol/L BUN (9-20) mg/dL Creatinine (0.66-1.25) mg/dL Estimated GFR (>60) mL/min BUN/Creatinine Ratio (6-22) Glucose (80-110) mg/dL Lactate (0.7-2.1) mmol/L Calcium (8.4-10.2) mg/dL Magnesium 2.0 (1.6-2.3) mg/dL Total Bilirubin (0.2-1.3) mg/dL AST (17-59) IU/L ALT (21-72) IU/L Alkaline Phosphatase (38-126) U/L Total Creatine Kinase 66 (55-170) U/L CK-MB (CK-2) TNP CK-MB (CK-2) Rel Index TNP Troponin I 0.049 H (0.01-0.034) ng/mL B-Natriuretic Peptide 187.0 H (<100) Total Protein (6.3-8.2) g/dL Albumin (3.5-5.0) g/dL Globulin (1.7-4.1) g/dL Albumin/Globulin Ratio (1.0-2.8) Procalcitonin (<0.5) ng/mL 04/01/18 04/01/18 04/01/18 Range/Units 01:31 01:31 01:31 WBC (4.5-11.0) X10^3/uL RBC (4.5-5.9) X10^6/uL Hgb (13.5-17.5) g/dL Hct (41-53) % MCV (80-100) fL MCH (26-34) PG MCHC (30-36) % RDW (11.6-14.8) % Plt Count (150-400) X10^3/uL Neut % (Auto) (50-75) % Lymph % (Auto) (25-40) % [place] % (Auto) (3-14) % Eos % (Auto) (2-4) % Baso % (Auto) (0-2) % Neut # (Auto) (0192-8401) /uL PT (10.1-12.7) SECONDS INR (0.9-1.3) APTT (26.4-36.2) SECONDS Sodium 146 H (137-145) mmol/L Potassium 4.3 (3.4-5.1) mmol/L Chloride 105 (98-107) mmol/L Carbon Dioxide 25 (22-32) mmol/L BUN 37 H (9-20) mg/dL Creatinine 1.90 H (0.66-1.25) mg/dL Estimated GFR 34.3 L (>60) mL/min BUN/Creatinine Ratio 19.5 (6-22) Glucose 151 H (80-110) mg/dL Lactate 1.0 (0.7-2.1) mmol/L Calcium 8.3 L (8.4-10.2) mg/dL Magnesium (1.6-2.3) mg/dL Total Bilirubin 0.6 (0.2-1.3) mg/dL AST 33 (17-59) IU/L ALT 56 (21-72) IU/L Alkaline Phosphatase 58 (38-126) U/L Total Creatine Kinase (55-170) U/L CK-MB (CK-2) CK-MB (CK-2) Rel Index Troponin I (0.01-0.034) ng/mL B-Natriuretic Peptide (<100) Total Protein 7.0 (6.3-8.2) g/dL Albumin 4.5 (3.5-5.0) g/dL Globulin 2.5 (1.7-4.1) g/dL Albumin/Globulin Ratio 1.8 (1.0-2.8) Procalcitonin < 0.05 (<0.5) ng/mL Imaging Data Chest x-ray: Attestation: I personally reviewed and interpreted this imaging study as follows: My impression: Pulmonary congestion bilaterally worse than previous xray ECG Data Attestation: I personally reviewed and interpreted this ECG as follows: Prior ECG tracings: available for review Interpretation: AFib no acute ST changes rate 91 with PVC similar to previous EKG MDM Narrative Medical decision making narrative: Patient initially placed on our PAC BiPAP given sublingual nitro and Lasix almost immediately. His with seemed to turn him around quite quickly. He urinated after Lasix he was able to speak much more freely and easily through the BiPAP. After about an hour requested BiPAP be removed. He is still requiring 2-3 L of oxygen. But seems to have turned a corner. I discussed case with Dr. Cassidy. Agrees for inpatient admission. Discharge Plan Departure Patient Disposition: Admitted As Inpatient Clinical Impression: CHF (congestive heart failure) Discharge Date/Time: 04/01/18 03:24 Admit Date/Time: 04/01/18 03:22 Admit Provider: Kali Cassidy
[2018-04-01 01:46] LABS: Add Manual Diff / Slide Review NO; Eosinophils Percent Auto 3.2 % (2-4); Hematocrit 38.2 % (41-53); Hemoglobin 12.4 g/dL (13.5-17.5); INR 2.8 (0.9-1.3); Lymphocytes Percent Auto 28.3 % (25-40); Mean Corpuscular HGB Conc 32.5 % (30-36); Mean Corpuscular Hemoglobin 28.4 PG (26-34); Mean Corpuscular Volume 87.5 fL (80-100); Monocytes Percent Auto 8.3 % (3-14); Neutrophils Absolute Auto 3400 /uL (3000-5900); Neutrophils Percent Auto 59.2 % (50-75); Platelet Count 131 X10^3/uL (150-400); Red Blood Cell Count 4.36 X10^6/uL (4.5-5.9); Red Cell Distribution Width 15.6 % (11.6-14.8); White Blood Cell Count 5.7 X10^3/uL (4.5-11.0)
[2018-04-01 01:48] LABS: PTT Partial Thromboplastin Tim 45 SECONDS (26.4-36.2)
[2018-04-01 01:53] LABS: Alanine Aminotransferase 56 IU/L (21-72); Albumin 4.5 g/dL (3.5-5.0); Albumin Globulin Ratio 1.8 (1.0-2.8); Alkaline Phosphatase 58 U/L (38-126); Aspartate Aminotransferase 33 IU/L (17-59); BUN Creatinine Ratio 19.5 (6-22); Bilirubin Total 0.6 mg/dL (0.2-1.3); Blood Urea Nitrogen 37 mg/dL (9-20); Calcium 8.3 mg/dL (8.4-10.2); Carbon Dioxide 25 mmol/L (22-32); Chloride 105 mmol/L (98-107); Creatine Kinase 66 U/L (55-170); Estimated Glomerular Filt Rate 34.3 mL/min (>60); Globulin 2.5 g/dL (1.7-4.1); Glucose 151 mg/dL (80-110); HEMOLYSIS < 15 (0-50); Potassium 4.3 mmol/L (3.4-5.1); Sodium 146 mmol/L (137-145)
[2018-04-01 02:04] LABS: Troponin I 0.049 ng/mL (0.01-0.034)
[2018-04-01 02:19] LABS: Procalcitonin < 0.05 ng/mL (<0.5)
--- NOTE | 2018-04-01 04:58 | PC.ADMIT ---
[email or web address] Admission Note: The patient,Damián Garrett,82 y/o, was given written information regarding hospital policies, unit procedures and contact persons. Patient's smoking status: Former smoker. Vital Signs - 8 hr 04/01/18 01:16 04/01/18 01:20 04/01/18 01:21 Temperature Pulse Rate 95 H 101 H 80 Respiratory Rate 34 H Blood Pressure 166/84 H 150/80 H Blood Pressure [Left Arm] 161/137 H Pulse Oximetry 98 04/01/18 01:22 04/01/18 01:24 04/01/18 01:50 Temperature 98.7 F Pulse Rate 101 H 80 Respiratory Rate 34 H 26 H Blood Pressure 166/84 H 161/137 H Blood Pressure [Left Arm] 157/63 H Pulse Oximetry 95 95 04/01/18 02:36 04/01/18 02:57 04/01/18 03:50 Temperature Pulse Rate 81 64 Respiratory Rate 20 28 H 24 Blood Pressure 144/48 H Blood Pressure [Left Arm] 131/51 L Pulse Oximetry 93 91 93 04/01/18 04:15 Temperature 98.4 F Pulse Rate 71 Respiratory Rate 20 Blood Pressure 142/77 H Blood Pressure [Left Arm] Pulse Oximetry 95 Pt admitted to ICU room 104 from ER via stretcher in NAD. VSS, afebrile. Pt denies SOB. Able to transfer from stretcher to bed without difficulty. Sp02 93-98% 3L NC. Tele Afib CVR. Denies pain. Oriented to room, call light and plan of care. Verbalized understanding.
--- NOTE | 2018-04-01 08:14 | P.HP_ITS ---
History of Present Illness Date Patient Seen: 04/01/18 Time Patient Seen: 08:06 Chief complaint: Respiratry distress Narrative: 82-year-old male with known severe aortic stenosis and heart failure presents with acute worsening of dyspnea. He was here in the hospital about 2 months ago with a CHF exacerbation. He has been noting increasing swelling in his lower extremities for the last week or so and became more short of breath on the evening of March 31 and the breathing progressed and got worse as he tried to lay down and finally called 911 and when they arrived paramedics noted his oxygen saturation to be in the low 80s and he was actually placed on a BiPAP mask. He was continued with BiPAP through the 1st hour or 2 of his ER or deal and was given IV Lasix and had good diuresis and felt better after that. Currently he is not quite back to baseline but feeling better than he did and he is no longer on BiPAP. He denies any dizziness or syncope or chest pain Patient History Medical History Atrial fibrillation (Acute) Aortic stenosis (Chronic) BPH (benign prostatic hyperplasia) (Chronic) Barretts esophagus (Chronic) Chronic renal insufficiency, stage III (moderate) (Chronic) Fatty liver (Chronic) HTN (hypertension) (Chronic) History of GI bleed (Chronic) Hyperlipidemia (Chronic) ASHWIN (obstructive sleep apnea) (Chronic) Osteoarthritis of left hip (Chronic) Peripheral neuropathy (Chronic) Spinal stenosis, lumbar region with neurogenic claudication (Chronic) Type 2 diabetes mellitus (Chronic) Family & Social History Social History: household members children Prior Living Arrangements Assisted Living Safety & Behavioral: Feels Safe in Current Yes Environment Been Physically Hurt or No Threatened By a Person Suicidal Ideation Description None Suicide Plan Description No Plan Tobacco & Substance use: Tobacco type cigarettes Smoking Status Former smoker alcohol intake former alcohol intake frequency a few times a week Substance Use Type does not use Meds Home Medications Medication Instructions Recorded Confirmed Type atorvastatin 40 mg QPM 11/21/17 04/01/18 History clonidine HCl 0.1 mg BID 11/21/17 04/01/18 History eplerenone 12.5 mg QAM 11/21/17 04/01/18 History escitalopram oxalate 20 mg QAM 11/21/17 04/01/18 History ferrous sulfate 325 mg PO DAILY #0 11/21/17 04/01/18 History glimepiride 1 mg QAM 11/21/17 04/01/18 History losartan 50 mg QAM 11/21/17 04/01/18 History oxybutynin chloride 10 mg QPM 11/21/17 04/01/18 History tamsulosin 0.8 mg QPM 11/21/17 04/01/18 History warfarin 2 mg DAILY 11/21/17 04/01/18 History furosemide 40 mg PO DAILY #30 tab 11/29/17 04/01/18 Rx potassium chloride 20 meq PO DAILY #30 tab 11/29/17 04/01/18 Rx amlodipine 10 mg PO DAILY 01/11/18 04/01/18 History omeprazole 40 mg PO DAILY 04/01/18 04/01/18 History vit A,C and B-edumyn-pdvwkcej 1 tab PO DAILY 04/01/18 04/01/18 History [Ocuvite with Lutein] Allergies Allergy/AdvReac Type Severity Reaction Status Date / Time BCG (Bacillus Allergy Unknown cancer drug Verified 04/01/18 01:22 Calmette-Lico) vacc [From BCG NATALIA VACCINE] felodipine [From Plendil] Allergy Verified 04/01/18 03:19 lisinopril Allergy Verified 04/01/18 03:19 metoprolol [From Toprol XL] Allergy Verified 04/01/18 03:19 Review of Systems Constitutional Constitutional: Reports system reviewed and no additional complaints, except as documented Eyes Eyes: Reports system reviewed; no additional complaints, except as documented ENT Ears, Nose, Mouth, and Throat: Yes system reviewed; no additional complaints, except as documented Cardiovascular Cardiovascular: Denies chest pain, Denies chest pain with activity, Reports foot swelling, Reports shortness of breath, Reports shortness of breath with activity and Reports shortness of breath when lying down Respiratory Respiratory: Denies chest congestion, Denies cough, Reports dyspnea and Reports dyspnea on exertion Gastrointestinal Gastrointestinal: Reports system reviewed and no additional complaints, except as documented Genitourinary Genitourinary: Reports system reviewed and no additional complaints, except as documented Musculoskeletal Musculoskeletal: Reports system reviewed; no additional complaints, except as documented Integumentary/Breasts Skin/Breast: Reports system reviewed and no additional complaints, except as documented Neurologic Neurologic: Reports system reviewed and no additional complaints, except as documented Psychiatric Psychiatric: Reports system reviewed and no additional complaints, except as documented Endocrine Endocrine: Reports system reviewed and no additional complaints, except as documented Hematologic/Lymphatic Hematologic/Lymphatic: Reports system reviewed and no additional complaints, except as documented Allergic/Immunologic Allergic/Immunologic: Reports system reviewed and no additional complaints, except as documented Exam Vital Signs (past 8 hours): - 04/01/18 01:16 04/01/18 01:20 04/01/18 01:21 Temperature Pulse Rate 95 H 101 H 80 Respiratory Rate 34 H Blood Pressure 166/84 H 150/80 H Blood Pressure [Left Arm] 161/137 H Pulse Oximetry 98 04/01/18 01:22 04/01/18 01:24 04/01/18 01:50 Temperature 98.7 F Pulse Rate 101 H 80 Respiratory Rate 34 H 26 H Blood Pressure 166/84 H 161/137 H Blood Pressure [Left Arm] 157/63 H Pulse Oximetry 95 95 04/01/18 02:36 04/01/18 02:57 04/01/18 03:50 Temperature Pulse Rate 81 64 Respiratory Rate 20 28 H 24 Blood Pressure 144/48 H Blood Pressure [Left Arm] 131/51 L Pulse Oximetry 93 91 93 04/01/18 04:15 Temperature 98.4 F Pulse Rate 71 Respiratory Rate 20 Blood Pressure 142/77 H Blood Pressure [Left Arm] Pulse Oximetry 95 Fraction of Inspired Oxygen 35 Oxygen Delivery Method Nasal Cannula Oxygen Flow Rate 3 Narrative Exam Narrative: He is still mildly tachypneic but feeling much better he is resting in bed Oropharynx clear Neck supple decreased carotid upstroke Heart regular rhythm 3/6 systolic murmur left sternal border area noted Abdomen mildly distended soft no masses bowel sounds present Extremities 1+ edema with stasis dermatitis and venous insufficiency Neuro exam awake alert oriented x3 cranial nerves were intact speech normal Skin warm and dry Objective Labs Result Diagrams: 04/01/18 01:31 04/01/18 01:31 Labs: Laboratory Results - last 24 hr 04/01/18 04/01/18 04/01/18 01:31 01:31 01:31 WBC 5.7 RBC 4.36 L Hgb 12.4 L Hct 38.2 L MCV 87.5 MCH 28.4 MCHC 32.5 RDW 15.6 H Plt Count 131 L Neut % (Auto) 59.2 Lymph % (Auto) 28.3 Williams % (Auto) 8.3 Eos % (Auto) 3.2 Baso % (Auto) 1.0 Neut # (Auto) 3400 PT 31.0 H INR 2.8 H APTT 45 H Sodium Potassium Chloride Carbon Dioxide BUN Creatinine Estimated GFR BUN/Creatinine Ratio Glucose Lactate Calcium Magnesium 2.0 Total Bilirubin AST ALT Alkaline Phosphatase Total Creatine Kinase 66 CK-MB (CK-2) TNP CK-MB (CK-2) Rel Index TNP Troponin I 0.049 H B-Natriuretic Peptide 187.0 H Total Protein Albumin Globulin Albumin/Globulin Ratio Procalcitonin 04/01/18 04/01/18 04/01/18 01:31 01:31 01:31 WBC RBC Hgb Hct MCV MCH MCHC RDW Plt Count Neut % (Auto) Lymph % (Auto) Williams % (Auto) Eos % (Auto) Baso % (Auto) Neut # (Auto) PT INR APTT Sodium 146 H Potassium 4.3 Chloride 105 Carbon Dioxide 25 BUN 37 H Creatinine 1.90 H Estimated GFR 34.3 L BUN/Creatinine Ratio 19.5 Glucose 151 H Lactate 1.0 Calcium 8.3 L Magnesium Total Bilirubin 0.6 AST 33 ALT 56 Alkaline Phosphatase 58 Total Creatine Kinase CK-MB (CK-2) CK-MB (CK-2) Rel Index Troponin I B-Natriuretic Peptide Total Protein 7.0 Albumin 4.5 Globulin 2.5 Albumin/Globulin Ratio 1.8 Procalcitonin < 0.05 Assessment & Plan Plan: Assessment/Plan Narrative: One. Acute hypoxic respiratory failure secondary to congestive heart failure exacerbation did require BiPAP for appeared of time in the emergency room now just on supplemental oxygen plan to continue treating the underlying problem 2. Acute heart failure exacerbation with acute diastolic dysfunction in the setting of chronic diastolic dysfunction. Chest x-ray on admission showed cardiomegaly and pulmonary edema. He does have preserved left ventricular systolic function by echo that was done earlier this month. He has severe aortic stenosis and is on the schedule for possible TAVR procedure later in this month at the [facility]. Plan to continue treatment of the acute heart failure with IV Lasix and monitoring closely his fluid status. Continue with the Luis inhibitor and the eplerenone and will hold his oral Lasix while we give him IV Lasix 3. Chronic kidney disease with acute exacerbation baseline creatinine about 1.51.6 now up to 1.9. We will watch this carefully as we diurese him. 4. Chronic AFib AFib rate controlled INR 2.8 plan to continue Coumadin 5. History of hypertension plan to continue current medications 6. History of depression on citalopram doing well plan to continue 7. Diabetes type 2 plan to continue oral medications 8. Mild hypernatremia plan to recheck labs 9. Code status his office chart shows him to be DNR. I will discuss this with him further Quality VTE Deep Vein Thrombosis/Pulmonary Embolism Present on Admission: No
[2018-04-01 09:06] LABS: Alanine Aminotransferase 50 IU/L (21-72); Albumin 4.1 g/dL (3.5-5.0); Albumin Globulin Ratio 2.1 (1.0-2.8); Alkaline Phosphatase 44 U/L (38-126); Aspartate Aminotransferase 26 IU/L (17-59); BUN Creatinine Ratio 21.1 (6-22); Bilirubin Total 0.6 mg/dL (0.2-1.3); Blood Urea Nitrogen 38 mg/dL (9-20); Calcium 8.3 mg/dL (8.4-10.2); Carbon Dioxide 27 mmol/L (22-32); Chloride 104 mmol/L (98-107); Estimated Glomerular Filt Rate 36.5 mL/min (>60); Glucose 114 mg/dL (80-110); HEMOLYSIS < 15 (0-50); Potassium 4.4 mmol/L (3.4-5.1); Sodium 146 mmol/L (137-145); Total Protein 6.1 g/dL (6.3-8.2)
[2018-04-01] MEDS: GLIMEPIRIDE 2 MG TABLET 1 MG PO (09:11)
[2018-04-01] MEDS: ESCITALOPRAM 10 MG TABLET 20 MG PO (09:11)
[2018-04-01] MEDS: EPLERENONE 25 MG TABLET 12.5 MG PO (09:12)
[2018-04-01] MEDS: AMLODIPINE 5 MG TABLET 10 MG PO (09:13)
[2018-04-01] MEDS: LOSARTAN 50 MG TABLET PO (09:13)
[2018-04-01] MEDS: cloNIDine 0.1 MG TABLET PO ×2 (09:13→21:29)
[2018-04-01] MEDS: POTASSIUM CHLORIDE 20 MEQ TAB PO (09:15)
[2018-04-01 09:20] LABS: Troponin I 0.202 ng/mL (0.01-0.034)
--- NOTE | 2018-04-01 10:46 | CM.DPC ---
Clinicals faxed to [facility] per Claire
--- NOTE | 2018-04-01 10:59 | CM.DANOTE ---
Discharge Planning/Care Management DCP: assessment: Case received, EMR reviewed. Discussed case in Team Rounds with Dr. Cassidy. Dr. Cassidy says that he anticipates pt will be stable for d/c by tomorrow and can return to with clinic followup. Met with pt and his son Connor. Introduced self and role. Pt is an 82 year old male who admitted early this morning to care of hospitalist team. Payer: Medicare and [facility]. PCP: Dr. Simone Dunbar. Pt has recently been transitioned from an independent care level at [facility] to assisted, per Connor. Connor notes at this time the staff primarily just check on pt but if more assistance is needed that can be provided. Connor manages the medications. As per protocol with ALFs have contacted Brandie Covington/RN via to alert her to probable dc tomorrow. TAMARAA is faxing initial clinical. Will be following prn to assist with d/c needs as they unfold. Pt is currently on , does not have this at home. CM Discharge Assessment Start: 04/01/18 10:47 Freq: Status: Active Protocol: Document 04/01/18 10:47 ITV (Rec: 04/01/18 10:59 ITV [id number]) Discharge Planning Assessment Advance Directives? Yes: POLST Advance Directives on File Yes History Provided By Patient Family Member Medical Record Prior Living Arrangements Assisted Living Facility Name Admitted From: [facility] Willing to Return to Facility? Yes Independent with ADL's No: gets supportive assist at . son does medication management Is patient alert and oriented? Yes: appears to be at this time. Needs Assistance With Managing Medications DME Already Rented / Owned FWW / Walker Cane Comment uses cane in the facility. 4ww when going distances not on home o2 Discharge Plan Assisted Living Facility Whiteboard Updated in Patient Room with Yes name and ext. # of Shortage Worker Review Status In Process Next Review Type Continued Stay Review
[2018-04-01] MEDS: FUROSEMIDE 40 MG/4 ML VIAL IV (11:37)
[2018-04-01] MEDS: ATORVASTATIN 20 MG TABLET 40 MG PO (16:47)
[2018-04-01] MEDS: TAMSULOSIN 0.4 MG CAPSULE 0.8 MG PO (16:48)
[2018-04-01] MEDS: OXYBUTYNIN 5 MG ER TAB 10 MG PO (16:48)
[2018-04-01] MEDS: WARFARIN 2 MG TABLET PO (16:52)
[2018-04-02] VITALS: BP 140/63; PULSE 53; RESP 18; TEMP 36.7; O2SAT 94
[2018-04-02 00:32] VITALS: O2SAT 96
[2018-04-02 04:00] VITALS: BP 145/69; PULSE 69; RESP 12; TEMP 37; O2SAT 92
[2018-04-02 05:48] LABS: INR 2.9 (0.9-1.3); Prothrombin Time 31.4 SECONDS (10.1-12.7)
[2018-04-02 06:02] LABS: Alanine Aminotransferase 42 IU/L (21-72); Albumin Globulin Ratio 1.8 (1.0-2.8); Alkaline Phosphatase 40 U/L (38-126); Aspartate Aminotransferase 21 IU/L (17-59); BUN Creatinine Ratio 24.7 (6-22); Bilirubin Total 0.6 mg/dL (0.2-1.3); Blood Urea Nitrogen 42 mg/dL (9-20); Calcium 8.3 mg/dL (8.4-10.2); Carbon Dioxide 27 mmol/L (22-32); Chloride 104 mmol/L (98-107); Globulin 2.2 g/dL (1.7-4.1); Glucose 109 mg/dL (80-110); HEMOLYSIS < 15 (0-50); Potassium 4.1 mmol/L (3.4-5.1); Sodium 144 mmol/L (137-145); Total Protein 6.2 g/dL (6.3-8.2)
--- NOTE | 2018-04-02 06:14 | PC.NURSE ---
Pt. is alert and oriented but forgetful. Pt. denies pain, denies shortness of air. Continues on 1L 02 NC with Sats in the mid 90's, fine crackles on right base. HR remain afib in the high 40's to low 60's. Voiding adequate amt. Up in chair this am having coffee and ready for breakfast. Bed side table and personal belonging plus call light within reach.
[2018-04-02 08:00] VITALS: BP 129/74; PULSE 65; RESP 17; TEMP 36.8; O2SAT 94; O2SAT 95
[2018-04-02 09:24] VITALS: O2SAT 95
[2018-04-02] MEDS: GLIMEPIRIDE 2 MG TABLET 1 MG PO (10:04)
[2018-04-02] MEDS: cloNIDine 0.1 MG TABLET PO (10:05)
[2018-04-02] MEDS: LOSARTAN 50 MG TABLET PO (10:05)
[2018-04-02] MEDS: ESCITALOPRAM 10 MG TABLET 20 MG PO (10:05)
[2018-04-02] MEDS: EPLERENONE 25 MG TABLET 12.5 MG PO (10:05)
[2018-04-02] MEDS: AMLODIPINE 5 MG TABLET 10 MG PO (10:05)
[2018-04-02] MEDS: POTASSIUM CHLORIDE 20 MEQ TAB PO (10:06)
--- NOTE | 2018-04-02 11:06 | PM.DS.1 ---
History of Present Illness Chief complaint: Respiratry distress Narrative: 82-year-old male with known severe aortic stenosis and heart failure presents with acute worsening of dyspnea. He was here in the hospital about 2 months ago with a CHF exacerbation. He has been noting increasing swelling in his lower extremities for the last week or so and became more short of breath on the evening of March 31 and the breathing progressed and got worse as he tried to lay down and finally called 911 and when they arrived paramedics noted his oxygen saturation to be in the low 80s and he was actually placed on a BiPAP mask. He was continued with BiPAP through the 1st hour or 2 of his ER or deal and was given IV Lasix and had good diuresis and felt better after that. Currently he is not quite back to baseline but feeling better than he did and he is no longer on BiPAP. He denies any dizziness or syncope or chest pain Discharge Providers Date of admission: 04/01/18 03:22 Primary care physician: Damián Dunbar MD Consults: 04/01/18 04:20 Consult to Physician Routine Comment: Consulting Provider: Kali Cassidy Reason for consultation: admission Has provider been notified: Yes Discharge provider: Kali Cassidy MD Discharge Date: 04/02/18 Summary Discharge Diagnosis: One. Acute hypoxic respiratory failure secondary to congestive heart failure 2. Acute heart failure exacerbation of of diastolic heart failure acute on chronic 2. Acute pulmonary edema secondary to heart failure 3. Chronic kidney disease with acute exacerbation 4. Chronic AFib on chronic anticoagulation 5. Hypertension 6. Depression 9 7. Diabetes type 2 7. Severe aortic stenosis Hospital Course: Patient was admitted through the emergency room with acute respiratory failure requiring BiPAP for several hours. He had pulmonary edema and acute exacerbation of his diastolic heart failure. He was treated with IV Lasix and diuresed he had been improvement in his symptoms he has been able to wean off the oxygen off the BiPAP now. The patient has underlying severe diastolic dysfunction and severe aortic stenosis. The patient is scheduled actually for a consultation with [facility] cardiology for possible TAVR procedure. The patient will be seeing them this Wednesday at [place]. We have placed him back on his normal medications uncertain why he had the acute exacerbation but seems to be euvolemic and so we will continue with the Lasix at the current dose. He will be seeing Cardiology on Wednesday and they can make some adjustments. He does have the chronic kidney disease his creatinine bumped up to 1.9 his baselines about 1.6. Discharge creatinine of 1.7. Rate is controlled with the AFib and the INR is therapeutic. Status at Discharge Cognitive/behavioral status at discharge: Back to baseline Functional status at discharge: independent ambulation Overall status at discharge: patient is back to baseline Time Spent with Patient Greater than 30 minutes Exam Vital Signs (past 8 hours): - 04/02/18 04:00 04/02/18 08:00 04/02/18 09:24 Temperature 98.6 F 98.2 F Pulse Rate 69 65 Respiratory Rate 12 17 Blood Pressure 145/69 H 129/74 Pulse Oximetry 92 95 95 Fraction of Inspired Oxygen 35 Oxygen Delivery Method Room Air Oxygen Flow Rate 0 Narrative Exam Narrative: Resting comfortably Heart systolic murmur 3/6 in intensity left sternal border irregular Abdomen is soft and obese nontender Lungs clear Lower extremities 1+ edema with stasis dermatitis Objective Labs Result Diagrams: 04/01/18 01:31 04/02/18 05:02 Labs: Laboratory Results - last 24 hr 04/01/18 04/02/18 04/02/18 12:49 05:02 05:02 PT 31.4 H INR 2.9 H Sodium 144 Potassium 4.1 Chloride 104 Carbon Dioxide 27 BUN 42 H Creatinine 1.70 H Estimated GFR 39.0 L BUN/Creatinine Ratio 24.7 H Glucose 109 Calcium 8.3 L Total Bilirubin 0.6 AST 21 ALT 42 Alkaline Phosphatase 40 Troponin I 0.140 H* Total Protein 6.2 L Albumin 4.0 Globulin 2.2 Albumin/Globulin Ratio 1.8 Nasal Screen MRSA (PCR) Negative for mrsa Discharge Plan Discharge Plan Patient Disposition: Home Discharge Med Rec/Prescriptions Prescriptions: Continue atorvastatin 40 mg tablet 40 mg QPM RF: 0 clonidine HCl 0.1 mg tablet 0.1 mg BID RF: 0 eplerenone 25 mg tablet 12.5 mg QAM RF: 0 escitalopram oxalate 20 mg tablet 20 mg QAM RF: 0 glimepiride 1 mg tablet 1 mg QAM RF: 0 losartan 50 mg tablet 50 mg QAM RF: 0 oxybutynin chloride 10 mg tablet extended release 24hr 10 mg QPM RF: 0 tamsulosin 0.4 mg capsule,extended release 24hr 0.8 mg QPM RF: 0 warfarin 2 mg tablet 2 mg DAILY RF: 0 ferrous sulfate 325 mg (65 mg iron) Tablet 325 mg PO DAILY Qty: 0 RF: 0 furosemide 40 mg tablet 40 mg PO DAILY Qty: 30 RF: 0 potassium chloride 20 mEq tablet extended release 20 meq PO DAILY Qty: 30 RF: 0 amlodipine 10 mg Tablet 10 mg PO DAILY RF: 0 omeprazole 40 mg Capsule,Delayed Release(Dr/Ec) 40 mg PO DAILY RF: 0 vit A,C and [id number]-[id number] [Ocuvite with Lutein] 1,000 unit-200 mg-60 unit-2 mg Tablet 1 tab PO DAILY RF: 0 Follow up/Referrals: Damián Dunbar MD [Primary Care Provider] - Provider Discharge Instructions Diet: Diet as Tolerated Activity: as tolerated Discharge Data Primary Care Provider: Damián Dunbar V Attending Provider: Kali Cassidy Admit Date/Time: 04/01/18 03:22 Discharge Interventions Interventions: Discharge assessment Last Done: 04/02/18 11:02 Quality VTE Deep Vein Thrombosis/Pulmonary Embolism Present on Admission: No
[2018-04-02] MEDS: FUROSEMIDE 40 MG TABLET PO (11:36)
--- NOTE | 2018-04-03 09:12 | CM.DPC ---
DCP: continued: late entry for yesterday. Dr. Cassidy did d/c pt back to CS yesterday. No new medications were ordered and Brandie Torres/ANDREW GORMAN did ok the d/c summary with the electronic signature as all we need. This was faxed to her : [phone] 04/02. ANDREW Aguila was updated. Pt did not need o2 at d/c. Went to ICU to check in with pt before d/c. He had already left for his home with his son
== END 2018-04-02 11:52 | disposition home or self-care (01) | DRG 280 ==
LOC: ED 03:06 → ICU 03:24
PROVIDERS: Admitting Provider Internal Medicine; Emergency Provider Emergency Medicine; PCP Internal Medicine; Visit Provider Internal Medicine
DX: I13.0 Hypertensive heart and chronic kidney disease with heart failure and stage 1 through stage 4 chronic kidney disease, or unspecified chronic kidney disease (principal); I50.33 Acute on chronic diastolic (congestive) heart failure; I21.A1 Myocardial infarction type 2; J96.01 Acute respiratory failure with hypoxia; E87.0 Hyperosmolality and hypernatremia; N18.3 Chronic kidney disease, stage 3 (moderate); E11.22 Type 2 diabetes mellitus with diabetic chronic kidney disease; Z79.84 Long term (current) use of oral hypoglycemic drugs; I35.0 Nonrheumatic aortic (valve) stenosis; I48.2 Chronic atrial fibrillation; Z79.01 Long term (current) use of anticoagulants; F32.9 Major depressive disorder, single episode, unspecified; Z66 Do not resuscitate; N40.0 Benign prostatic hyperplasia without lower urinary tract symptoms
CPT/HCPCS: 36415; 71045; 80053; 82550; 83605; 83735; 83880; 84145; 84484; 85025; 85610; 85730; 87797; 93005; 94660; 94760; 94762; 96374; 99283; 99285; J1940

== ENCOUNTER → 2018-05-23 07:14 | Outpatient (REF) | payer SELFPAY ==
[2018-04-01 01:24] VITALS: PULSE 100; RESP 31; O2SAT 97
[2018-04-01 03:24] VITALS: BMI 39.7
[2018-05-23 07:57] LABS: Add Manual Diff / Slide Review NO; Basophils Percent Auto 0.6 % (0-2); Eosinophils Percent Auto 2.9 % (2-4); Hematocrit 28.2 % (41-53); Hemoglobin 9.1 g/dL (13.5-17.5); Lymphocytes Percent Auto 11.2 % (25-40); Mean Corpuscular HGB Conc 32.1 % (30-36); Mean Corpuscular Hemoglobin 28.3 PG (26-34); Monocytes Percent Auto 9.8 % (3-14); Neutrophils Absolute Auto 5200 /uL (1500-7000); Neutrophils Percent Auto 75.5 % (50-75); Platelet Count 244 X10^3/uL (150-400); Red Cell Distribution Width 18.7 % (11.6-14.8); White Blood Cell Count 6.9 X10^3/uL (4.5-11.0)
[2018-05-23 08:04] LABS: INR 2.1 (0.9-1.3); Prothrombin Time 24.1 SECONDS (10.1-12.7)
[2018-05-23 08:27] LABS: BUN Creatinine Ratio 18.1 (6-22); Blood Urea Nitrogen 58 mg/dL (9-20); Calcium 8.6 mg/dL (8.4-10.2); Carbon Dioxide 24 mmol/L (22-32); Chloride 102 mmol/L (98-107); Estimated Glomerular Filt Rate 18.7 mL/min (>60); Glucose 112 mg/dL (80-110); HEMOLYSIS 16 (0-50); Sodium 143 mmol/L (137-145)
== END ==
LOC: LAB 07:14
PROVIDERS: PCP Internal Medicine; Visit Provider Hospitalist
DX: I48.91 Unspecified atrial fibrillation (principal)
CPT/HCPCS: 36415; 80048; 85025; 85610

== ENCOUNTER 2018-05-29 10:10 | Emergency (ER) | payer MEDICARE, OTHER, SELFPAY ==
[2018-04-01 01:24] VITALS: PULSE 100; RESP 31; O2SAT 97
[2018-04-01 03:24] VITALS: BMI 39.7
[2018-05-29 10:15] VITALS: BP 157/49; PULSE 73; RESP 20; TEMP 36.4; O2SAT 99; BMI 24.0
--- NOTE | 2018-05-29 10:15 | ED_ITS ---
HPI - Epistaxis General Chief complaint: Nasal Problem Stated complaint: nose bleed on coumadin Time Seen by Provider: 05/29/18 10:15 Source: patient Mode of arrival: ambulatory Limitations: no limitations History of Present Illness HPI Narrative: 83-year-old male currently on Coumadin. Approximately 3 weeks ago he had a aortic valve replacement done by intravascular approach. Has been on Coumadin for ?years? states that yesterday they checked his INR and it was less than 2. He states that last evening the increased his Coumadin dose to 5. He thinks that they ?overdosed ?him on the Coumadin. Over the past 12-18 hours started having nose bleed. Coming from the right nostril. Has had bleeding like this in the past. No headaches. Related Data Home Medications Medication Instructions Recorded Confirmed atorvastatin 40 mg QPM 11/21/17 04/01/18 clonidine HCl 0.1 mg BID 11/21/17 04/01/18 eplerenone 12.5 mg QAM 11/21/17 04/01/18 escitalopram oxalate 20 mg QAM 11/21/17 04/01/18 ferrous sulfate 325 mg PO DAILY #0 11/21/17 04/01/18 glimepiride 1 mg QAM 11/21/17 04/01/18 losartan 50 mg QAM 11/21/17 04/01/18 oxybutynin chloride 10 mg QPM 11/21/17 04/01/18 tamsulosin 0.8 mg QPM 11/21/17 04/01/18 warfarin 2 mg DAILY 11/21/17 04/01/18 amlodipine 10 mg PO DAILY 01/11/18 04/01/18 omeprazole 40 mg PO DAILY 04/01/18 04/01/18 vit A,C and [id number]-[id number]-[id number] 1 tab PO DAILY 04/01/18 04/01/18 [Ocuvite with Lutein] Previous Rx's Medication Instructions Recorded furosemide 40 mg PO DAILY #30 tab 11/29/17 potassium chloride 20 meq PO DAILY #30 tab 11/29/17 Allergies Allergy/AdvReac Type Severity Reaction Status Date / Time BCG (Bacillus Allergy Unknown cancer drug Verified 04/01/18 01:22 Calmette-Lico) vacc [From BCG NATALIA VACCINE] atenolol Allergy Verified 05/29/18 10:36 felodipine [From Plendil] Allergy Verified 04/01/18 03:19 lisinopril Allergy Verified 04/01/18 03:19 metoprolol [From Toprol XL] Allergy Verified 04/01/18 03:19 Review of Systems Constitutional Denies fatigue and Denies fever(s) ENT Comments: Nose bleed from right nostril Cardiovascular Denies chest pain and Reports dyspnea (This is not new. States that he has had shortness of breath) Respiratory Reports dyspnea (This is not new. States that he has had shortness of breath) Integumentary/Breasts Comments: Bruising on bilateral arms Endocrine Denies fatigue Hematologic/Lymphatic Comments: On Coumadin PFSH Social History household members: children Smoking Status: Former smoker Tobacco: How many years used: 30 alcohol intake: former substance use type: does not use Exam Initial Vital Signs Initial Vital Signs: Vital Signs Temperature 97.5 F L 05/29/18 10:15 Pulse Rate 73 05/29/18 10:15 Respiratory Rate 20 05/29/18 10:15 Blood Pressure 157/49 H 05/29/18 10:15 Pulse Oximetry 99 05/29/18 10:15 Const General: cooperative, comfortable, well developed, well groomed and No acute distress Orientation: alert, awake and oriented x3 HENMT Head: normal to inspection and normocephalic Nose: other (No active bleeding. Left nostril unremarkable. Patient does have a clot on the medial aspect of the right nostril. Nasal septum unremarkable) Skin Other: Patient with bruising on bilateral upper extremities Neuro General: alert, awake and oriented x3 Extrem General: normal to inspection and capillary refill normal Psych Appearance: grossly normal and well kempt Course Orders Ordered: ED Orders 05/29/18 10:43 Prothrombin Time INR Stat Discontinued Medications Oxymetazoline HCl (Afrin) 2 sprays NASAL NOW ONE Stop: 05/29/18 11:41 Vital Signs - 8 hr 05/29/18 10:15 Temperature 97.5 F L Pulse Rate 73 Respiratory Rate 20 Blood Pressure 157/49 H Pulse Oximetry 99 MDM - Epistaxis Lab Data Attestation: I reviewed the patient's lab results. Lab Results 05/29/18 Range/Units 10:43 PT 15.2 H (10.1-12.7) SECONDS INR 1.3 (0.9-1.3) MDM Narrative Medical decision making narrative: Patient's INR today is 1.3. It was 1.2 yesterday. From what we can see from the MAR from his rehab facility the patient is normal at 2 mg of Coumadin today. He was supposed to give 5 mg yesterday for just 1 day and then start back on 2 mg. It appears this is what he had received. His INR still less than 2. Patient is concerned about increasing his Coumadin. He did state that he refused a ?shot? that was ordered for him while his Coumadin was not at its proper level. I some that this is a Lovenox shot. Will send home with instructions for the care facility to contact his primary care doctor to see about increasing his Coumadin again today and for follow-up. His nose bleed was coming from the right side. No signs of septal hematoma. It has improved tremendously. I did give him a nasal clamp and some Afrin to take home. He was given instructions on what to do if his nose bleeds continue and when to return to the emergency department. Patient expressed understanding and agreement this plan. Discharge Plan Departure Patient Disposition: Home Clinical Impression: Epistaxis Instructions: Nosebleeds (Alternative Therapy), DI for Nosebleed Activity Restrictions/Additional Instructions: Your INR today was 1.2. This is below the desired level of 2-3. I do recommend that the care facility contact your primary care doctor to discuss further treatment with the Coumadin. At the very least I do recommend continuing on your 2 mg daily. Use the nasal clamp in the Afrin like we discussed for any future nose bleeds. If the nose bleeds continue despite these interventions that we discussed return to the emergency department for further evaluation. Prescriptions: No Action atorvastatin 40 mg tablet 40 mg QPM RF: 0 clonidine HCl 0.1 mg tablet 0.1 mg BID RF: 0 eplerenone 25 mg tablet 12.5 mg QAM RF: 0 escitalopram oxalate 20 mg tablet 20 mg QAM RF: 0 glimepiride 1 mg tablet 1 mg QAM RF: 0 losartan 50 mg tablet 50 mg QAM RF: 0 oxybutynin chloride 10 mg tablet extended release 24hr 10 mg QPM RF: 0 tamsulosin 0.4 mg capsule,extended release 24hr 0.8 mg QPM RF: 0 warfarin 2 mg tablet 2 mg DAILY RF: 0 ferrous sulfate 325 mg (65 mg iron) Tablet 325 mg PO DAILY Qty: 0 RF: 0 furosemide 40 mg tablet 40 mg PO DAILY Qty: 30 RF: 0 potassium chloride 20 mEq tablet extended release 20 meq PO DAILY Qty: 30 RF: 0 amlodipine 10 mg Tablet 10 mg PO DAILY RF: 0 omeprazole 40 mg Capsule,Delayed Release(Dr/Ec) 40 mg PO DAILY RF: 0 vit A,C and [id number] [Ocuvite with Lutein] 1,000 unit-200 mg-60 unit- 2 mg Tablet 1 tab PO DAILY RF: 0
[2018-05-29 10:58] LABS: INR 1.3 (0.9-1.3); Prothrombin Time 15.2 SECONDS (10.1-12.7)
--- NOTE | 2018-05-29 11:01 | PC.NURSE ---
Brought pt ice chips per Dr. medina
--- NOTE | 2018-05-29 11:26 | PC.NURSE ---
Patient requested to move to wheelchair from bed, approved so patient now in W/C
[2018-05-29] MEDS: OXYMETAZOLINE NASAL SPRAY 15 ML 2 SPRAYS NASAL (11:55)
[2018-05-29 12:41] VITALS: BP 133/55; PULSE 70; RESP 16; O2SAT 98
== END 2018-05-29 12:43 | disposition home or self-care (01) ==
PROVIDERS: Emergency Provider Emergency Medicine; PCP Internal Medicine
DX: R04.0 Epistaxis (principal); Z79.01 Long term (current) use of anticoagulants
CPT/HCPCS: 36415; 85610; 99282; 99283

== ENCOUNTER → 2018-06-07 09:26 | Outpatient (REF) | payer MEDICARE, OTHER, SELFPAY ==
[2018-04-01 01:24] VITALS: PULSE 100; RESP 31; O2SAT 97
[2018-04-01 03:24] VITALS: BMI 39.7
[2018-06-07 09:38] LABS: INR 3.8 (0.9-1.3); Prothrombin Time 45.2 SECONDS (10.1-12.7)
== END ==
LOC: LAB 09:26
PROVIDERS: PCP Internal Medicine; Visit Provider Hospitalist
DX: I48.91 Unspecified atrial fibrillation (principal)
CPT/HCPCS: 85610

== ENCOUNTER 2018-06-07 10:55 | Emergency (ER) | payer MEDICARE, OTHER, SELFPAY ==
[2018-04-01 01:24] VITALS: PULSE 100; RESP 31; O2SAT 97
[2018-04-01 03:24] VITALS: BMI 39.7
[2018-06-07] VITALS (21 sets, daily range): BP systolic 114–152; BP diastolic 41–80; PULSE 59–84; RESP 16–28; TEMP 36.4–36.7; O2SAT 90–98
--- NOTE | 2018-06-07 11:22 | DI.RAD.S_ITS ---
PROCEDURE: XR CHEST 1V INDICATIONS: chest pain TECHNIQUE: One view of the chest was acquired. COMPARISON: [facility], CR, XR CHEST 1V, 04/01/2018, 1:16. [facility], CR, XR CHEST 1V, 01/11/2018, 20:35. [facility], CR, XR CHEST 1V, 11/25/2017, 21:26. FINDINGS: Surgical changes and devices: None. Lungs and pleura: No pleural effusions or pneumothorax. Increased moderate diffuse air space opacity within the right mid and lower lung. Increased moderate airspace opacity within the left midlung. Mediastinum: Mediastinal contours appear normal. Heart size is normal. Bones and chest wall: No suspicious bony lesions. Overlying soft tissues appear unremarkable. IMPRESSION: Bilateral pneumonia. Continued plain film surveillance is recommended to ensure resolution, and to exclude underlying or central malignancy. Dictated by: Denis Lara M.D. on 06/07/2018 at 11:37 Approved by: Denis Lara M.D. on 06/07/2018 at 11:37
--- NOTE | 2018-06-07 11:27 | ED.SOB ---
HPI - SOB/Dyspnea General Chief Complaint: Shortness of Breath/Dyspnea Stated Complaint: Increased INR and SOB Time Seen by Provider: 06/07/18 11:06 Source: patient Mode of arrival: EMS Limitations: no limitations History of Present Illness An 83-year-old gentleman who comes to the emergency department with complaint of shortness of breath. Patient states that it has been going on for a couple days. He is requiring oxygen here in the emergency department. He states that is not normal for him. He has had swelling in his lower extremities pretty chronically has been somewhat worse. Patient denies any chest pain or pressure. No fevers. No cold cough or congestion. He had some nausea yesterday but none today. He has not had any vomiting. He denies any new urinary issues. He has been constipated but did have a bowel movement yesterday as well as some worsening of his hemorrhoids after some assistance with removing stool digitally by the staff. He has had a little bit of blood in his stool but just after the assistance of removing stool. Any had a nose bleed in the last week. He had aortic valve replacement by TAVR on May 02. He has been on warfarin but he they have had difficulty controlling his INR was elevated at 5 several days ago and they have been holding his Warfarin. Related Data Home Medications Medication Instructions Recorded Confirmed atorvastatin 40 mg QPM 11/21/17 06/07/18 escitalopram oxalate 20 mg QAM 11/21/17 06/07/18 ferrous sulfate 325 mg PO DAILY #0 11/21/17 06/07/18 glimepiride 1 mg PO QAM 11/21/17 06/07/18 tamsulosin 0.8 mg PO QPM 11/21/17 06/07/18 amlodipine 10 mg PO DAILY 01/11/18 06/07/18 Mucinex 400 mg PO BID PRN 06/07/18 06/07/18 acetaminophen 325 - 650 mg PO Q4H PRN 06/07/18 06/07/18 bisacodyl 5 - 10 mg PO PRN PRN 06/07/18 06/07/18 bisacodyl 10 mg MA PRN PRN 06/07/18 06/07/18 calcium carbonate 400 mg PO TID PRN 06/07/18 06/07/18 cholecalciferol (vitamin D3) 1,000 unit PO DAILY 06/07/18 06/07/18 clopidogrel 75 mg PO DAILY 06/07/18 06/07/18 docusate sodium 100 mg PO BID 06/07/18 06/07/18 hydralazine 75 mg PO TID 06/07/18 06/07/18 ipratropium-albuterol 3 ml INHALATION Q6H PRN 06/07/18 06/07/18 magnesium hydroxide [Milk of 30 ml PO PRN PRN 06/07/18 06/07/18 Magnesia] melatonin 3 mg PO BEDTIME 06/07/18 06/07/18 nystatin 1 applic TOPICAL BID 06/07/18 06/07/18 ondansetron 4 mg PO Q8H PRN 06/07/18 06/07/18 oxybutynin chloride 5 mg PO BID 06/07/18 06/07/18 oxymetazoline [Afrin 1 spray INTRANASAL PRN PRN 06/07/18 06/07/18 (oxymetazoline)] pantoprazole 40 mg PO DAILY 06/07/18 06/07/18 phenyleph-min oil-petrolatum 1 applic MA QAM AND QHS 06/07/18 06/07/18 [Preparation H] polyethylene glycol 3350 [Miralax] 17 g PO DAILY PRN 06/07/18 06/07/18 sennosides [senna] 17.2 mg PO BID 06/07/18 06/07/18 sodium phosphates [Fleet Enema] 1 ea MA PRN PRN 06/07/18 06/07/18 torsemide 20 mg PO DAILY 06/07/18 06/07/18 torsemide 40 mg PO DAILY 06/07/18 06/07/18 Previous Rx's Medication Instructions Recorded potassium chloride 20 meq PO DAILY #30 tab 11/29/17 Allergies Allergy/AdvReac Type Severity Reaction Status Date / Time BCG (Bacillus Allergy Unknown cancer drug Verified 06/07/18 11:20 Calmette-Lico) vacc [From BCG NATALIA VACCINE] atenolol Allergy Verified 06/07/18 11:20 felodipine [From Plendil] Allergy Verified 06/07/18 11:20 lisinopril Allergy Verified 06/07/18 11:20 metoprolol [From Toprol XL] Allergy Verified 06/07/18 11:20 Review of Systems Review of Systems All systems reviewed & are unremarkable except as noted in HPI and below Constitutional Denies chills, Denies fever(s), Denies lethargy and Denies weakness Cardiovascular Denies chest pain, Denies syncope, Reports edema, Denies irregular heart rhythm, Denies lightheadedness, Denies palpitations, Reports dyspnea, Reports dyspnea on exertion and Denies orthopnea Respiratory Denies chest congestion, Denies cough, Reports dyspnea and Reports dyspnea on exertion Gastrointestinal Gastrointestinal: Denies abdominal pain, Denies change in bowel habits, Reports constipation (last BM yesterday, large hard brick of stool, hemorrhoids), Denies diarrhea, Reports nausea (yesterday) and Denies vomiting Genitourinary Denies hematuria, Denies urinary incontinence and Denies urinary urgency Neurologic Denies syncope and Denies weakness Endocrine Denies palpitations [facility] Medical History Atrial fibrillation (Acute) Aortic stenosis (Chronic) BPH (benign prostatic hyperplasia) (Chronic) Barretts esophagus (Chronic) Chronic renal insufficiency, stage III (moderate) (Chronic) Fatty liver (Chronic) HTN (hypertension) (Chronic) History of GI bleed (Chronic) Hyperlipidemia (Chronic) ASHWIN (obstructive sleep apnea) (Chronic) Osteoarthritis of left hip (Chronic) Peripheral neuropathy (Chronic) Spinal stenosis, lumbar region with neurogenic claudication (Chronic) Type 2 diabetes mellitus (Chronic) Surgical History S/P TAVR (transcatheter aortic valve replacement) (Acute) H/O partial cystectomy (Resolved) S/P TURP (Resolved) Social History household members: children Smoking Status: Former smoker Tobacco: How many years used: 30 alcohol intake: former substance use type: does not use Exam Narrative Exam Narrative: GENERAL: Alert and oriented x three, obese male in moderate distress. HEENT: Head normocephalic, atraumatic, EOMI, pupils reactive, face symmetric, moist mucous membranes NECK: Supple, full range of motion CARDIOVASCULAR: Regular rate and rhythm without murmurs, rubs or gallops. No JVD appreciated. Patient has 2+ edema bilateral lower extremities. He is wearing compression socks as well. RESPIRATORY: Breath sounds decreased bilaterally, no wheezes rales or rhonchi. Patient has mild tachypnea. He is able to speak in full sentences. No accessory muscle use. ABDOMEN: Soft, nontender. Normoactive bowel sounds all 4 quadrants. No guarding or rebound, rigidity, no mass : No CVA tenderness EXTREMITIES: Normal range of motion, no clubbing or edema. Neurovascularly intact NEUROLOGICAL: Cranial nerves II through XII grossly intact. Moving all extremities SKIN: Warm, dry, no petechiae, no rashes or lesions. Initial Vital Signs Initial Vital Signs: Vital Signs Pulse Rate 84 06/07/18 11:00 Respiratory Rate 22 06/07/18 11:00 Blood Pressure 136/53 L 06/07/18 11:00 Pulse Oximetry 95 06/07/18 11:00 Course Orders Ordered: ED Orders 06/07/18 11:22 XR chest 1V Stat EKG-12 Lead Stat 06/07/18 12:16 B Type Natriuretic Peptide Stat Complete Blood Count AUTO DIFF Stat Comprehensive Metabolic Panel Stat Ethanol (ETOH) Stat Lipase Stat Partial Thromboplastin Time Stat Prothrombin Time INR Stat Troponin & CK Cardiac Panel Stat 06/07/18 14:05 Packed Cells Stat Type and Screen Stat 06/07/18 17:59 Urinalysis and Microscopic Stat Discontinued Medications Aspirin (Aspirin Chew) 324 mg PO NOW ONE Stop: 06/07/18 13:34 Last Admin: 06/07/18 13:57 Dose: 324 mg Furosemide (Lasix) 40 mg IV NOW ONE Stop: 06/07/18 13:40 Last Admin: 06/07/18 13:59 Dose: 40 mg Piperacillin/Tazobactam/Dextrose (Zosyn) 3.375 gm in 50 mls @ 100 mls/hr IV NOW ONE Stop: 06/07/18 14:04 Last Infusion: 06/07/18 15:00 Dose: 0 mls/hr Admin: 06/07/18 14:20 Dose: 100 mls/hr Morphine Sulfate (Morphine) 2 mg IV NOW ONE Stop: 06/07/18 18:22 Last Admin: 06/07/18 18:22 Dose: 2 mg Vital Signs - 8 hr 06/07/18 11:00 06/07/18 11:12 06/07/18 11:30 Temperature 97.8 F Pulse Rate 84 78 81 Respiratory Rate 22 22 17 Blood Pressure 136/53 L Blood Pressure [Left Arm] 136/53 L 114/80 Pulse Oximetry 95 95 96 06/07/18 12:18 06/07/18 12:30 06/07/18 13:00 Temperature Pulse Rate 70 79 81 Respiratory Rate 20 18 Blood Pressure Blood Pressure [Left Arm] 135/48 L 142/47 H 136/54 L Pulse Oximetry 98 96 06/07/18 13:30 06/07/18 14:00 06/07/18 14:30 Temperature Pulse Rate 67 74 68 Respiratory Rate 25 H 16 20 Blood Pressure Blood Pressure [Left Arm] 136/41 L 136/51 L 152/45 H Pulse Oximetry 95 06/07/18 15:28 06/07/18 15:48 06/07/18 15:56 Temperature 97.5 F L 97.6 F 97.6 F Pulse Rate 83 74 70 Respiratory Rate 18 18 22 Blood Pressure 128/74 136/53 L Blood Pressure [Left Arm] 136/53 L Pulse Oximetry 98 06/07/18 16:13 06/07/18 16:30 06/07/18 16:35 Temperature Pulse Rate 62 59 L 62 Respiratory Rate 24 23 28 H Blood Pressure Blood Pressure [Left Arm] 127/54 L 117/48 L 118/72 Pulse Oximetry 96 92 90 L 06/07/18 17:00 06/07/18 17:23 06/07/18 17:35 Temperature Pulse Rate 68 62 64 Respiratory Rate 23 20 24 Blood Pressure Blood Pressure [Left Arm] 123/43 L 123/43 L 119/43 L Pulse Oximetry 94 96 96 06/07/18 17:56 06/07/18 18:00 06/07/18 18:23 Temperature 98.1 F 97.6 F Pulse Rate 77 76 64 Respiratory Rate 18 27 H 22 Blood Pressure 119/63 132/72 Blood Pressure [Left Arm] 137/44 L Pulse Oximetry 95 MDM - SOB/Dyspnea Lab Data Attestation: I reviewed the patient's lab results. Result diagrams: 06/07/18 12:16 06/07/18 12:16 Lab Results 06/07/18 06/07/18 06/07/18 Range/Units 12:16 12:16 12:16 WBC 4.4 L (4.5-11.0) X10^3/uL RBC 2.60 L (4.5-5.9) X10^6/uL Hgb 7.5 L (13.5-17.5) g/dL Hct 23.0 L (41-53) % MCV 88.4 (80-100) fL MCH 28.7 (26-34) PG MCHC 32.5 (30-36) % RDW 18.2 H (11.6-14.8) % Plt Count 129 L (150-400) X10^3/uL Neut % (Auto) 77.6 H (50-75) % Lymph % (Auto) 6.9 L (25-40) % Barber % (Auto) 13.3 (3-14) % Eos % (Auto) 1.7 L (2-4) % Baso % (Auto) 0.5 (0-2) % Neut # (Auto) 3500 (9075-6455) /uL PT 41.1 H (10.1-12.7) SECONDS INR 3.5 H (0.9-1.3) APTT 45 H (26.4-36.2) SECONDS Sodium 142 (137-145) mmol/L Potassium 4.2 (3.4-5.1) mmol/L Chloride 102 (98-107) mmol/L Carbon Dioxide 29 (22-32) mmol/L BUN 64 H (9-20) mg/dL Creatinine 2.40 H (0.66-1.25) mg/dL Estimated GFR 26.1 L (>60) mL/min BUN/Creatinine Ratio 26.7 H (6-22) Glucose 119 H (80-110) mg/dL Calcium 8.4 (8.4-10.2) mg/dL Total Bilirubin 1.0 (0.2-1.3) mg/dL AST 42 (17-59) IU/L ALT 29 (21-72) IU/L Alkaline Phosphatase 53 (38-126) U/L Total Creatine Kinase 45 L (55-170) U/L CK-MB (CK-2) TNP CK-MB (CK-2) Rel Index TNP Troponin I 0.195 H* (0.01-0.034) ng/mL B-Natriuretic Peptide (<100) Total Protein 6.2 L (6.3-8.2) g/dL Albumin 3.7 (3.5-5.0) g/dL Globulin 2.5 (1.7-4.1) g/dL Albumin/Globulin Ratio 1.5 (1.0-2.8) Lipase 24 (23-300) U/L Ethyl Alcohol < 10 mg/dL Blood Type Antibody Screen Crossmatch 06/07/18 06/07/18 Range/Units 12:16 14:05 WBC (4.5-11.0) X10^3/uL RBC (4.5-5.9) X10^6/uL Hgb (13.5-17.5) g/dL Hct (41-53) % MCV (80-100) fL MCH (26-34) PG MCHC (30-36) % RDW (11.6-14.8) % Plt Count (150-400) X10^3/uL Neut % (Auto) (50-75) % Lymph % (Auto) (25-40) % Barber % (Auto) (3-14) % Eos % (Auto) (2-4) % Baso % (Auto) (0-2) % Neut # (Auto) (0524-2068) /uL PT (10.1-12.7) SECONDS INR (0.9-1.3) APTT (26.4-36.2) SECONDS Sodium (137-145) mmol/L Potassium (3.4-5.1) mmol/L Chloride (98-107) mmol/L Carbon Dioxide (22-32) mmol/L BUN (9-20) mg/dL Creatinine (0.66-1.25) mg/dL Estimated GFR (>60) mL/min BUN/Creatinine Ratio (6-22) Glucose (80-110) mg/dL Calcium (8.4-10.2) mg/dL Total Bilirubin (0.2-1.3) mg/dL AST (17-59) IU/L ALT (21-72) IU/L Alkaline Phosphatase (38-126) U/L Total Creatine Kinase (55-170) U/L CK-MB (CK-2) CK-MB (CK-2) Rel Index Troponin I (0.01-0.034) ng/mL B-Natriuretic Peptide 391 H (<100) Total Protein (6.3-8.2) g/dL Albumin (3.5-5.0) g/dL Globulin (1.7-4.1) g/dL Albumin/Globulin Ratio (1.0-2.8) Lipase (23-300) U/L Ethyl Alcohol mg/dL Blood Type A Positive Antibody Screen Negative Crossmatch See Detail Imaging Data Chest x-ray: Radiologist's impression: [address] [id number] XRay Report Signed Patient: Damián Garrett MR#: [id number] : 1935 Acct:[id number] Age/Sex: 83 / M Date of Service: 06/07/18 Loc: ED Accession Number: [id number] Procedure: XR chest 1V Ordering Provider: Gracia Greene D.O. PROCEDURE: XR CHEST 1V INDICATIONS: chest pain TECHNIQUE: One view of the chest was acquired. COMPARISON: [facility], CR, XR CHEST 1V, 04/01/2018, 1:16. [facility], CR, XR CHEST 1V, 01/11/2018, 20:35. [facility], CR, XR CHEST 1V, 11/25/2017, 21:26. FINDINGS: Surgical changes and devices: None. Lungs and pleura: No pleural effusions or pneumothorax. Increased moderate diffuse air space opacity within the right mid and lower lung. Increased moderate airspace opacity within the left midlung. Mediastinum: Mediastinal contours appear normal. Heart size is normal. Bones and chest wall: No suspicious bony lesions. Overlying soft tissues appear unremarkable. IMPRESSION: Bilateral pneumonia. Continued plain film surveillance is recommended to ensure resolution, and to exclude underlying or central malignancy. Dictated by: Denis Lara M.D. on 06/07/2018 at 11:37 Approved by: Denis Lara M.D. on 06/07/2018 at 11:37 ECG Data Attestation: I personally reviewed and interpreted this ECG as follows: Prior ECG tracings: available for review Interpretation: AFib with ventricular rate of 71, QRS of 174 and QTC of 468. Patient has about [address]-elevation in V2 V3 V4 does appears similar to old EKG. Does not meet Sgarbossa criteria. MDM Narrative Medical decision making narrative: Patient's chest x-ray shows pneumonia. EKG shows some new changes although not clearly GA. No depression is noted. Patient's troponin is positive. His hemoglobin is 7.5 and appears to be drifting down over the last month. Discussed with patient and he is open to blood transfusion, he has not noticed any bleeding other than yesterday after digitial disimpaction at rehab. He has been hypoxic when he arrived I suspect his pneumonia is true although he does not have an elevated white count, WBC is low. Patient was started on IV antibiotics, transfuse 1 unit. Chronic kidney disease appears to be stable over the past month, his BUN is elevated in the 60s but looks like he has been to 40s to 50 range regularly. Patient has not had any accessory muscle use, he has not been particularly tachypneic. He is able to speak in full sentences does not appear to be in respiratory distress at this time. He has not been hypertensive or tachycardic. He is on a calcium channel josue so this could blunt his tachycardic response. He has atrial fibrillation but has been rate controlled in his entire stay. He has been on Coumadin his INR has been slowly improving he was quite elevated, he was given aspirin here in the ED secondary to his cardiac issues. Patient had his aortic valve replaced in April on the contacted [facility] where he had his care at, called [facility] but they have no bed availability. They are waiting to put patient on a waiting list but likely will not have any beds for 24 hr. Patient needs likely at a higher level than were able to provide in the LEs. Time that called for beds availability on [facility] does have beds. Spoke with Dr. rose Anne who accepts for transfer. We discussed patient will only receive 1 unit of packed red blood cells, receive Lasix 40 mg IV. Patient is on 5 L nasal cannula and in the mid 90s for his oxygenation. CO2 capnography shows some in the 30s. Discussed with patient he is aware of the plan and comfortable with it. Critical Care Time Critical Care Time: Yes Total Critical Care Time: 120 Attestation: The high probability of a clinically significant, sudden or life threatening deterioration of the [cardiac, respiratory] system(s) required my full and direct attention, intervention and personal management. The aggregate critical care time was [120] minutes. This time is in addition to time spent performing reported procedures but includes the following: [x] Data Review and interpretation [x] Patient assessment and monitoring of vital signs [x] Documentation [x] Medication orders and management Discharge Plan Departure Patient Disposition: [facility] Clinical Impression: Pneumonia, Myocardial infarction, Symptomatic anemia, Atrial fibrillation, Chronic kidney disease Discharge Date/Time: 06/07/18 18:27 Interventions: ED Discharge Assessment Last Done: 06/07/18 16:45 Prescriptions: No Action atorvastatin 40 mg tablet 40 mg QPM RF: 0 escitalopram oxalate 20 mg tablet 20 mg QAM RF: 0 glimepiride 1 mg tablet 1 mg PO QAM RF: 0 tamsulosin 0.4 mg capsule,extended release 24hr 0.8 mg PO QPM RF: 0 ferrous sulfate 325 mg (65 mg iron) Tablet 325 mg PO DAILY Qty: 0 RF: 0 potassium chloride 20 mEq tablet extended release 20 meq PO DAILY Qty: 30 RF: 0 amlodipine 10 mg Tablet 10 mg PO DAILY RF: 0 sennosides [senna] 8.6 mg Tablet 17.2 mg PO BID RF: 0 torsemide 20 mg Tablet 20 mg PO DAILY RF: 0 torsemide 20 mg Tablet 40 mg PO DAILY RF: 0 hydralazine 25 mg Tablet 75 mg PO TID RF: 0 melatonin 3 mg Tablet 3 mg PO BEDTIME RF: 0 clopidogrel 75 mg Tablet 75 mg PO DAILY RF: 0 pantoprazole 40 mg Tablet,Delayed Release (Dr/Ec) 40 mg PO DAILY RF: 0 docusate sodium 100 mg Capsule 100 mg PO BID RF: 0 oxybutynin chloride 5 mg tablet extended release 24hr 5 mg PO BID RF: 0 nystatin 100,000 unit/gram Powder 1 applic TOPICAL BID RF: 0 cholecalciferol (vitamin D3) 1,000 unit Tablet 1,000 unit PO DAILY RF: 0 phenyleph-min oil-petrolatum [Preparation H] 0.25-14-74.9 % Ointment 1 applic MA QAM AND QHS RF: 0 acetaminophen 325 mg Tablet 325 - 650 mg PO Q4H PRN (Reason: Fever Or Pain) RF: 0 ipratropium-albuterol 0.5 mg-3 mg(2.5 mg base)/3 mL Solution For Nebulization 3 ml Inhalation Q6H PRN (Reason: Shortness Of Breath) RF: 0 magnesium hydroxide [Milk of Magnesia] 400 mg/5 mL Suspension 30 ml PO PRN PRN (Reason: Constipation) RF: 0 bisacodyl 10 mg Suppository 10 mg MA PRN PRN (Reason: Constipation) RF: 0 calcium carbonate 200 mg calcium (500 mg) Tablet,Chewable 400 mg PO TID PRN (Reason: Indigestion) RF: 0 sodium phosphates [Fleet Enema] 19-7 gram/118 mL Enema 1 ea MA PRN PRN (Reason: Constipation) RF: 0 bisacodyl 5 mg Tablet,Delayed Release (Dr/Ec) 5 - 10 mg PO PRN PRN (Reason: mild to severe constipation) RF: 0 polyethylene glycol 3350 [Miralax] 17 gram/dose Powder 17 g PO DAILY PRN (Reason: Constipation) RF: 0 ondansetron 4 mg Tablet,Disintegrating 4 mg PO Q8H PRN (Reason: Nausea And Vomiting) RF: 0 oxymetazoline [Afrin (oxymetazoline)] 0.05 % [place],Non-Aerosol 1 spray Intranasal PRN PRN (Reason: nosebleed) RF: 0 Mucinex 400 mg PO BID PRN (Reason: Cough) RF: 0 Stand Alone Forms: Against Medical Advice
--- NOTE | 2018-06-07 11:54 | ED_ITS ---
HPI - SOB/Dyspnea General Chief Complaint: Shortness of Breath/Dyspnea Stated Complaint: Increased INR and SOB Time Seen by Provider: 06/07/18 11:06 Source: patient Mode of arrival: EMS Limitations: no limitations History of Present Illness An 83-year-old gentleman who comes to the emergency department with complaint of shortness of breath. Patient states that it has been going on for a couple days. He is requiring oxygen here in the emergency department. He states that is not normal for him. He has had swelling in his lower extremities pretty chronically has been somewhat worse. Patient denies any chest pain or pressure. No fevers. No cold cough or congestion. He had some nausea yesterday but none today. He has not had any vomiting. He denies any new urinary issues. He has been constipated but did have a bowel movement yesterday as well as some worsening of his hemorrhoids after some assistance with removing stool digitally by the staff. He has had a little bit of blood in his stool but just after the assistance of removing stool. Any had a nose bleed in the last week. He had aortic valve replacement by TAVR on May 02. He has been on warfarin but he they have had difficulty controlling his INR was elevated at 5 several days ago and they have been holding his Warfarin. Related Data Home Medications Medication Instructions Recorded Confirmed atorvastatin 40 mg QPM 11/21/17 06/07/18 escitalopram oxalate 20 mg QAM 11/21/17 06/07/18 ferrous sulfate 325 mg PO DAILY #0 11/21/17 06/07/18 glimepiride 1 mg PO QAM 11/21/17 06/07/18 tamsulosin 0.8 mg PO QPM 11/21/17 06/07/18 amlodipine 10 mg PO DAILY 01/11/18 06/07/18 Mucinex 400 mg PO BID PRN 06/07/18 06/07/18 acetaminophen 325 - 650 mg PO Q4H PRN 06/07/18 06/07/18 bisacodyl 5 - 10 mg PO PRN PRN 06/07/18 06/07/18 bisacodyl 10 mg NC PRN PRN 06/07/18 06/07/18 calcium carbonate 400 mg PO TID PRN 06/07/18 06/07/18 cholecalciferol (vitamin D3) 1,000 unit PO DAILY 06/07/18 06/07/18 clopidogrel 75 mg PO DAILY 06/07/18 06/07/18 docusate sodium 100 mg PO BID 06/07/18 06/07/18 hydralazine 75 mg PO TID 06/07/18 06/07/18 ipratropium-albuterol 3 ml INHALATION Q6H PRN 06/07/18 06/07/18 magnesium hydroxide [Milk of 30 ml PO PRN PRN 06/07/18 06/07/18 Magnesia] melatonin 3 mg PO BEDTIME 06/07/18 06/07/18 nystatin 1 applic TOPICAL BID 06/07/18 06/07/18 ondansetron 4 mg PO Q8H PRN 06/07/18 06/07/18 oxybutynin chloride 5 mg PO BID 06/07/18 06/07/18 oxymetazoline [Afrin 1 spray INTRANASAL PRN PRN 06/07/18 06/07/18 (oxymetazoline)] pantoprazole 40 mg PO DAILY 06/07/18 06/07/18 phenyleph-min oil-petrolatum 1 applic NC QAM AND QHS 06/07/18 06/07/18 [Preparation H] polyethylene glycol 3350 [Miralax] 17 g PO DAILY PRN 06/07/18 06/07/18 sennosides [senna] 17.2 mg PO BID 06/07/18 06/07/18 sodium phosphates [Fleet Enema] 1 ea NC PRN PRN 06/07/18 06/07/18 torsemide 20 mg PO DAILY 06/07/18 06/07/18 torsemide 40 mg PO DAILY 06/07/18 06/07/18 Previous Rx's Medication Instructions Recorded potassium chloride 20 meq PO DAILY #30 tab 11/29/17 Allergies Allergy/AdvReac Type Severity Reaction Status Date / Time BCG (Bacillus Allergy Unknown cancer drug Verified 06/07/18 11:20 Calmette-Lico) vacc [From BCG NATALIA VACCINE] atenolol Allergy Verified 06/07/18 11:20 felodipine [From Plendil] Allergy Verified 06/07/18 11:20 lisinopril Allergy Verified 06/07/18 11:20 metoprolol [From Toprol XL] Allergy Verified 06/07/18 11:20 Review of Systems Review of Systems All systems reviewed & are unremarkable except as noted in HPI and below Constitutional Denies chills, Denies fever(s), Denies lethargy and Denies weakness Cardiovascular Denies chest pain, Denies syncope, Reports edema, Denies irregular heart rhythm , Denies lightheadedness, Denies palpitations, Reports dyspnea, Reports dyspnea on exertion and Denies orthopnea Respiratory Denies chest congestion, Denies cough, Reports dyspnea and Reports dyspnea on exertion Gastrointestinal Gastrointestinal: Denies abdominal pain, Denies change in bowel habits, Reports constipation (last BM yesterday, large hard brick of stool, hemorrhoids), Denies diarrhea, Reports nausea (yesterday) and Denies vomiting Genitourinary Denies hematuria, Denies urinary incontinence and Denies urinary urgency Neurologic Denies syncope and Denies weakness Endocrine Denies palpitations [facility] Medical History Atrial fibrillation (Acute) Aortic stenosis (Chronic) BPH (benign prostatic hyperplasia) (Chronic) Barretts esophagus (Chronic) Chronic renal insufficiency, stage III (moderate) (Chronic) Fatty liver (Chronic) HTN (hypertension) (Chronic) History of GI bleed (Chronic) Hyperlipidemia (Chronic) ASHWIN (obstructive sleep apnea) (Chronic) Osteoarthritis of left hip (Chronic) Peripheral neuropathy (Chronic) Spinal stenosis, lumbar region with neurogenic claudication (Chronic) Type 2 diabetes mellitus (Chronic) Surgical History S/P TAVR (transcatheter aortic valve replacement) (Acute) H/O partial cystectomy (Resolved) S/P TURP (Resolved) Social History household members: children Smoking Status: Former smoker Tobacco: How many years used: 30 alcohol intake: former substance use type: does not use Exam Narrative Exam Narrative: GENERAL: Alert and oriented x three, obese male in moderate distress. HEENT: Head normocephalic, atraumatic, EOMI, pupils reactive, face symmetric, moist mucous membranes NECK: Supple, full range of motion CARDIOVASCULAR: Regular rate and rhythm without murmurs, rubs or gallops. No JVD appreciated. Patient has 2+ edema bilateral lower extremities. He is wearing compression socks as well. RESPIRATORY: Breath sounds decreased bilaterally, no wheezes rales or rhonchi. Patient has mild tachypnea. He is able to speak in full sentences. No accessory muscle use. ABDOMEN: Soft, nontender. Normoactive bowel sounds all 4 quadrants. No guarding or rebound, rigidity, no mass : No CVA tenderness EXTREMITIES: Normal range of motion, no clubbing or edema. Neurovascularly intact NEUROLOGICAL: Cranial nerves II through XII grossly intact. Moving all extremities SKIN: Warm, dry, no petechiae, no rashes or lesions. Initial Vital Signs Initial Vital Signs: Vital Signs Pulse Rate 84 06/07/18 11:00 Respiratory Rate 22 06/07/18 11:00 Blood Pressure 136/53 L 06/07/18 11:00 Pulse Oximetry 95 06/07/18 11:00 Course Orders Ordered: ED Orders 06/07/18 11:22 XR chest 1V Stat EKG-12 Lead Stat 06/07/18 12:16 B Type Natriuretic Peptide Stat Complete Blood Count AUTO DIFF Stat Comprehensive Metabolic Panel Stat Ethanol (ETOH) Stat Lipase Stat Partial Thromboplastin Time Stat Prothrombin Time INR Stat Troponin & CK Cardiac Panel Stat 06/07/18 14:05 Packed Cells Stat Type and Screen Stat 06/07/18 17:59 Urinalysis and Microscopic Stat Discontinued Medications Aspirin (Aspirin Chew) 324 mg PO NOW ONE Stop: 06/07/18 13:34 Last Admin: 06/07/18 13:57 Dose: 324 mg Furosemide (Lasix) 40 mg IV NOW ONE Stop: 06/07/18 13:40 Last Admin: 06/07/18 13:59 Dose: 40 mg Piperacillin/Tazobactam/Dextrose (Zosyn) 3.375 gm in 50 mls @ 100 mls/hr IV NOW ONE Stop: 06/07/18 14:04 Last Infusion: 06/07/18 15:00 Dose: 0 mls/hr Admin: 06/07/18 14:20 Dose: 100 mls/hr Morphine Sulfate (Morphine) 2 mg IV NOW ONE Stop: 06/07/18 18:22 Last Admin: 06/07/18 18:22 Dose: 2 mg Vital Signs - 8 hr 06/07/18 11:00 06/07/18 11:12 06/07/18 11:30 Temperature 97.8 F Pulse Rate 84 78 81 Respiratory Rate 22 22 17 Blood Pressure 136/53 L Blood Pressure [Left Arm] 136/53 L 114/80 Pulse Oximetry 95 95 96 06/07/18 12:18 06/07/18 12:30 06/07/18 13:00 Temperature Pulse Rate 70 79 81 Respiratory Rate 20 18 Blood Pressure Blood Pressure [Left Arm] 135/48 L 142/47 H 136/54 L Pulse Oximetry 98 96 06/07/18 13:30 06/07/18 14:00 06/07/18 14:30 Temperature Pulse Rate 67 74 68 Respiratory Rate 25 H 16 20 Blood Pressure Blood Pressure [Left Arm] 136/41 L 136/51 L 152/45 H Pulse Oximetry 95 06/07/18 15:28 06/07/18 15:48 06/07/18 15:56 Temperature 97.5 F L 97.6 F 97.6 F Pulse Rate 83 74 70 Respiratory Rate 18 18 22 Blood Pressure 128/74 136/53 L Blood Pressure [Left Arm] 136/53 L Pulse Oximetry 98 06/07/18 16:13 06/07/18 16:30 06/07/18 16:35 Temperature Pulse Rate 62 59 L 62 Respiratory Rate 24 23 28 H Blood Pressure Blood Pressure [Left Arm] 127/54 L 117/48 L 118/72 Pulse Oximetry 96 92 90 L 06/07/18 17:00 06/07/18 17:23 06/07/18 17:35 Temperature Pulse Rate 68 62 64 Respiratory Rate 23 20 24 Blood Pressure Blood Pressure [Left Arm] 123/43 L 123/43 L 119/43 L Pulse Oximetry 94 96 96 06/07/18 17:56 06/07/18 18:00 06/07/18 18:23 Temperature 98.1 F 97.6 F Pulse Rate 77 76 64 Respiratory Rate 18 27 H 22 Blood Pressure 119/63 132/72 Blood Pressure [Left Arm] 137/44 L Pulse Oximetry 95 MDM - SOB/Dyspnea Lab Data Attestation: I reviewed the patient's lab results. Result diagrams: 06/07/18 12:16 06/07/18 12:16 Lab Results 06/07/18 06/07/18 06/07/18 Range/Units 12:16 12:16 12:16 WBC 4.4 L (4.5-11.0) X10^3/uL RBC 2.60 L (4.5-5.9) X10^6/uL Hgb 7.5 L (13.5-17.5) g/dL Hct 23.0 L (41-53) % MCV 88.4 (80-100) fL MCH 28.7 (26-34) PG MCHC 32.5 (30-36) % RDW 18.2 H (11.6-14.8) % Plt Count 129 L (150-400) X10^3/uL Neut % (Auto) 77.6 H (50-75) % Lymph % (Auto) 6.9 L (25-40) % [place] % (Auto) 13.3 (3-14) % Eos % (Auto) 1.7 L (2-4) % Baso % (Auto) 0.5 (0-2) % Neut # (Auto) 3500 (1703-6203) /uL PT 41.1 H (10.1-12.7) SECONDS INR 3.5 H (0.9-1.3) APTT 45 H (26.4-36.2) SECONDS Sodium 142 (137-145) mmol/L Potassium 4.2 (3.4-5.1) mmol/L Chloride 102 (98-107) mmol/L Carbon Dioxide 29 (22-32) mmol/L BUN 64 H (9-20) mg/dL Creatinine 2.40 H (0.66-1.25) mg/dL Estimated GFR 26.1 L (>60) mL/min BUN/Creatinine Ratio 26.7 H (6-22) Glucose 119 H (80-110) mg/dL Calcium 8.4 (8.4-10.2) mg/dL Total Bilirubin 1.0 (0.2-1.3) mg/dL AST 42 (17-59) IU/L ALT 29 (21-72) IU/L Alkaline Phosphatase 53 (38-126) U/L Total Creatine Kinase 45 L (55-170) U/L CK-MB (CK-2) TNP CK-MB (CK-2) Rel Index TNP Troponin I 0.195 H* (0.01-0.034) ng/mL B-Natriuretic Peptide (<100) Total Protein 6.2 L (6.3-8.2) g/dL Albumin 3.7 (3.5-5.0) g/dL Globulin 2.5 (1.7-4.1) g/dL Albumin/Globulin Ratio 1.5 (1.0-2.8) Lipase 24 (23-300) U/L Ethyl Alcohol < 10 mg/dL Blood Type Antibody Screen Crossmatch 06/07/18 06/07/18 Range/Units 12:16 14:05 WBC (4.5-11.0) X10^3/uL RBC (4.5-5.9) X10^6/uL Hgb (13.5-17.5) g/dL Hct (41-53) % MCV (80-100) fL MCH (26-34) PG MCHC (30-36) % RDW (11.6-14.8) % Plt Count (150-400) X10^3/uL Neut % (Auto) (50-75) % Lymph % (Auto) (25-40) % [place] % (Auto) (3-14) % Eos % (Auto) (2-4) % Baso % (Auto) (0-2) % Neut # (Auto) (6450-6596) /uL PT (10.1-12.7) SECONDS INR (0.9-1.3) APTT (26.4-36.2) SECONDS Sodium (137-145) mmol/L Potassium (3.4-5.1) mmol/L Chloride (98-107) mmol/L Carbon Dioxide (22-32) mmol/L BUN (9-20) mg/dL Creatinine (0.66-1.25) mg/dL Estimated GFR (>60) mL/min BUN/Creatinine Ratio (6-22) Glucose (80-110) mg/dL Calcium (8.4-10.2) mg/dL Total Bilirubin (0.2-1.3) mg/dL AST (17-59) IU/L ALT (21-72) IU/L Alkaline Phosphatase (38-126) U/L Total Creatine Kinase (55-170) U/L CK-MB (CK-2) CK-MB (CK-2) Rel Index Troponin I (0.01-0.034) ng/mL B-Natriuretic Peptide 391 H (<100) Total Protein (6.3-8.2) g/dL Albumin (3.5-5.0) g/dL Globulin (1.7-4.1) g/dL Albumin/Globulin Ratio (1.0-2.8) Lipase (23-300) U/L Ethyl Alcohol mg/dL Blood Type A Positive Antibody Screen Negative Crossmatch See Detail Imaging Data Chest x-ray: Radiologist's impression: [address] [address] XRay Report Signed Patient: Damián Garrett MR#: [id number] : 1935 Acct:[id number] Age/Sex: 83 / M Date of Service: 06/07/18 Loc: ED Accession Number: [id number] Procedure: XR chest 1V Ordering Provider: Gracia Greene D.O. PROCEDURE: XR CHEST 1V INDICATIONS: chest pain TECHNIQUE: One view of the chest was acquired. COMPARISON: [facility], CR, XR CHEST 1V, 04/01/2018, 1:16. [facility], CR, XR CHEST 1V, 01/11/2018, 20:35. [facility], CR, XR CHEST 1V, 11/25/2017, 21:26. FINDINGS: Surgical changes and devices: None. Lungs and pleura: No pleural effusions or pneumothorax. Increased moderate diffuse air space opacity within the right mid and lower lung. Increased moderate airspace opacity within the left midlung. Mediastinum: Mediastinal contours appear normal. Heart size is normal. Bones and chest wall: No suspicious bony lesions. Overlying soft tissues appear unremarkable. IMPRESSION: Bilateral pneumonia. Continued plain film surveillance is recommended to ensure resolution, and to exclude underlying or central malignancy. Dictated by: Denis Lara M.D. on 06/07/2018 at 11:37 Approved by: Denis Lara M.D. on 06/07/2018 at 11:37 ECG Data Attestation: I personally reviewed and interpreted this ECG as follows: Prior ECG tracings: available for review Interpretation: AFib with ventricular rate of 71, QRS of 174 and QTC of 468. Patient has about [address]-elevation in V2 V3 V4 does appears similar to old EKG. Does not meet Sgarbossa criteria. MDM Narrative Medical decision making narrative: Patient's chest x-ray shows pneumonia. EKG shows some new changes although not clearly [place]. No depression is noted. Patient's troponin is positive. His hemoglobin is 7.5 and appears to be drifting down over the last month. Discussed with patient and he is open to blood transfusion, he has not noticed any bleeding other than yesterday after digitial disimpaction at rehab. He has been hypoxic when he arrived I suspect his pneumonia is true although he does not have an elevated white count, WBC is low. Patient was started on IV antibiotics, transfuse 1 unit. Chronic kidney disease appears to be stable over the past month, his BUN is elevated in the 60s but looks like he has been to 40s to 50 range regularly. Patient has not had any accessory muscle use, he has not been particularly tachypneic. He is able to speak in full sentences does not appear to be in respiratory distress at this time. He has not been hypertensive or tachycardic. He is on a calcium channel josue so this could blunt his tachycardic response. He has atrial fibrillation but has been rate controlled in his entire stay. He has been on Coumadin his INR has been slowly improving he was quite elevated, he was given aspirin here in the ED secondary to his cardiac issues. Patient had his aortic valve replaced in April on the contacted [facility] where he had his care at, called [facility] but they have no bed availability. They are waiting to put patient on a waiting list but likely will not have any beds for 24 hr. Patient needs likely at a higher level than were able to provide in the LEs. Time that called for beds availability on [facility] does have beds. Spoke with Dr. rose Anne who accepts for transfer. We discussed patient will only receive 1 unit of packed red blood cells, receive Lasix 40 mg IV. Patient is on 5 L nasal cannula and in the mid 90s for his oxygenation. CO2 capnography shows some in the 30s. Discussed with patient he is aware of the plan and comfortable with it. Critical Care Time Critical Care Time: Yes Total Critical Care Time: 120 Attestation: The high probability of a clinically significant, sudden or life threatening deterioration of the [cardiac, respiratory] system(s) required my full and direct attention, intervention and personal management. The aggregate critical care time was [120] minutes. This time is in addition to time spent performing reported procedures but includes the following: [x] Data Review and interpretation [x] Patient assessment and monitoring of vital signs [x] Documentation [x] Medication orders and management Discharge Plan Departure Patient Disposition: [facility] Clinical Impression: Pneumonia, Myocardial infarction, Symptomatic anemia, Atrial fibrillation, Chronic kidney disease Discharge Date/Time: 06/07/18 18:27 Interventions: ED Discharge Assessment Last Done: 06/07/18 16:45 Prescriptions: No Action atorvastatin 40 mg tablet 40 mg QPM RF: 0 escitalopram oxalate 20 mg tablet 20 mg QAM RF: 0 glimepiride 1 mg tablet 1 mg PO QAM RF: 0 tamsulosin 0.4 mg capsule,extended release 24hr 0.8 mg PO QPM RF: 0 ferrous sulfate 325 mg (65 mg iron) Tablet 325 mg PO DAILY Qty: 0 RF: 0 potassium chloride 20 mEq tablet extended release 20 meq PO DAILY Qty: 30 RF: 0 amlodipine 10 mg Tablet 10 mg PO DAILY RF: 0 sennosides [senna] 8.6 mg Tablet 17.2 mg PO BID RF: 0 torsemide 20 mg Tablet 20 mg PO DAILY RF: 0 torsemide 20 mg Tablet 40 mg PO DAILY RF: 0 hydralazine 25 mg Tablet 75 mg PO TID RF: 0 melatonin 3 mg Tablet 3 mg PO BEDTIME RF: 0 clopidogrel 75 mg Tablet 75 mg PO DAILY RF: 0 pantoprazole 40 mg Tablet,Delayed Release (Dr/Ec) 40 mg PO DAILY RF: 0 docusate sodium 100 mg Capsule 100 mg PO BID RF: 0 oxybutynin chloride 5 mg tablet extended release 24hr 5 mg PO BID RF: 0 nystatin 100,000 unit/gram Powder 1 applic TOPICAL BID RF: 0 cholecalciferol (vitamin D3) 1,000 unit Tablet 1,000 unit PO DAILY RF: 0 phenyleph-min oil-petrolatum [Preparation H] 0.25-14-74.9 % Ointment 1 applic NC QAM AND QHS RF: 0 acetaminophen 325 mg Tablet 325 - 650 mg PO Q4H PRN (Reason: Fever Or Pain) RF: 0 ipratropium-albuterol 0.5 mg-3 mg(2.5 mg base)/3 mL Solution For Nebulization 3 ml Inhalation Q6H PRN (Reason: Shortness Of Breath) RF: 0 magnesium hydroxide [Milk of Magnesia] 400 mg/5 mL Suspension 30 ml PO PRN PRN (Reason: Constipation) RF: 0 bisacodyl 10 mg Suppository 10 mg NC PRN PRN (Reason: Constipation) RF: 0 calcium carbonate 200 mg calcium (500 mg) Tablet,Chewable 400 mg PO TID PRN (Reason: Indigestion) RF: 0 sodium phosphates [Fleet Enema] 19-7 gram/118 mL Enema 1 ea NC PRN PRN (Reason: Constipation) RF: 0 bisacodyl 5 mg Tablet,Delayed Release (Dr/Ec) 5 - 10 mg PO PRN PRN (Reason: mild to severe constipation) RF: 0 polyethylene glycol 3350 [Miralax] 17 gram/dose Powder 17 g PO DAILY PRN (Reason: Constipation) RF: 0 ondansetron 4 mg Tablet,Disintegrating 4 mg PO Q8H PRN (Reason: Nausea And Vomiting) RF: 0 oxymetazoline [Afrin (oxymetazoline)] 0.05 % [place],Non-Aerosol 1 spray Intranasal PRN PRN (Reason: nosebleed) RF: 0 Mucinex 400 mg PO BID PRN (Reason: Cough) RF: 0 Stand Alone Forms: Against Medical Advice
[2018-06-07 12:34] LABS: Add Manual Diff / Slide Review NO; Basophils Percent Auto 0.5 % (0-2); Eosinophils Percent Auto 1.7 % (2-4); Hemoglobin 7.5 g/dL (13.5-17.5); INR 3.5 (0.9-1.3); Lymphocytes Percent Auto 6.9 % (25-40); Mean Corpuscular HGB Conc 32.5 % (30-36); Mean Corpuscular Hemoglobin 28.7 PG (26-34); Mean Corpuscular Volume 88.4 fL (80-100); Monocytes Percent Auto 13.3 % (3-14); Neutrophils Absolute Auto 3500 /uL (1500-7000); Neutrophils Percent Auto 77.6 % (50-75); Platelet Count 129 X10^3/uL (150-400); Prothrombin Time 41.1 SECONDS (10.1-12.7); Red Cell Distribution Width 18.2 % (11.6-14.8); White Blood Cell Count 4.4 X10^3/uL (4.5-11.0)
[2018-06-07 12:37] LABS: PTT Partial Thromboplastin Tim 45 SECONDS (26.4-36.2)
[2018-06-07 12:40] LABS: Alanine Aminotransferase 29 IU/L (21-72); Albumin 3.7 g/dL (3.5-5.0); Albumin Globulin Ratio 1.5 (1.0-2.8); Alkaline Phosphatase 53 U/L (38-126); Aspartate Aminotransferase 42 IU/L (17-59); BUN Creatinine Ratio 26.7 (6-22); Blood Urea Nitrogen 64 mg/dL (9-20); Calcium 8.4 mg/dL (8.4-10.2); Carbon Dioxide 29 mmol/L (22-32); Chloride 102 mmol/L (98-107); Creatine Kinase 45 U/L (55-170); Estimated Glomerular Filt Rate 26.1 mL/min (>60); Globulin 2.5 g/dL (1.7-4.1); Glucose 119 mg/dL (80-110); HEMOLYSIS < 15 (0-50); Lipase 24 U/L (23-300); Potassium 4.2 mmol/L (3.4-5.1); Sodium 142 mmol/L (137-145); Total Protein 6.2 g/dL (6.3-8.2)
[2018-06-07 12:50] LABS: B Type Natriuretic Peptide 391 (<100)
[2018-06-07 13:16] LABS: Troponin I 0.195 ng/mL (0.01-0.034)
[2018-06-07 13:19] LABS: Ethanol (ETOH) < 10 mg/dL
[2018-06-07] MEDS: ASPIRIN 81 MG TAB 324 MG PO (13:57)
[2018-06-07] MEDS: FUROSEMIDE 40 MG/4 ML VIAL IV (13:59)
[2018-06-07] MEDS: PIPERACILLIN-TAZO 3.375 GM/50 ML FROZ.PIGGY IV (14:20)
--- NOTE | 2018-06-07 16:36 | PC.NURSE ---
Sat 90% after decreasing oxygen to 4l. Increased to 6l NC.
--- NOTE | 2018-06-07 16:47 | PC.NURSE ---
Report called to Meg, pt will be transported to room 836: Report taken by Uriel. Will call Holly boss/ updated report upon pt leaving department. Pt and son verbalized understanding of transfer.
[2018-06-07] MEDS: MORPHINE 2 MG/ML INJ IV (18:22)
== END 2018-06-07 18:27 | disposition short-term general hospital (02) ==
PROVIDERS: Emergency Provider Emergency Medicine; PCP Internal Medicine
DX: J18.9 Pneumonia, unspecified organism (principal); I21.9 Acute myocardial infarction, unspecified; D64.9 Anemia, unspecified; I48.91 Unspecified atrial fibrillation; N18.9 Chronic kidney disease, unspecified
CPT/HCPCS: 36430; 36591; 71045; 80053; 80320; 82550; 83690; 83880; 84484; 85025; 85610; 85730; 86850; 86900; 86901; 93005; 96365; 96375; 99285; P9016; J1940; J2270; J2543